=== PATIENT | female | born 1930 | race Caucasian/White ===

== ENCOUNTER 2018-07-07 20:18 | Observation (INO) | payer OTHER ==
[2018-07-07 22:20] LABS: Absolute Lymphocytes (CBC) 1.9 K/uL (0.7-4.9); Absolute Monocytes 0.6 K/uL (0.1-1.3); Absolute Neutrophil 5.4 K/uL (1.8-8.0); Basophils % 0.9 % (0-1.3); Eosinophils % 1.9 % (0-4.4); Hematocrit 31.8 % (36.0-45.0); Lymphocytes % 23.4 % (15.3-44.8); MPV 8.4 fL (7.6-11.3); Monocytes % 7.4 % (3.3-12.3)
[2018-07-07 22:30] LABS: Protime INR 1.22
[2018-07-07 22:33] LABS: ALT/SGPT 29 U/L (12-78); AST/SGOT 23 U/L (15-37); Albumin 2.8 g/dL (3.4-5.0); Alkaline Phosphatase 82 U/L (45-117); BUN Blood Urea Nitrogen 11 mg/dL (7-18); Bicarbonate 33 mmol/L (21-32); Bilirubin Direct 0.1 mg/dL (0-0.2); Bilirubin Total 0.3 mg/dL (0.2-1.0); Glucose Level 215 mg/dL (74-106); Magnesium 1.5 mg/dL (1.8-2.4); NT PRO-BNP 104 pg/mL (<450); Potassium 4.7 mmol/L (3.5-5.1); Protein, Total 6.4 g/dL (6.4-8.2); Sodium Level 143 mmol/L (136-145); Troponin (Emerg Dept Use Only) < 0.02 ng/mL (0.0-0.045)
[2018-07-08] MEDS ORDERED: NA CHLORIDE 0.9% 500 ML ONE (00:09)
[2018-07-08] MEDS ORDERED: Magnesium Sulfate 2gm IVPB 2 G/50 ML BAG IV ONE (00:09)
[2018-07-08 00:23] LABS: Urine Bacteria <20 /HPF (<20); Urine RBC <5 /HPF (NONE SEEN)
[2018-07-08 00:24] LABS: Urine Culture Reflex Order REFLEXED
[2018-07-08 00:26] LABS: Urine Blood TRACE (NEG); Urine Glucose NEGATIVE (NEG); Urine Protein NEGATIVE (NEG)
[2018-07-08] MEDS ORDERED: CEFTRIAXONE 1000 MG/VIAL ONE (01:15)
--- NOTE | 2018-07-08 01:29 | ER ---
Nurse's Notes [facility] Name: Kyung Quinones Age: 87 yrs Sex: Female : 1930 Arrival Date: 07/07/2018 Time: 20:22 Bed 18 Private MD: Diagnosis: Acute dyspnea;UTI Presentation: 07/07 20:30 Presenting complaint: Child states: "She lives at [facility] and the med aid told me lp1 that she became real short of breath walking back to room after dinner, stated she felt dizzy and if she stood back up she would pass out"; Denies any shortness of breath now, daughter states similar symptoms when diagnosed with pneumonia. Transition of care: patient was not received from another setting of care. Onset of symptoms was July 07, 2018 at 17:00. Risk Assessment: Do you want to hurt yourself or someone else? Patient reports no desire to harm self or others. Initial Sepsis Screen: Does the patient meet any 2 criteria? No. Patient's initial sepsis screen is negative. Does the patient have a suspected source of infection? No. Patient's initial sepsis screen is negative. Care prior to arrival: None. 20:30 Method Of Arrival: Wheelchair lp1 20:30 Acuity: YAS 3 lp1 Triage Assessment: 21:00 Respiratory: Reports shortness of breath Onset: The symptoms/episode began/occurred ea today, the patient has mild shortness of breath. 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 Thyroid 30 mg oral tab ea [Active]; promethazine 25 mg Oral tab 1 tab [Active]; glimepiride 4 mg Oral tab 1 tab once daily [Active]; metformin 500 mg Oral Tb24 1 tab 2 times per day [Active]; acyclovir 200 mg Oral cap [Active]; benzonatate 200 mg oral cap 1 cap [Active]; levalbuterol HCl 1.25 mg/3 mL inhalation nebu 3 mL 3 times per day [Active]; gabapentin 300 mg Oral cap 1 cap twice a day [Active]; Vitamin D3 5,000 unit oral tab [Active]; Eliquis 5 mg oral tab 1 tab [Active]; albuterol sulfate 2.5 mg/0.5 mL Inhl nebu 0.5 mL [Active]; cefdinir 300 mg oral cap 1 cap every 12 hours [Active]; Lipitor 40 mg Oral tab 1 tab once daily [Active]; fluconazole 200 mg Oral tab 1 tab once daily [Active]; Cipro 500 mg Oral tab 1 tab every 12 hours [Active]; - PMHx: 20:34 COLON CA; Diabetes - NIDDM; Hypertension; neuropathy; lp1 - PSHx: 21:27 Hysterectomy; Appendectomy; ea - Immunization history:: Pneumococcal vaccine is up to date, Flu vaccine is up to date. - Social history:: Smoking status: Patient/guardian denies using tobacco. - Ebola Screening: : No symptoms or risks identified at this time. - Family history:: not pertinent. - Hospitalizations: : No recent hospitalization is reported. Screenin:34 Abuse screen: Denies threats or abuse. Denies injuries from another. Nutritional lp1 screening: No deficits noted. Tuberculosis screening: No symptoms or risk factors identified. 21:00 Fall Risk Gait- Weak (10 pts.). ea Assessment: 20:50 General: Appears in no apparent distress. Behavior is calm, cooperative, appropriate ea for age. Pain: Denies pain. Neuro: Level of Consciousness is awake, alert, obeys commands, Oriented to person, place, time. Cardiovascular: Heart tones S1 S2 present. Respiratory: Airway is patent Respiratory effort is even, unlabored, Respiratory pattern is regular, symmetrical, Breath sounds are clear bilaterally. Breath sounds are diminished. GI: Abdomen is non-distended. Derm: Skin is pink, warm \\T\\ dry. 21:50 Reassessment: Patient and/or family updated on plan of care and expected duration. Pain ea level reassessed. Patient is alert, oriented x 3, equal unlabored respirations, skin warm/dry/pink. 22:28 Reassessment: Patient and/or family updated on plan of care and expected duration. Pain ea level reassessed. Patient is alert, oriented x 3, equal unlabored respirations, skin warm/dry/pink. 23:30 Reassessment: Patient and/or family updated on plan of care and expected duration. Pain ea level reassessed. Patient is alert, oriented x 3, equal unlabored respirations, skin warm/dry/pink. 07/08 00:18 Reassessment: Patient and/or family updated on plan of care and expected duration. Pain ea level reassessed. Patient is alert, oriented x 3, equal unlabored respirations, skin warm/dry/pink. Patient denies pain at this time. 01:00 Reassessment: Patient and/or family updated on plan of care and expected duration. Pain ea level reassessed. Patient is alert, oriented x 3, equal unlabored respirations, skin warm/dry/pink. Awaiting on results. Family at bedside. 02:33 Reassessment: Patient and/or family updated on plan of care and expected duration. Pain ea level reassessed. Patient is alert, oriented x 3, equal unlabored respirations, skin warm/dry/pink. Patient denies pain at this time. report called to receiving nurse on second floor. . 02:46 Reassessment: Patient and/or family updated on plan of care and expected duration. Pain ea level reassessed. Patient is alert, oriented x 3, equal unlabored respirations, skin warm/dry/pink. Pt taken to second floor via wheelchair per tech, pt tolerating well. Accompanied by son. Vital Signs: 07/07 20:32 BP 132 / 60; Pulse 77; Resp 20; Temp 98.9(O); Pulse Ox 94% on R/A; Weight 88 kg (R); lp1 Height 5 ft. 10 in. (177.80 cm); Pain 0/10; 22:27 BP 139 / 59; Pulse 76; Resp 18; Pulse Ox 96% on R/A; ea 23:30 BP 132 / 53; Pulse 70; Resp 18; Pulse Ox 95% on R/A; ea 07/08 00:00 BP 137 / 55; Pulse 67; Resp 18; Pulse Ox 96% ; ea 01:00 BP 146 / 65; Pulse 74; Resp 18; Pulse Ox 97% on R/A; ea 02:15 BP 142 / 65; Pulse 79; Resp 18; Pulse Ox 99% ; ea 07/07 20:32 Body Mass Index 27.84 (88.00 kg, 177.80 cm) lp1 ED Course: 07/07 20:22 Patient arrived in ED. es 20:32 Triage completed. lp1 20:32 Arm band placed on. lp1 20:50 Patient has correct armband on for positive identification. Bed in low position. Call ea light in reach. Side rails up X2. 20:53 Ethan Childs MD is Attending Physician. wa 21:12 Inés Mitchell RN is Primary Nurse. ea 21:58 XRAY Chest (1 view) In Process Unspecified. EDMS 22:05 Inserted saline lock: 22 gauge in left forearm, using aseptic technique. Blood ea collected. 07/08 01:28 Maranda Mcnamara MD is Hospitalizing Provider. wa 02:32 No provider procedures requiring assistance completed. Patient admitted, IV remains in ea place. Administered Medications: 00:17 Drug: Magnesium Sulfate 2 grams Route: IVPB; Infused Over: 2 hrs; Site: left forearm; ea 01:46 Follow up: Response: No adverse reaction; IV Status: Completed infusion; IV Intake: 50mlea 00:17 Drug: NS 0.9% 500 ml Route: IV; Rate: bolus; Site: left forearm; ea 01:42 Follow up: Response: No adverse reaction; IV Status: Completed infusion; IV Intake: ea 100ml 01:26 Drug: Rocephin - (cefTRIAXone) 1 grams Route: IVPB; Infused Over: 30 mins; Site: left ea forearm; 01:57 Not Given (Patient Refused): Aspirin Chewable Tablet 324 mg PO once; 81 mg tablets x 4 ea Intake: 01:42 IV: 100ml; Total: 100ml. ea 01:46 IV: 50ml; Total: 150ml. ea Outcome: 01:28 Decision to Hospitalize by Provider. wa 02:32 Admitted to Med/surg accompanied by nurse, via wheelchair, room 203, with chart, Report ea called to Receiving nurse on second floor. 02:32 Condition: stable 02:32 Instructed on the need for admit. 02:48 Patient left the ED. ea Signatures: Dispatcher [employer] EDYamileth Abdi Laura, RN RN [facility] Inés Mitchell RN RN ea Appiah, William, MD MD ia
--- NOTE | 2018-07-08 01:30 | EDPHYS ---
Physician Documentation [facility] Name: Kyung Quinones Age: 87 yrs Sex: Female : 1930 Arrival Date: 07/07/2018 Time: 20:22 Bed 18 Private MD: ED Physician Ethan Childs HPI: 07/07 22:53 This 87 yrs old Female presents to ER via Wheelchair with complaints of wa Dizziness, Breathing Difficulty, High Blood Sugar, Blood Pressure Problem. 22:53 This 87 yrs old Female presents to ER via Wheelchair with complaints of wa Dizziness, Breathing Difficulty, High Blood Sugar, Blood Pressure Problem. 22:53 The patient has shortness of breath with light activity, per family, pt became weak and wa SOB while [facility]. admits to generalized weakness for over 1 week. loss of appetite. states had "gas pain" in the chest for about 10 minutes yesterday. denies CP today. states feels better now. Onset: The symptoms/episode began/occurred just prior to arrival. Duration: The symptoms are continuous, but are steadily getting better. The patient's shortness of breath is aggravated by exertion, is alleviated by nothing. Associated signs and symptoms: Pertinent negatives: chest pain, non-productive cough, productive cough, diaphoresis, dizziness, fever, vomiting. Severity of symptoms: At their worst the symptoms were moderate in the emergency department the symptoms have improved markedly. The patient has experienced similar episodes in the past, several times. The patient has not recently seen a physician. 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 Thyroid 30 mg oral tab ea [Active]; promethazine 25 mg Oral tab 1 tab [Active]; glimepiride 4 mg Oral tab 1 tab once daily [Active]; metformin 500 mg Oral Tb24 1 tab 2 times per day [Active]; acyclovir 200 mg Oral cap [Active]; benzonatate 200 mg oral cap 1 cap [Active]; levalbuterol HCl 1.25 mg/3 mL inhalation nebu 3 mL 3 times per day [Active]; gabapentin 300 mg Oral cap 1 cap twice a day [Active]; Vitamin D3 5,000 unit oral tab [Active]; Eliquis 5 mg oral tab 1 tab [Active]; albuterol sulfate 2.5 mg/0.5 mL Inhl nebu 0.5 mL [Active]; cefdinir 300 mg oral cap 1 cap every 12 hours [Active]; Lipitor 40 mg Oral tab 1 tab once daily [Active]; fluconazole 200 mg Oral tab 1 tab once daily [Active]; Cipro 500 mg Oral tab 1 tab every 12 hours [Active]; - PMHx: 20:34 COLON CA; Diabetes - NIDDM; Hypertension; neuropathy; lp1 - PSHx: 21:27 Hysterectomy; Appendectomy; ea - Immunization history:: Pneumococcal vaccine is up to date, Flu vaccine is up to date. - Social history:: Smoking status: Patient/guardian denies using tobacco. - Ebola Screening: : No symptoms or risks identified at this time. - Family history:: not pertinent. - Hospitalizations: : No recent hospitalization is reported. ROS: 22:55 Constitutional: Negative for fever, chills, and weight loss, Eyes: Negative for injury, wa pain, redness, and discharge, ENT: Negative for injury, pain, and discharge, Neck: Negative for injury, pain, and swelling, Abdomen/GI: Negative for abdominal pain, nausea, vomiting, diarrhea, and constipation, Back: Negative for injury and pain, : Negative for injury, bleeding, discharge, and swelling, MS/Extremity: Negative for injury and deformity, Skin: Negative for injury, rash, and discoloration, Neuro: Negative for headache, weakness, numbness, tingling, and seizure, Psych: Negative for depression, anxiety, suicide ideation, homicidal ideation, and hallucinations. 22:55 Cardiovascular: Negative for chest pain, edema, orthopnea, palpitations, paroxysmal nocturnal dyspnea. 22:55 Respiratory: Positive for shortness of breath, on exertion. Negative for cough, orthopnea, pleurisy, wheezing. 22:55 All other systems are negative. Exam: 22:56 Constitutional: This is a well developed, well nourished patient who is awake, alert, wa and in no acute distress. Head/Face: Normocephalic, atraumatic. Eyes: Pupils equal round and reactive to light, extra-ocular motions intact. Lids and lashes normal. Conjunctiva and sclera are non-icteric and not injected. Cornea within normal limits. Periorbital areas with no swelling, redness, or edema. ENT: Nares patent. No nasal discharge, no septal abnormalities noted. Tympanic membranes are normal and external auditory canals are clear. Oropharynx with no redness, swelling, or masses, exudates, or evidence of obstruction, uvula midline. Mucous membranes moist. Neck: Trachea midline, no thyromegaly or masses palpated, and no cervical lymphadenopathy. Supple, full range of motion without nuchal rigidity, or vertebral point tenderness. No Meningismus. Chest/axilla: Normal chest wall appearance and motion. Nontender with no deformity. No lesions are appreciated. Cardiovascular: Regular rate and rhythm with a normal S1 and S2. No gallops, murmurs, or rubs. Normal PMI, no JVD. No pulse deficits. Respiratory: Lungs have equal breath sounds bilaterally, clear to auscultation and percussion. No rales, rhonchi or wheezes noted. No increased work of breathing, no retractions or nasal flaring. Abdomen/GI: Soft, non-tender, with normal bowel sounds. No distension or tympany. No guarding or rebound. No evidence of tenderness throughout. Back: No spinal tenderness. No costovertebral tenderness. Full range of motion. Skin: Warm, dry with normal turgor. Normal color with no rashes, no lesions, and no evidence of cellulitis. MS/ Extremity: Pulses equal, no cyanosis. Neurovascular intact. Full, normal range of motion. Neuro: Awake and alert, GCS 15, oriented to person, place, time, and situation. Cranial nerves II-XII grossly intact. Motor strength 5/5 in all extremities. Sensory grossly intact. Cerebellar exam normal. Normal gait. Psych: Awake, alert, with orientation to person, place and time. Behavior, mood, and affect are within normal limits. Vital Signs: 20:32 BP 132 / 60; Pulse 77; Resp 20; Temp 98.9(O); Pulse Ox 94% on R/A; Weight 88 kg (R); lp1 Height 5 ft. 10 in. (177.80 cm); Pain 0/10; 22:27 BP 139 / 59; Pulse 76; Resp 18; Pulse Ox 96% on R/A; ea 23:30 BP 132 / 53; Pulse 70; Resp 18; Pulse Ox 95% on R/A; ea 02 00:00 BP 137 / 55; Pulse 67; Resp 18; Pulse Ox 96% ; ea 01:00 BP 146 / 65; Pulse 74; Resp 18; Pulse Ox 97% on R/A; ea 02:15 BP 142 / 65; Pulse 79; Resp 18; Pulse Ox 99% ; ea 07/07 20:32 Body Mass Index 27.84 (88.00 kg, 177.80 cm) lp1 MDM: 07/07 20:53 Patient medically screened. mt 22:56 Differential diagnosis: CHF exacerbation, Chronic Obstructive Pulmonary Disease wa Myocardial Infarction pneumonia, Unstable Angina. 07/08 01:24 Data reviewed: vital signs, nurses notes, lab test result(s), EKG, radiologic studies. mt Test interpretation: by ED physician or midlevel provider: labs noted for hyperglycemia. anemia. low Mg. pyuria. CXR negative for acute process. 01:25 ED course: given rocephin IV for UTI. will admit for obs. r/o ACS. . mt 01:29 Test interpretation: by ED physician or midlevel provider: EKG: no acute STEMI. mt 07/07 21:25 Order name: Basic Metabolic Panel; Complete Time: 23:43 mt 07/07 21:25 Order name: CBC with Diff; Complete Time: 23:44 mt 07/07 21:25 Order name: LFT's; Complete Time: 23:44 mt 07/07 21:25 Order name: Magnesium; Complete Time: 23:44 mt 07/07 21:25 Order name: NT PRO-BNP; Complete Time: 23:44 mt 07/07 21:25 Order name: PT-INR; Complete Time: 23:44 mt 07/07 21:25 Order name: Troponin (emerg Dept Use Only); Complete Time: 23:44 mt 07/07 21:25 Order name: XRAY Chest (1 view) mt 07/07 21:25 Order name: Urine Microscopic Only mt 07/08 00:09 Order name: Urine Dipstick--Ancillary (enter results); Complete Time: 00:43 ar5 07/08 00:36 Order name: Urine Culture EDIA 07/07 21:25 Order name: EKG; Complete Time: 21:26 mt 07/07 21:25 Order name: Cardiac monitoring; Complete Time: 21:54 mt 07/07 21:25 Order name: EKG - Nurse/Tech; Complete Time: 21:54 mt 07/07 21:25 Order name: IV Saline Lock; Complete Time: 22:06 mt 07/07 21:25 Order name: Labs collected and sent; Complete Time: 22:06 mt 07/07 21:25 Order name: O2 Per Protocol; Complete Time: :54 mt 07/07 21:25 Order name: O2 Sat Monitoring; Complete Time: :54 mt 07/07 21:25 Order name: Urine Dipstick-Ancillary (obtain specimen); Complete Time: 00:17 mt Administered Medications: 00:17 Drug: Magnesium Sulfate 2 grams Route: IVPB; Infused Over: 2 hrs; Site: left forearm; ea 01:46 Follow up: Response: No adverse reaction; IV Status: Completed infusion; IV Intake: 50mlea 00:17 Drug: NS 0.9% 500 ml Route: IV; Rate: bolus; Site: left forearm; ea 01:42 Follow up: Response: No adverse reaction; IV Status: Completed infusion; IV Intake: ea 100ml 01:26 Drug: Rocephin - (cefTRIAXone) 1 grams Route: IVPB; Infused Over: 30 mins; Site: left ea forearm; 01:57 Not Given (Patient Refused): Aspirin Chewable Tablet 324 mg PO once; 81 mg tablets x 4 ea Disposition: 07/08/18 01:28 Hospitalization ordered by Maranda Mcnamara for Observation. Preliminary diagnosis are Acute dyspnea, UTI. - Bed requested for Telemetry/MedSurg (observation). - Status is Observation. ea - Condition is Stable. - Problem is new. - Symptoms have improved. UTI on Admission? Yes Signatures: Dispatcher [employer] EDPeam Milner RN RN kl Pena, Laura RN Inés Guadarrama RN RN ea Appiah, William, MD MD mt Corrections: (The following items were deleted from the chart) 02:23 01:28 Hospitalization Ordered by Maranda Mcnamara MD for Observation. Preliminary kl diagnosis is Acute dyspnea; UTI. Bed requested for Telemetry/MedSurg (observation). Status is Observation. Condition is Stable. Problem is new. Symptoms have improved. UTI on Admission? Yes. mt 02:48 02:23 07/08/2018 01:28 Hospitalization Ordered by Maranda Mcnamara MD for Observation. ea Preliminary diagnosis is Acute dyspnea; UTI. Bed requested for Telemetry/MedSurg (observation). Status is Observation. Condition is Stable. Problem is new. Symptoms have improved. UTI on Admission? Yes. kl
[2018-07-08] MEDS ORDERED: ASPIRIN 81 MG CHEWABLE TABLET ONE (02:07)
[2018-07-08] MEDS ORDERED: ONDANSETRON 4 MG/2 ML VIAL IV PRN (02:48)
[2018-07-08 02:59] VITALS: BMI 26.6
[2018-07-08] MEDS: NA CHLORIDE 0.9% 1,000 ML IV SCH ×3 (03:22→21:42)
[2018-07-08 04:27] VITALS: O2SAT 96
--- NOTE | 2018-07-08 05:00 | P.HP ---
Certification for Inpatient Patient admitted to: Observation With expected LOS: <2 Midnights Practitioner: I am a practitioner with admitting privileges, knowledge of patient current condition, hospital course, and medical plan of care. Services: Services provided to patient in accordance with Admission requirements found in Title 42 Section 412.3 of the Code of Federal Regulations Patient History Date of Service: 07/08/18 Reason for admission: UTI, dyspnea History of Present Illness: Ms Quinones is an 87 years old woman with history of DM II, HTN, DVT, resident [place] local [place], who become dizzy and complain of SOB while she as walking back to her room from having dinner. She was using a walker, and had to stood down because almost passed out. There are no history of fever or chills. No nausea or vomiting. At arrival to ED the patient was in non-distress, dizziness and already resolved. She denied chest pain. Lab work was remarkable for abnormal UA consistent with UTI, WBC within normal limits. CXR shows no acute infiltrate. Allergies iodine Allergy (Unknown, Verified 07/08/18 03:27) Hives/Rash Sulfa (Sulfonamide Antibiotics) Allergy (Unknown, Verified 07/08/18 03:27) Hives/Rash Home medications list reviewed: Yes Home Medications: Acetaminophen [Tylenol] 650 mg PO QIDP PRN 07/08/18 Acyclovir [Zovirax] 200 mg PO QIDP PRN 07/08/18 Albuterol Sulfate [Albuterol Sulfate 0.083% Neb Soln] 3 ml IH Q6HP PRN 07/08/18 Albuterol Sulfate [Proair Respiclick] 2 puff IH Q6HP PRN 07/08/18 Apixaban [Eliquis] 5 mg PO BID 07/08/18 Atenolol [Tenormin] 25 mg PO BID 07/08/18 Atorvastatin Calcium [Lipitor] 40 mg PO BEDTIME 07/08/18 Benzonatate 200 mg PO TIDP PRN 07/08/18 Cholecalciferol (Vitamin D3) [Vitamin D3] 5,000 unit PO DAILY 07/08/18 Cyanocobalamin (Vitamin B-12) [Cyanocobalamin Injection] 1,000 mcg IJ Q14D 07/08 Gabapentin 300 mg PO 0800,1400 07/08/18 Gabapentin 600 mg PO BEDTIME 07/08/18 Glimepiride 4 mg PO BID 07/08/18 Lisinopril [Prinivil] 20 mg PO BID 07/08/18 Metformin HCl [Glucophage] 500 mg PO BIDWM 07/08/18 Mupirocin Cream [Bactroban 2% Cream] 1 appl TOP BIDP PRN 07/08/18 Promethazine HCl 25 mg PO Q8HP PRN 07/08/18 Rizatriptan Benzoate [Rizatriptan] 5 mg PO Q2HP PRN MDD 30 mg 07/08/18 Silver Sulfadiazine [Silvadene 1% Cream] 1 appl TOP BID 07/08/18 Thyroid,Pork [Flagsetter Thyroid] 30 mg PO DAILY 07/08/18 Turmeric/Turmeric Root Extract [Turmeric 500 mg Capsule] 3 cap PO DAILY - Past Medical/Surgical History Has patient received pneumonia vaccine in the past: Yes Diabetic: Yes -: Diabetes mellitus type 2 -: Hypertension -: Neuropathy -: Venous insufficiency -: History of colon cancer, radiation/colectomy -: History of DVT Left -: History of distant tobacco abuse -: Appendectomy -: Hysterectomy -: Colectomy -: Hemorrhoid surgery -: Cholecystectomy -: Throat surgery -: hernia repair 12/06/16 -: vein surgeries both legs 2015 Psychosocial/ Personal History: She is a , has 4 children, she does not work. - Family History Mother -: Cancer Father -: Lung disease Notes: emphycema Sister -: Lung disease, Stroke Notes: both lungs - Social History Smoking Status: Former smoker Alcohol use: No CD- Drugs: No Caffeine use: Yes Place of Residence: [place] Review of Systems 10-point ROS is otherwise unremarkable Physical Examination - Vital Signs Temperature: 97.9 F Blood Pressure: 136/66 Pulse: 78 Respirations: 19 Pulse Ox (%): 92 - Physical Exam General: Alert, In no apparent distress HEENT: Atraumatic, PERRLA, Mucous membr. moist/pink, EOMI, Sclerae nonicteric Neck: Supple, 2+ carotid pulse no bruit, No LAD, Without JVD or thyroid abnormality Respiratory: Clear to auscultation bilaterally, Normal air movement Cardiovascular: Normal S1 S2, No gallops Gastrointestinal: Normal bowel sounds, No tenderness Musculoskeletal: No tenderness Integumentary: No rashes Neurological: Normal speech, Normal strength at 5/5 x4 extr, Normal tone, Normal affect Lymphatics: No axilla or inguinal lymphadenopathy - Studies Laboratory Data (last 24 hrs) 07/07/18 22:00: PT 14.3 H, INR 1.22 07/07/18 22:00: WBC 8.1, Hgb 10.4 L, Hct 31.8 L, Plt Count 287 07/07/18 22:00: Sodium 143, Potassium 4.7, BUN 11, Creatinine 0.78, Glucose 215 H, Magnesium 1.5 L, Total Bilirubin 0.3, AST 23, ALT 29, Alkaline Phosphatase 82 Assessment and Plan - Problems (Diagnosis) (1) Dizziness Current Visit: Yes Status: Acute (2) UTI (urinary tract infection) Current Visit: Yes Status: Acute Qualifiers: Urinary tract infection type: acute cystitis Hematuria presence: without hematuria Qualified Code(s): N30.00 - Acute cystitis without hematuria (3) Dyspnea Onset Date: 04/16/16 Current Visit: No Status: Acute Qualifiers: Dyspnea type: unspecified Qualified Code(s): R06.00 - Dyspnea, unspecified (4) Diabetes mellitus Onset Date: 04/16/16 Current Visit: No Status: Chronic Qualifiers: Diabetes mellitus type: type 2 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 Will start empiric treatment with Rocephin. Urine culture in process. Also will order D-dimer since PE is within the differential diagnosis since the patient has history of venous thrombotic episodes. - Advance Directives Does patient have a Living Will: No Does patient have a Durable POA for Healthcare: No - Code Status/Comfort Care Code Status Assessed: Yes Code Status: Full Code
[2018-07-08 06:25] LABS: Potassium 4.1 mmol/L (3.5-5.1)
--- NOTE | 2018-07-08 06:33 | EKG ---
Test Date: 2018-07-07 Test Time: 21:49:34 Wearing Apparel Folder: ANGELICA MEASUREMENT RESULTS: Intervals: Rate: 73 CA: 210 QRSD: 124 QT: 430 QTc: 473 Beason: P: 80 CA: 210 QRS: -65 T: 0 INTERPRETIVE STATEMENTS: Sinus rhythm with sinus arrhythmia with 1st degree AV block Right bundle branch block Left axis Abnormal ECG Compared to ECG 04/15/2016 12:57:01 First degree AV block now present Sinus tachycardia no longer present Myocardial infarct finding no longer present Electronically Signed On 07-08-18 06:25:56 [employer] by Taj Jang
[2018-07-08] MEDS: INSULIN -REGULAR HUMAN 50 UNIT/0.5 ML ML SQ SCH ×4 (07:30→21:00)
[2018-07-08] MEDS ORDERED: CEFTRIAXONE 1 GM/NS 50 ML 1 GM/50 ML BAG IV SCH (09:00)
[2018-07-08] MEDS ORDERED: ENOXAPARIN 80 MG/0.8 ML SQ SCH (09:00)
[2018-07-08] MEDS ORDERED: ENOXAPARIN 40 MG/0.4 ML SQ SCH ×2 (09:00)
--- NOTE | 2018-07-08 09:04 | RAD REPORT ---
EXAM DESCRIPTION: Ran Single View07/07/2018 9:57 pm CLINICAL HISTORY: Shortness of breath COMPARISON: January 2018 FINDINGS: The lungs appear clear of acute infiltrate. The heart is mildly enlarged IMPRESSION: No acute abnormalities displayed
[2018-07-08 09:25] LABS: Absolute Lymphocytes (CBC) 1.8 K/uL (0.7-4.9); Absolute Monocytes 0.5 K/uL (0.1-1.3); Absolute Neutrophil 5.2 K/uL (1.8-8.0); Eosinophils % 1.9 % (0-4.4); Hematocrit 32.1 % (36.0-45.0); Lymphocytes % 22.6 % (15.3-44.8); MPV 8.9 fL (7.6-11.3)
[2018-07-08] MEDS ORDERED: ALBUTEROL 2.5 MG/3 ML NEB SOL IH PRN (09:56)
[2018-07-08] MEDS: ACETAMINOPHEN 500 MG TAB PO PRN ×2 (10:49→21:51)
[2018-07-08] MEDS: APIXABAN 5 MG TABLET PO SCH ×2 (10:50→21:36)
[2018-07-08] MEDS: CEFTRIAXONE/SWI 1gm 1 GM/10 ML SYR IV SCH (10:50)
[2018-07-08] MEDS: GABAPENTIN 300 MG CAP PO SCH (14:00)
--- NOTE | 2018-07-08 17:20 | PN ---
Date of Progress Note: 07/08/2018 Subjective: The patient seen and examined. Chart reviewed, and case discussed with RN. The patient states that she still feels a little bit wobbly on her feet, however, was able to get up and go to t he bedside commode. No further dizziness. Medications: List reviewed. Physical Examination: Vital Signs: Temperature 98, heart rate 88, blood pressure 139/62, respirations 20, O2 95% on room a ir. General: Awake, alert, oriented x3. Elderly female, somewhat ill-appearing. CV: S1, S2. No murmurs. Peripheral pulses present. Respiratory: Moving air well bilaterally. No wheezing or stridor. Gastrointestinal: Abdomen is soft, nontender, nondistended. Positive bowel sounds. Extremities: No clubbing, cyanosis, or edema. Neuro: Cranial nerves 2 through 12 intact grossly. No focal neurological deficit. Speech is normal . Laboratory Data: Sodium 142, potassium 4.1, chloride 108, CO2 30, BUN 9, creatinine 0.64, glucose 13 8, calcium 9, magnesium 2. WBC 7, H and H 10.4 and 32.1, platelets 293. Urine culture pending. Assessment And Plan: An 87-year-old female with: 1.Dizziness, may be related to acute dehydration versus orthostatic hypotension. We will have Physi eran Therapy evaluate the patient and ambulate with assist. We will check orthostatic vital signs. C ontinue with IV fluids. May also be secondary to urinary tract infection. 2.Urinary tract infection, acute cystitis without hematuria. Urine culture is pending. Continue IV antibiotics. Follow up on culture results. 3.Dyspnea. 4.Diabetes mellitus type 2 without long-term use of insulin with hyperglycemia. 5.History of deep venous thrombosis. The patient is on Eliquis. D-dimer is negative. 6.Deep venous thrombosis prophylaxis. The patient is on chronic anticoagulation with Eliquis. Plan: Continue IV antibiotics. PT evaluation. Check orthostatic vital signs. Likely discharge in a.m. once improved. The patient is a resident of assisted living facility. /VIDYA Voice ID: [id number] Report ID: [id number]
[2018-07-08] MEDS ORDERED: SILVER SULFADIAZINE 1% 25 GM TOP SCH (21:00)
[2018-07-08] MEDS ORDERED: ATORVASTATIN 40 MG TAB PO SCH (21:00)
[2018-07-08] MEDS ORDERED: GABAPENTIN 300 MG CAP PO SCH (21:00)
[2018-07-08] MEDS: LISINOPRIL 20 MG TAB PO SCH (21:36)
[2018-07-08] MEDS: ATENOLOL 25 MG TAB PO SCH (21:37)
[2018-07-08] MEDS: GLIMEPIRIDE 2 MG TABLET PO SCH (21:37)
[2018-07-09] MEDS ORDERED: THYROID 30 MG TAB PO SCH (06:00)
[2018-07-09 06:19] LABS: Absolute Lymphocytes (CBC) 1.6 K/uL (0.7-4.9); Absolute Monocytes 0.5 K/uL (0.1-1.3); Absolute Neutrophil 3.5 K/uL (1.8-8.0); Eosinophils % 3.1 % (0-4.4); Hematocrit 29.9 % (36.0-45.0); Lymphocytes % 27.8 % (15.3-44.8); MPV 8.7 fL (7.6-11.3); Monocytes % 8.5 % (3.3-12.3); RBC Red Blood Cell Count 3.34 M/uL (3.86-4.86)
[2018-07-09 06:52] LABS: Potassium 4.3 mmol/L (3.5-5.1)
[2018-07-09] MEDS: INSULIN -REGULAR HUMAN 50 UNIT/0.5 ML ML SQ SCH (07:30)
[2018-07-09 08:16] VITALS: BP 145/63; TEMP 97.6
[2018-07-09] MEDS: ATENOLOL 25 MG TAB PO SCH (08:24)
[2018-07-09] MEDS: GABAPENTIN 300 MG CAP PO SCH (08:24)
[2018-07-09] MEDS: CEFTRIAXONE/SWI 1gm 1 GM/10 ML SYR IV SCH (08:24)
[2018-07-09] MEDS: APIXABAN 5 MG TABLET PO SCH (08:25)
[2018-07-09] MEDS: LISINOPRIL 20 MG TAB PO SCH (08:25)
[2018-07-09] MEDS: GLIMEPIRIDE 2 MG TABLET PO SCH (08:25)
[2018-07-09] MEDS: NA CHLORIDE 0.9% 1,000 ML IV SCH (08:26)
--- NOTE | 2018-07-10 06:32 | DS ---
Date of Discharge: 07/09/2018 Discharge Diagnoses: 1.Dizziness. 2.Acute cystitis without hematuria. 3.Dyspnea, resolved. 4.Diabetes mellitus type 2 with long-term use of insulin with hyperglycemia. 5.History of deep venous thrombosis. 6.History of colon cancer, status post partial colectomy. 7.Diabetic neuropathy. 8.History of deep venous thrombosis, left lower extremity. Hospital Course: The patient is an 87-year-old female from assisted living facility, who comes in [facility] dizziness and shortness of breath. The patient did feel dizzy as well. She was admitted to the [facility] for further evaluation. Upon arrival, her white blood cell count was normal. Workup includi ng D-dimer was negative. She was found to have a UTI and was started on IV antibiotics. Her urine c ultures showed mixed sebastian. The patient's blood pressure remained stable. She did have some orthost atic hypotension. She was counseled regarding fall due to orthostatic hypotension. She will need to remain seated for several minutes before standing up and to allow her body to adjust blood pressure. The patient worked well with physical therapy and was able to ambulate well with her walker. She w as recommended to be set up with home health and PT. Overall, did well, was able to ambulate 85 feet . The patient was then feeling significantly better. She was then cleared for discharge. She does not have any further dizziness or hypotension or shortness of breath. The patient was then discharge d back to [facility] with Home Health and PT to be set up. Medications: As per medication reconciliation list. She will finish up a course of antibiotics for UTI. Followup: Follow up with primary care physician in 2-3 days. Return to ER for worsening condition. Diet: Diabetic. Activity: Fall precautions. Physical Examination: General: Awake, alert, and oriented x3, elderly female, in no acute distress. CV: S1, S2. Respiratory: Moving air well bilaterally. Abdomen: Soft, nontender, and nondistended. Positive bowel sounds. Extremities: No clubbing or cyanosis. No edema. Neurologic: Nonfocal. The patient does have numbness and tingling of bilateral lower extremities. SA/MODL Voice ID: [id number] Report ID: [id number]
== END 2018-07-09 12:21 | disposition home health service (06) ==
LOC: ER 20:18 → ERHOLD 07-08 02:18 → 2ND 07-08 02:32
PROVIDERS: ADMIT Internal Medicine; ATTEND Internal Medicine
DX: N30.00 Acute cystitis without hematuria (principal); R42 Dizziness and giddiness; R06.00 Dyspnea, unspecified; I10 Essential (primary) hypertension; E11.65 Type 2 diabetes mellitus with hyperglycemia; E11.40 Type 2 diabetes mellitus with diabetic neuropathy, unspecified; Z86.718 Personal history of other venous thrombosis and embolism; Z88.2 Allergy status to sulfonamides; Z85.038 Personal history of other malignant neoplasm of large intestine; Z87.891 Personal history of nicotine dependence
CPT/HCPCS: 36415 ×2; 71045; 80048 ×3; 80076; 82962 ×3; 83735 ×2; 83880; 84443; 84484; 85025 ×3; 85379; 85610; 87086; 87088; 93005; 94760 ×3; 96365; 96375; 97163; 99285; G0378 ×2; J0696 ×2; J2405; J3475; J7030 ×4; 81003; 81015; J1650

== ENCOUNTER 2018-09-13 13:48 | Emergency (ER) | payer OTHER ==
--- NOTE | 2018-09-13 14:24 | EDPHYS ---
Physician Documentation [facility] Name: Kyung Quinones Age: 87 yrs Sex: Female : 1930 Arrival Date: 09/13/2018 Time: 13:51 Bed 18 Private MD: Brenden Limon ED Physician Calixto Mayes HPI: 09/13 14:18 This 87 yrs old Female presents to ER via Ambulatory with complaints of Wound snw Infection. 14:18 Onset: The symptoms/episode began/occurred gradually, 1 day(s) ago. Associated signs snw and symptoms: Pertinent positives: pustules forming in skin tear in past 1-2 days. It is unknown whether or not the patient has had similar symptoms in the past. It is unknown whether or not the patient has recently seen a physician. several days ago a box fan fell over onto left hand and pt sustained a skin tear. Area is a bit more erythematous today. Historical: - Allergies: 14:05 Iodine; sv 14:05 Sulfa (Sulfonamide Antibiotics); sv - PMHx: 14:05 COLON CA; Diabetes - NIDDM; Hypertension; neuropathy; sv - PSHx: 14:05 Hysterectomy; Appendectomy; sv - Immunization history:: Adult Immunizations unknown. - Social history:: Smoking status: Patient/guardian denies using tobacco. - Ebola Screening: : No symptoms or risks identified at this time. ROS: 14:18 Constitutional: Negative for fever, chills, and weight loss, Eyes: Negative for injury, snw pain, redness, and discharge, ENT: Negative for injury, pain, and discharge, Neck: Negative for injury, pain, and swelling, Cardiovascular: Negative for chest pain, palpitations, and edema, Respiratory: Negative for shortness of breath, cough, wheezing, and pleuritic chest pain, Abdomen/GI: Negative for abdominal pain, nausea, vomiting, diarrhea, and constipation, Back: Negative for injury and pain, : Negative for injury, bleeding, discharge, and swelling, MS/Extremity: Negative for injury and deformity, Neuro: Negative for headache, weakness, numbness, tingling, and seizure, Psych: Negative for depression, anxiety, suicide ideation, homicidal ideation, and hallucinations. 14:18 Skin: Positive for cellulitis, of the left hand. Exam: 14:17 Constitutional: This is a well developed, well nourished patient who is awake, alert, snw and in no acute distress. Head/Face: Normocephalic, atraumatic. Eyes: Pupils equal round and reactive to light, extra-ocular motions intact. Lids and lashes normal. Conjunctiva and sclera are non-icteric and not injected. Cornea within normal limits. Periorbital areas with no swelling, redness, or edema. ENT: Nares patent. No nasal discharge, no septal abnormalities noted. Tympanic membranes are normal and external auditory canals are clear. Oropharynx with no redness, swelling, or masses, exudates, or evidence of obstruction, uvula midline. Mucous membranes moist. Neck: Trachea midline, no thyromegaly or masses palpated, and no cervical lymphadenopathy. Supple, full range of motion without nuchal rigidity, or vertebral point tenderness. No Meningismus. Chest/axilla: Normal chest wall appearance and motion. Nontender with no deformity. No lesions are appreciated. Cardiovascular: Regular rate and rhythm with a normal S1 and S2. No gallops, murmurs, or rubs. Normal PMI, no JVD. No pulse deficits. Respiratory: Lungs have equal breath sounds bilaterally, clear to auscultation and percussion. No rales, rhonchi or wheezes noted. No increased work of breathing, no retractions or nasal flaring. Abdomen/GI: Soft, non-tender, with normal bowel sounds. No distension or tympany. No guarding or rebound. No evidence of tenderness throughout. Back: No spinal tenderness. No costovertebral tenderness. Full range of motion. MS/ Extremity: Pulses equal, no cyanosis. Neurovascular intact. Full, normal range of motion. Neuro: Awake and alert, GCS 15, oriented to person, place, time, and situation. Cranial nerves II-XII grossly intact. Motor strength 5/5 in all extremities. Sensory grossly intact. Cerebellar exam normal. Normal gait. Psych: Awake, alert, with orientation to person, place and time. Behavior, mood, and affect are within normal limits. 14:17 Skin: cellulitis, that is mild, well demarcated, on the left hand. Vital Signs: 14:05 BP 111 / 99; Pulse 115; Resp 16; Temp 98.8; Pulse Ox 100% ; Height 5 ft. 8 in. (172.72 sv cm); MDM: 14:10 Patient medically screened. snw 14:25 Data reviewed: vital signs, nurses notes. Data interpreted: Pulse oximetry: on room air snw is 100 %. Interpretation: normal. Counseling: I had a detailed discussion with the patient and/or guardian regarding: the historical points, exam findings, and any diagnostic results supporting the discharge/admit diagnosis, the presence of at least one elevated blood pressure reading (>120/80) during this emergency department visit, the need for outpatient follow up, to return to the emergency department if symptoms worsen or persist or if there are any questions or concerns that arise at home. Special discussion: I have referred the patient to see his PCP for further evaluation of high blood pressure. I discussed in detail with the patient the higher chance of wound infection based on his presenting history. Based on the history and exam findings, there is no indication for further emergent testing or inpatient evaluation. I discussed with the patient/guardian the need to see the primary care provider for further evaluation of the symptoms. Administered Medications: 15:09 Drug: Hibiclens 4 % 1 application Route: Topical; Site: affected area; ph 15:40 Follow up: Response: No adverse reaction ph 15:15 Drug: Clindamycin 300 mg Route: PO; ph 15:40 Follow up: Response: No adverse reaction ph 15:15 Drug: Tetanus-Diphtheria Toxoid Adult 0.5 ml {Care Program Resident: [email or web address]. Exp: ph 07/13/2020. Lot #: [id number]. } Route: IM; Site: right deltoid; 15:40 Follow up: Response: No adverse reaction ph Disposition: 16:20 Co-signature as Attending Physician, Calixto Mayes MD. rn Disposition: 09/13/18 14:23 Discharged to Home. Impression: Cellulitis of left upper limb - hand. - Condition is Stable. - Discharge Instructions: Cellulitis, Adult, VIS, Tetanus, Diphtheria (Td) - CDC, Heat Therapy. - Prescriptions for Clindamycin HCl 150 mg Oral Capsule - take 1 capsule by ORAL route every 6 hours for 10 days; 40 capsule. - Medication Reconciliation Form, Thank You Letter, Antibiotic Education, Prescription Opioid Use form. - Follow up: Brenden Limon; When: 2 - 3 days; Reason: Recheck today's complaints, Continuance of care, Re-evaluation by your physician. Follow up: Emergency Department; When: As needed; Reason: Worsening of condition. - Notes: Please wash dorsum of left handwith Hibiclens twice daily x 10 days Signatures: Vandana Mooney RN RN Jaylin Hilario, DRY CURE WORKER-C DRY CURE WORKER-Csnw Calixto Mayes MD MD rn Hall, Patricia, RN RN ph Corrections: (The following items were deleted from the chart) 15:43 14:23 09/13/2018 14:23 Discharged to Home. Impression: Cellulitis of left upper limb - ph hand. Condition is Stable. Forms are Medication Reconciliation Form, Thank You Letter, Antibiotic Education, Prescription Opioid Use. Follow up: Brenden Limon; When: 2 - 3 days; Reason: Recheck today's complaints, Continuance of care, Re-evaluation by your physician. Follow up: Emergency Department; When: As needed; Reason: Worsening of condition. snw
--- NOTE | 2018-09-13 14:24 | ER ---
Nurse's Notes [facility] Name: Kyung Quinones Age: 87 yrs Sex: Female : 1930 Arrival Date: 09/13/2018 Time: 13:51 Bed 18 Private MD: Brenden Limon Diagnosis: Cellulitis of left upper limb-hand Presentation: 09/13 13:59 Presenting complaint: Patient states: left hand skin tear happened about 2 weeks ago sv and the swelling and redness has increased. Pt has been cleaning it and covering it at home. Transition of care: patient was not received from another setting of care. Onset of symptoms is unknown. Care prior to arrival: None. 13:59 Method Of Arrival: Ambulatory sv 13:59 Acuity: YAS 3 sv 14:30 Risk Assessment: Do you want to hurt yourself or someone else? Patient reports no ph desire to harm self or others. Initial Sepsis Screen: Does the patient meet any 2 criteria? No. Patient's initial sepsis screen is negative. Does the patient have a suspected source of infection? Yes: Skin breakdown/wound. Triage Assessment: 14:00 General: Appears in no apparent distress. comfortable, Behavior is calm, cooperative, sv appropriate for age. Pain: Complains of pain in left hand. Neuro: Level of Consciousness is awake, alert, obeys commands, Oriented to person, place, time, situation, Gait is steady. Respiratory: Respiratory effort is even, unlabored, Respiratory pattern is regular, symmetrical. Derm: Wound noted dorsum of left hand Wound is swelling, redness noted, started off as a skin tear. Historical: - Allergies: 14:05 Iodine; sv 14:05 Sulfa (Sulfonamide Antibiotics); sv - PMHx: 14:05 COLON CA; Diabetes - NIDDM; Hypertension; neuropathy; sv - PSHx: 14:05 Hysterectomy; Appendectomy; sv - Immunization history:: Adult Immunizations unknown. - Social history:: Smoking status: Patient/guardian denies using tobacco. - Ebola Screening: : No symptoms or risks identified at this time. Screenin:30 Abuse screen: Denies threats or abuse. Denies injuries from another. Nutritional ph screening: No deficits noted. Tuberculosis screening: No symptoms or risk factors identified. Fall Risk None identified. Assessment: 14:30 General: Appears in no apparent distress. comfortable, well groomed, Behavior is calm, ph cooperative, appropriate for age, Denies fever. Pain: Complains of pain in left hand. Neuro: Level of Consciousness is awake, alert, obeys commands, Oriented to person, place, time, situation. Cardiovascular: Capillary refill < 3 seconds in bilateral fingers Patient's skin is warm and dry. Respiratory: Airway is patent Respiratory effort is even, unlabored. GI: No signs and/or symptoms were reported involving the gastrointestinal system. Patient currently denies nausea, vomiting. Derm: Skin is fragile, is thin, Skin is pink, warm \T\ dry. Musculoskeletal: Circulation, motion, and sensation intact. Range of motion: intact in all extremities, Swelling present in dorsum of left hand. 15:40 Reassessment: Patient appears in no apparent distress at this time. Patient and/or ph family updated on plan of care and expected duration. Pain level reassessed. Patient is alert, oriented x 3, equal unlabored respirations, skin warm/dry/pink. Pt d/c home w/ daughetr. Vital Signs: 14:05 BP 111 / 99; Pulse 115; Resp 16; Temp 98.8; Pulse Ox 100% ; Height 5 ft. 8 in. (172.72 sv cm); ED Course: 13:51 Patient arrived in ED. mr 13:52 Brenden Limon is Private Physician. mr 14:05 Triage completed. sv 14:06 Arm band placed on. sv 14:09 Jaylin Vale FNP-C [facility]. snw 14:09 Calixto Mayes MD is Attending Physician. snw 14:22 Brenden Limon is Referral Physician. snw 14:30 Patient has correct armband on for positive identification. Bed in low position. Call ph light in reach. Pulse ox on. NIBP on. Warm blanket given. 15:00 Wound care: to cellulitis located on left hand was cleaned with Hibiclens, soaked in jp3 Hibiclens solution, irrigated with normal saline, dressed with 4X4s, Patient tolerated well. 15:06 Daniella Senior, ELIAN is Primary Nurse. ph 15:40 No provider procedures requiring assistance completed. Patient did not have IV access ph during this emergency room visit. Administered Medications: 15:09 Drug: Hibiclens 4 % 1 application Route: Topical; Site: affected area; ph 15:40 Follow up: Response: No adverse reaction ph 15:15 Drug: Clindamycin 300 mg Route: PO; ph 15:40 Follow up: Response: No adverse reaction ph 15:15 Drug: Tetanus-Diphtheria Toxoid Adult 0.5 ml {Business Transformation Consultant: [employer]. Exp: ph 07/13/2020. Lot #: [id number]. } Route: IM; Site: right deltoid; 15:40 Follow up: Response: No adverse reaction ph Outcome: 14:23 Discharge ordered by . susanna 15:43 Patient left the ED. ph 15:43 Discharged to home ambulatory, with family. ph 15:43 Condition: good 15:43 Discharge instructions given to patient, family, Instructed on discharge instructions, follow up and referral plans. medication usage, wound care, Demonstrated understanding of instructions, follow-up care, medications, wound care, Prescriptions given X 1. Signatures: Vandana Mooney, ELIAN PLUMMER Jaylin Vale, RESEARCH SPEC-C RESEARCH SPEC-Rosibel Lin Patricia, RN RN Rogers Soni 3
[2018-09-13] MEDS ORDERED: CLINDAMYCIN HCL 150 MG CAP ONE (15:23)
[2018-09-13] MEDS ORDERED: TETANUS & DIPHTHERIA TOX,ADULT 0.5 ML VIAL ONE (15:23)
[2018-09-13 16:12] VITALS: BP 111/99; TEMP 98.8; O2SAT 100
== END 2018-09-13 15:43 | disposition home or self-care (01) ==
LOC: ER 13:48
DX: L03.114 Cellulitis of left upper limb (principal); Z23 Encounter for immunization
CPT/HCPCS: 90714; 99284

== ENCOUNTER 2018-11-08 19:54 | Emergency (ER) | payer OTHER ==
--- NOTE | 2018-11-08 20:39 | RAD REPORT ---
EXAM DESCRIPTION: RAD - Elbow Left 3 View - 11/08/2018 8:24 pm CLINICAL HISTORY: Left elbow pain following trauma COMPARISON: None. FINDINGS: No fracture is identified and no elevated posterior fat pad. There is no dislocation or pe riosteal reaction noted. No acute or destructive bony process seen. Marginal spurs are present at th e ulna humerus articulation medial margin. No soft tissue abnormality. 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 No acute bone, joint or soft ti ssue finding seen.
--- NOTE | 2018-11-08 20:40 | RAD REPORT ---
EXAM DESCRIPTION: RAD - Humerus Left - 11/08/2018 8:24 pm CLINICAL HISTORY: Left arm pain following trauma COMPARISON: None. FINDINGS: No fracture is identified. There is no dislocation or periosteal reaction noted. Minimal degenerative changes are present at the AC joint and along the undersurface of the acromion. There ar e degenerative changes at the ulna humerus articulation medial margin. Small marginal spurs are prese nt along the inferior articular margin of the humeral head. 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 No acute finding.
--- NOTE | 2018-11-08 20:44 | EDPHYS ---
Physician Documentation [facility] Name: Kyung Quinones Age: 88 yrs Sex: Female : 1930 Arrival Date: 11/08/2018 Time: 20:04 Bed 26 Private MD: Brenden Limon ED Physician Calixto Mayes HPI: 11/08 20:22 This 88 yrs old Female presents to ER via Wheelchair with complaints of Elbow kb Injury. 20:22 The patient or guardian complains of injury, pain, that is acute, tenderness. The kb complaints affect the left elbow. Context: The problem was sustained at home, resulted from a direct blow, by a solid object. Onset: The symptoms/episode began/occurred today. Treatment prior to arrival includes: no previous treatment. Modifying factors: The symptoms are alleviated by nothing. the symptoms are aggravated by nothing. Associated signs and symptoms: The patient has no apparent associated signs or symptoms. Severity of symptoms: At their worst the symptoms were mild, moderate, in the emergency department the symptoms are unchanged. The patient has not experienced similar symptoms in the past. The patient has not recently seen a physician. Pt states she kept hitting her elbow on the counter next to the toilet. c/o elbow pain that radiates down to forth and fifth digits. Full ROM noted. . Historical: - Allergies: 20:11 Iodine; lp1 20:11 IV contrast; lp1 20:11 Sulfa (Sulfonamide Antibiotics); lp1 - Home Meds: 20:11 acyclovir 200 mg Oral cap [Active]; albuterol sulfate 2.5 mg/0.5 mL Inhl nebu 0.5 mL lp1 [Active]; atenolol 25 mg Oral tab 1 tab 2 times per day [Active]; benzonatate 200 mg Oral cap 1 cap [Active]; cefdinir 300 mg Oral cap 1 cap every 12 hours [Active]; Cipro 500 mg Oral tab 1 tab every 12 hours [Active]; Eliquis 5 mg Oral tab 1 tab [Active]; fluconazole 200 mg Oral tab 1 tab once daily [Active]; gabapentin 300 mg Oral cap 1 cap twice a day [Active]; glimepiride 4 mg Oral tab 1 tab once daily [Active]; levalbuterol HCl 1.25 mg/3 mL inhalation nebu 3 mL 3 times per day [Active]; Lipitor 40 mg Oral tab 1 tab once daily [Active]; metformin 500 mg Oral Tb24 1 tab 2 times per day [Active]; 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 - Social history:: Smoking status: Patient/guardian denies using tobacco. - Ebola Screening: : No symptoms or risks identified at this time. ROS: 20:22 Constitutional: Negative for fever, chills, and weight loss, Cardiovascular: Negative kb for chest pain, palpitations, and edema, Respiratory: Negative for shortness of breath, cough, wheezing, and pleuritic chest pain, Abdomen/GI: Negative for abdominal pain, nausea, vomiting, diarrhea, and constipation, Neuro: Negative for headache, weakness, numbness, tingling, and seizure. 20:22 MS/extremity: Positive for injury or acute deformity, abrasion, ecchymosis, pain, tenderness, of the left elbow. Exam: 20:22 Constitutional: This is a well developed, well nourished patient who is awake, alert, kb and in no acute distress. Head/Face: Normocephalic, atraumatic. Chest/axilla: Normal chest wall appearance and motion. Nontender with no deformity. No lesions are appreciated. Cardiovascular: Regular rate and rhythm with a normal S1 and S2. No gallops, murmurs, or rubs. Normal PMI, no JVD. No pulse deficits. Respiratory: Lungs have equal breath sounds bilaterally, clear to auscultation and percussion. No rales, rhonchi or wheezes noted. No increased work of breathing, no retractions or nasal flaring. Abdomen/GI: Soft, non-tender, with normal bowel sounds. No distension or tympany. No guarding or rebound. No evidence of tenderness throughout. Neuro: Awake and alert, GCS 15, oriented to person, place, time, and situation. Cranial nerves II-XII grossly intact. Motor strength 5/5 in all extremities. Sensory grossly intact. Cerebellar exam normal. Normal gait. 20:22 Musculoskeletal/extremity: Extremities: grossly normal except: noted in the left elbow: ecchymosis, pain, tenderness, ROM: intact in all extremities, Circulation is intact in all extremities. Sensation intact. Vital Signs: 20:06 BP 192 / 89; Pulse 100; Resp 18; Temp 98.9(O); Pulse Ox 95% on R/A; Weight 86.18 kg; lp1 Height 5 ft. 11 in. (180.34 cm); Pain 10/10; 21:14 BP 176 / 77; Pulse 96; Resp 18; Temp 98.5; Pulse Ox 98% ; rv 20:06 Body Mass Index 26.50 (86.18 kg, 180.34 cm) lp1 MDM: 20:09 Patient medically screened. kb 20:29 Data reviewed: vital signs, nurses notes. Data interpreted: Pulse oximetry: on room air kb is 95 %. Interpretation: normal. Counseling: I had a detailed discussion with the patient and/or guardian regarding: the historical points, exam findings, and any diagnostic results supporting the discharge/admit diagnosis, radiology results, the need for outpatient follow up, a family practitioner, to return to the emergency department if symptoms worsen or persist or if there are any questions or concerns that arise at home. 11/08 20:11 Order name: Elbow Left 3 View XRAY; Complete Time: 20:43 kb 11/08 20:11 Order name: Humerus Left XRAY; Complete Time: 20:43 kb Administered Medications: 20:43 CANCELLED (Patient Refused): traMADol 25 mg PO once kb 21:00 Drug: Ibuprofen 800 mg Route: PO; rv 21:14 Follow up: Response: No adverse reaction rv Disposition: 22:48 Co-signature as Attending Physician, Calixto Mayes MD. rn Disposition: 11/08/18 20:43 Discharged to Home. Impression: Pain in left elbow. - Condition is Stable. - Discharge Instructions: Musculoskeletal Pain, Neuropathic Pain. - Prescriptions for Diclofenac Sodium 75 mg Oral Tablet, Delayed Release (E.C.) - take 1 tablet by ORAL route 2 times per day As needed; 30 tablet. - Medication Reconciliation Form, Thank You Letter, Antibiotic Education, Prescription Opioid Use form. - Follow up: Emergency Department; When: As needed; Reason: Worsening of condition. Follow up: Private Physician; When: 2 - 3 days; Reason: Recheck today's complaints, Continuance of care, Re-evaluation by your physician. Signatures: Dispatcher [employer] EDJina Mcwilliams, PADMINI GALVEZ-Calixto Escobedo MD MD rn Jessica Hwang RN RN lp1 Arnaud Olivia RN RN rv Corrections: (The following items were deleted from the chart) 20:43 20:40 traMADol 25 mg PO once ordered. kb kb 21:22 20:43 11/08/2018 20:43 Discharged to Home. Impression: Pain in left elbow. Condition is rv Stable. Forms are Medication Reconciliation Form, Thank You Letter, Antibiotic Education, Prescription Opioid Use. Follow up: Emergency Department; When: As needed; Reason: Worsening of condition. Follow up: Private Physician; When: 2 - 3 days; Reason: Recheck today's complaints, Continuance of care, Re-evaluation by your physician. kb
--- NOTE | 2018-11-08 20:44 | ER ---
Nurse's Notes [facility] Name: Kyung Quinones Age: 88 yrs Sex: Female : 1930 Arrival Date: 11/08/2018 Time: 20:04 Bed 26 Private MD: Brenden Limon Diagnosis: Pain in left elbow Presentation: 11/08 20:05 Presenting complaint: Patient states: There is sharp corner near her commode that she lp1 keeps hitting when she goes to the bathroom; States she has been dealing with pain to left elbow x 5 days. Transition of care: patient was not received from another setting of care. Onset of symptoms was November 08, 2018. Risk Assessment: Do you want to hurt yourself or someone else? Patient reports no desire to harm self or others. Initial Sepsis Screen: Does the patient meet any 2 criteria? No. Patient's initial sepsis screen is negative. Does the patient have a suspected source of infection? No. Patient's initial sepsis screen is negative. Care prior to arrival: None. 20:05 Method Of Arrival: Wheelchair lp1 20:05 Acuity: YAS 4 lp1 Triage Assessment: 21:22 Injury Description: fall. rv Historical: - Allergies: 20:11 Iodine; lp1 20:11 IV contrast; lp1 20:11 Sulfa (Sulfonamide Antibiotics); lp1 - Home Meds: 20:11 acyclovir 200 mg Oral cap [Active]; albuterol sulfate 2.5 mg/0.5 mL Inhl nebu 0.5 mL lp1 [Active]; atenolol 25 mg Oral tab 1 tab 2 times per day [Active]; benzonatate 200 mg Oral cap 1 cap [Active]; cefdinir 300 mg Oral cap 1 cap every 12 hours [Active]; Cipro 500 mg Oral tab 1 tab every 12 hours [Active]; Eliquis 5 mg Oral tab 1 tab [Active]; fluconazole 200 mg Oral tab 1 tab once daily [Active]; gabapentin 300 mg Oral cap 1 cap twice a day [Active]; glimepiride 4 mg Oral tab 1 tab once daily [Active]; levalbuterol HCl 1.25 mg/3 mL inhalation nebu 3 mL 3 times per day [Active]; Lipitor 40 mg Oral tab 1 tab once daily [Active]; metformin 500 mg Oral Tb24 1 tab 2 times per day [Active]; 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 - Social history:: Smoking status: Patient/guardian denies using tobacco. - Ebola Screening: : No symptoms or risks identified at this time. Screenin:11 Abuse screen: Denies threats or abuse. Denies injuries from another. Nutritional lp1 screening: No deficits noted. Tuberculosis screening: No symptoms or risk factors identified. 20:18 Fall Risk Fall in past 12 months (25 points). Secondary diagnosis (15 points) impaired rv mobility, No IV (0 pts). Ambulatory Aid- None/Bed Rest/Nurse Assist (0 pts). Gait- Normal/Bed Rest/Wheelchair (0 pts) Mental Status- Oriented to own ability (0 pts). Total Miranda Fall Scale indicates No Risk (0-24 pts). Assessment: 20:16 General: Appears in no apparent distress. uncomfortable, Behavior is calm, cooperative. rv Pain: Complains of pain in left elbow. Neuro: Level of Consciousness is awake, alert, obeys commands, Oriented to person, place, time, situation. Cardiovascular: Patient's skin is warm and dry. Respiratory: Airway is patent. GI: No signs and/or symptoms were reported involving the gastrointestinal system. : No signs and/or symptoms were reported regarding the genitourinary system. EENT: No signs and/or symptoms were reported regarding the EENT system. Derm: Skin is intact. Musculoskeletal: Swelling absent Reports pain in left elbow. Vital Signs: 20:06 BP 192 / 89; Pulse 100; Resp 18; Temp 98.9(O); Pulse Ox 95% on R/A; Weight 86.18 kg; lp1 Height 5 ft. 11 in. (180.34 cm); Pain 10/10; 21:14 BP 176 / 77; Pulse 96; Resp 18; Temp 98.5; Pulse Ox 98% ; rv 20:06 Body Mass Index 26.50 (86.18 kg, 180.34 cm) lp1 ED Course: 20:04 Patient arrived in ED. am2 20:04 Brenden Limon is Private Physician. am2 20:06 Arnaud Olivia, RN is Primary Nurse. rv 20:06 Triage completed. lp1 20:07 Arm band placed on left wrist. lp1 20:08 Jina La F[facility]-C [facility]. kb 20:08 Calixto Mayes MD is Attending Physician. kb 20:18 Patient has correct armband on for positive identification. Bed in low position. Call rv light in reach. Side rails up X 1. Adult w/ patient. Pulse ox on. NIBP on. 20:24 Elbow Left 3 View XRAY In Process Unspecified. EDMS 20:24 Humerus Left XRAY In Process Unspecified. EDMS 21:15 No provider procedures requiring assistance completed. Patient did not have IV access rv during this emergency room visit. Administered Medications: 20:43 CANCELLED (Patient Refused): traMADol 25 mg PO once kb 21:00 Drug: Ibuprofen 800 mg Route: PO; rv 21:14 Follow up: Response: No adverse reaction rv Outcome: 20:43 Discharge ordered by MD. kb 21:15 Condition: good rv 21:21 Discharge instructions given to patient, family, Instructed on discharge instructions, rv follow up and referral plans. medication usage, Demonstrated understanding of instructions, follow-up care, medications, Prescriptions given X 1. 21:21 Discharged to home via wheelchair, with family. rv 21:22 Patient left the ED. rv Signatures: Dispatcher [employer] EDNV Jina La FNP-C FNP-Ckb Pena, Laura, RN RN lp1 Adri Rice am2 Arnaud Olivia, RN RN rv
[2018-11-08] MEDS ORDERED: IBUPROFEN 400 MG TAB ONE (21:12)
[2018-11-08 22:32] VITALS: BP 176/77; TEMP 98.5; O2SAT 98
== END 2018-11-08 21:22 | disposition home or self-care (01) ==
LOC: ER 19:54
DX: M25.522 Pain in left elbow (principal); I10 Essential (primary) hypertension; E11.9 Type 2 diabetes mellitus without complications; Z88.2 Allergy status to sulfonamides; Z85.038 Personal history of other malignant neoplasm of large intestine; Z91.041 Radiographic dye allergy status; Z91.048 Other nonmedicinal substance allergy status
CPT/HCPCS: 99284

== ENCOUNTER 2018-11-16 14:35 | Emergency (ER) | payer OTHER ==
--- NOTE | 2018-11-16 17:58 | RAD REPORT ---
EXAM DESCRIPTION: RAD - Hand Left 3 View - 11/16/2018 5:42 pm CLINICAL HISTORY: arm pain Trauma, pain tail arm COMPARISON: <Comparisons> FINDINGS: Osteopenia is seen. An acute fracture or dislocation is not evident.
--- NOTE | 2018-11-16 18:01 | RAD REPORT ---
EXAM DESCRIPTION: RAD - Elbow Left 3 View - 11/16/2018 5:42 pm CLINICAL HISTORY: arm pain COMPARISON: Elbow Left 3 View dated 11/08/2018 FINDINGS: Soft tissue swelling is seen about the olecranon. No fracture appreciated. IMPRESSION: Mild olecranon bursitis is possible. If pain persists over time, MR imaging may be consi dered.
--- NOTE | 2018-11-16 19:29 | ER ---
Nurse's Notes [facility] Name: Kyung Quinones Age: 88 yrs Sex: Female : 1930 Arrival Date: 11/16/2018 Time: 14:36 Bed 12 Private MD: Diagnosis: Pain in left upper arm;Radiculopathy, cervical region Presentation: 11/16 14:51 Presenting complaint: Patient states: She was seen here last week after hitting her arm aj1 on a cabinet in her bathroom, but she is still having a lot of pain. She has been taking pain medication but it isn't helping. Patient had X-rays when the injury occurred. Transition of care: patient was not received from another setting of care. Onset of symptoms was October 2018. Risk Assessment: Do you want to hurt yourself or someone else? Patient reports no desire to harm self or others. Initial Sepsis Screen: Does the patient meet any 2 criteria? No. Patient's initial sepsis screen is negative. Does the patient have a suspected source of infection? No. Patient's initial sepsis screen is negative. Care prior to arrival: None. 14:51 Method Of Arrival: Wheelchair aj1 14:51 Acuity: YAS 4 aj1 Triage Assessment: 14:56 General: Appears in no apparent distress. uncomfortable, Behavior is calm, cooperative, aj1 appropriate for age. Pain: Complains of pain in left arm Pain currently is 9 out of 10 on a pain scale. Neuro: Level of Consciousness is awake, alert, obeys commands, Oriented to person, place, time, situation. Cardiovascular: Patient's skin is warm and dry. Respiratory: Airway is patent Respiratory effort is even, unlabored, Respiratory pattern is regular, symmetrical. Derm: Skin is pink, warm \T\ dry. normal. Musculoskeletal: Range of motion: limited in left elbow. Historical: - Allergies: 14:56 Iodine; aj1 14:56 Sulfa (Sulfonamide Antibiotics); aj1 - Home Meds: 14:56 acyclovir 200 mg Oral cap [Active]; albuterol sulfate 2.5 mg/0.5 mL Inhl nebu 0.5 mL aj1 [Active]; atenolol 25 mg Oral tab 1 tab 2 times per day [Active]; benzonatate 200 mg Oral cap 1 cap [Active]; cefdinir 300 mg Oral cap 1 cap every 12 hours [Active]; Cipro 500 mg Oral tab 1 tab every 12 hours [Active]; Clindamycin Oral [Active]; Eliquis 5 mg Oral tab 1 tab [Active]; fluconazole 200 mg Oral tab 1 tab once daily [Active]; gabapentin 900 mg Oral cap 1 cap twice a day [Active]; glimepiride 4 mg Oral tab 1 tab once daily [Active]; levalbuterol HCl 1.25 mg/3 mL inhalation nebu 3 mL 3 times per day [Active]; metformin 500 mg Oral Tb24 1 tab 2 times per day [Active]; 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 - Social history:: Smoking status: Patient/guardian denies using tobacco. - Ebola Screening: : Patient denies travel to an Ebola-affected area in the 21 days before illness onset. Screenin:06 Abuse screen: Denies threats or abuse. Denies injuries from another. Nutritional hb screening: No deficits noted. Tuberculosis screening: No symptoms or risk factors identified. Fall Risk None identified. Assessment: 16:06 General: Appears in no apparent distress. Behavior is calm, cooperative. Pain: Pain hb currently is 8 out of 10 on a pain scale. Neuro: Level of Consciousness is awake, alert, obeys commands, Oriented to person, place, time, situation. Cardiovascular: Capillary refill < 3 seconds Patient's skin is warm and dry. Respiratory: Airway is patent Respiratory effort is even, unlabored, Respiratory pattern is regular, symmetrical. GI: No signs and/or symptoms were reported involving the gastrointestinal system. : No signs and/or symptoms were reported regarding the genitourinary system. EENT: No signs and/or symptoms were reported regarding the EENT system. Derm: Skin is pink, warm \T\ dry. Musculoskeletal: Reports left arm and shoulder pain. 17:00 Reassessment: Patient appears in no apparent distress at this time. Patient and/or hb family updated on plan of care and expected duration. Pain level reassessed. Patient is alert, oriented x 3, equal unlabored respirations, skin warm/dry/pink. 18:00 Reassessment: Patient appears in no apparent distress at this time. Patient and/or hb family updated on plan of care and expected duration. Pain level reassessed. Patient is alert, oriented x 3, equal unlabored respirations, skin warm/dry/pink. Vital Signs: 14:56 BP 151 / 71; Pulse 94; Resp 18; Temp 97.8; Pulse Ox 100% on R/A; Weight 87.09 kg (R); aj1 Height 5 ft. 11 in. (180.34 cm) (R); Pain 9/10; 14:56 Body Mass Index 26.78 (87.09 kg, 180.34 cm) aj ED Course: 14:36 Patient arrived in ED. as 14:54 Triage completed. [facility] 14:56 Arm band placed on Patient placed in waiting room, Patient notified of wait time. [facility] 16:03 Jaylin Vale FNP-C [facility]. snw 16:03 Gagan Encarnacion MD is Attending Physician. snw 16:06 Call light in reach. hb 18:24 No provider procedures requiring assistance completed. Patient did not have IV access hb during this emergency room visit. 18:44 Elbow Left 3 View In Process Unspecified. EDMS 18:44 Hand Left 3 View In Process Unspecified. EDMS Administered Medications: No medications were administered Outcome: 17:57 Discharge ordered by . snw 18:24 Discharged to home ambulatory. hb 18:24 Condition: stable 18:24 Discharge instructions given to patient, family, Instructed on discharge instructions, follow up and referral plans. medication usage, Demonstrated understanding of instructions, follow-up care, medications, Prescriptions given X 1. 18:25 Patient left the ED. hb Signatures: Dispatcher [employer] EDJyothi Ramos RN RN aj1 Jaylin Vale FNP-C FNP-Csnw Martinez, Amelia as Baxter, Heather RN RN hb
--- NOTE | 2018-11-16 19:30 | EDPHYS ---
Physician Documentation [facility] Name: Kyung Quinones Age: 88 yrs Sex: Female : 1930 Arrival Date: 11/16/2018 Time: 14:36 Bed 12 Private MD: ED Physician Gagan Encarnacion HPI: 11/16 18:00 This 88 yrs old Female presents to ER via Wheelchair with complaints of Arm snw Pain. 18:00 The patient or guardian complains of decreased range of motion, pain, that is acute. snw The complaints affect the anterior aspect of left shoulder, left bicep, dorsal aspect of left forearm and left elbow. Context: The problem was sustained at home, resulted from a direct blow. Onset: The symptoms/episode began/occurred suddenly, and became persistent. Associated signs and symptoms: Pertinent positives: pain, of the left arm. Severity of symptoms: At their worst the symptoms were moderate. The patient has experienced a previous episode. last week, pt had negative x-rays but pain has continued. Historical: - Allergies: 14:56 Iodine; aj1 14:56 Sulfa (Sulfonamide Antibiotics); aj1 - Home Meds: 14:56 acyclovir 200 mg Oral cap [Active]; albuterol sulfate 2.5 mg/0.5 mL Inhl nebu 0.5 mL aj1 [Active]; atenolol 25 mg Oral tab 1 tab 2 times per day [Active]; benzonatate 200 mg Oral cap 1 cap [Active]; cefdinir 300 mg Oral cap 1 cap every 12 hours [Active]; Cipro 500 mg Oral tab 1 tab every 12 hours [Active]; Clindamycin Oral [Active]; Eliquis 5 mg Oral tab 1 tab [Active]; fluconazole 200 mg Oral tab 1 tab once daily [Active]; gabapentin 900 mg Oral cap 1 cap twice a day [Active]; glimepiride 4 mg Oral tab 1 tab once daily [Active]; levalbuterol HCl 1.25 mg/3 mL inhalation nebu 3 mL 3 times per day [Active]; metformin 500 mg Oral Tb24 1 tab 2 times per day [Active]; [employer] Thyroid 30 mg Oral tab [Active]; promethazine 25 mg Oral tab 1 tab [Active]; Vitamin D3 5,000 unit Oral tab [Active]; - PMHx: 14:56 COLON CA; Diabetes - NIDDM; Hypertension; neuropathy; aj1 - Immunization history:: Flu vaccine is up to date. - Social history:: Smoking status: Patient/guardian denies using tobacco. - Ebola Screening: : Patient denies travel to an Ebola-affected area in the 21 days before illness onset. ROS: 17:59 Constitutional: Negative for fever, chills, and weight loss, Eyes: Negative for injury, snw pain, redness, and discharge, ENT: Negative for injury, pain, and discharge, Neck: Negative for injury, pain, and swelling, Cardiovascular: Negative for chest pain, palpitations, and edema, Respiratory: Negative for shortness of breath, cough, wheezing, and pleuritic chest pain, Abdomen/GI: Negative for abdominal pain, nausea, vomiting, diarrhea, and constipation, Back: Negative for injury and pain, : Negative for injury, bleeding, discharge, and swelling, Skin: Negative for injury, rash, and discoloration. 17:59 Neuro: Negative for headache, weakness, numbness, tingling, and seizure. 17:59 MS/extremity: Positive for pain, paresthesias, of the left arm. Exam: 16:14 Constitutional: This is a well developed, well nourished patient who is awake, alert, snw and in no acute distress. Head/Face: Normocephalic, atraumatic. Eyes: Pupils equal round and reactive to light, extra-ocular motions intact. Lids and lashes normal. Conjunctiva and sclera are non-icteric and not injected. Cornea within normal limits. Periorbital areas with no swelling, redness, or edema. ENT: Nares patent. No nasal discharge, no septal abnormalities noted. Tympanic membranes are normal and external auditory canals are clear. Oropharynx with no redness, swelling, or masses, exudates, or evidence of obstruction, uvula midline. Mucous membranes moist. Neck: Trachea midline, no thyromegaly or masses palpated, and no cervical lymphadenopathy. Supple, full range of motion without nuchal rigidity, or vertebral point tenderness. No Meningismus. Chest/axilla: Normal chest wall appearance and motion. Nontender with no deformity. No lesions are appreciated. Cardiovascular: Regular rate and rhythm with a normal S1 and S2. No gallops, murmurs, or rubs. Normal PMI, no JVD. No pulse deficits. Respiratory: Lungs have equal breath sounds bilaterally, clear to auscultation and percussion. No rales, rhonchi or wheezes noted. No increased work of breathing, no retractions or nasal flaring. Abdomen/GI: Soft, non-tender, with normal bowel sounds. No distension or tympany. No guarding or rebound. No evidence of tenderness throughout. Back: No spinal tenderness. No costovertebral tenderness. Full range of motion. Skin: Warm, dry with normal turgor. Normal color with no rashes, no lesions, and no evidence of cellulitis. Neuro: Awake and alert, GCS 15, oriented to person, place, time, and situation. Cranial nerves II-XII grossly intact. Motor strength 5/5 in all extremities. Sensory grossly intact. Cerebellar exam normal. Normal gait. Psych: Awake, alert, with orientation to person, place and time. Behavior, mood, and affect are within normal limits. 16:14 Musculoskeletal/extremity: Extremities: grossly normal except: contusion, ecchymosis, tenderness, difficulty using left upper extremity post trauma last week, Circulation is intact in all extremities. Sensation intact. 16:14 Skin: scattered ecchymotic areas to all extremities. Vital Signs: 14:56 BP 151 / 71; Pulse 94; Resp 18; Temp 97.8; Pulse Ox 100% on R/A; Weight 87.09 kg (R); aj1 Height 5 ft. 11 in. (180.34 cm) (R); Pain 9/10; 14:56 Body Mass Index 26.78 (87.09 kg, 180.34 cm) aj1 MDM: 16:05 Patient medically screened. snw 17:58 Data reviewed: vital signs, nurses notes. Data interpreted: Pulse oximetry: on room air snw is 100 %. Interpretation: normal. Counseling: I had a detailed discussion with the patient and/or guardian regarding: the historical points, exam findings, and any diagnostic results supporting the discharge/admit diagnosis, radiology results, the need for outpatient follow up, to return to the emergency department if symptoms worsen or persist or if there are any questions or concerns that arise at home. Special discussion: I have referred the patient to see his PCP for further evaluation of high blood pressure. Based on the history and exam findings, there is no indication for further emergent testing or inpatient evaluation. I discussed with the patient/guardian the need to see the orthopedic surgeon for further evaluation of the symptoms. I discussed with the patient/guardian the need to see the primary care provider for further evaluation of the symptoms. 11/16 16:13 Order name: Hand Left 3 View XRAY snw 11/16 16:13 Order name: Elbow Left 3 View XRAY snw 11/16 16:13 Order name: Sling; Complete Time: 18:23 snw 11/16 17:53 Order name: Elbow Left 3 View EDMS 11/16 17:53 Order name: Hand Left 3 View EDMS Administered Medications: No medications were administered Disposition: 11/17 13:52 Co-signature as Attending Physician, Gagan Encarnacion MD I agree with the assessment and kdr plan of care. Disposition: 11/16/18 17:57 Discharged to Home. Impression: Pain in left upper arm, Radiculopathy, cervical region. - Condition is Stable. - Discharge Instructions: Cervical Radiculopathy, Musculoskeletal Pain, Paresthesia, Cryotherapy, Heat Therapy, How to Use a Sling. - Prescriptions for orphenadrine citrate 100 mg Oral Tablet Sustained Release - take 1 tablet by ORAL route 2 times per day As needed; 20 tablet. - Medication Reconciliation Form, Thank You Letter, Antibiotic Education, Prescription Opioid Use form. - Follow up: Private Physician; When: 2 - 3 days; Reason: Recheck today's complaints, Continuance of care, Re-evaluation by your physician. Follow up: Emergency Department; When: As needed; Reason: Worsening of condition. Signatures: Dispatcher [employer] [facility] Jyothi Palma RN RN aj1 Gagan Encarnacion MD MD kdr Therrien, Shelly, GERIATRICS PHYSICIAN-C GERIATRICS PHYSICIAN-Csnw Genevieve Johnson RN RN hb Corrections: (The following items were deleted from the chart) 11/16 18:25 17:57 11/16/2018 17:57 Discharged to Home. Impression: Pain in left upper arm; hb Radiculopathy, cervical region. Condition is Stable. Forms are Medication Reconciliation Form, Thank You Letter, Antibiotic Education, Prescription Opioid Use. Follow up: Private Physician; When: 2 - 3 days; Reason: Recheck today's complaints, Continuance of care, Re-evaluation by your physician. Follow up: Emergency Department; When: As needed; Reason: Worsening of condition. snw
[2018-11-16 21:37] VITALS: BP 151/71; TEMP 97.8; O2SAT 100
== END 2018-11-16 18:25 | disposition home or self-care (01) ==
LOC: ER 14:35
DX: M54.12 Radiculopathy, cervical region (principal); I10 Essential (primary) hypertension; E11.9 Type 2 diabetes mellitus without complications; Z88.2 Allergy status to sulfonamides; Z85.038 Personal history of other malignant neoplasm of large intestine; Z91.048 Other nonmedicinal substance allergy status
CPT/HCPCS: 99283

== ENCOUNTER 2018-12-02 17:28 | Emergency (ER) | payer OTHER ==
[2018-12-02] MEDS ORDERED: NA CHLORIDE 0.9% 1,000 ML ONE (18:10)
--- NOTE | 2018-12-02 18:28 | RAD REPORT ---
EXAM DESCRIPTION: CT - [id number] - 12/02/2018 6:13 pm CLINICAL HISTORY: Trauma, head and neck injury. TRAUMA COMPARISON: <Comparisons> TECHNIQUE: Axial 5 mm thick images of the head were obtained. Axial 2 mm thick images of the cervical spine were obtained with sagittal and coronal reconstruction images generated and reviewed. All CT scans are performed using dose optimization technique as appropriate and may include automated exposure control or mA/KV adjustment according to patient size. FINDINGS: CT HEAD WITHOUT CONTRAST: No acute hemorrhage, hydrocephalus or extra-axial collection is identified.Mild generalized brain atr ophy is present with mild periventricular and deep white matter chronic microvascular ischemic change s.No areas of brain edema or midline shift. The paranasal sinuses and mastoids are clear.The calvarium is intact. CT CERVICAL SPINE WITHOUT CONTRAST: No fracture or subluxation.Moderate lower cervical spondylosis is noted.No prevertebral soft tissues swelling is identified. IMPRESSION: No acute intracranial or cervical spine findings.
--- NOTE | 2018-12-02 18:29 | RAD REPORT ---
EXAM DESCRIPTION: RAD - Chest Single View - 12/02/2018 6:19 pm CLINICAL HISTORY: TRAUMA Chest pain. COMPARISON: Chest Single View dated 07/07/2018; Chest Pa And Lat (2 Views) dated 02/23/2018; Chest Pa A nd Lat (2 Views) dated 04/16/2016; Chest Single View dated 04/15/2016 FINDINGS: Portable technique limits examination quality. The lungs are grossly clear. Moderate cardiomegaly. No displaced fractures. IMPRESSION: Cardiomegaly.
[2018-12-02 18:58] LABS: Absolute Lymphocytes (CBC) 1.1 K/uL (0.7-4.9); Basophils % 0.9 % (0-1.3); Eosinophils % 1.4 % (0-4.4); Hematocrit 24.1 % (36.0-45.0); Lymphocytes % 10.8 % (15.3-44.8); MPV 7.3 fL (7.6-11.3); RBC Red Blood Cell Count 3.14 M/uL (3.86-4.86)
[2018-12-02 19:04] LABS: ALT/SGPT 17 U/L (12-78); AST/SGOT 13 U/L (15-37); Albumin 2.8 g/dL (3.4-5.0); Alkaline Phosphatase 73 U/L (45-117); BUN Blood Urea Nitrogen 12 mg/dL (7-18); Bicarbonate 30 mmol/L (21-32); Bilirubin Direct < 0.1 mg/dL (0-0.2); Bilirubin Total 0.2 mg/dL (0.2-1.0); Glucose Level 212 mg/dL (74-106); Potassium 4.6 mmol/L (3.5-5.1); Protein, Total 6.7 g/dL (6.4-8.2); Sodium Level 141 mmol/L (136-145); Troponin (Emerg Dept Use Only) < 0.02 ng/mL (0.0-0.045)
[2018-12-02 19:23] LABS: Urine Blood NEGATIVE (NEG); Urine Glucose NEGATIVE (NEG); Urine Protein NEGATIVE (NEG); Urine Specific Gravity 1.015 (1.005-1.030); Urine pH 5.5 (5.0-7.0)
--- NOTE | 2018-12-02 19:24 | EDPHYS ---
Physician Documentation [facility] Name: Kyung Quinones Age: 88 yrs Sex: Female : 1930 Arrival Date: 12/02/2018 Time: 17:[address] Private MD: ED Physician Vandana Jenkins HPI: 12/02 18:12 This 88 yrs old Female presents to ER via Ambulatory with complaints of Fall ma2 Injury. 18:12 Details of fall: The patient fell from a supine position. Onset: The symptoms/episode ma2 began/occurred suddenly, 1 hour(s) ago. Associated injuries: The patient sustained injury to the head. Severity of symptoms: At their worst the symptoms were mild, in the emergency department the symptoms are unchanged. The patient has not experienced similar symptoms in the past. mechanical fall, tripped, she states she gets LH when she walks sometimes and this is been the same for years, unchanged today . Historical: - Allergies: 17:40 Iodine; hj 17:40 Sulfa (Sulfonamide Antibiotics); hj - Home Meds: 17:40 acyclovir 200 mg Oral cap [Active]; albuterol sulfate 2.5 mg/0.5 mL Inhl nebu 0.5 mL hj [Active]; atenolol 25 mg Oral tab 1 tab 2 times per day [Active]; benzonatate 200 mg Oral cap 1 cap [Active]; cefdinir 300 mg Oral cap 1 cap every 12 hours [Active]; Cipro 500 mg Oral tab 1 tab every 12 hours [Active]; Clindamycin Oral [Active]; Eliquis 5 mg Oral tab 1 tab [Active]; fluconazole 200 mg Oral tab 1 tab once daily [Active]; gabapentin 900 mg Oral cap 1 cap twice a day [Active]; glimepiride 4 mg Oral tab 1 tab once daily [Active]; levalbuterol HCl 1.25 mg/3 mL inhalation nebu 3 mL 3 times per day [Active]; Lipitor 40 mg Oral tab 1 tab once daily [Active]; metformin 500 mg Oral Tb24 1 tab 2 times per day [Active]; [employer] Thyroid 30 mg Oral tab [Active]; promethazine 25 mg Oral tab 1 tab [Active]; Vitamin D3 5,000 unit Oral tab [Active]; - PMHx: 17:40 COLON CA; Diabetes - NIDDM; Hypertension; neuropathy; hj - PSHx: 17:40 Unable to obtain; hj - Immunization history:: Adult Immunizations up to date. - Social history:: Smoking status: Patient/guardian denies using tobacco, Patient/guardian denies using alcohol, Patient/guardian denies using street drugs, The patient lives with family. - Immunization history: Last tetanus immunization: - up to date. - Ebola Screening: : Patient negative for fever greater than or equal to 101.5 degrees Fahrenheit, and additional compatible Ebola Virus Disease symptoms Patient denies exposure to infectious person Patient denies travel to an Ebola-affected area in the 21 days before illness onset. - Family history:: not pertinent. ROS: 18:12 Constitutional: Negative for fever, chills, and weight loss. ma2 18:12 All other systems are negative. Exam: 18:12 Constitutional: This is a well developed, well nourished patient who is awake, alert, ma2 and in no acute distress. Chest/axilla: Normal chest wall appearance and motion. Nontender with no deformity. No lesions are appreciated. Cardiovascular: Regular rate and rhythm with a normal S1 and S2. No gallops, murmurs, or rubs. Normal PMI, no JVD. No pulse deficits. Respiratory: Lungs have equal breath sounds bilaterally, clear to auscultation and percussion. No rales, rhonchi or wheezes noted. No increased work of breathing, no retractions or nasal flaring. Abdomen/GI: Soft, non-tender, with normal bowel sounds. No distension or tympany. No guarding or rebound. No evidence of tenderness throughout. MS/ Extremity: Pulses equal, no cyanosis. Neurovascular intact. Full, normal range of motion. Neuro: Awake and alert, GCS 15, oriented to person, place, time, and situation. Cranial nerves II-XII grossly intact. Motor strength 5/5 in all extremities. Sensory grossly intact. Cerebellar exam normal. Normal gait. Vital Signs: 17:35 BP 137 / 70; Pulse 108; Resp 18; Temp 98.6(TE); Pulse Ox 92% on R/A; Weight 77.11 kg; hj Height 5 ft. 7 in. (170.18 cm); Pain 0/10; 17:45 Pulse Ox 99% on 2 lpm NC; em 18:42 BP 152 / 80; Pulse 106; Resp 16; Pulse Ox 100% on 2 lpm NC; Pain 0/10; em 19:00 BP 181 / 86; Pulse 100; Resp 16; Pulse Ox 100% on 2 lpm NC; jb4 17:35 Body Mass Index 26.63 (77.11 kg, 170.18 cm) hj Brandon Coma Score: 17:43 Eye Response: spontaneous(4). Verbal Response: oriented(5). Motor Response: obeys hj commands(6). Total: 15. 19:19 Eye Response: spontaneous(4). Verbal Response: oriented(5). Motor Response: obeys jb4 commands(6). Total: 15. Trauma Score (Adult): 17:43 Eye Response: spontaneous(1); Verbal Response: oriented(1); Motor Response: obeys hj commands(2); Systolic BP: > 89 mm Hg(4); Respiratory Rate: 10 to 29 per min(4); Brandon Score: 15; Trauma Score: 12 19:19 Eye Response: spontaneous(1); Verbal Response: oriented(1); Motor Response: obeys jb4 commands(2); Systolic BP: > 89 mm Hg(4); Respiratory Rate: 10 to 29 per min(4); Logan Score: 15; Trauma Score: 12 MDM: 17:32 Patient medically screened. [facility] 18:12 Differential diagnosis: closed head injury, fracture, sprain. Data reviewed: vital ma2 signs, nurses notes. Counseling: I had a detailed discussion with the patient and/or guardian regarding: the historical points, exam findings, and any diagnostic results supporting the discharge/admit diagnosis, the presence of at least one elevated blood pressure reading (>120/80) during this emergency department visit. 19:19 ED course: Informed by pc technician that urine sample with high likelihood of contamination pm1 due to feces present in her diaper. Discussed with patient and family and I recommended straight cath. Patient denies any urinary symptoms. Does not want to provide urine sample by cath. Family and patient prefer to follow up with PCP on Tuesday at her scheduled appointment to provide clean catch urine. 19:19 ED course: Family reports decreased appetite and consumption of meats for multiple pm1 months. Possible cause for anemia. Patient not symptomatic of anemia. 19:22 Counseling: I had a detailed discussion with the patient and/or guardian regarding: the pm1 historical points, exam findings, and any diagnostic results supporting the discharge/admit diagnosis, lab results, radiology results, the need for outpatient follow up, to return to the emergency department if symptoms worsen or persist or if there are any questions or concerns that arise at home. 12/02 17:50 Order name: Basic Metabolic Panel [facility] 12/02 17:50 Order name: CBC with Diff [facility] 12/02 17:50 Order name: Creatinine for Radiology; Complete Time: 19:01 [facility] 12/02 17:50 Order name: Hepatic Function; Complete Time: 19:06 [facility] 12/02 17:50 Order name: Troponin (emerg Dept Use Only); Complete Time: 19:06 [facility] 12/02 17:51 Order name: Basic Metabolic Panel; Complete Time: 19:06 [facility] 12/02 17:50 Order name: IV Saline Lock; Complete Time: 18:41 [facility] 12/02 17:51 Order name: Chest Single View XRAY; Complete Time: 18:40 [facility] 12/02 17:51 Order name: CBC with Automated Diff; Complete Time: 19:01 [facility] 12/02 17:55 Order name: Head C Spine Mpr Wo Con; Complete Time: 18:40 [facility] 12/02 19:11 Order name: Urine Dipstick--Ancillary (enter results); Complete Time: 19:28 12/02 17:50 Order name: Labs collected and sent; Complete Time: 18:41 [facility] 12/02 17:50 Order name: Urine Dipstick-Ancillary (obtain specimen); Complete Time: 19:12 [facility] 12/02 17:50 Order name: EKG - Nurse/Tech; Complete Time: 18:15 ma2 Administered Medications: 18:30 Drug: NS 0.9% 1000 ml Route: IV; Rate: 1 bolus; Site: right forearm; em 19:30 Follow up: Response: No adverse reaction; IV Status: Completed infusion; IV Intake: jb4 1000ml Disposition: 12/02/18 19:23 Discharged to Home. Impression: Fall on same level, unspecified, Superficial injury of head, Anemia, unspecified. - Condition is Stable. - Discharge Instructions: Anemia, Nonspecific, Head Injury, Adult, Fall Prevention in the Home. - Medication Reconciliation Form, Thank You Letter, Antibiotic Education, Prescription Opioid Use form. - Follow up: Emergency Department; When: As needed; Reason: Worsening of condition. - Problem is new. - Symptoms have improved. Addendum: 12/07/2018 02:10 Co-signature as Attending Physician, Vandana Jenkins MD. m a2 Signatures: Dispatcher [employer] EDMT Andres, Jayce, ASSISTANT SUPERINTENDENT ASSISTANT SUPERINTENDENT em Teresa Pelayo, RN RN Sanjay Sesay RN ELIAN Daryn Paez NP [employer] pm1 Jc Floyd, ELIAN RN jb4 Vandana Jenkins MD MD ma2 Corrections: (The following items were deleted from the chart) 12/02 17:55 17:51 C Spine Wo Con+CT.RAD.BRZ ordered. EDMT EDMS 17:56 17:51 Head Brain Wo Cont+CT.RAD.BRZ ordered. EDMT EDMT 19:04 18:54 Labs - recollect needed ordered. jb4 19:51 19:23 12/02/2018 19:23 Discharged to Home. Impression: Fall on same level, unspecified; jb4 Superficial injury of head; Anemia, unspecified. Condition is Stable. Forms are Medication Reconciliation Form, Thank You Letter, Antibiotic Education, Prescription Opioid Use. Follow up: Emergency Department; When: As needed; Reason: Worsening of condition. Problem is new. Symptoms have improved. pm1
--- NOTE | 2018-12-02 19:24 | ER ---
Nurse's Notes [facility] Name: Kyung Quinones Age: 88 yrs Sex: Female : 1930 Arrival Date: 12/02/2018 Time: 17:[address] Private MD: Diagnosis: Fall on same level, unspecified;Superficial injury of head;Anemia, unspecified Presentation: 12/02 17:32 Presenting complaint: EMS states: from [facility], staff called pt unwitnessed fall, hj was walking near the entrance door using a walker when she hit a bump and fell backwards, denies LOC; taking Eliquis, denies headache or any pain; been complaining of dizziness all day;. Transition of care: patient was not received from another setting of care. Onset of symptoms was December 02, 2018. Risk Assessment: Do you want to hurt yourself or someone else? Patient reports no desire to harm self or others. Initial Sepsis Screen: Does the patient meet any 2 criteria? No. Patient's initial sepsis screen is negative. Does the patient have a suspected source of infection? No. Patient's initial sepsis screen is negative. Care prior to arrival: None. 17:32 Method Of Arrival: Ambulatory 17:32 Acuity: YAS 3 17:32 Mechanism of Injury: Fall from standing position. Trauma event details: Injury occurred hj in the [facility], Injury occurred: in an institution. Injury occurred: December 02, 2018. Triage Assessment: 17:44 General: Appears in no apparent distress. uncomfortable, Behavior is calm, cooperative, hj appropriate for age. Pain: Denies pain. Historical: - Allergies: 17:40 Iodine; 17:40 Sulfa (Sulfonamide Antibiotics); - Home Meds: 17:40 acyclovir 200 mg Oral cap [Active]; albuterol sulfate 2.5 mg/0.5 mL Inhl nebu 0.5 mL [Active]; atenolol 25 mg Oral tab 1 tab 2 times per day [Active]; benzonatate 200 mg Oral cap 1 cap [Active]; cefdinir 300 mg Oral cap 1 cap every 12 hours [Active]; Cipro 500 mg Oral tab 1 tab every 12 hours [Active]; Clindamycin Oral [Active]; Eliquis 5 mg Oral tab 1 tab [Active]; fluconazole 200 mg Oral tab 1 tab once daily [Active]; gabapentin 900 mg Oral cap 1 cap twice a day [Active]; glimepiride 4 mg Oral tab 1 tab once daily [Active]; levalbuterol HCl 1.25 mg/3 mL inhalation nebu 3 mL 3 times per day [Active]; Lipitor 40 mg Oral tab 1 tab once daily [Active]; metformin 500 mg Oral Tb24 1 tab 2 times per day [Active]; TR[employer] RA[employer]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 - Social history:: Smoking status: Patient/guardian denies using tobacco, Patient/guardian denies using alcohol, Patient/guardian denies using street drugs, The patient lives with family. - Immunization history: Last tetanus immunization: - up to date. - Ebola Screening: : Patient negative for fever greater than or equal to 101.5 degrees Fahrenheit, and additional compatible Ebola Virus Disease symptoms Patient denies exposure to infectious person Patient denies travel to an Ebola-affected area in the 21 days before illness onset. - Family history:: not pertinent. Screenin:41 Abuse screen: Denies threats or abuse. Denies injuries from another. Nutritional hj screening: No deficits noted. Tuberculosis screening: No symptoms or risk factors identified. Fall Risk None identified. Primary Survey: 17:40 NO uncontrolled hemorrhage observed. A: The patient is alert. Airway: patent, No hj supplemental oxygen in use on arrival. Oral cavity: clear, gag reflex present, Trachea midline. Breathing/Chest: Respiratory pattern: regular, Respiratory effort: spontaneous, unlabored, Breath sounds: clear, Chest inspection: symmetrical rise and fall of the chest. Circulation: Cardiac rhythm: sinus rhythm Heart tones present. Pulses: palpable . Skin color: pink, Skin temperature: warm, dry. Disability Alert. Exposure/Environment: All clothing and personal items were removed. Forensic evidence collection is not deemed to be indicated at this time. Items placed in patient belonging bag. There is no evidence of uncontrolled external bleeding. No obvious injuries are noted at this time. A warming method has been applied: A warm blanket has been provided to the patient. 17:43 Reassessment Airway Airway Patent Oxygen No O2 Oral cavity Clear +Gag reflex Trachea hj Midline Breathing/Chest Respiratory pattern Regular Respiratory effort Spontaneous Unlabored Breath sounds Clear Chest inspection Symmetrical Circulation Heart rhythm Sinus rhythm Heart tones Present Pulses Palpable Color [place] Temperature Warm Dry Disability Alert. Secondary Survey: 17:49 HEENT: No deficits noted. Gastrointestinal: No deficits noted. : No signs and/or hj symptoms were reported regarding the genitourinary system. Musculoskeletal: No signs and/or symptoms reported regarding the musculoskeletal system. Injury Description: fall. Assessment: 17:46 General: Appears in no apparent distress. uncomfortable, Behavior is calm, cooperative, hj appropriate for age. Pain: Denies pain. Neuro: Level of Consciousness is awake, alert, obeys commands, Oriented to person, place, time, situation, Appropriate for age Reports dizziness. Cardiovascular: Denies chest pain. Respiratory: Airway is patent Respiratory effort is even, unlabored, Respiratory pattern is regular, symmetrical. GI: No signs and/or symptoms were reported involving the gastrointestinal system. : No signs and/or symptoms were reported regarding the genitourinary system. EENT: No signs and/or symptoms were reported regarding the EENT system. Derm: No signs and/or symptoms reported regarding the dermatologic system. Musculoskeletal: Denies. 18:41 Reassessment: Patient appears in no apparent distress at this time. Patient and/or em family updated on plan of care and expected duration. Pain level reassessed. Patient is alert, oriented x 3, equal unlabored respirations, skin warm/dry/pink. Patient denies pain at this time. 18:50 Reassessment: sent labs, very watery/thin blood, fresh IV site, provider notified. em 19:18 Reassessment: Patient appears in no apparent distress at this time. Patient and/or jb4 family updated on plan of care and expected duration. Pain level reassessed. Patient is alert, oriented x 3, equal unlabored respirations, skin warm/dry/pink. Provider at the bedside updating family on plan of care. 19:42 Reassessment: Patient appears in no apparent distress at this time. Patient is alert, jb4 oriented x 3, equal unlabored respirations, skin warm/dry/pink. Pt assisted to family members car via wheelchair, Family verbalized understanding of d/c and follow up instructions. Vital Signs: 17:35 BP 137 / 70; Pulse 108; Resp 18; Temp 98.6(TE); Pulse Ox 92% on R/A; Weight 77.11 kg; hj Height 5 ft. 7 in. (170.18 cm); Pain 0/10; 17:45 Pulse Ox 99% on 2 lpm NC; em 18:42 BP 152 / 80; Pulse 106; Resp 16; Pulse Ox 100% on 2 lpm NC; Pain 0/10; em 19:00 BP 181 / 86; Pulse 100; Resp 16; Pulse Ox 100% on 2 lpm NC; jb4 17:35 Body Mass Index 26.63 (77.11 kg, 170.18 cm) hj Shirley Coma Score: 17:43 Eye Response: spontaneous(4). Verbal Response: oriented(5). Motor Response: obeys hj commands(6). Total: 15. 19:19 Eye Response: spontaneous(4). Verbal Response: oriented(5). Motor Response: obeys jb4 commands(6). Total: 15. Trauma Score (Adult): 17:43 Eye Response: spontaneous(1); Verbal Response: oriented(1); Motor Response: obeys hj commands(2); Systolic BP: > 89 mm Hg(4); Respiratory Rate: 10 to 29 per min(4); Brandon Score: 15; Trauma Score: 12 19:19 Eye Response: spontaneous(1); Verbal Response: oriented(1); Motor Response: obeys jb4 commands(2); Systolic BP: > 89 mm Hg(4); Respiratory Rate: 10 to 29 per min(4); Brandon Score: 15; Trauma Score: 12 ED Course: 17:32 Patient arrived in ED. hj 17:32 Vandana Jenkins MD is Attending Physician. ma2 17:35 Triage completed. hj 17:44 Arm band placed on right wrist. hj 17:45 Patient has correct armband on for positive identification. Placed in gown. Bed in low hj position. Call light in reach. Side rails up X 1. Adult w/ patient. 17:45 Patient maintains SpO2 saturation greater than 95% on room air. hj 17:46 Thermoregulation: warm blanket given to patient. hj 17:47 Lázaro, Sanjay, RN is Primary Nurse. hj 18:05 EKG done, by ED staff, reviewed by Vandana Jenkins MD. 3 18:13 CT completed. Patient tolerated procedure well. Patient moved to radiology. mw3 18:14 Head C Spine Mpr Wo Con In Process Unspecified. EDMS 18:18 Chest Single View XRAY In Process Unspecified. EDMS 18:56 [facility] pm1 19:00 Notified ED physician of a critical lab result(s). 7.1 HGB. em 19:08 Urine collected: hat,clear. 3 19:17 Primary Nurse role handed off by Sanjay Sesay RN jb 19:17 Jc Floyd RN is Primary Nurse. jb4 19:42 No provider procedures requiring assistance completed. IV discontinued, intact, jb4 bleeding controlled, No redness/swelling at site. Pressure dressing applied. Administered Medications: 18:30 Drug: NS 0.9% 1000 ml Route: IV; Rate: 1 bolus; Site: right forearm; em 19:30 Follow up: Response: No adverse reaction; IV Status: Completed infusion; IV Intake: jb4 1000ml Intake: 19:30 IV: 1000ml; Total: 1000ml. jb4 Output: 19:44 Urine: 200ml (Voided); Total: 200ml. jb4 Outcome: 19:23 Discharge ordered by . pm1 19:42 Discharged to home with family. jb4 19:42 Condition: stable 19:42 Discharge instructions given to patient, family, Instructed on discharge instructions, follow up and referral plans. Demonstrated understanding of instructions, follow-up care. 19:44 Patient's length of stay was not longer than 2 hours. jb4 19:51 Patient left the ED. jb4 Signatures: Dispatcher [employer] EDAL Jayce Campos, RUBBER PROCESS HAND RUBBER PROCESS HAND Sanjay Sesay RN RN hj Marinas, Patrick, NP [employer]OR MECHANIC pm1 Jc Floyd RN RN jb4 [place] [employer] [facility] Vandana Jenkins MD MD ma2 Roxi Richardson 3 Corrections: (The following items were deleted from the chart) 17:41 17:35 BP 137 / 70; Pulse 108bpm; Resp 18bpm; Pulse Ox 95% RA; Temp 98.6F Temporal; hj 77.11 kg; Height 5 ft. 7 in.; BMI: 26.6; Pain 0/10; hj : 17:45 Pulse Ox 99% RA; hj em : 18:42 BP 152 / 80; Pulse 106bpm; Resp 16bpm; Pulse Ox 100% RA; Pain 0/10; em em 19:06 Reassessment: sent labs, very watery/thin blood, fresh IV site em em
[2018-12-02 19:56] VITALS: TEMP 98.6
[2018-12-02 19:59] VITALS: O2SAT 100
[2018-12-02 20:00] VITALS: BP 181/86
--- NOTE | 2018-12-03 08:44 | EKG ---
Test Date: 2018-12-02 Test Time: 18:00:05 Wood Repatcher: THOMAS MEASUREMENT RESULTS: Intervals: Rate: 105 NV: 188 QRSD: 126 QT: 374 QTc: 494 Mcintyre: P: 40 NV: 188 QRS: -69 T: 20 INTERPRETIVE STATEMENTS: Sinus tachycardia Right bundle branch block Left anterior fascicular block Bifascicular block Possible Lateral infarct, age undetermined Abnormal ECG Compared to ECG 07/07/2018 21:49:34 Left anterior fascicular block now present Bifascicular block now present Myocardial infarct finding now present Sinus rhythm no longer present Sinus arrhythmia no longer present First degree AV block no longer present Electronically Signed On 12-03-18 08:42:23 CDT by Nehemias Richard
== END 2018-12-02 19:51 | disposition home or self-care (01) ==
LOC: ER 17:28
DX: D64.9 Anemia, unspecified (principal); W01.0XXA Fall on same level from slipping, tripping and stumbling without subsequent striking against object, initial encounter; Y93.01 Activity, walking, marching and hiking; Y92.9 Unspecified place or not applicable; Z79.01 Long term (current) use of anticoagulants; Z88.2 Allergy status to sulfonamides; Z85.038 Personal history of other malignant neoplasm of large intestine; Z91.048 Other nonmedicinal substance allergy status; I10 Essential (primary) hypertension; E11.9 Type 2 diabetes mellitus without complications
CPT/HCPCS: 93005; 85025; 80048; 36415; 80076; 81003; 84484; 70450; 72125; 71045; 96360; 99284; J7030

== ENCOUNTER 2019-01-06 04:02 | Inpatient (IN) | payer OTHER ==
[2019-01-06] MEDS ORDERED: NA CHLORIDE 0.9% 1,000 ML ONE ×2 (04:38→06:46)
[2019-01-06 04:43] LABS: Absolute Lymphocytes (CBC) 1.8 K/uL (0.7-4.9); Basophils % 0.5 % (0-1.3); Hematocrit 31.8 % (36.0-45.0); Lymphocytes % 16.2 % (15.3-44.8); MPV 8.3 fL (7.6-11.3); RBC Red Blood Cell Count 3.93 M/uL (3.86-4.86)
[2019-01-06] MEDS ORDERED: DIPHENOX/ATROP SULF 1 TAB PO ONE (04:53)
[2019-01-06 04:58] LABS: Albumin 2.8 g/dL (3.4-5.0); Bilirubin Direct 0.1 mg/dL (0-0.2); Bilirubin Total 0.2 mg/dL (0.2-1.0); Potassium 5.4 mmol/L (3.5-5.1); Protein, Total 6.7 g/dL (6.4-8.2)
[2019-01-06 05:03] LABS: Anisocytosis 1+; Blood Morphology Comment NOTED (NOT SEEN); Platelet Estimate ADEQ; Urine White Blood Cell Casts OK
--- NOTE | 2019-01-06 07:34 | ER ---
Nurse's Notes [facility] Name: Kyung Quinones Age: 88 yrs Sex: Female : 1930 Arrival Date: 01/06/2019 Time: 04:06 Bed 20 Private MD: Diagnosis: Weakness;Hypotension;Unspecified kidney failure;Hyperkalemia;Diarrhea, unspecified Presentation: 01/06 04:08 Presenting complaint: EMS states: [facility] staff has noticed that pt has been tr5 experiencing a lot of diarrhea yesterday and today so they wanted her to come in and get checked out. Transition of care: patient was received from another setting of care (long-term care facility), [facility]. Onset of symptoms was January 06, 2019. Risk Assessment: Do you want to hurt yourself or someone else? Patient reports no desire to harm self or others. Initial Sepsis Screen: Does the patient meet any 2 criteria? No. Patient's initial sepsis screen is negative. Does the patient have a suspected source of infection? No. Patient's initial sepsis screen is negative. Care prior to arrival: Glucose check: 215. 04:08 Method Of Arrival: EMS: [facility] tr5 04:08 Acuity: YAS 3 tr5 Triage Assessment: 04:25 General: Appears in no apparent distress. comfortable, Behavior is calm, cooperative. tr5 Pain: Denies pain. EENT: No deficits noted. Neuro: Level of Consciousness is awake, alert, obeys commands, Oriented to person, place, time, Cigarette Making Machine Hopper Feeder are equal bilaterally Moves all extremities. Cardiovascular: Heart tones present Bruits absent Capillary refill < 3 seconds Pulses are all present. Edema is absent. Respiratory: Airway is patent Trachea midline Respiratory effort is even, unlabored, Respiratory pattern is regular, symmetrical, Breath sounds are clear bilaterally. GI: Abdomen is round Bowel sounds present X 4 quads. Abd is soft X 4 quads Reports cramping, diarrhea. : No signs and/or symptoms were reported regarding the genitourinary system. Derm: Skin is fragile, Skin is dry, Skin is pink, warm \T\ dry. Skin temperature is warm. Musculoskeletal: Capillary refill < 3 seconds, Range of motion: intact in all extremities. 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 - Social history:: Smoking status: Patient/guardian denies using tobacco, never smoked, Patient/guardian denies using alcohol, street drugs, IV drugs. - Ebola Screening: : No symptoms or risks identified at this time. Screenin:29 Abuse screen: Denies threats or abuse. Nutritional screening: No deficits noted. tr5 Tuberculosis screening: No symptoms or risk factors identified. Fall Risk None identified. Assessment: 04:29 Pain: Denies pain. GI: Abdomen is round Bowel sounds present X 4 quads. tr5 04:29 Reassessment: See triage note. tr5 05:46 Reassessment: Patient and/or family updated on plan of care and expected duration. Pain tr5 level reassessed. Patient is alert, oriented x 3, equal unlabored respirations, skin warm/dry/pink. 06:51 Reassessment: Patient and/or family updated on plan of care and expected duration. Pain tr5 level reassessed. Patient is alert, oriented x 3, equal unlabored respirations, skin warm/dry/pink. Patient states feeling better. 07:26 Reassessment: family member at bedside, reports finished drinking PO contrast about 1 em hour ago. 08:10 Reassessment: assisted to bedside commode, attempted to give UA, had episode of em diarrhea in UA, provider notified. 09:11 Reassessment: Patient appears in no apparent distress at this time. Patient and/or em family updated on plan of care and expected duration. Pain level reassessed. Patient is alert, oriented x 3, equal unlabored respirations, skin warm/dry/pink. pending CT results Patient denies pain at this time. 09:42 Reassessment: Patient appears in no apparent distress at this time. Patient and/or em family updated on plan of care and expected duration. Pain level reassessed. Patient is alert, oriented x 3, equal unlabored respirations, skin warm/dry/pink. request breakfast tray, provider notified. 11:31 Reassessment: Dr. Ibarra at bedside, daughter at bedside. em Vital Signs: 04:25 BP 101 / 55; Pulse 80; Resp 17; Temp 98.1(O); Pulse Ox 96% on R/A; tr5 05:46 BP 94 / 58; Pulse 78; Resp 16; Pulse Ox 100% on R/A; tr5 06:50 BP 114 / 53; Pulse 83; Resp 16; Pulse Ox 98% on R/A; tr5 07:56 BP 99 / 56; Pulse 84; Resp 18; Pulse Ox 97% on 2 lpm NC; Pain 0/10; em 09:10 BP 109 / 48; Pulse 89; Resp 16; Pulse Ox 98% on 2 lpm NC; em 10:30 BP 112 / 67; Pulse 93; Resp 16; Pulse Ox 98% on 2 lpm NC; Pain 0/10; em 11:28 BP 106 / 46 LA Supine (/reg); Pulse 95; Resp 20; Temp 98.3(T); Pain 0/10; tt1 12:08 BP 114 / 57; Pulse 97; Resp 18; Pulse Ox 97% on 2 lpm NC; em ED Course: 04:06 Patient arrived in ED. rr5 04:06 Brad Huynh, ELIAN is Primary Nurse. tr5 04:09 Mino Alcala MD is Attending Physician. pkl 04:12 Triage completed. tr5 04:25 Arm band placed on. tr5 04:29 Placed in gown. Bed in low position. Call light in reach. Door closed. Noise minimized. tr5 Warm blanket given. 04:30 Initial lab(s) drawn, by me, sent to lab. Inserted saline lock: 22 gauge in right aa1 forearm, using aseptic technique. Blood collected. 06:45 Abdomen 1 View (KUB) In Process Unspecified. EDMS 06:45 Chest Single View In Process Unspecified. EDMS 07:28 Attending Physician role handed off by Mino Alcala MD des 07:28 Kiet Alvarado MD is Attending Physician. des 07:35 Lesly Ibarra MD is Hospitalizing Provider. des 08:14 CT completed. Patient tolerated procedure well. Patient moved back from CT. mw3 08:15 Abdomen In Process Unspecified. EDMS 09:05 Yusuf cath inserted, using sterile technique, 16 Fr., by me, balloon inflated, returned iw clear yellow urine. 12:07 No provider procedures requiring assistance completed. Patient admitted, IV remains in em place. Administered Medications: 04:41 Drug: NS 0.9% 1000 ml Route: IV; Rate: 1000 ml; Site: right forearm; tr5 07:27 Follow up: IV Status: Completed infusion; IV Intake: 1000ml em 05:20 Drug: LoMOTIL 2 tabs Route: PO; tr5 06:52 Follow up: Response: Marked relief of symptoms tr5 06:47 Drug: NS 0.9% 1000 ml Route: IV; Rate: 125 ml/hr; Site: right forearm; tr5 12:10 Follow up: IV Status: Infusion continued upon admission; IV Intake: 600ml em Intake: 07:27 IV: 1000ml; Total: 1000ml. em 12:10 IV: 600ml; Total: 1600ml. em Output: 12:05 Urine: 150ml (Yusuf); Total: 150ml. em Outcome: 07:36 Decision to Hospitalize by Provider. des 12:07 Admitted to Tele accompanied by tech, via stretcher, room 208, with oxygen, with chart, em Report called to ELIAN Feldman 12:07 Condition: good 12:07 Instructed on the need for admit, Demonstrated understanding of instructions. 12:15 Patient left the ED. em Signatures: Dispatcher [employer] Evelin Kohler RN RN aa1 Kiet Alvarado MD MD cha Lam, Pin, MD MD pkl Munoz, Edgar, VICE PRESIDENT OF HUMAN RESOURCES VICE PRESIDENT OF HUMAN RESOURCES em Teresa Pelayo RN RN iw Carrie Nolasco tt1 Roxi Richardson mw3 Gilbert Arguello RN RN rr5 Brad Huynh RN RN tr5 Corrections: (The following items were deleted from the chart) 11:32 09:42 Reassessment: Patient appears in no apparent distress at this time. Patient em and/or family updated on plan of care and expected duration. Pain level reassessed. Patient is alert, oriented x 3, equal unlabored respirations, skin warm/dry/pink. request breakfast tray, provider notified iw : 09:10 BP 109 / 48; Pulse 89bpm; Resp 16bpm; Pulse Ox 98% RA; em em 12: 10:30 BP 112 / 67; Pulse 93bpm; Resp 16bpm; Pulse Ox 98% RA; Pain 0/10; iw em
--- NOTE | 2019-01-06 07:35 | EDPHYS ---
Physician Documentation [facility] Name: Kyung Quinones Age: 88 yrs Sex: Female : 1930 Arrival Date: 01/06/2019 Time: 04:06 Bed 20 Private MD: ED Physician Kiet Alvarado HPI: 01/06 04:32 This 88 yrs old Female presents to ER via EMS with complaints of Diarrhea. pkl 04:32 The patient presents to the emergency department with diarrhea. Onset: The pkl symptoms/episode began/occurred yesterday. Associated signs and symptoms: The patient has no apparent associated signs or symptoms. 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 - Social history:: Smoking status: Patient/guardian denies using tobacco, never smoked, Patient/guardian denies using alcohol, street drugs, IV drugs. - Ebola Screening: : No symptoms or risks identified at this time. ROS: 04:32 Eyes: Negative for injury, pain, redness, and discharge, ENT: Negative for injury, pkl pain, and discharge, Neck: Negative for injury, pain, and swelling, Cardiovascular: Negative for chest pain, palpitations, and edema, Respiratory: Negative for shortness of breath, cough, wheezing, and pleuritic chest pain. 04:32 Abdomen/GI: Positive for diarrhea, abdominal cramps. 04:32 Back: Negative for acute changes. 04:32 : Negative for urinary symptoms. 04:32 MS/extremity: Negative for acute changes. 04:32 Skin: Negative for rash. 04:32 Neuro: Negative for altered mental status, loss of consciousness. Exam: 04:32 Head/Face: Normocephalic, atraumatic. Eyes: Pupils equal round and reactive to light, pkl extra-ocular motions intact. Lids and lashes normal. Conjunctiva and sclera are non-icteric and not injected. Cornea within normal limits. Periorbital areas with no swelling, redness, or edema. ENT: Nares patent. No nasal discharge, no septal abnormalities noted. Tympanic membranes are normal and external auditory canals are clear. Oropharynx with no redness, swelling, or masses, exudates, or evidence of obstruction, uvula midline. Mucous membranes moist. Neck: Trachea midline, no thyromegaly or masses palpated, and no cervical lymphadenopathy. Supple, full range of motion without nuchal rigidity, or vertebral point tenderness. No Meningismus. Chest/axilla: Normal chest wall appearance and motion. Nontender with no deformity. No lesions are appreciated. Cardiovascular: Regular rate and rhythm with a normal S1 and S2. No gallops, murmurs, or rubs. Normal PMI, no JVD. No pulse deficits. Respiratory: Lungs have equal breath sounds bilaterally, clear to auscultation and percussion. No rales, rhonchi or wheezes noted. No increased work of breathing, no retractions or nasal flaring. 04:32 Abdomen/GI: Bowel sounds: active, Palpation: abdomen is soft and non-tender, in all quadrants, Rectal exam: Stool: guaiac negative, the exam is chaperoned by a family member. 04:32 Back: Exam negative for acute changes. 04:32 : Exam negative for acute changes. 04:32 Musculoskeletal/extremity: Exam is negative for acute changes. 04:32 Skin: Exam negative for rash. 04:32 Neuro: Orientation: appropriate for stated age, Mentation: is normal, Cranial nerves: grossly normal, Motor: is normal. Vital Signs: 04:25 BP 101 / 55; Pulse 80; Resp 17; Temp 98.1(O); Pulse Ox 96% on R/A; tr5 05:46 BP 94 / 58; Pulse 78; Resp 16; Pulse Ox 100% on R/A; tr5 06:50 BP 114 / 53; Pulse 83; Resp 16; Pulse Ox 98% on R/A; tr5 07:56 BP 99 / 56; Pulse 84; Resp 18; Pulse Ox 97% on 2 lpm NC; Pain 0/10; em 09:10 BP 109 / 48; Pulse 89; Resp 16; Pulse Ox 98% on 2 lpm NC; em 10:30 BP 112 / 67; Pulse 93; Resp 16; Pulse Ox 98% on 2 lpm NC; Pain 0/10; em 11:28 BP 106 / 46 LA Supine (/reg); Pulse 95; Resp 20; Temp 98.3(T); Pain 0/10; tt1 12:08 BP 114 / 57; Pulse 97; Resp 18; Pulse Ox 97% on 2 lpm NC; em MDM: 04:09 Patient medically screened. pkl 05:57 Data reviewed: vital signs, nurses notes, lab test result(s), radiologic studies, plain pkl films. ED course: Talked to Dr. Harper regarding for rehydration and observation. Cr 2.9 GFR 15. 01/06 04:28 Order name: Basic Metabolic Panel pkl 01/06 04:28 Order name: CBC with Diff; Complete Time: 05:09 pkl 01/06 04:28 Order name: Creatinine for Radiology; Complete Time: 05:09 pkl 01/06 04:28 Order name: Hepatic Function; Complete Time: 05:09 pkl 01/06 04:28 Order name: Lipase; Complete Time: 05:09 pkl 01/06 04:28 Order name: Stool Culture pkl 01/06 04:29 Order name: Lactate; Complete Time: 05:36 pkl 01/06 04:32 Order name: Basic Metabolic Panel; Complete Time: 05:09 EDMS 01/06 04:33 Order name: UA pkl 01/06 05:05 Order name: CBC Smear Scan; Complete Time: 05:09 EDMS 01/06 05:15 Order name: Abdomen 1 View (KUB) EDMS 01/06 06:01 Order name: CDIFF bb 01/06 09:09 Order name: Urine Dipstick--Ancillary (enter results) em1 01/06 04:28 Order name: IV Saline Lock; Complete Time: 04:32 pkl 01/06 04:28 Order name: Labs collected and sent; Complete Time: 04:32 pkl 01/06 05:17 Order name: Chest Single View EDKS 01/06 06:14 Order name: Abdomen ; Complete Time: 09:01 EDKS 01/06 07:30 Order name: Yusuf; Complete Time: 09:05 [facility] 01/06 09:41 Order name: Diet Renal; Complete Time: 09:42 em Administered Medications: 04:41 Drug: NS 0.9% 1000 ml Route: IV; Rate: 1000 ml; Site: right forearm; tr5 07:27 Follow up: IV Status: Completed infusion; IV Intake: 1000ml em 05:20 Drug: LoMOTIL 2 tabs Route: PO; tr5 06:52 Follow up: Response: Marked relief of symptoms tr5 06:47 Drug: NS 0.9% 1000 ml Route: IV; Rate: 125 ml/hr; Site: right forearm; tr5 12:10 Follow up: IV Status: Infusion continued upon admission; IV Intake: 600ml em Disposition: 01/06/19 07:36 Hospitalization ordered by Lesly Ibarra for Inpatient Admission. Preliminary diagnosis are Weakness, Hypotension, Unspecified kidney failure, Hyperkalemia, Diarrhea, unspecified. - Bed requested for Telemetry/MedSurg (Inpatient). - Status is Inpatient Admission. em - Condition is Fair. - Problem is new. - Symptoms have improved. UTI on Admission? No Signatures: Dispatcher [employer] EDKS Kiet Alvarado MD MD cha Lam, Pin, MD MD pkl Munoz, Edgar, EVENT PLANNING INTERN EVENT PLANNING INTERN em Meek Cohen em1 Brad Huynh, RN RN tr5 Corrections: (The following items were deleted from the chart) 05:15 04:33 Abdomen Acute Series+RAD.RAD.BRZ ordered. EDKS EDKS 06:15 05:52 Abdomen Pelvis W Con+CT.RAD.BRZ ordered. [facility] 11:08 07:36 Hospitalization Ordered by Lesly Ibarra MD for Inpatient Admission. Preliminary em1 diagnosis is Weakness; Hypotension; Unspecified kidney failure; Hyperkalemia; Diarrhea, unspecified. Bed requested for Telemetry/MedSurg (Inpatient). Status is Inpatient Admission. Condition is Fair. Problem is new. Symptoms have improved. UTI on Admission? No. des 12:15 11:08 01/06/2019 07:36 Hospitalization Ordered by Lesly Ibarra MD for Inpatient em Admission. Preliminary diagnosis is Weakness; Hypotension; Unspecified kidney failure; Hyperkalemia; Diarrhea, unspecified. Bed requested for Telemetry/MedSurg (Inpatient). Status is Inpatient Admission. Condition is Fair. Problem is new. Symptoms have improved. UTI on Admission? No. em1
--- NOTE | 2019-01-06 08:34 | RAD REPORT ---
EXAM DESCRIPTION: CT - Abdomen Pelvis Wo Contrast - 01/06/2019 8:15 am CLINICAL HISTORY: Abdominal pain. diarrhea, dehydration COMPARISON: Abdomen Pelvis Wo Contrast dated 04/15/2016 TECHNIQUE: CT imaging of the abdomen and pelvis was performed without contrast. Solid organ, bowel a nd vascular assessment is limited due to lack of IV and oral contrast. All CT scans are performed using dose optimization technique as appropriate and may include automated exposure control or mA/KV adjustment according to patient size. FINDINGS: Mild linear atelectasis is present both lung bases.Cholecystectomy clips. The liver, spleen, pancreas, adrenal glands are within normal limits for a limited non-contrast exami nation.Punctate bilateral nephrolithiasis without obstructive uropathy. No bowel obstruction, free air, free fluid or abscess. Postsurgical changes are present involving the rectum, unchanged. The appendix appears surgically absent. Mild degenerate changes in the lumbar spine. No fracture seen. IMPRESSION: No acute process is identified. A limited non-contrast examination was performed as detailed.
[2019-01-06 09:11] LABS: Urine Appearance CLOUDY; Urine Blood NEGATIVE (NEG); Urine Color DK YELLOW; Urine Glucose NEGATIVE (NEG); Urine Protein NEGATIVE (NEG); Urine Specific Gravity 1.025 (1.005-1.030); Urine Urobilinogen 0.2 mg/dL (0.2-1.0)
[2019-01-06 09:18] LABS: Urine Bilirubin NEGATIVE (NEG); Urine Microscopic Reflex NO UMIC
--- NOTE | 2019-01-06 12:19 | RAD REPORT ---
EXAM DESCRIPTION: RAD - Chest Single View - 01/06/2019 6:42 am CLINICAL HISTORY: DIARRHEA Chest pain. COMPARISON: Abdomen 1 View (KUB) dated 01/06/2019; Chest Single View dated 12/02/2018; Chest Single Vie w dated 07/07/2018; Chest Pa And Lat (2 Views) dated 02/23/2018 FINDINGS: Portable technique limits examination quality. The lungs are grossly clear. The heart is moderately enlarged in size. No displaced fractures.Aortic atherosclerosis. IMPRESSION: Moderate cardiomegaly.
--- NOTE | 2019-01-06 12:21 | RAD REPORT ---
EXAM DESCRIPTION: RAD - Abdomen 1 View (KUB) - 01/06/2019 6:42 am CLINICAL HISTORY: diarrhea Pain COMPARISON: Abdomen Pelvis Wo Contrast dated 01/06/2019 FINDINGS: The bowel gas pattern is non-obstructive. No evidence of free air or pneumatosis. No suspi cious calcifications. Degenerative changes are present in the lower lumbar spine and both hips. The lungs are clear. The heart is mildly enlarged. No subdiaphragmatic free air seen. IMPRESSION: No bowel obstruction or other acute process identified.
[2019-01-06 12:49] VITALS: BMI 26.8
[2019-01-06] MEDS ORDERED: ONDANSETRON 4 MG/2 ML VIAL IV PRN (12:52)
[2019-01-06] MEDS ORDERED: ACETAMINOPHEN 500 MG TAB PO PRN (12:52)
[2019-01-06] MEDS: NA CHLORIDE 0.9% 1,000 ML IV SCH ×2 (14:33→22:28)
[2019-01-06] MEDS ORDERED: GLUCAGON 1 MG/VIAL IM PRN (16:51)
[2019-01-06] MEDS ORDERED: D50W 25 GM/50 ML SYRINGE IV PRN (16:51)
[2019-01-06] MEDS: INSULIN -REGULAR HUMAN 50 UNIT/0.5 ML ML SQ SCH (22:21)
[2019-01-06 22:42] LABS: Urine Appearance CLEAR; Urine Bilirubin NEGATIVE (NEG); Urine Blood NEGATIVE (NEG); Urine Color YELLOW; Urine Glucose NEGATIVE (NEG); Urine Protein NEGATIVE (NEG); Urine Specific Gravity <=1.005 (1.005-1.030)
[2019-01-06 22:43] LABS: Urine Microscopic Reflex ORDER UMIC
[2019-01-06] MEDS ORDERED: ACETAMINOPHEN 325 MG TABLET PO PRN (23:10)
[2019-01-06] MEDS ORDERED: [UNRECOGNIZED DRUG - OTHER] TP PRN (23:10)
[2019-01-06] MEDS ORDERED: ORPHENADRINE CITRATE 100 MG PO PRN (23:10)
[2019-01-06] MEDS ORDERED: ALBUTEROL 2.5 MG/3 ML NEB SOL IH PRN (23:10)
[2019-01-06 23:11] LABS: Urine Bacteria <20 /HPF (<20); Urine Culture Reflex Order REFLEXED; Urine RBC NONE SEEN /HPF (NONE SEEN)
--- NOTE | 2019-01-07 01:02 | HP ---
Date of Admission: 01/06/2019 Primary Care Physician: Dr. Flores. Chief Complaint: Diarrhea. Code Status: Full Code. History Of Present Illness: The patient is an 88-year-old female with past medical historyof diabete s mellitus type 2, hypertension, neuropathy, history of colon cancer status post colectomy, history o f DVT, who is a resident of assisted living facility, who was found to have a recent fall. Also, com es in with diarrhea and generalized weakness. The patient's blood pressure was on the low side. Upo n arrival, her vital signs showed 101/55. The patient was afebrile. Her workup revealed a potassium of 5.4. Kidney function was 2.93. At baseline, it is usually normal. WBC count was mildly elevate d at 11.2. The patient's symptoms were constant, moderate, progressively worsening. She denied any nausea, vomiting, fever, chills, or any blood in her stool. Daughter was at the bedside. The patien t was given normal saline bolus x2 and then referred for admission. When seen in the ER, she was betsey ke, alert, oriented x3, in some mild distress. Past Medical History: Diabetes mellitus type 2, non-insulin requiring; hypertension; diabetic neurop athy; venous insufficiency; history of colon cancer and radiation therapy; history of DVT on the left side; history of stroke, on anticoagulation; remote history of tobacco use. Surgical History: Appendectomy, hysterectomy, partial colectomy, hemorrhoid surgery, cholecystectomy , throat surgery, hernia repair, vein surgery on both legs. Allergies: TO IODINE AND SULFA. Medications: List reviewed. Social History: The patient lives in an assisted living facility, is a , has 4 children. The p atient is a former smoker. No alcohol use. The patient does need some assistance with her activitie s of daily living. Family History: Mother had cancer. Father had lung disease and emphysema. Sister had lung disease, stroke. Review of Systems: Ten-point system reviewed, negative except as per HPI. Physical Examination: Vital Signs: Blood pressure 101/55, pulse 80, respirations 17, temperature 98.1, O2 96% on room air. General: Awake, alert, oriented x3. Elderly female, in some mild distress. HEENT: Normocephalic, atraumatic. PERRLA. EOMI. Dry mucous membranes. Oropharynx is clear. Conj unctivae are anicteric. Neck: Supple. No JVD. Trachea midline. CV: S1, S2. Regular rate and rhythm. Peripheral pulses present. Respiratory: Moving air well bilaterally. No wheezing or stridor. No use of accessory muscles. Gastrointestinal: Abdomen is soft. Mild tenderness to palpation. No rebound or guarding. Positive bowel sounds. Extremities: No clubbing, cyanosis, or edema. No calf tenderness. Skin: The patient has multiple abrasions on her lower extremities with 1 abrasion on the left lower extremity with active skin tear, no signs of infection, was wrapped. Psych: Mood is okay. Affect is full. Insight and judgment are good. Laboratory Data: WBC 11.2, H and H 10 and 31.8, platelets 266, neutrophils 76%. Sodium 137, potassi um 5.4, chloride 103, CO2 of 29, BUN 25, creatinine 2.93, glucose 206, lactate 1.3, calcium 9.5, albu min 2.8, lipase 141. UA is negative. CT scan of the abdomen and pelvis shows no acute process ident ified, postsurgical changes present around the rectum. Appendix appears surgically absent. KUB pers onally reviewed, shows no bowel obstruction or other acute process identified. Chest x-ray shows mod erate cardiomegaly. Assessment And Plan: An 88-year-old female with: 1.Diarrhea, unclear etiology. The patient was recently on antibiotics for urinary tract infection, with Bactrim. We will rule out Clostridium difficile. 2.Acute hypotension, likely related to dehydration and diarrhea, volume depletion. We will continue with IV fluid resuscitation and monitor closely. 3.Acute kidney injury, likely due to prerenal azotemia secondary to dehydration and volume loss. We will continue with IV fluid hydration and monitor creatinine. Avoid NSAIDs. We will consult Nephro logy. 4.Hyperkalemia. We will monitor, repeat potassium level this afternoon. Due to diarrhea, the patie nt will likely lose potassium. Therefore, we will avoid Kayexalate as patient already has diarrhea. 5.Diabetes mellitus type 2 with neuropathy. We will continue sliding scale insulin and monitor Accu -Cheks. 6.History of colon cancer, status post colectomy. 7.History of cerebrovascular accident, on Xarelto. 8.History of left deep venous thrombosis. 9.Deep venous thrombosis prophylaxis. We will continue anticoagulation. Plan: Admit the patient to Med-Surg, place as inpatient. Length of stay greater than 2 midnights. MARCELL Voice ID: [id number]
[2019-01-07] MEDS: GABAPENTIN 300 MG CAP PO SCH ×5 (01:09→21:11)
[2019-01-07] MEDS: PANTOPRAZOLE 40MG TABLET PO SCH (05:43)
[2019-01-07 06:36] LABS: Absolute Lymphocytes (CBC) 1.7 K/uL (0.7-4.9); Basophils % 0.2 % (0-1.3); Hematocrit 27.6 % (36.0-45.0); Lymphocytes % 25.5 % (15.3-44.8); MPV 8.4 fL (7.6-11.3); RBC Red Blood Cell Count 3.37 M/uL (3.86-4.86)
[2019-01-07 06:53] LABS: Albumin 2.2 g/dL (3.4-5.0); Bilirubin Total 0.3 mg/dL (0.2-1.0); Magnesium 1.8 mg/dL (1.8-2.4); Phosphorus 2.5 mg/dL (2.5-4.9); Protein, Total 5.5 g/dL (6.4-8.2)
[2019-01-07 06:56] LABS: Potassium 5.7 mmol/L (3.5-5.1)
[2019-01-07] MEDS: INSULIN -REGULAR HUMAN 50 UNIT/0.5 ML ML SQ SCH ×4 (07:30→21:12)
[2019-01-07] MEDS ORDERED: METFORMIN HCL 500 MG TAB PO SCH (08:00)
[2019-01-07] MEDS: FERROUS SULFATE 325 MG TAB PO SCH ×2 (08:34→21:10)
[2019-01-07] MEDS: VITAMIN D 5,000 UNIT CAP PO SCH (08:35)
[2019-01-07] MEDS: HOME MED 1 EA UNK (Cyanocobalamin (Vitamin B-12) [Vitamin B12] 2,500 MCG) PO SCH (08:38)
[2019-01-07] MEDS: RIVAROXABAN 2.5 MG PO SCH (08:38)
[2019-01-07] MEDS: TURMERIC PO SCH ×2 (08:39→21:00)
[2019-01-07] MEDS: TURMERIC ROOT EXTRACT PO SCH ×2 (08:39→21:00)
[2019-01-07] MEDS ORDERED: SMZ./TMP. 800/160 MG TABLET PO SCH (09:00)
[2019-01-07] MEDS ORDERED: SOD POLYSTYREN SUL 15 GM/60 ML UCUP PO ONE (09:00)
[2019-01-07] MEDS ORDERED: LISINOPRIL 20 MG TAB PO SCH (09:00)
[2019-01-07] MEDS ORDERED: THYROID PORK 30 MG PO SCH (09:00)
[2019-01-07] MEDS: NA CHLORIDE 0.9% 1,000 ML IV SCH ×2 (10:50→18:35)
--- NOTE | 2019-01-07 14:01 | PN ---
Date of Progress Note: 01/07/2019 Subjective: Patient was seen and examined. Chart reviewed and case discussed with RN. The patient still appears in mild distress. No reported diarrhea. Medications: List reviewed. Physical Examination: Vital Signs: Temperature 98, heart rate 79, blood pressure 119/63, respirations 16, O2 96% on 2 L vi a nasal cannula. General: Awake, alert, and oriented, in some mild distress. Elderly female, ill appearing. CV: S1, S2. Regular rate and rhythm. Peripheral pulses present. Respiratory: Moving air well bilaterally. No wheezing. Gastrointestinal: Abdomen is soft, nontender, nondistended. Positive bowel sounds. Extremities: No clubbing, cyanosis, or edema. Neurologic: Nonfocal. Skin: The patient has multiple abrasions on the lower extremities. Laboratory Data: Sodium 142, potassium 5.7, chloride 111, CO2 27, BUN 16, creatinine 1.25, glucose 1 24, calcium 8.6, phosphorus 2.5, magnesium 1.8, albumin 2.2. WBC 6.5, H and H 8.7 and 27.6, platelet s 214. C diff assay is pending. Assessment And Plan: An 88-year-old female with: 1.Diarrhea, unclear etiology. We will await C diff results. The patient's diarrhea is improving si gnificantly. The patient does have risk for C diff. She was recently on antibiotics. 2.Acute hypotension, improving. We will continue with IV fluid resuscitation secondary to dehydrati on and diarrhea. 3.Acute kidney injury secondary to prerenal azotemia. Kidney function has normalized. We will cont inue to monitor and avoid NSAIDs. 4.Hyperkalemia. We will give Kayexalate and recheck potassium level likely secondary to acute kidne y injury. 5.Diabetes mellitus type 2 with neuropathy and hyperglycemia [id number]. We will continu e to monitor blood glucose levels and continue Accu-Cheks. 6.Recent urinary tract infection, acute cystitis, treated with Bactrim. Repeat UA is negative. We will discontinue Bactrim for now. We will follow up on cultures. 7.History of colon cancer status post colectomy. 8.History of cerebrovascular accident, on Xarelto. 9.History of left deep venous thrombosis, currently on Xarelto. 10.Deep venous thrombosis prophylaxis, on oral anticoagulation. Plan: Follow up with repeat potassium level and C diff culture results, likely discharge in a.m. /VIDYA Voice ID: [id number] Report ID: [id number]
--- NOTE | 2019-01-08 01:45 | CON ---
Date of Consultation: 01/07/2019 Chief Complaint: Acute kidney injury. History Of Present Illness: Acute kidney injury, moderately severe, nonoliguric associated with hypo tension, prerenal azotemia and nonoliguric ATN. The patient has history of chronic kidney disease st age 5. Review of previous medical records available showed creatinine level of 0.6 to 0.98. On arri moe to the hospital, creatinine level was up to 2.93. The patient was found to have hyperkalemia and received Kayexalate. Potassium level was ranging from 5.2 to 5.4, although today was up to 5.7. Th e patient received Kayexalate. The patient does not have metabolic alkalosis. The patient was treat ed with Bactrim for urinary tract infection, which was the culprit for hyperkalemia and acute kidney injury. The patient received IV fluids for hydration and renal function is stabilizing. The patient is an 88-year-old woman with history of diabetes mellitus type 2, hypertension, periphera l neuropathy, history of colon cancer status post colectomy, history of DVT. She is an assisted [facility] resident. She was found to have recent fall. She came to the hospital because of diarrh ea, generalized weakness. Upon arrival to the hospital, blood pressure was 101/55. Workup revealed potassium of 5.4 and creatinine up to 2.93, baseline creatinine level is 0.9 to 1.1. The patient was found to have leukocytosis. The patient was complaining of generalized weakness, fever, chills, vom iting. She denied blood in the stool. The patient received IV normal saline to control hypotension and to provide fluid resuscitation. She was awake, oriented x3 and was in some mild distress due to generalized weakness. Review of Systems: Constitutional: Today, the patient denies fever, chills. Eyes: Denies vision changes. Ears, Nose, Mouth, and Throat: Denies sore throat, earache. Respiratory: Denies PND, orthopnea. Cardiovascular: Denies chest pain, palpitation. GI: Denies nausea, vomiting. Denies dysuria, hematuria. All other systems reviewed and all are negative. Past Medical History: Diabetes mellitus; hypertension; diabetic neuropathy; venous insufficiency; hi story of colon cancer, status post radiation; DVT; history of stroke, on anticoagulation; remote hist ory of tobacco use. Past Surgical History: Appendectomy, hysterectomy, partial colectomy, hemorrhoid surgery, cholecyste ctomy, throat surgery, hernia repair, vein surgery on both legs. Medications: As listed. Social History: Lives in assisted living facility. She is a , has 4 children. The patient is a former smoker. Denies alcohol. Family History: Mother had cancer. Father had lung disease. Sister had lung disease and stroke. Physical Examination: Vital Signs: Blood pressure 101/55, heart rate 80, respiratory rate 17, temperature 98.1. Eyes: Anicteric sclerae. EOMI. Ears, Nose, Mouth, and Throat: Oral mucosa moist. No pallor. Neck: Supple. No JVD. No bruits. Lungs: Few rhonchi. Few wheezes. Heart: S1, S2. No pericardial friction rub. Abdomen: Soft, benign, nontender. No rebound, no guarding. Extremities: No clubbing, no cyanosis, no edema. Skin: Warm and dry. No skin rashes. Neurological: Moving extremities. Cranial nerves intact. Psychiatric: Alert, oriented x3. Normal affect. Laboratory Data: Sodium 137, potassium 5.4, chloride 103, CO2 29, BUN 25, creatinine 2.93, glucose 2 06, lactate 1.3, calcium 9.5, albumin 2.8. CT scan of the abdomen and pelvis showed no acute process , postsurgical changes present around the rectum. Appendix appears surgically absent. Chest x-ray s howed moderate cardiomegaly. Impression And Plan: 1.Diarrhea of unclear etiology. The patient was recently on antibiotics. The patient is to have a workup for Clostridium difficile colitis. 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 The patient has underlying chronic kidney disease stage 3. The patient has risk factors for progressive renal insufficiency due to the fact that she is diabetic and has history of r ecent episodes of hypotension. Avoid nonsteroidal anti-inflammatory medication. The patient will co ntinue IV hydration. 3.Hyperkalemia. The patient is tolerating Kayexalate. Continue treatment. Monitor potassium level . 4.History of colon cancer, per primary team. EB/MODL Voice ID: [id number] Report ID: [id number]
[2019-01-08] MEDS: NA CHLORIDE 0.9% 1,000 ML IV SCH (06:00)
[2019-01-08] MEDS: PANTOPRAZOLE 40MG TABLET PO SCH (06:00)
[2019-01-08] MEDS: GABAPENTIN 300 MG CAP PO SCH ×2 (06:00→11:43)
[2019-01-08] MEDS ORDERED: THYROID 30 MG TAB PO SCH (06:00)
[2019-01-08 06:34] LABS: Albumin 2.1 g/dL (3.4-5.0); Bilirubin Total 0.3 mg/dL (0.2-1.0); Potassium 4.7 mmol/L (3.5-5.1); Protein, Total 5.3 g/dL (6.4-8.2)
[2019-01-08 06:44] LABS: Absolute Lymphocytes (CBC) 1.9 K/uL (0.7-4.9); Basophils % 0.8 % (0-1.3); Hematocrit 28.2 % (36.0-45.0); Lymphocytes % 31.9 % (15.3-44.8); MPV 8.7 fL (7.6-11.3); RBC Red Blood Cell Count 3.42 M/uL (3.86-4.86)
[2019-01-08] MEDS: INSULIN -REGULAR HUMAN 50 UNIT/0.5 ML ML SQ SCH ×2 (07:30→11:43)
[2019-01-08] MEDS: TURMERIC ROOT EXTRACT PO SCH (08:17)
[2019-01-08] MEDS: RIVAROXABAN 2.5 MG PO SCH (08:17)
[2019-01-08] MEDS: HOME MED 1 EA UNK (Cyanocobalamin (Vitamin B-12) [Vitamin B12] 2,500 MCG) PO SCH (08:17)
[2019-01-08] MEDS: TURMERIC PO SCH (08:17)
[2019-01-08] MEDS: VITAMIN D 5,000 UNIT CAP PO SCH (08:41)
[2019-01-08] MEDS: FERROUS SULFATE 325 MG TAB PO SCH (08:41)
[2019-01-08 12:46] VITALS: TEMP 97.8
[2019-01-08 16:10] VITALS: O2SAT 98
[2019-01-08 16:12] VITALS: BP 142/82
--- NOTE | 2019-01-09 03:21 | PN ---
Date of Progress Note: 01/08/2019 Chief Complaint: Acute on chronic kidney injury. History Of Present Illness: Patient was found to have acute kidney injury moderately severe, nonolig uric, associated with hypotension, prerenal azotemia and nonoliguric ATN complicated by hyperkalemia. Patient received Kayexalate and potassium level improved from 5.7 to 5.2. Patient previously was f ound to have urinary tract infection and was treated with Bactrim. Bactrim, likely was a culprit for hyperkalemia and acute kidney injury. Patient responded to IV fluids. Patient has history of diabe lata mellitus. I discussed with the family members and with the patient that for the future patient c annot take metformin because of risk of lactic acidosis. During this admission, patient did not have lactic acidosis. Review of Systems: Denies fever, chills. Physical Examination: Lungs: Clear to auscultation bilaterally. Heart: S1, S2. Abdomen: Soft, benign, nontender. Extremities: No edema. Physical Examination: Vital Signs: Blood pressure 130/82, heart rate 88, temperature 97.8, hemoglobin 8.7. WBC 5.8, plate let count is 220. Sodium 145, potassium 4.7, chloride 112, CO2 of 27, BUN 9, creatinine 0.88. Impression And Plan: 1.Acute kidney injury secondary to prerenal azotemia. Patient responded to IV fluids. 2.Hyperkalemia, resolved. Continue to monitor renal panel. Avoid nonsteroidal anti-inflammatory me dication. 3.Urinary tract infection. Continue antibiotics according to urine culture. 4.Reevaluate urine culture. 5.History of colon cancer per primary team. 6.Acute hypotension episode, likely secondary to volume depletion. Patient received IV fluids. 7.Adjust blood pressure medication accordingly to prevent hypotensive episode. EB/MODL Voice ID: [id number] Report ID: [id number]
--- NOTE | 2019-01-09 06:36 | DS ---
Date of Discharge: 01/08/2019 Consultants: Dr. Pradhan with Nephrology. Admitting Diagnoses: 1.Acute hypotension. 2.Diarrhea. 3.Acute kidney injury. 4.Hyperkalemia. 5.Diabetes mellitus type 2 with neuropathy. 6.History of colon cancer, status post colectomy. 7.History of cerebrovascular accident, on Xarelto. 8.History of left deep venous thrombosis. Discharge Diagnoses: 1.Acute hypotension, resolved. 2.Diarrhea, resolved. 3.Acute kidney injury secondary to hypotension, prerenal azotemia, corrected. 4.Hyperkalemia, corrected. 5.Diabetes mellitus type 2 with neuropathy, stable. 6.History of colon cancer, status post colectomy. 7.History of cerebrovascular accident, on Xarelto, stable. 8.History of left deep venous thrombosis. Hospital Course: The patient is an 88-year-old female with past medical history of diabetes, hyperte nsion, comes in from assisted-living facility with diarrhea, hypotension. The patient had acute kidn ey injury and hyperkalemia. The patient was admitted to the hospital for further evaluation. She wa s started on IV fluids. She was given Kayexalate for her potassium. Nephrology was consulted. Her kidney function was elevated, likely due to hypotension and prerenal azotemia. She responded well to IV fluids. Her diarrhea resolved as well. She was recently on Bactrim for her UTI. Repeat urine w as clear. Therefore, Bactrim was discontinued. The patient was then cleared from Nephrology standpo int. She was able to ambulate without any difficulty. She was able to tolerate her diet. She has h ad some falls, therefore, the patient may need home health with PT. Medications List: Reviewed. Activity: Fall precautions. Diet: Diabetic. Followup: Follow up with PCP in 2-3 days. Follow up with social media marketing analyst, Dr. Pradhan in 2 weeks. Return to ER for worsening condition. Physical Examination: General: Awake, alert, oriented x3, elderly female. CV: S1, S2. Respiratory: Moving air well bilaterally. Abdomen: Soft, nontender, nondistended. Positive bowel sounds. Extremities: No clubbing, cyanosis, or edema. Neurologic: Nonfocal. Total time spent discharging the patient was 38 minutes. /VIDYA Voice ID: [id number] Report ID: [id number]
== END 2019-01-08 17:11 | disposition home health service (06) | DRG 314 ==
LOC: ER 04:02 → ERHOLD 08:26 → 2ND 11:53
PROVIDERS: ADMIT Family Medicine; ATTEND Family Medicine
DX: I95.9 Hypotension, unspecified (principal); N17.0 Acute kidney failure with tubular necrosis; N39.0 Urinary tract infection, site not specified; R19.7 Diarrhea, unspecified; E86.0 Dehydration; R79.89 Other specified abnormal findings of blood chemistry; E87.5 Hyperkalemia; I12.9 Hypertensive chronic kidney disease with stage 1 through stage 4 chronic kidney disease, or unspecified chronic kidney disease; E11.22 Type 2 diabetes mellitus with diabetic chronic kidney disease; E11.65 Type 2 diabetes mellitus with hyperglycemia; N18.3 Chronic kidney disease, stage 3 (moderate); E11.40 Type 2 diabetes mellitus with diabetic neuropathy, unspecified; Z85.038 Personal history of other malignant neoplasm of large intestine; Z86.73 Personal history of transient ischemic attack (TIA), and cerebral infarction without residual deficits; Z86.718 Personal history of other venous thrombosis and embolism; Z87.891 Personal history of nicotine dependence; Z88.2 Allergy status to sulfonamides
CPT/HCPCS: 36415; 51702; 71045; 74018; 74176; 80048; 80053; 80076; 81003; 81015; 82962; 83605; 83690; 83735; 84100; 84132; 85025; 87086; 87088; 94760; 96360; 96361; 97112; 97116; 97161; 97530; 99285; J7030

== ENCOUNTER 2019-02-14 14:48 | Inpatient (IN) | payer OTHER ==
[2019-02-14 16:22] LABS: Absolute Lymphocytes (CBC) 1.9 K/uL (0.7-4.9); Basophils % 0.7 % (0-1.3); Hematocrit 39.8 % (36.0-45.0); Lymphocytes % 17.8 % (15.3-44.8); MPV 9.1 fL (7.6-11.3); RBC Red Blood Cell Count 4.64 M/uL (3.86-4.86)
[2019-02-14] MEDS ORDERED: NA CHLORIDE 0.9% 1,000 ML ONE ×2 (16:35→19:17)
--- NOTE | 2019-02-14 16:45 | RAD REPORT ---
EXAM DESCRIPTION: CT - Abdomen Pelvis Wo Contrast - 02/14/2019 4:10 pm CLINICAL HISTORY: bloody diarrhea COMPARISON: Abdomen Pelvis Wo Contrast dated 01/06/2019; Abdomen Pelvis Wo Contrast dated 016 TECHNIQUE: Axial [address] imaging of the abdomen and pelvis was performed without IV contrast. No IV contrast was given because of allergy, abnormal renal function, patient refusal or physician re quest. No oral contrast All CT scans are performed using dose optimization technique as appropriate and may include automated exposure control or mA/KV adjustment according to patient size. FINDINGS: Vague nodular focus in the lateral posterior left lung base is similar or fractionally sma ller than January 06. Pericardial thickening and pericardial effusion pattern has not significantly ch anged. The liver, spleen and pancreas show no suspicious findings on non-contrast imaging. Cholecystectomy c lips are present. No biliary tree dilatation. No hydronephrosis or suspicious renal mass. Capsular nodularity and small round mass lower pole left kidney unchanged. Nonobstructing calculi are seen. No significant adrenal finding. Isodense renal mas ses and pyelonephritis cannot be excluded in the absence of IV contrast. Urinary bladder is fully con tracted. Uterus is absent. No gastric dilatation or gastric wall thickening. No dilated large or small bowel loops identified. R ectal anastomotic site noted. The rectum distal to the anastomotic site shows evidence for wall thick ening and suspected edema. There is stranding in the presacral soft tissues in this region. No free air, free fluid or inflammatory stranding. No hernia, mass or bulky lymphadenopathy. No suspicious bony findings. Degenerative bony changes are present. Vascular calcifications are pres ent. Vascular assessment is limited in the absence of contrast. IMPRESSION: No bowel obstruction, free air or surgically emergent finding. Rectal maya distal to the anastomotic site are prominent and there is presacral soft tissue thickeni ng and stranding. This is a pattern that is stable from January 06 and is probably related to prior th erapy. Distal proctitis would be possible. Full assessment is limited is the absence of IV contrast.
[2019-02-14 16:48] LABS: ALT/SGPT 15 U/L (12-78); AST/SGOT 13 U/L (15-37); Albumin 2.8 g/dL (3.4-5.0); Alkaline Phosphatase 62 U/L (45-117); BUN Blood Urea Nitrogen 29 mg/dL (7-18); Bicarbonate 26 mmol/L (21-32); Bilirubin Direct 0.1 mg/dL (0-0.2); Bilirubin Total 0.3 mg/dL (0.2-1.0); CKMB Creatine Kinase MB 1.4 ng/mL (0.3-3.6); Creatine Phosphokinase 44 U/L (26-192); Glucose Level 356 mg/dL (74-106); Lipase 172 U/L (73-393); Potassium 3.6 mmol/L (3.5-5.1); Protein, Total 6.8 g/dL (6.4-8.2); Protime INR 1.2; Sodium Level 143 mmol/L (136-145); Troponin (Emerg Dept Use Only) < 0.02 ng/mL (0.0-0.045)
--- NOTE | 2019-02-14 17:04 | RAD REPORT ---
EXAM DESCRIPTION: RAD - Chest Single View - 02/14/2019 4:17 pm CLINICAL HISTORY: Weakness, shortness of breath COMPARISON: January 06 TECHNIQUE: AP portable chest image was obtained 1614 hours . FINDINGS: Lung volumes are low. Lung base atelectasis present. No failure, infiltrate or other acute finding. Baseline interstitial pattern accentuated by shallow inspiration. Heart and vasculature are normal. No measurable pleural effusion and no pneumothorax. No acute bony abnormality seen. No acute aortic findings suspected. IMPRESSION: No acute cardiopulmonary process. No significant interval change.
--- NOTE | 2019-02-14 17:33 | EDPHYS ---
Physician Documentation [facility] Name: Kyung Quinones Age: 88 yrs Sex: Female : 1930 Arrival Date: 02/14/2019 Time: 14:52 Bed 3 Private MD: Brenden Limon ED Physician Gagan Encarnacion HPI: 02/14 16:00 This 88 yrs old Female presents to ER via Wheelchair with complaints of pm1 Confusion, Bloody Stools, Weakness. 16:00 The patient presents with confusion. Onset: The symptoms/episode began/occurred 1 pm1 week(s) ago. Possible causes: diarrhea and possible urinary tract infection according to granddaughter. Associated signs and symptoms: Pertinent positives: diarrhea, Pertinent negatives: abdominal pain, nausea, vomiting, fever. Current symptoms: In the emergency department the patient's symptoms have worsened. Patient's baseline: Neuro: alert and fully oriented, Motor: no deficits, but has baseline dementia. The patient has experienced similar episodes in the past, a few times. The patient has not recently seen a physician, the patient's primary care provider is Dr. Brenden Limon. Patient with diarrhea and altered mental status for the past week. Has not been eating or drinking well since illness according to granddaughter. Today the patient and granddaughter reports bloody mucoid stool this AM and decided to come to the ER for evaluation instead of waiting for PCP visit. Historical: - Allergies: 15:16 Iodine; hb 15:16 Sulfa (Sulfonamide Antibiotics); hb - Immunization history:: Flu vaccine status is unknown. - Ebola Screening: : Patient denies travel to an Ebola-affected area in the 21 days before illness onset. - Social history:: Smoking status: Patient/guardian denies using tobacco. ROS: 16:00 Eyes: Negative for injury, pain, redness, and discharge, ENT: Negative for injury, pm1 pain, and discharge, Neck: Negative for injury, pain, and swelling, Cardiovascular: Negative for chest pain, palpitations, and edema, Respiratory: Negative for shortness of breath, cough, wheezing, and pleuritic chest pain. 16:00 Back: Negative for injury and pain, : Negative for injury, bleeding, discharge, and swelling, MS/Extremity: Negative for injury and deformity, Skin: Negative for injury, rash, and discoloration. 16:00 Constitutional: Positive for poor PO intake, Negative for body aches, chills, fever. 16:00 Abdomen/GI: Positive for diarrhea, rectal pain, rectal bleeding, Negative for abdominal pain, nausea and vomiting, constipation. 16:00 Neuro: Positive for altered mental status, generalized weakness, Negative for headache, numbness. Exam: 16:00 Constitutional: This is a well developed, well nourished patient who is awake, alert, pm1 and in no acute distress. Head/Face: Normocephalic, atraumatic. Eyes: Pupils equal round and reactive to light, extra-ocular motions intact. Lids and lashes normal. Conjunctiva and sclera are non-icteric and not injected. Cornea within normal limits. Periorbital areas with no swelling, redness, or edema. ENT: Nares patent. No nasal discharge, no septal abnormalities noted. Tympanic membranes are normal and external auditory canals are clear. Oropharynx with no redness, swelling, or masses, exudates, or evidence of obstruction, uvula midline. Mucous membranes moist. Neck: Trachea midline, no thyromegaly or masses palpated, and no cervical lymphadenopathy. Supple, full range of motion without nuchal rigidity, or vertebral point tenderness. No Meningismus. Chest/axilla: Normal chest wall appearance and motion. Nontender with no deformity. No lesions are appreciated. Respiratory: Lungs have equal breath sounds bilaterally, clear to auscultation and percussion. No rales, rhonchi or wheezes noted. No increased work of breathing, no retractions or nasal flaring. Abdomen/GI: Soft, non-tender, with normal bowel sounds. No distension or tympany. No guarding or rebound. No evidence of tenderness throughout. 16:00 Back: No spinal tenderness. No costovertebral tenderness. Full range of motion. Skin: Warm, dry with normal turgor. Normal color with no rashes, no lesions, and no evidence of cellulitis. MS/ Extremity: Pulses equal, no cyanosis. Neurovascular intact. Full, normal range of motion. 16:00 Cardiovascular: Rate: tachycardic, actual rate is 102 bpm, Rhythm: regular, Pulses: no pulse deficits are appreciated, Heart sounds: normal, Edema: is not appreciated. 16:00 Neuro: Orientation: to person, place, situation, Motor: is normal, moves all fours. 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 Vital Signs: 15:15 BP 88 / 72; Pulse 104; Resp 16; Temp 98.3; Pulse Ox 100% on R/A; Weight 79.38 kg; hb Height 5 ft. 11 in. (180.34 cm); Pain 10/10; 15:30 BP 90 / 58; Pulse 92; Resp 18; Pulse Ox 95% on R/A; jl7 16:00 BP 98 / 86; Pulse 85; Resp 18; Pulse Ox 98% on R/A; jl7 16:30 BP 112 / 53; Pulse 89; Resp 18; Pulse Ox 97% on R/A; jl7 17:00 BP 104 / 52; Pulse 91; Resp 18; Pulse Ox 95% on R/A; jl7 17:29 BP 102 / 68; Pulse 88; Resp 21; Pulse Ox 97% ; jl7 18:00 BP 102 / 91; Pulse 87; Resp 18; Pulse Ox 96% on R/A; aj1 18:30 BP 101 / 42; Pulse 88; Resp 12; Pulse Ox 97% on R/A; aj1 19:30 BP 105 / 52; Pulse 92; Resp 18; Temp 98.2; Pulse Ox 99% ; rr5 20:30 BP 110 / 60; Pulse 85; Resp 19; Temp 98.2; Pulse Ox 99% ; rr5 15:15 Body Mass Index 24.41 (79.38 kg, 180.34 cm) hb MDM: 15:32 Patient medically screened. pm1 17:25 Data reviewed: vital signs. Data interpreted: Pulse oximetry: on room air is 100 %. pm1 Interpretation: normal. Counseling: I had a detailed discussion with the patient and/or guardian regarding: the historical points, exam findings, and any diagnostic results supporting the discharge/admit diagnosis, lab results, radiology results, the need for further work-up and treatment in the hospital. 17:45 ED course: Patient with dehydration. Pending urine sample from abdi catheter because pm1 there is no urine. Likely due to prerenal dehydration. 17:45 Physician consultation: Lesly Ibarra MD was called at 17:40, was contacted at 17:40, pm1 regarding admission, patient's condition, and will see patient in ED, shortly. 02/14 15:39 Order name: Urine Culture pm1 02/14 15:39 Order name: Basic Metabolic Panel; Complete Time: 17:10 pm02/14 15:39 Order name: Blood Culture Adult (2) pm02/14 15:39 Order name: CBC with Diff; Complete Time: 16:39 pm1 02/14 15:39 Order name: Ckmb; Complete Time: 17:10 pm02/14 15:39 Order name: CPK; Complete Time: 17:10 pm02/14 15:39 Order name: Lactate; Complete Time: 17:54 pm02/14 15:39 Order name: LFT's; Complete Time: 17:10 pm02/14 15:39 Order name: Lipase; Complete Time: 17:10 pm02/14 15:39 Order name: Procalcitonin; Complete Time: 17:10 pm02/14 15:39 Order name: Protime (+inr); Complete Time: 17:10 pm02/14 15:39 Order name: Ptt, Activated; Complete Time: 17:10 pm02/14 15:39 Order name: Troponin (emerg Dept Use Only); Complete Time: 17:10 pm02/14 15:39 Order name: Urine Microscopic Only; Complete Time: 18:21 pm02/14 15:39 Order name: Chest Single View XRAY; Complete Time: 17:23 pm02/14 15:39 Order name: Accucheck; Complete Time: 16:32 pm02/14 15:39 Order name: Cardiac monitoring; Complete Time: 16:32 pm02/14 15:39 Order name: EKG - Nurse/Tech; Complete Time: 16:32 pm02/14 15:39 Order name: IV Saline Lock - Large Bore; Complete Time: 16:12 pm02/14 15:39 Order name: Labs collected and sent; Complete Time: 16:12 pm02/14 15:39 Order name: O2 Per Protocol; Complete Time: 16:12 pm1 02/14 15:39 Order name: O2 Sat Monitoring; Complete Time: 16:12 pm1 02/14 15:39 Order name: CT Abd/Pelvis - Without Contrast; Complete Time: 17:10 pm1 02/14 16:57 Order name: Occult Blood--Ancillary 02/14 17:42 Order name: Urine Dipstick--Ancillary (enter results); Complete Time: 18:21 bd 02/14 18:06 Order name: EKG Electrocardiogram [facility] 02/14 20:48 Order name: Lactate Sepsis 2 HR Follow-up [facility] 02/14 15:39 Order name: Urine Dipstick-Ancillary (obtain specimen); Complete Time: 17:32 pm1 02/14 16:48 Order name: Straight Cath - Urine; Complete Time: 17:32 pm1 Administered Medications: 16:37 Drug: NS 0.9% (30 ml/kg) 30 ml/kg Route: IV; Rate: bolus; Site: left antecubital; aj1 20:09 Follow up: Response: No adverse reaction; IV Status: Infusion continued upon admission; rr5 IV Intake: 1250ml 17:53 Drug: Flagyl 500 mg Volume: 100 ml; Route: IVPB; Rate: 200 ml/hr; Infused Over: 30 aj1 mins; Site: left antecubital; 20:08 Follow up: Response: No adverse reaction; IV Status: Completed infusion; IV Intake: rr5 100ml 17:54 Drug: Cipro 400 mg Volume: 200 ml; Route: IVPB; Infused Over: 60 mins; Site: left aj1 antecubital; 19:30 Follow up: Response: No adverse reaction; IV Status: Completed infusion; IV Intake: rr5 200ml Disposition: 02/15 08:56 Co-signature as Attending Physician, Gagan Encarnacion MD I agree with the assessment and kdr plan of care. Disposition: 02/14/19 17:32 Hospitalization ordered by Lesly Ibarra for Inpatient Admission. Preliminary diagnosis are Acute kidney injury, Dehydration, Proctitis, Diarrhea, unspecified. - Bed requested for Telemetry/MedSurg (Inpatient). - Status is Inpatient Admission. rr5 - Condition is Stable. - Problem is new. - Symptoms have improved. UTI on Admission? No Signatures: Dispatcher [employer] EDJyothi Ramos RN RN aj1 Gagan Encarnacion MD MD [facility] Juliane Galeana RN RN cg Daryn Paez, LAN ADMINISTRATOR LAN ADMINISTRATOR pm1 Genevieve Johnson, ELIAN RN Gilbert Arguello RN RN rr5 Corrections: (The following items were deleted from the chart) 02/14 19:49 17:32 Hospitalization Ordered by Lesly Ibarra MD for Inpatient Admission. Preliminary cg diagnosis is Acute kidney injuryDehydration; Proctitis; Diarrhea, unspecified. Bed requested for Telemetry/MedSurg (Inpatient). Status is Inpatient Admission. Condition is Stable. Problem is new. Symptoms have improved. UTI on Admission? No. pm1 20:49 19:49 02/14/2019 17:32 Hospitalization Ordered by Lesly Ibarra MD for Inpatient rr5 Admission. Preliminary diagnosis is Acute kidney injuryDehydration; Proctitis; Diarrhea, unspecified. Bed requested for Telemetry/MedSurg (Inpatient). Status is Inpatient Admission. Condition is Stable. Problem is new. Symptoms have improved. UTI on Admission? No. cg
--- NOTE | 2019-02-14 17:33 | ER ---
Nurse's Notes [facility] Name: Kyung Quinones Age: 88 yrs Sex: Female : 1930 Arrival Date: 02/14/2019 Time: 14:52 Bed 3 Private MD: Brenden Limon Diagnosis: Dehydration;Acute kidney injury;Proctitis;Diarrhea, unspecified Presentation: 02/14 15:12 Presenting complaint: Generalized weakness and confusion x 6 days, rectal pain and hb blood in stool x 2 days. Transition of care: patient was not received from another setting of care. Onset of symptoms was February 09, 2019. Risk Assessment: Do you want to hurt yourself or someone else? Patient reports no desire to harm self or others. Care prior to arrival: None. 15:12 Method Of Arrival: Wheelchair hb 15:12 Acuity: YAS 2 hb 15:30 Initial Sepsis Screen: Does the patient meet any 2 criteria? RR > 20 per min. Systolic aj1 BP < 90 mmHg. Does the patient have a suspected source of infection? Yes: Other: diarrhea If YES to both, name of provider notified: Daryn Paez RIGGING LOFT REPAIRER. Historical: - Allergies: 15:16 Iodine; hb 15:16 Sulfa (Sulfonamide Antibiotics); hb - Immunization history:: Flu vaccine status is unknown. - Ebola Screening: : Patient denies travel to an Ebola-affected area in the 21 days before illness onset. - Social history:: Smoking status: Patient/guardian denies using tobacco. Screenin:30 Abuse screen: Denies threats or abuse. Denies injuries from another. Nutritional aj1 screening: No deficits noted. Tuberculosis screening: No symptoms or risk factors identified. 20:07 Fall Risk Secondary diagnosis (15 points) dementia, IV access (20 points). Gait- Weak rr5 (10 pts.). Total Miranda Fall Scale indicates High Risk Score (45 or more points). Fall prevention measures have been instituted. Side Rails Up X 2 Placed Close to Nursing Station Frequent Obs/Assessments Occuring Family Present and informed to notify staff if the need to leave the bedside As available patient and family educated on Fall Prevention Program and Strategies. Assessment: 15:30 General: Appears in no apparent distress. uncomfortable, Behavior is calm, cooperative, aj1 appropriate for age. Pain: Complains of pain in buttocks Pain does not radiate. Pain currently is 8 out of 10 on a pain scale. Neuro: Level of Consciousness is awake, alert, obeys commands, Oriented to person, place, situation, Moves all extremities. generalized weakness. Neuro: Cardiovascular: Heart tones S1 S2 present Patient's skin is warm and dry. Rhythm is sinus rhythm. Respiratory: Airway is patent Respiratory effort is even, unlabored, Respiratory pattern is regular, symmetrical, Breath sounds are clear bilaterally. GI: Abdomen is non-distended, Bowel sounds present X 4 quads. Abd is soft and non tender X 4 quads. Reports diarrhea, bloody stool, Patient currently denies nausea, vomiting. : Labia are red and swollen. EENT:. Derm: No signs and/or symptoms reported regarding the dermatologic system. Skin is pink, warm \T\ dry. normal. Musculoskeletal: No signs and/or symptoms reported regarding the musculoskeletal system. Circulation, motion, and sensation intact. 16:30 Reassessment: Patient appears in no apparent distress at this time. No changes from aj1 previously documented assessment. Patient and/or family updated on plan of care and expected duration. Pain level reassessed. 17:30 Reassessment: Patient and/or family updated on plan of care and expected duration. Pain aj1 level reassessed. General: Appears in no apparent distress. comfortable, Behavior is calm, cooperative, appropriate for age. Neuro: Level of Consciousness is awake, alert, obeys commands, Oriented to person, place, situation, Moves all extremities. reports generalized weakness. Reports dizziness. Cardiovascular: Patient's skin is warm and dry. Rhythm is sinus rhythm. Respiratory: Airway is patent Respiratory effort is even, unlabored, Respiratory pattern is regular, symmetrical. Derm: No signs and/or symptoms reported regarding the dermatologic system. Skin is pink, warm \T\ dry. normal. Musculoskeletal: No signs and/or symptoms reported regarding the musculoskeletal system. Circulation, motion, and sensation intact. 18:32 Reassessment: Patient appears in no apparent distress at this time. No changes from aj1 previously documented assessment. Patient and/or family updated on plan of care and expected duration. Pain level reassessed. 19:20 General: Appears in no apparent distress. comfortable, Behavior is calm, cooperative, rr5 appropriate for age. Pain: Denies pain. Neuro: Level of Consciousness is awake, alert, obeys commands, Oriented to person, place, situation, Reports weakness. Cardiovascular: Capillary refill < 3 seconds Patient's skin is warm and dry. Respiratory: Airway is patent Respiratory effort is even, unlabored, Respiratory pattern is regular, symmetrical. GI: No signs and/or symptoms were reported involving the gastrointestinal system. Reports diarrhea, bloody stool. : No signs and/or symptoms were reported regarding the genitourinary system. EENT: No signs and/or symptoms were reported regarding the EENT system. Musculoskeletal: Circulation, motion, and sensation intact. Capillary refill < 3 seconds. 20:09 Reassessment: Patient appears in no apparent distress at this time. Patient and/or rr5 family updated on plan of care and expected duration. Pain level reassessed. no complaints made. for transfer to 2 nd floor. vitally stable, breathing spontaneously at room air. Vital Signs: 15:15 BP 88 / 72; Pulse 104; Resp 16; Temp 98.3; Pulse Ox 100% on R/A; Weight 79.38 kg; hb Height 5 ft. 11 in. (180.34 cm); Pain 10/10; 15:30 BP 90 / 58; Pulse 92; Resp 18; Pulse Ox 95% on R/A; jl7 16:00 BP 98 / 86; Pulse 85; Resp 18; Pulse Ox 98% on R/A; jl7 16:30 BP 112 / 53; Pulse 89; Resp 18; Pulse Ox 97% on R/A; jl7 17:00 BP 104 / 52; Pulse 91; Resp 18; Pulse Ox 95% on R/A; jl7 17:29 BP 102 / 68; Pulse 88; Resp 21; Pulse Ox 97% ; jl7 18:00 BP 102 / 91; Pulse 87; Resp 18; Pulse Ox 96% on R/A; aj1 18:30 BP 101 / 42; Pulse 88; Resp 12; Pulse Ox 97% on R/A; aj1 19:30 BP 105 / 52; Pulse 92; Resp 18; Temp 98.2; Pulse Ox 99% ; rr5 20:30 BP 110 / 60; Pulse 85; Resp 19; Temp 98.2; Pulse Ox 99% ; rr5 15:15 Body Mass Index 24.41 (79.38 kg, 180.34 cm) ED Course: 14:52 Patient arrived in ED. mr 14:52 Brenden Limon is Private Physician. mr 15:08 Patient's name was called from ER lobby. Unable to locate patient. Will disposition as hb left without being seen by a provider. 15:15 Triage completed. hb 15:16 Arm band placed on. hb 15:30 Patient has correct armband on for positive identification. Bed in low position. Call aj1 light in reach. Side rails up X 1. progress worker on. Pulse ox on. NIBP on. 15:31 Daryn Paez NP is PHCP. pm1 15:31 Gagan Encarnacion MD is Attending Physician. pm1 16:01 Initial lab(s) drawn, by me, sent to lab. First set of blood cultures drawn by me. 3 Inserted saline lock: 22 gauge in left antecubital area, using aseptic technique. Blood collected. 16:17 Second set of blood cultures drawn by me. dh3 16:18 CT Abd/Pelvis - Without Contrast In Process Unspecified. EDMS 16:20 Chest Single View XRAY In Process Unspecified. EDMS 16:22 Jyothi Palma, ELIAN is Primary Nurse. aj1 16:44 EKG done, by photovoltaic installation technician. reviewed by Daryn Paez NP. sm3 17:15 Straight cath inserted, using sterile technique, 15Fr Returned cloudy urine. Patient dh3 tolerated pt vaginal area is red and inflamed and was painful to the touch. 17:25 Lesly Ibarra MD is Hospitalizing Provider. pm1 17:37 No provider procedures requiring assistance completed. aj1 20:07 Patient admitted, IV remains in place. No redness/swelling at site. rr5 20:10 Lab(s) recollected, by senior label specialist, sent to lab. rr5 Administered Medications: 16:37 Drug: NS 0.9% (30 ml/kg) 30 ml/kg Route: IV; Rate: bolus; Site: left antecubital; aj1 20:09 Follow up: Response: No adverse reaction; IV Status: Infusion continued upon admission; rr5 IV Intake: 1250ml 17:53 Drug: Flagyl 500 mg Volume: 100 ml; Route: IVPB; Rate: 200 ml/hr; Infused Over: 30 aj1 mins; Site: left antecubital; 20:08 Follow up: Response: No adverse reaction; IV Status: Completed infusion; IV Intake: rr5 100ml 17:54 Drug: Cipro 400 mg Volume: 200 ml; Route: IVPB; Infused Over: 60 mins; Site: left aj1 antecubital; 19:30 Follow up: Response: No adverse reaction; IV Status: Completed infusion; IV Intake: rr5 200ml Intake: 19:30 IV: 200ml; Total: 200ml. rr5 20:08 IV: 100ml; Total: 300ml. rr5 20:09 IV: 1250ml; Total: 1550ml. rr5 Outcome: 17:32 Decision to Hospitalize by Provider. pm1 20:06 Admitted to Med/surg accompanied by tech, via stretcher, room 232, with chart, Report rr5 called to joleen 20:06 Condition: stable 20:06 Instructed on the need for admit. 20:49 Patient left the ED. rr5 Signatures: Dispatcher [employer] EDMS Jyothi Palma RN RN aj1 Sorin, Rosibel mr Paez Daryn, RIGGING LOFT REPAIRER RIGGING LOFT REPAIRER pm1 Genevieve Johnson RN RN hb Clara Houser RN RN 7 Haylee Thacker 3 Michelle Parra 3 Gilbert Arguello RN RN rr5 Corrections: (The following items were deleted from the chart) 15:15 15:12 Acuity: YAS 3 hb hb
[2019-02-14] MEDS ORDERED: CIPROFLOXACIN 400mg IV 400 MG/200 ML BAG IV ONE (17:45)
[2019-02-14] MEDS ORDERED: METRONIDAZOLE 500mg IVPB 500 MG/100 ML BAG IV ONE (17:46)
[2019-02-14 18:04] LABS: Urine Bacteria 20-50 /HPF (<20); Urine Culture Reflex Order NOT NEEDED; Urine Mucus 2+ /HPF (NONE SEEN)
[2019-02-14 18:04] LABS: Urine Blood 2+ (NEG); Urine Glucose NEGATIVE (NEG); Urine Protein 2+ (NEG); Urine Specific Gravity >1.030 (1.005-1.030)
--- NOTE | 2019-02-14 19:06 | P.INFCA ---
Sepsis Focused Assessment - Focused Assessment Complete? Sepsis Focused Assessment Completed?: Yes - Sepsis Screen Result Severe Sepsis: Positive Septic Shock: Negative - Evaluation Current stage of sepsis: Severe sepsis - Vital Signs Reviewed: Yes - Examination Date exam was performed: 02/14/19 Time exam was performed: 19:04 Heart: Regular rate/rhythm Lungs: Clear bilaterally Peripheral pulses: 3+ Normal Peripheral pulse location: Pedal Capillary refill: >2 Seconds Skin examination: Normal turgor Comments: Patient presented with altered mental status. Grand daughter at bedside.
--- NOTE | 2019-02-14 19:09 | P.PN ---
Date of Service: 02/14/19 Patient with altered mental status. Granddaughter at bedside. Sepsis assessment done. Vital signs reviewed. Patient to get 30 milligram/ kilogram IV fluid bolus then maintenance. Patient care continue with IV Cipro and Flagyl. Impression: Altered mental status-toxic encephalopathy secondary to sepsis with UTI and proctitis Acute renal failure likely from dehydration Diabetes mellitus type 2, non insulin dependent Vascular dementia Plan: Altered mental status-toxic encephalopathy secondary to sepsis with UTI and proctitis: Patient admitted earlier by Dr. Ibarra for sepsis. Sepsis protocol in place. Patient to receive 30 milligrams/kilogram of IV fluids then maintenance IV. Continue with IV Cipro and Flagyl. Continue monitor the patient closely. Patient may require extra IV fluid boluses to maintain blood pressure above 100 systolic. Case discussed with granddaughter who was present at bedside. Advanced directives readdressed. Patient is full code. Blood, urine culture obtained. May need to get stool culture is well. Continue with Dr. Ibarra's plan of care. Acute renal failure likely from dehydration: Continue sepsis protocol. Diabetes mellitus type 2, non insulin dependent: Monitor Accu-Cheks. Obtain A1c. Insulin protocol in place. Vascular dementia: Patient stable this time.
[2019-02-14] MEDS ORDERED: NA CHLORIDE 0.9% 250 ML ONE (19:17)
[2019-02-14] MEDS: NA CHLORIDE 0.9% 1,000 ML IV SCH ×2 (20:14→22:36)
[2019-02-14] MEDS ORDERED: GLUCAGON 1 MG/VIAL IM PRN (20:14)
[2019-02-14] MEDS ORDERED: D50W 25 GM/50 ML SYRINGE IV PRN (20:14)
[2019-02-14] MEDS: FAMOTIDINE 20 MG TAB PO SCH (21:31)
[2019-02-14] MEDS: INSULIN -REGULAR HUMAN 50 UNIT/0.5 ML ML SQ SCH (21:33)
[2019-02-14 23:15] VITALS: BMI 24.1
[2019-02-15] MEDS: METRONIDAZOLE 500mg IVPB 500 MG/100 ML BAG IV SCH ×3 (00:53→17:17)
--- NOTE | 2019-02-15 04:22 | HP ---
Date of Admission: 02/14/2019 Code Status: Full. Granddaughter is the medical power of trade mark attorney. Chief Complaint: Dehydration, confusion, and diarrhea. History Of Present Illness: Patient is an 88-year-old female, recently discharged from the hospital on 01/08/2019, who had come in with similar symptoms of dehydration and diarrhea. Patient has a past medical history of diabetes mellitus type 2; hypertension; neuropathy; history of colon cancer, stat us post partial colectomy; history of DVT, on Xarelto, recently switched from Eliquis; resident of an assisted living facility, who comes in with generalized weakness, fatigue, and some confusion. Shruti ent also had decreased appetite and p.o. intake. Patient was also reporting some diarrhea which was nonbloody. Patient's symptoms were constant, moderate, progressively worsening. She was scheduled t o see her PCP on Tuesday, however, was brought in by the family due to worsening symptoms. In the ER, she was found to have a blood pressure of 88/72, heart rate was 104. Her workup revealed white coun t of 10. Her creatinine however was elevated to 3.18. Her lactate was elevated at 3. CT scan showe d distal proctitis and UA was positive. Patient was given IV fluid per sepsis bundle, and referred f or admission. When seen in the ER, she was awake, alert, oriented x2, mildly confused, in some distr ess, accompanied by her family. Past Medical History: Diabetes mellitus type 2, non-insulin requiring; hypertension; diabetic neurop athy; venous insufficiency; history of colon cancer, status post partial colectomy and radiation ther apy; history of DVT on the left side, on Xarelto, history of stroke, on anticoagulation; remote histo ry of tobacco use. Surgical History: Appendectomy, hysterectomy, partial colectomy, hemorrhoid surgery, cholecystectomy , throat surgery, hernia repair, vein surgery on both legs. Allergies: TO IODINE AND SULFA. Medications: List reviewed. Social History: Patient is a resident of assisted living facility. . Has 4 children. Former smoker. No alcohol use. Does require assistance with her activities of daily living. Family History: Mother had cancer. Father had lung disease and emphysema. Sister had lung disease and stroke. Review of Systems: Limited due to patient's medical condition; however, 10-point system is negative except as per HPI. Physical Examination: Vital Signs: Blood pressure 88/72, pulse 104, respirations 16, temperature 98.3, O2 100% on room air . General: Awake, alert, oriented x2, elderly female, in some mild distress. HEENT: Normocephalic, atraumatic. PERRLA. EOMI. Dry mucous membranes. Oropharynx is clear. Conj unctivae anicteric. Neck: Supple. No JVD. Trachea midline. CV: S1, S2. Regular rate and rhythm. Peripheral pulses present. Respiratory: Clear to auscultation bilaterally. No wheezing or stridor. No use of accessory muscle s. Gastrointestinal: Abdomen is soft. Tenderness to palpation in the lower quadrant. No rebound or gu arding. Positive bowel sounds. No rigidity. Extremities: No clubbing, cyanosis, or edema. No calf tenderness. Neuro: Cranial nerves 2-12 intact grossly. No focal neurological deficit. Speech is normal. Skin: No rashes. Normal skin turgor. Cap refill is less than 2 seconds. Psych: Mood is okay. Affect is full. Insight and judgment are good. Laboratory Data: WBC 10.4, H and H 12.8 and 39.8, platelets 291, neutrophils 73%. INR 1.2. Sodium 143, potassium 3.6, chloride 105, CO2 26, BUN 29, creatinine 3.18, glucose 356, lactate 3, calcium 9. 4. Troponin less than 0.02. Lipase 172. Procalcitonin 0.07. UA; nitrite negative, leukocyte liban ase 3+, rbc's 10-20, wbc's too numerous to count, bacteria 20-50, 2+ protein. Imaging Studies: CT scan of the abdomen shows no bowel obstruction, free air, or surgically emergent finding. Rectal maya distal to the anastomotic site are prominent and there is some presacral soft tissue thickening and stranding pattern that is stable from January 06 and probably related to prio r therapy, distal proctitis would be possible. Chest x-ray personally reviewed, shows no acute cardi opulmonary process, no interval change. Assessment And Plan: An 88-year-old female with: 1.Sepsis. Patient is hypotensive, tachycardic with end-organ damage. Patient's creatinine of 3.18, likely secondary to proctitis and urinary tract infection. We will continue with sepsis bundle, 2.3 L of IV fluid bolus. We will start on IV antibiotics and obtain pancultures. 2.Septic shock. Blood pressure 88/72, is responding to IV fluids. Blood pressure is somewhat joanna r after 1 L, 102/68. We will continue to monitor. May need to be started on pressors if not respond ing. Continue with maintenance fluids after sepsis bolus. 3.Urinary tract infection, acute cystitis with hematuria. We will start on IV antibiotics and follo w up on urine cultures. 4.Acute kidney injury, likely secondary to prerenal azotemia secondary to dehydration and volume los s. We will continue with IV fluid hydration. Monitor creatinine. Avoid nephrotoxins and NSAIDs. C onsult Nephrology. 5.Acute diarrhea, likely viral versus bacterial gastroenteritis. Check stool studies. 6.Acute dehydration secondary to above. 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 We will start on sliding scale insuli n and monitor Accu-Cheks. 8.History of colon cancer, status post partial colectomy. CT scan reviewed. 9.History of cerebrovascular accident, on Xarelto. 10.History of left deep venous thrombosis, on Xarelto. 11.Deep venous thrombosis prophylaxis. Patient is already on anticoagulation. Plan: Admit the patient to Med-Surg, place as inpatient. Length of stay greater than 2 midnights. MARCELL Voice ID: [id number]
[2019-02-15 06:01] LABS: Absolute Lymphocytes (CBC) 1.6 K/uL (0.7-4.9); Basophils % 1.3 % (0-1.3); Hematocrit 38.2 % (36.0-45.0); Lymphocytes % 17.4 % (15.3-44.8); MPV 8.6 fL (7.6-11.3); RBC Red Blood Cell Count 4.43 M/uL (3.86-4.86)
[2019-02-15 06:33] LABS: Phosphorus 2.9 mg/dL (2.5-4.9); Potassium 3.6 mmol/L (3.5-5.1)
[2019-02-15 06:36] LABS: Magnesium 1.3 mg/dL (1.8-2.4)
[2019-02-15] MEDS: NA CHLORIDE 0.9% 1,000 ML IV SCH ×2 (07:23→11:25)
[2019-02-15] MEDS: INSULIN -REGULAR HUMAN 50 UNIT/0.5 ML ML SQ SCH ×4 (07:30→22:15)
[2019-02-15] MEDS ORDERED: Magnesium Sulfate 2gm IVPB 2 G/50 ML BAG IV ONE (08:00)
[2019-02-15] MEDS ORDERED: CEFTRIAXONE 1 GM/NS 50 ML 1 GM/50 ML BAG IV SCH (09:00)
[2019-02-15] MEDS: FAMOTIDINE 20 MG TAB PO SCH ×2 (09:06→20:53)
[2019-02-15] MEDS: CEFTRIAXONE/SWI 1gm 1 GM/10 ML SYR IV SCH (09:06)
[2019-02-15] MEDS ORDERED: ALBUTEROL 2.5 MG/3 ML NEB SOL IH PRN (09:48)
[2019-02-15] MEDS: RIVAROXABAN 20 MG TABLET PO SCH (11:20)
[2019-02-15] MEDS: PIOGLITAZONE 15 MG TAB PO SCH (11:21)
--- NOTE | 2019-02-15 11:42 | ECHO ---
HEIGHT: 5 ft 10 in WEIGHT: 168 lb 6.4 oz DATE OF STUDY: 02/15/[address]: Anirudh Harper DO 2-DIMENSIONAL: YES M.MODE: YES DOPPLER: YES COLOR FLOW: YES TDS: YES PORTABLE: NO DEFINITY: NO BUBBLE STUDY: NO DIAGNOSIS: SEPSIS CARDIAC HISTORY: CATHERIZATION: NO SURGERY: NO PROSTHETIC VALVE: NO PACEMAKER: NO MEASUREMENTS (cm) DIASTOLIC (NORMALS) SYSTOLIC (NORMALS) IVSd 1.4 (0.6-1.2) LA Diam 3.6 (1.9-4.0) LVEF 61% LVIDd 4.9 (3.5-5.7) LVIDs 3.3 (2.0-3.5) %FS 33% LVPWd 1.4 (0.6-1.2) Ao Diam 2.5 (2.0-3.7) 2 DIMENSIONAL ASSESSMENT: RIGHT ATRIUM: NORMAL LEFT ATRIUM: NORMAL RIGHT VENTRICLE: NORMAL LEFT VENTRICLE: LEFT VENTRICULAR HYPERTROPHY TRICUSPID VALVE: NORMAL MITRAL VALVE: NORMAL PULMONIC VALVE: NORMAL AORTIC VALVE: SCLEROSIS PERICARDIAL EFFUSION: NONE AORTIC ROOT: NORMAL LEFT VENTRICULAR WALL MOTION: NORMAL. DOPPLER/COLOR FLOW: NORMAL. COMMENTS: AORTIC SCLEROSIS NO STENOSIS. LEFT VENTRICULAR HYPERTROPHY. NORMAL EJECTION FRACTION. NORMAL WALL MOTION. NO EFFUSION. TECHNOLOGIST: MARLA SCOTT
[2019-02-15] MEDS ORDERED: MAGNESIUM SULFATE 1 gm IVPB 1 GM/100 ML BAG IV ONE (17:02)
--- NOTE | 2019-02-15 18:04 | PN ---
Date of Progress Note: 02/15/2019 Subjective: Patient is seen and examined. Chart reviewed and case discussed with RN and Dr. Ramon. The patient is feeling significantly better. Her mental status is back to normal. Medications: List reviewed. Physical Examination: Vital Signs: Temperature 98.1, heart rate 97, blood pressure 137/63, respirations 18, O2 97% on room air. General: Awake, alert, oriented x3. Elderly female, not in any acute distress , slightly ill appearing. CV: S1, S2. Regular rate and rhythm. Peripheral pulses present. Respiratory: Moving air well bilaterally. No wheezing or stridor. No use of accessory muscles. Gastrointestinal: Abdomen is soft, nontender, nondistended. Positive bowel sounds. No guarding or rigidity. Extremities: No clubbing, cyanosis, or edema. Neuro: Cranial nerves 2 through 12 intact grossly. No focal neurological deficits. Speech is normal. Laboratory Data: Sodium 145, potassium 3.6, chloride 111, CO2 26, BUN 24, creatinine 1.49, glucose 93. Hemoglobin A1c is 7.9%. Calcium 8.9, phosphorus 2.9, magnesium 1.3. WBC 9.1, H and H 12.4 and 38.2, platelets 222. Blood cultures pending. Stool occult pending. Urine cultures growing out 100,000 colony-forming units of 4+ gram-negative rods. Echocardiogram shows EF of 61%, left ventricular hypertrophy. Aortic sclerosis, no effusion. Assessment And Plan: An 88-year-old female with. 1. Sepsis. The patient was hypotensive, tachycardic with end-organ damage, had lactate of over 3, significantly improved. Blood pressure now back in the 130s secondary to urinary tract infection and proctitis. Continue with IV fluids. Cultures are pending at this time. Urine cultures, however, are growing gram-negative rods. 2. Septic shock. Blood pressure was in the 80s over 70s. Initially responded to IV fluids, now in the 130s. Did not require any pressors. 3. Acute cystitis with hematuria secondary to gram-negative rods. We will continue on IV antibiotics and follow up on final sensitivity and cultures. 4. Acute kidney injury secondary to prerenal azotemia, dehydration, volume loss, improving. Creatinine is down to 1.49. We will continue with IV fluid hydration. Nephrology consulted. Avoid NSAIDs. 5. Acute diarrhea, likely viral versus bacterial gastroenteritis. We will obtain stool studies. 6. Acute dehydration secondary to above. Continue IV fluids. 7. Hypomagnesemia. We will replace and monitor. 8. History of colon cancer, status post partial colectomy. 9. Proctitis. 10. History of cerebrovascular accident, on Xarelto. 11. Left deep venous thrombosis, on Xarelto. 12. 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 We will continue sliding scale insulin. Monitor Accu-Cheks. Hemoglobin A1c is 7.9%. Disposition: 1. Likely discontinue in the next 24 hours depending on clinical response. /VIDYA Voice ID: [id number] Report ID: [id number]
[2019-02-15] MEDS: FERROUS SULFATE 325 MG TAB PO SCH (20:53)
[2019-02-15] MEDS: GABAPENTIN 300 MG CAP PO SCH (20:54)
[2019-02-16] MEDS: METRONIDAZOLE 500mg IVPB 500 MG/100 ML BAG IV SCH ×3 (00:13→17:24)
[2019-02-16] MEDS: NA CHLORIDE 0.9% 1,000 ML IV SCH ×2 (02:06→17:25)
--- NOTE | 2019-02-16 02:28 | CON ---
Date of Consultation: 02/15/2019 Reason For Consultation: Elevated BUN and creatinine. History Of Present Illness: This is a pleasant 88-year-old female with significant past medical hist ory of diabetes since 1999, complicated with neuropathy and retinopathy, hypertension, hyperlipidemia , venous stasis, colon cancer status post partial colectomy with radiation, DVT on anticoagulation, C VA. Patient recently admitted to the hospital with gastroenteritis, treated and recovered. Patient [facility] feeling fatigue, weakness, poor intake, found to have acute kidney i njury with low blood pressure, tachycardic. Patient's creatinine upon presentation was 3 with elevat ion in the lactic acid. Patient was started on aggressive hydration. Creatinine started trending do wn. We have been consulted to maintain her IV fluid. Patient has started eating better, still tachy cardic. Past Medical History: Includes. 1.Diabetes complicated with neuropathy. 2.Hyperlipidemia. 3.Venous stasis. 4.Coronary artery disease. 5.Colon cancer, status post colectomy. 6.DVT. 7.CVA. Past Surgical History: Includes appendectomy, hysterectomy, partial colectomy, hemorrhoid surgery, c holecystectomy, hernia repair, venous surgery. Allergies: TO IODINE AND SULFA. Social History: Ex-smoker. Denied alcohol. Denied drug abuse. Family History: Positive for cancer and hypertension. Review of Systems: Head and Neck: No red eye. No ear pain. GI: Has nausea, no vomiting. : No polyuria, no dysuria, no hematuria. RESULTS TECHNICIAN: No vaginal discharge. Respiratory: Has cough. Cardiovascular: Has occasional leg swelling. Endocrine: No polydipsia. Skin: No rash. Neuro: Has confusion, altered mental status. Musculoskeletal: No joint pain. Home Medications: Include Actos, glimepiride, cholecalciferol, lisinopril, gabapentin, ferrous sulfa te, mupirocin, omeprazole. Current Medications In The Hospital: Includes Tylenol, Pepcid, gabapentin, metronidazole, pantoprazo le, pioglitazone, tramadol. Physical Examination: General: When I saw the patient, patient is lying in bed. Vital Signs: Blood pressure 139/65, pulse of 83. Upon admission, her blood pressure was down to the 90. Chest: Faint crackles on the right base. Heart: S1, S2. Systolic murmur. Abdomen: Soft, nontender. Extremities: No edema. Neuro: Has headache. No focal. Laboratory Data: WBC 9.1, H and H of 12.4/38.2, platelet of 222. Sodium 135, potassium of 3.6, bica rb is 26, BUN is 24, creatinine 1.4, calcium 8.9, phos 2.9, magnesium 1.3. Urinalysis; wbc's too num erous to count. Urine cultures are still pending. CT abdomen and pelvis, no contrast, was done. No hydronephrosis. Assessment And Plan: 1.Acute kidney injury secondary to prerenal, secondary to gastrointestinal loss, poor intake under r ecovery superimposed with JUAN inhibitor use. I cannot continue on current hydration and we will alexx tor the patient closely. We will decrease IV fluid to 75. 2.Hypertension, currently hypotension with the presence of acute kidney injury. Hold JUAN inhibitor. 3.Colitis. Continue current antibiotics. We will follow up with the primary. 4.Hypomagnesemia. We will supplement. 5.Diabetes as by primary. Thank you Dr. Ibarra for allowing us to participate in the care of your patient. BEAN/VIDYA Voice ID: [id number] Report ID: [id number]
[2019-02-16] MEDS: THYROID 30 MG TAB PO SCH (05:11)
[2019-02-16] MEDS: PANTOPRAZOLE 40MG TABLET PO SCH (05:11)
[2019-02-16 06:15] LABS: Absolute Lymphocytes (CBC) 1.4 K/uL (0.7-4.9); Basophils % 0.9 % (0-1.3); Hematocrit 37.1 % (36.0-45.0); Lymphocytes % 18.5 % (15.3-44.8); MPV 8.7 fL (7.6-11.3); RBC Red Blood Cell Count 4.34 M/uL (3.86-4.86)
[2019-02-16 06:25] LABS: Albumin 2.8 g/dL (3.4-5.0); Magnesium 1.7 mg/dL (1.8-2.4); Phosphorus 1.7 mg/dL (2.5-4.9); Potassium 3.7 mmol/L (3.5-5.1)
[2019-02-16] MEDS: INSULIN -REGULAR HUMAN 50 UNIT/0.5 ML ML SQ SCH ×4 (07:30→21:00)
[2019-02-16] MEDS ORDERED: DIPHENHYDRAMINE 50 MG/ML VIAL IV ONE (08:32)
[2019-02-16] MEDS ORDERED: HALOPERIDOL LACT 5 MG/ML INJ IM PRN ×2 (08:32→14:00)
[2019-02-16] MEDS ORDERED: MAGNESIUM SULFATE 1 gm IVPB 1 GM/100 ML BAG IV ONE (09:00)
[2019-02-16] MEDS: CEFTRIAXONE/SWI 1gm 1 GM/10 ML SYR IV SCH (09:04)
[2019-02-16] MEDS: RIVAROXABAN 20 MG TABLET PO SCH (09:04)
[2019-02-16] MEDS: PIOGLITAZONE 15 MG TAB PO SCH (09:05)
[2019-02-16] MEDS: FAMOTIDINE 20 MG TAB PO SCH ×2 (09:05→21:23)
[2019-02-16] MEDS: GABAPENTIN 300 MG CAP PO SCH ×2 (09:05→21:23)
[2019-02-16] MEDS: FERROUS SULFATE 325 MG TAB PO SCH ×2 (09:05→21:23)
[2019-02-16] MEDS: GLIMEPIRIDE 2 MG TABLET PO SCH (09:09)
--- NOTE | 2019-02-16 10:38 | EKG ---
Test Date: 2019-02-14 Test Time: 16:25:18 Cyber Incident Analyst: CORBIN MEASUREMENT RESULTS: Intervals: Rate: 86 WY: 194 QRSD: 134 QT: 420 QTc: 502 [place]: P: 25 WY: 194 QRS: -84 T: 10 INTERPRETIVE STATEMENTS: Normal sinus rhythm with sinus arrhythmia Left axis deviation Right bundle branch block Inferior infarct, age undetermined Anterolateral infarct, age undetermined Abnormal ECG Compared to ECG 12/02/2018 18:00:05 Left-axis deviation now present Sinus tachycardia no longer present Left anterior fascicular block no longer present Bifascicular block no longer present Myocardial infarct finding still present Electronically Signed On 02-16-19 10:32:17 CDT by Nehemias Richard
[2019-02-16] MEDS ORDERED: HALOPERIDOL LACT 5 MG/ML INJ IV PRN (14:02)
--- NOTE | 2019-02-16 14:16 | PN ---
Date of Progress Note: 02/16/2019 Subjective: Patient seen and examined. Chart reviewed and case discussed with RN and Dr. Catherine. Patient became very agitated early this morning, combative, threatening to leave, and pulled on IV l jillian. Yesterday, patient was cooperating very well and was oriented. Family at the bedside, treatme nt plan explained and all questions answered. Medications: List reviewed. Physical Examination: Vital Signs: Temperature 97.3, heart rate 105, blood pressure 198/88, respirations 20, O2 95% on elizabeth m air. General: Awake, alert, oriented to self only, elderly female in moderate distress, agitated, ill racheal earing. CV: S1, S2. Sinus tachycardia. Peripheral pulses present. Respiratory: Moving air well bilaterally. No wheezing or stridor. Gastrointestinal: Abdomen is soft, nontender, nondistended. Positive bowel sounds. Extremities: No clubbing, cyanosis, or edema. Neurologic: Nonfocal. Moves all 4 extremities. Speech is normal. No facial asymmetry. Skin: Patient has multiple skin tears on the upper and lower extremities. Laboratory Data: Sodium 143, potassium 3.7, chloride 110, CO2 27, BUN 15, creatinine 0.86, glucose 1 38, calcium 9.5, phosphorus 1.7, magnesium 1.7, albumin is 2.8. WBC 7.3, H and H 12.2 and 37.1, plat elets 216. Urine culture growing out E coli, which is pansensitive. Blood cultures, no growth to da te. Assessment: 88-year-old female with: 1.Sepsis, resolved. Patient's blood pressure is improved, still somewhat tachycardic. Urine cultur e growing out Escherichia coli. Blood cultures are pending. Patient also has proctitis. 2.Septic shock. Blood pressure now improved, resolved. 3.Acute cystitis with hematuria secondary to Escherichia coli, pansensitive. We will continue with Rocephin. 4.Acute kidney injury secondary to prerenal azotemia, sepsis, and dehydration. Creatinine now amador lized. We will continue to monitor. Appreciate Nephrology input. 5.Acute diarrhea, viral versus bacterial. Stool cultures pending. No further episodes. 6.Acute dehydration, improved with IV fluids. 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 We will continue sliding scale insuli n and monitor Accu-Cheks. 8.Acute agitation and delirium. The patient required Haldol with Benadryl. We will consult Neurolo gy. The patient does have vascular dementia. Looking back at MRI from 2018, this had some lesions. We will repeat MRI of the brain to ensure no changes. Dr. Catherine has been consulted. 9.History of colon cancer, status post partial colectomy. 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 We will continue sliding scale insul in. Monitor Accu-Cheks. Not well controlled. A1c is 7.9%. 11.Acute proctitis. Continue with IV antibiotics. 12.History of cerebrovascular accident, on Xarelto. 13.History of deep venous thrombosis on the left, on Xarelto. 14.Hypertensive heart disease. Echocardiogram shows EF of 61% along with aortic sclerosis. Plan: Patient is likely not a good candidate to return to assisted living. We will consult social w ork. Patient's family agreeable to assisted placement. /VIDYA Voice ID: [id number] Report ID: [id number]
--- NOTE | 2019-02-16 15:27 | RAD REPORT ---
EXAM DESCRIPTION: MRI - Brain Wo Cont - 02/16/2019 2:52 pm CLINICAL HISTORY: Dementia/brain lesion COMPARISON: November 2017 TECHNIQUE: Axial, sagittal, and coronal magnetic images of the brain were obtained. Contrast was not requested FINDINGS: Evaluation for the previously described 10 millimeter enhancing lesion within the right po sterior frontal lobe is limited as this examination was performed without contrast. The lesion is not well seen on the unenhanced sequences. Diffusion-weighted/ADC mapping does not reveal evidence of acute infarction. Mild to moderate signal within the brainstem, periventricular, deep and subcortical white matter like ly ischemic changes secondary to small vessel disease The ventricles are normal caliber. Cerebral atrophy An extra-axial fluid collection is not present The sinuses and mastoids are clear. IMPRESSION: Evaluation for the previous described 10 millimeter enhancing lesion within the right fr ontal lobe is limited as enhanced images were not obtained. If clinically indicated limited T1 weigh lisandro sequences after administration of contrast should be helpful for better evaluation
--- NOTE | 2019-02-16 16:44 | RAD REPORT ---
EXAM DESCRIPTION: US - Renal Ultrasound-Complete - 02/16/2019 4:19 pm CLINICAL HISTORY: Acute renal insufficiency COMPARISON: None. FINDINGS: The right kidney measures 10 cm with a normal echotexture. The left kidney measures 11 cm with a normal echotexture. Hydronephrosis is not seen. No gross abnormality of bladder is seen Tiny bilateral nonobstructing renal calculi IMPRESSION: Tiny bilateral nonobstructing renal calculi
[2019-02-16] MEDS: POTASS/SODIUM PHOSPHATE 1 PKT POWD.PACK PO SCH ×4 (17:24→20:00)
--- NOTE | 2019-02-16 20:23 | CON ---
Reason For Consultation: Consultation called because of altered mental status. History Of Present Illness: Ms. Quinones is an 88-year-old patient who was seen in clinic for vascul ar dementia, comes in with acute on chronic confusion. The patient's daughter, who is the medical po wer of personal injury attorney, reports that she had diarrhea and difficulty maintaining food intake and was becomin g more confused with defecate in her underclothes and would not be cleaned and she is actually residi ng at the local half-way, but without a memory care attention or direct nursing attention. In an y event, she was brought to the [facility] and was found to have a urinary tract infection a nd dehydration. She was given sepsis protocol treatment, IV fluids, and IV antibiotics. Since her a dmission, she was having a slight fluctuating course in terms of behavioral and cognitive functioning . At one point, she appeared to be more interactive with the family, but yesterday evening became mo re combative, aggressive, and attempted to punch at the staff and family when they tried to obtain vi enrrique signs or address the IV. This morning, she did more combative behavior and did receive some Hald ol and Benadryl and she has been more sedated and less combative at this point. She did have a sepsi s workup, which was not positive. White blood cell count was normal. Differential was normal. Hemo globin and hematocrit are unremarkable. Coagulation panel was unremarkable. Her electrolyte panel e ssentially unremarkable. Glucose ranged from 138 to 261. Slightly low phosphorus, and noted procalc itonin was 0.07 and lactic acid although initially was 3.0. Once she received IV hydration, it was 2 .0. Magnesium was critically low at 1.3. Her urinalysis did show 20 to 50 bacteria, too numerous to count white blood cells, 3+ esterase, 2+ blood, negative nitrites. Her chest x-ray identified no ac [place] cardiopulmonary processes and her abdomen and pelvis CT scan showed no bowel obstruction. No jonah rgent findings and stable changes from the prior December done CT scan. Her echocardiogram showed ejec tion fraction of 61% with aortic sclerosis, but no stenosis. Past Medical History: Yem-[id number] diabetes mellitus, hypertension, diabetic neuropathy, ve nous insufficiency, colon cancer. Partial colectomy and radiation and left lower extremity DVT on Xa relto, also stroke. Surgical History: Appendectomy, cholecystectomy, colectomy, hemorrhoidectomy, hernia repair, and paula ous surgery in the lower extremities and throat surgery. Allergies: IODINE AND SULFA. Social History: She resides at a local half-way. No recent alcohol, tobacco, or IV drug use. Family History: Cancer in mother and lung disease I have seen in her father, and lung disease and st roke in sister. Review of Systems: At this point, she has decreased the Haldol and Benadryl and is sleeping with family at the bedside. The family did indicate she has had some bizarre behavior as documented and has not been cognitively intact and would soil herself and not clean, possible source for urinary tract infection. Otherwise , unable to complete a full 10-point review of systems. Physical Examination: Vital Signs: Blood pressure from 130 to 198 over 70 to 88, pulse 92 to 105, respiratory rate 16 to 2 0, temperature 97.7, oxygen saturation 95% on room air. Weight 168 pounds, height 5 feet 10 inches. General: Ms. Quinones is resting in bed. She appears to be in no acute distress. She is asleep. S he did receive again Haldol and Benadryl. Neurologic: She has no focal findings in terms of her face without any asymmetry. Tone appears to b e normal on both sides. Her strength, sensation, coordination will be assessed at this point. Laboratory Studies: As indicated, essentially unremarkable with low magnesium and normal procalciton in. Sugars were elevated at 356 and urinalysis was positive. Assessment: Ms. Quinones is an 88-year-old patient with acute on chronic encephalopathy. She has a chronic vascular dementia with superimposed urine related toxic encephalopathy. She had very low lev el of magnesium and likely contributed to her metabolic encephalopathy. At this point, she does not appear to have a focal deficit. However, review of her chart from a year ago showed her brain MRI id entified a small nonenhancing 5 x 10 mm lesion in the right posterior frontal lobe, white matter medi al to the postcentral gyrus. There is no edema or the mass. A small venous anomaly was a possible d ifferentials. She has not had repeat imaging study done at this visit and repeat MRI would be helpfu l for comparison. Plan: 1.Continue with antibiotics and IV fluid hydration. 2.Brain MRI without and with contrast. 3.She is unlikely to benefit from a facility where she has no supervision and it is highly recommend ed that she be placed either in short-term half-way or inpatient rehab if she qualifies and th en long-term facility with the memory care unit to address safety awareness and manage bodily functio ns and for medical management. She will be followed once imaging is complete. EDWINA Voice ID: [id number] Report ID: [id number]
--- NOTE | 2019-02-17 00:27 | P.PN ---
Subjective Date of Service: 02/16/19 Subjective: No new changes Pt with Hx of DM, Hx of colon ca sent from [place] for weakness and poor PO intake Today pt was agitated Cr wnl scheduled for MRI BP fluctuating , cont current meds Poor po intake , will reduce IVF rate Physical Examination - Vital Signs Temperature: 97.1 F Blood Pressure: 131/63 Pulse: 85 Respirations: 17 Pulse Ox (%): 97 - Physical Exam General: Delirious, Other (sleeping ) HEENT: Atraumatic Neck: JVD not distended, Without JVD or thyroid abnormality Respiratory: Clear to auscultation bilaterally, Normal air movement Cardiovascular: Regular rate/rhythm, Normal S1 S2, No gallops, No rubs, No murmurs, Edema Gastrointestinal: Normal bowel sounds - Studies Microbiology Data (last 24 hrs): 02/14/19 17:20 Catheterized Urine [place] Count - Final >100,000 CFU/ML. 02/14/19 17:20 Catheterized Urine - Final Escherichia Coli Assessment And Plan - Current Problems (Diagnosis) (1) RAVINDER (acute kidney injury) Current Visit: Yes Status: Acute (2) UTI (urinary tract infection) Onset Date: 07/10/18 Current Visit: No Status: Acute Qualifiers: (3) History of colon cancer Current Visit: No Status: Chronic (4) Hypertension Onset Date: 04/16/16 Current Visit: No Status: Chronic Qualifiers: - Plan Acute kidney injury Due to prerenal azotemia and JUAN will reduce IVF to 50ml/hr as pt developed edema US: non obstructing B/l calculi HTN fluctuating COnt current meds DM as per ferdinand UTI On Rocephin Advanced dementia with poor PO intake Cont supportive care
[2019-02-17] MEDS: METRONIDAZOLE 500mg IVPB 500 MG/100 ML BAG IV SCH ×3 (01:19→17:33)
[2019-02-17] MEDS: NA CHLORIDE 0.9% 1,000 ML IV SCH (02:06)
[2019-02-17 06:16] LABS: Absolute Lymphocytes (CBC) 1.9 K/uL (0.7-4.9); Basophils % 1.2 % (0-1.3); Hematocrit 36.2 % (36.0-45.0); Lymphocytes % 29.5 % (15.3-44.8); MPV 8.3 fL (7.6-11.3); RBC Red Blood Cell Count 4.23 M/uL (3.86-4.86)
[2019-02-17 06:28] LABS: Albumin 2.5 g/dL (3.4-5.0); Magnesium 1.5 mg/dL (1.8-2.4); Phosphorus 2.1 mg/dL (2.5-4.9); Potassium 3.9 mmol/L (3.5-5.1)
[2019-02-17] MEDS: THYROID 30 MG TAB PO SCH (07:23)
[2019-02-17] MEDS: PANTOPRAZOLE 40MG TABLET PO SCH (07:24)
[2019-02-17] MEDS: INSULIN -REGULAR HUMAN 50 UNIT/0.5 ML ML SQ SCH ×5 (07:30→21:00)
[2019-02-17] MEDS ORDERED: Magnesium Sulfate 2gm IVPB 2 G/50 ML BAG IV ONE (09:00)
[2019-02-17] MEDS: PIOGLITAZONE 15 MG TAB PO SCH (09:27)
[2019-02-17] MEDS: RIVAROXABAN 20 MG TABLET PO SCH (09:28)
[2019-02-17] MEDS: GABAPENTIN 300 MG CAP PO SCH ×2 (09:28→21:09)
[2019-02-17] MEDS: CEFTRIAXONE/SWI 1gm 1 GM/10 ML SYR IV SCH (09:28)
[2019-02-17] MEDS: FERROUS SULFATE 325 MG TAB PO SCH ×2 (09:28→21:09)
[2019-02-17] MEDS: FAMOTIDINE 20 MG TAB PO SCH ×2 (09:28→21:09)
[2019-02-17] MEDS: GLIMEPIRIDE 2 MG TABLET PO SCH (09:29)
[2019-02-17] MEDS: POTASS/SODIUM PHOSPHATE 1 PKT POWD.PACK PO SCH ×3 (09:30→11:59)
[2019-02-17] MEDS: HYDRALAZINE HCL 20 MG/ML VIAL IV PRN (15:16)
--- NOTE | 2019-02-17 16:39 | PN ---
Date of Progress Note: 02/17/2019 Patient seen and examined. Chart reviewed and case discussed with RN and Dr. Summers. Patient has somewhat improved in her mental status; however, still not eating well. Medications: List reviewed. Physical Examination: Vital Signs: Temperature 97.6, heart rate 108, respirations 18, blood pressure 184/84, O2 of 96% on room air. General: Awake, alert, oriented x2. Elderly female, does not appear to be in any acute distress. A ppears lethargic, ill-appearing female. CV: S1, S2 and regular rate and rhythm. Respiratory: Moving air well bilaterally. No wheezing or stridor. Gastrointestinal: Abdomen is soft, nontender, nondistended. Positive bowel sounds. Extremities: No clubbing, cyanosis, or edema. Neurologic: Nonfocal. Laboratory Data: Sodium 147, potassium 3.9, chloride 115, CO2 26, BUN 10, creatinine 0.69, glucose 1 55, calcium 9.4, phosphorus 2.1, magnesium 1.5, albumin 2.5. WBC 6.4, H and H 11.8 and 36.2, platele ts 239. Blood cultures, no growth to date. Occult blood testing pending. Stool cultures pending. Urine culture growing out Escherichia coli, pansensitive. Assessment And Plan: An 88-year-old female with: 1.Sepsis with septic shock, resolved. Blood pressure is significantly better. Secondary to urinary tract infection with Escherichia coli and proctitis. 2.Acute cystitis with hematuria secondary to Escherichia coli. We will continue Rocephin. 3.Acute kidney injury secondary to prerenal azotemia, sepsis, dehydration, improved. We will contin ue to monitor. 4.Hypomagnesemia. We will replace and monitor. 5.Hypophosphatemia. We will replace and monitor. 6.Moderate protein-calorie malnutrition. Albumin is 2.5. We will continue with supplementation. P atient has very poor oral intake. Consider NG tube feeds versus other. We will discuss with family. 7.Hypernatremia. We will adjust IV fluids. We will continue to monitor. 8.Acute diarrhea, likely viral versus bacterial gastroenteritis. No further episodes. 9.Acute dehydration, improved with IV fluids. Rate decreased to avoid volume overload. 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 We will continue sliding scale insul in and monitor Accu-Cheks. 11.Acute delirium with significant agitation, improved with Haldol and Benadryl, likely due to waxin g and waning dementia and due to toxic encephalopathy from urinary tract infection, improved. MRI wa s repeated without contrast. We will need to repeat the study with contrast to compare lesion from [address] Catherine's input. 12.Acute toxic encephalopathy, improving secondary to urinary tract infection and vascular dementia. 13.History of colon cancer, status post partial colectomy. 14.Acute proctitis. We will continue with IV antibiotics. 15.History of cerebrovascular accident, on Xarelto. 16.History of deep venous thrombosis. Continue Xarelto. 17.Hypertensive heart disease. Plan: Encourage p.o. intake. PT/OT eval. Patient will benefit from placement at Memory Unit or [facility]. Not appropriate to discharge to assisted living. /VIDYA Voice ID: [id number] Report ID: [id number]
[2019-02-17] MEDS: NACHLORIDE 0.45% 1,000 ML IV SCH (17:35)
[2019-02-17 22:26] LABS: Urine Protein/Creatinine Ratio 0.32 ratio (<0.15)
[2019-02-18] MEDS: METRONIDAZOLE 500mg IVPB 500 MG/100 ML BAG IV SCH ×3 (01:00→17:12)
--- NOTE | 2019-02-18 01:19 | PN ---
Date of Progress Note: 02/17/2019 Chief Complaint: 1. Abnormal renal function test, acute kidney injury due to prerenal azotemia , nonoliguric. The patient was started on IV fluids and developed leg edema. Ultrasound showed nonobstructing bilateral calculi. There was no hydronephrosis. The patient was started on diuretics for volume control. She developed leg edema. IV fluids were reduced. 2. Urinary tract infection. The patient has treatment with antibiotics. Review of Systems: Denies fever, chills. Physical Examination: Lungs: Clear to auscultation bilaterally. Heart: S1, S2. Abdomen: Soft, benign. Extremities: Slight edema in both ankles. Laboratory Data: Hemoglobin 11.8, WBC 6.4, platelet count is 239,000. Chemistry showed sodium 147, potassium 3.9, chloride 115, CO2 of 26, BUN 10, creatinine 0.69, glucose 155, magnesium 1.5, phosphorus 2.1, calcium 9.4. Impression And Plan: 1. Hypernatremia. The patient is started on half normal saline to improve electrolyte abnormalities and treat hypernatremia. Patient does not have metabolic acidosis. 2. The patient has history of diabetes mellitus and hypertension. 3. Acute kidney injury has been improving. Patient responded to IV fluids. Creatinine level was 3.18, gradually improved to 0.69. Plan is to monitor electrolytes, adjust the replacement. 4. Hypomagnesemia. The patient received treatment for hypomagnesemia. Magnesium level today was 1.5. 5. Acute kidney injury, in recovery phase. Continue to adjust IV fluids. For volume overload, the patient may require diuretic. I spent total 36 min including 26 min to coordinate care plan. JASSI/VIDYA Voice ID: [id number] Report ID: [id number] FELICIA
[2019-02-18] MEDS: HYDRALAZINE HCL 20 MG/ML VIAL IV PRN (04:09)
[2019-02-18] MEDS: ACETAMINOPHEN 325 MG TABLET PO PRN ×2 (04:11→17:12)
[2019-02-18] MEDS: THYROID 30 MG TAB PO SCH (05:30)
[2019-02-18] MEDS: PANTOPRAZOLE 40MG TABLET PO SCH (05:31)
[2019-02-18 06:48] LABS: ALT/SGPT 13 U/L (12-78); AST/SGOT 21 U/L (15-37); Albumin 2.4 g/dL (3.4-5.0); Alkaline Phosphatase 52 U/L (45-117); BUN Blood Urea Nitrogen 7 mg/dL (7-18); Bicarbonate 26 mmol/L (21-32); Bilirubin Total 0.3 mg/dL (0.2-1.0); Glucose Level 103 mg/dL (74-106); Phosphorus 2.4 mg/dL (2.5-4.9); Potassium 3.5 mmol/L (3.5-5.1); Protein, Total 5.6 g/dL (6.4-8.2); Sodium Level 145 mmol/L (136-145)
[2019-02-18 07:01] LABS: Magnesium 1.3 mg/dL (1.8-2.4)
[2019-02-18] MEDS: INSULIN -REGULAR HUMAN 50 UNIT/0.5 ML ML SQ SCH ×4 (07:30→21:00)
[2019-02-18] MEDS ORDERED: Magnesium Sulfate 2gm IVPB 2 G/50 ML BAG IV ONE (09:00)
[2019-02-18] MEDS ORDERED: POTASSIUM PHOS IN 0.9 % NACL 15 MMOL/250 ML BAG IV ONE (09:00)
[2019-02-18] MEDS: NACHLORIDE 0.45% 1,000 ML IV SCH ×2 (09:03→11:40)
[2019-02-18] MEDS: CEFTRIAXONE/SWI 1gm 1 GM/10 ML SYR IV SCH (09:05)
[2019-02-18] MEDS: FAMOTIDINE 20 MG TAB PO SCH ×2 (09:06→21:18)
[2019-02-18] MEDS: PIOGLITAZONE 15 MG TAB PO SCH (09:06)
[2019-02-18] MEDS: GLIMEPIRIDE 2 MG TABLET PO SCH (09:06)
[2019-02-18] MEDS: FERROUS SULFATE 325 MG TAB PO SCH ×2 (09:06→21:18)
[2019-02-18] MEDS: GABAPENTIN 300 MG CAP PO SCH ×2 (09:06→21:18)
[2019-02-18] MEDS: RIVAROXABAN 20 MG TABLET PO SCH (09:07)
--- NOTE | 2019-02-18 15:46 | PN ---
Date of Progress Note: 02/18/2019 Subjective: Patient seen and examined. Chart reviewed and case discussed with RN. No family at the bedside. The patient seems to be doing well. No acute agitation overnight. Medications: List reviewed. Physical Examination: Vital Signs: Temperature 98, heart rate 109, blood pressure 133/71, respirations 18, O2 95% on room air. General: Awake, alert, oriented x3, elderly female. CV: S1, S2. No murmurs. Respiratory: Moving air well bilaterally. Abdomen: Abdomen is soft, nontender, nondistended. Positive bowel sounds. Extremities: No clubbing, cyanosis, or edema. Neurologic: Nonfocal. Laboratory Data: Sodium 145, potassium 3.5, chloride 112, CO2 26, BUN 7, creatinine 0.62, glucose 10 3, calcium 9, phosphorus 2.4, magnesium 1.3. Albumin 2.4. Urine culture growing out E coli. Blood cultures are negative. Assessment: An 88-year-old female with. 1.Sepsis with shock, resolved secondary to Escherichia coli in urine and proctitis. 2.Acute cystitis with hematuria secondary to Escherichia coli. Continue Rocephin. 3.Acute kidney injury secondary to prerenal azotemia and sepsis, improved. We will continue to alexx tor. 4.Hypomagnesemia. Replace and monitor. 5.Hypophosphatemia. We will replace and monitor. 6.Acute proctitis. Continue with IV antibiotics. 7.Moderate protein-calorie malnutrition. Albumin is 2.4. 8.Hypernatremia, corrected. 9.Acute diarrhea, resolved. No further episodes, likely viral gastroenteritis. 10.Acute dehydration, improved with IV fluids. 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 Continue sliding scale insulin and m onitor blood glucose levels. 12.Acute delirium, resolved, likely due to urinary tract infection and worsening dementia. 13.Acute toxic encephalopathy secondary to urinary tract infection and vascular dementia, resolved. 14.History of colon cancer, status post partial colectomy. 15.History of cerebrovascular accident, on Xarelto. 16.History of deep venous thrombosis. Continue Xarelto. 17.Hypertensive heart disease. Plan: The patient does not wish to go to penitentiary facility or memory unit. We will discuss f nalinither with family. At this point, patient is alert and oriented x3, making her own decisions. She wishes to return to [facility] with physical therapy. However, in the past, the patient has had a decline twice with dehydration, not having good p.o. intake and requiring hospitalizations. We will discuss further with family. MARCELL Voice ID: [id number] Report ID: [id number]
[2019-02-18] MEDS: TRAMADOL HCL 50 MG TAB PO PRN (17:11)
[2019-02-18] MEDS ORDERED: MAGNESIUM SULFATE 1 gm IVPB 1 GM/100 ML BAG IV ONE (20:00)
[2019-02-19] MEDS: NACHLORIDE 0.45% 1,000 ML IV SCH ×4 (01:00→20:59)
[2019-02-19] MEDS: METRONIDAZOLE 500mg IVPB 500 MG/100 ML BAG IV SCH ×3 (01:24→16:59)
--- NOTE | 2019-02-19 03:35 | PN ---
Date of Progress Note: 02/18/2019 Chief Complaint: 1.Abnormal renal function test, acute kidney injury due to prerenal azotemia, nonoliguric. Patient was started on IV fluids and developed leg edema. Ultrasound showed nonobstructing bilateral calculi . There is no hydronephrosis. Patient was started on diuretic for volume control, and because she d eveloped leg edema, IV fluids were reduced. 2.Urinary tract infection. Patient is on antibiotics. Review of Systems: Denies fever or chills. Physical Examination: Lungs: Diminished breath sounds at bases. Heart: S1 and S2. Abdomen: Soft, benign. Extremities: Slight edema. Laboratory Data: Hemoglobin 11.8. Chemistry shows sodium 147, potassium 3.9, BUN 10, creatinine 0.6 9, glucose 155, magnesium 1.5, phosphorus 2.1, calcium 9.4. Assessment/plan: 1.Hypernatremia. Sodium level was 147. Patient was started on half-normal saline. Monitor electro lytes. Adjust fluid rate accordingly. 2.Patient has acute kidney injury and responded to IV fluids and renal function has improved to base line. Monitor electrolytes. Patient has hypomagnesemia. Magnesium replacement was ordered. Avoid nonsteroidal anti-inflammatory medication due history of acute kidney injury. EB/MODL Voice ID: [id number] Report ID: [id number]
[2019-02-19] MEDS: HYDRALAZINE HCL 20 MG/ML VIAL IV PRN (04:24)
[2019-02-19] MEDS: THYROID 30 MG TAB PO SCH (05:21)
[2019-02-19] MEDS: PANTOPRAZOLE 40MG TABLET PO SCH (05:21)
[2019-02-19 06:34] LABS: Albumin 2.6 g/dL (3.4-5.0); Bilirubin Total 0.2 mg/dL (0.2-1.0); Magnesium 1.8 mg/dL (1.8-2.4); Phosphorus 2.5 mg/dL (2.5-4.9)
[2019-02-19] MEDS: INSULIN -REGULAR HUMAN 50 UNIT/0.5 ML ML SQ SCH ×4 (07:30→20:53)
[2019-02-19] MEDS: GLIMEPIRIDE 2 MG TABLET PO SCH (08:24)
[2019-02-19] MEDS: FERROUS SULFATE 325 MG TAB PO SCH ×2 (08:24→20:57)
[2019-02-19] MEDS: RIVAROXABAN 20 MG TABLET PO SCH (08:24)
[2019-02-19] MEDS: GABAPENTIN 300 MG CAP PO SCH ×2 (08:24→20:57)
[2019-02-19] MEDS: CEFTRIAXONE/SWI 1gm 1 GM/10 ML SYR IV SCH (08:25)
[2019-02-19] MEDS: FAMOTIDINE 20 MG TAB PO SCH ×2 (08:25→20:57)
[2019-02-19] MEDS ORDERED: MAGNESIUM SULFATE 1 gm IVPB 1 GM/100 ML BAG IV ONE (09:00)
[2019-02-19] MEDS: PIOGLITAZONE 15 MG TAB PO SCH (10:37)
--- NOTE | 2019-02-19 14:11 | PN ---
Date of Progress Note: 02/19/2019 Subjective: Patient seen and examined. Chart reviewed and case discussed with RN. Granddaughter at the bedside who is the medical power of video production specialist. Patient continues to wax and wane in her mental status. Patient not wanting to go to rehab; however, family wishing for her to go transition to Memory Unit. Medications: List reviewed. Physical Examination: Vital Signs: Temperature 97.3, heart rate 101, blood pressure 179/77, respirations 17, O2 95% on room air. General: Awake, alert, oriented x3 at this time. Elderly female. Does not appear to be any acute distress. CV: S1 and S2. Peripheral pulses present. Respiratory: Moving air well bilaterally. No wheezing. Gastrointestinal: Abdomen is soft, nontender, nondistended. Positive bowel sounds. No guarding or rigidity. Extremities: No clubbing, cyanosis, or edema. Neurologic: Nonfocal. Laboratory Data: Sodium 143, potassium 4, chloride 110, CO2 27, BUN 7, creatinine 0.78, glucose 172, calcium 9.2, phosphorus 2.5, magnesium 1.8, albumin 2.6. WBC pending. Urine culture growing out E coli. Blood cultures negative. Assessment: An 88-year-old female with: 1. Sepsis with shock secondary to urinary tract infection with Escherichia coli and proctitis. 2. Acute cystitis with hematuria secondary to Escherichia coli. We will continue Rocephin. 3. Acute kidney injury secondary to sepsis, prerenal azotemia, corrected. We will continue to monitor. Appreciate Nephrology input. 4. Hypomagnesemia. We will replace and monitor. 5. Hypophosphatemia. Corrected. 6. Acute proctitis. Continue with IV antibiotics. 7. Acute toxic encephalopathy, likely related to worsening dementia and acute infection, improved. Patient's mental status waxes and wanes. 8. Acute delirium, requiring Haldol, improved. 9. Moderate protein-calorie malnutrition. Albumin is 2.6. 10. Acute diarrhea, resolved, likely secondary to proctitis and viral gastroenteritis. 11. Acute dehydration, improved with IV fluids. 12. 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 We will continue sliding scale insulin and monitor blood glucose levels. 13. History of colon cancer, status post partial colectomy. 14. History of cerebrovascular accident, on Xarelto. 15. History of deep venous thrombosis, on Xarelto. 16. Hypertensive heart disease. Plan: Unfortunately, due to patient's waxing and waning mental status and delirium as well as worsening dementia, patient not able to understand the consequences of her decisions. Family wishes to transition her to Memory Unit or permanent nursing facility. At this time, patient is agreeable to inpatient rehab prior to transitioning to permanent facility. Patient is not safe to go back to [facility] as she does not have any [id number] monitoring. Patient is at risk for falls. Patient has had 4 admissions in the past 6 months twice to [place] and twice to our facility for decompensation after decreased p.o. intake, not accessing free water and declining very rapidly. Patient has had dementia for 7 years, seems to be progressing rapidly. Patient does follow up with Neurology. MARCELL Voice ID: [id number] Report ID: [id number] FELICIA
[2019-02-19 21:43] VITALS: O2SAT 96
[2019-02-20] MEDS: METRONIDAZOLE 500mg IVPB 500 MG/100 ML BAG IV SCH ×2 (00:05→08:33)
--- NOTE | 2019-02-20 01:36 | PN ---
Date of Progress Note: 02/19/2019 Chief Complaint: Abnormal renal function test due to acute kidney injury with prerenal azotemia. Adrian quiles developed nonoliguric acute kidney injury. Renal function has improved and the patient was sta rted on IV fluids. Subsequently, she developed edema and IV fluids were weaned off. Ultrasound show ed nonobstructing bilateral calculi. There is no hydronephrosis. Patient has been treated with anti biotics for urinary tract infection. Review of Systems: Patient is more alert today. Denies fever, chills. Physical Examination: Lungs: Clear to auscultation bilaterally. Heart: S1, S2. Abdomen: Soft, benign. Extremities: Slight edema. Laboratory Data: Blood work: Hemoglobin 11.8, WBC 6.4, platelet count is 239,000. Sodium 143, pota ssium 4.0, chloride 110, CO2 of 27, BUN 7, creatinine 0.78, glucose 172, total protein 6.0. Impression And Plan: 1.Acute kidney injury. Renal function improved to baseline. Patient will continue IV fluids as nee ded to control hypernatremia. The patient is encouraged to increase p.o. fluid intake. Acute kidney injury responded to IV fluids and renal function improved. Continue to monitor electrolytes. Avoid nephrotoxic medication. 2.Hypertension. Blood pressure controlled. Continue current treatment. JASSI/VIDYA Voice ID: [id number] Report ID: [id number]
[2019-02-20 06:04] LABS: Absolute Lymphocytes (CBC) 1.5 K/uL (0.7-4.9); Hematocrit 34.5 % (36.0-45.0); Lymphocytes % 25.5 % (15.3-44.8); MPV 8.7 fL (7.6-11.3); RBC Red Blood Cell Count 4.05 M/uL (3.86-4.86)
[2019-02-20] MEDS: THYROID 30 MG TAB PO SCH (06:13)
[2019-02-20] MEDS: PANTOPRAZOLE 40MG TABLET PO SCH (06:13)
[2019-02-20 06:18] LABS: Albumin 2.4 g/dL (3.4-5.0); Magnesium 1.6 mg/dL (1.8-2.4); Phosphorus 2.4 mg/dL (2.5-4.9); Potassium 3.8 mmol/L (3.5-5.1)
[2019-02-20] MEDS: HYDRALAZINE HCL 20 MG/ML VIAL IV PRN (06:47)
[2019-02-20] MEDS: INSULIN -REGULAR HUMAN 50 UNIT/0.5 ML ML SQ SCH ×2 (07:30→11:30)
[2019-02-20] MEDS: FERROUS SULFATE 325 MG TAB PO SCH (08:35)
[2019-02-20] MEDS: FAMOTIDINE 20 MG TAB PO SCH (08:36)
[2019-02-20] MEDS: RIVAROXABAN 20 MG TABLET PO SCH (08:36)
[2019-02-20] MEDS: GLIMEPIRIDE 2 MG TABLET PO SCH (08:36)
[2019-02-20] MEDS: GABAPENTIN 300 MG CAP PO SCH (08:36)
[2019-02-20] MEDS: POTASS/SODIUM PHOSPHATE 1 PKT POWD.PACK PO SCH ×3 (08:37→11:14)
[2019-02-20] MEDS: CEFTRIAXONE/SWI 1gm 1 GM/10 ML SYR IV SCH (08:39)
[2019-02-20 08:47] LABS: Blood Morphology Comment NOT SEEN (NOT SEEN); Platelet Estimate ADEQ
[2019-02-20] MEDS ORDERED: MAGNESIUM SULFATE 1 gm IVPB 1 GM/100 ML BAG IV ONE (09:00)
[2019-02-20] MEDS: TRAMADOL HCL 50 MG TAB PO PRN (09:31)
[2019-02-20] MEDS: PIOGLITAZONE 15 MG TAB PO SCH (11:00)
--- NOTE | 2019-02-20 12:26 | P.PN ---
Subjective Date of Service: 02/20/19 Physical Examination - Vital Signs Temperature: 97.6 F Blood Pressure: 133/63 Pulse: 118 Respirations: 18 Pulse Ox (%): 96 - Studies Microbiology Data (last 24 hrs): 02/14/19 16:17 Blood - Blood Aerobic Blood Culture - Final No growth in 5 days. 02/14/19 16:17 Blood - Blood Anaerobic Blood Culture - Final No growth in 5 days. 02/14/19 16:05 Blood - Blood Aerobic Blood Culture - Final No growth in 5 days. 02/14/19 16:05 Blood - Blood Anaerobic Blood Culture - Final No growth in 5 days. Assessment And Plan - Plan An 88-year-old female with: 1. Sepsis with shock secondary to urinary tract infection with Escherichia coli and proctitis. 2. Acute cystitis with hematuria secondary to Escherichia coli. We will continue Rocephin. 3. Acute kidney injury secondary to sepsis, prerenal azotemia, corrected. We will continue to monitor. Appreciate Nephrology input. 4. Hypomagnesemia. We will replace and monitor. 5. Hypophosphatemia. Corrected. 6. Acute proctitis. Continue with IV antibiotics. 7. Acute toxic encephalopathy, likely related to worsening dementia and acute infection, improved. Patient's mental status waxes and wanes. 8. Acute delirium, requiring Haldol, improved. 9. Moderate protein-calorie malnutrition. Albumin is 2.6. 10. Acute diarrhea, resolved, likely secondary to proctitis and viral gastroenteritis. 11. Acute dehydration, improved with IV fluids. 12. 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 We will continue sliding scale insulin and monitor blood glucose levels. 13. History of colon cancer, status post partial colectomy. 14. History of cerebrovascular accident, on Xarelto. 15. History of deep venous thrombosis, on Xarelto. 16. Hypertensive heart disease. Plan: Unfortunately, due to patient's waxing and waning mental status and delirium as well as worsening dementia, patient not able to understand the consequences of her decisions. Family wishes to transition her to Memory Unit or permanent nursing facility. At this time, patient is agreeable to inpatient rehab prior to transitioning to permanent facility. Patient is not safe to go back to [facility] as she does not have any [id number] monitoring. Patient is at risk for falls. Patient has had 4 admissions in the past 6 months twice to [place] and twice to our facility for decompensation after decreased p.o. intake, not accessing free water and declining very rapidly. Patient has had dementia for 7 years, seems to be progressing rapidly. Patient does follow up with Neurology.
[2019-02-20 16:42] VITALS: BP 115/60; TEMP 97.3
--- NOTE | 2019-02-20 16:48 | P.DS ---
Admission Date: 02/14/19 Discharge Date: 02/20/19 Disposition: TRANSFER TO INPATIENT REHAB Discharge Condition: GOOD Reason for Admission: Altered mental status Consultations: Nephrology Neurology Brief History of Present Illness: Patient is an 88-year-old female, recently discharged from the hospital on 01/08, who had come in with similar symptoms of dehydration and diarrhea. Patient has a past medical history of diabetes mellitus type 2; hypertension; neuropathy; history of colon cancer, status post partial colectomy; history of DVT, on Xarelto, recently switched from Eliquis; resident of an assisted living facility, who comes in with generalized weakness, fatigue, and some confusion. Patient also had decreased appetite and p.o. intake. Patient was also reporting some diarrhea which was nonbloody. Patient's symptoms were constant, moderate, progressively worsening. She was scheduled to see her PCP on Tuesday, however, was brought in by the family due to worsening symptoms. In the ER, she was found to have a blood pressure of 88/72, heart rate was 104. Her workup revealed white count of 10. Her creatinine however was elevated to 3.18. Her lactate was elevated at 3. CT scan showed distal proctitis and UA was positive. Patient was given IV fluid per sepsis bundle, and referred for admission. When seen in the ER, she was awake, alert, oriented x2, mildly confused, in some distress, accompanied by her family. Hospital Course: Patient was admitted found to have sepsis with shock secondary to UTI with E. coli. She is on IV antibiotics. Nephrology was consulted for her acute kidney injury, which resolved and corrected with IV fluids. Her electrolytes were monitored and replaced as needed. She did have some acute toxic encephalopathy , likely related to worsening dementia and acute infection. This did improve. Prior to discharge, patient's mental status was back to baseline with waxing and waning of her mental status and delirium. her worsening of the dementia may also contribute to this. Family did wish for her to transition her to the Memory unit of permanent nursing facility but patient refuses. Patient was not safe to go back to [facility] and and she is at high risk for falls. Patient has had for directions past 6 months due to decompensation after decreased p.o. intake. Her dementia has also seems to have been progressing Rapidly. She did work with physical therapy here, she was referred to inpatient rehab. Her insurance did improve and she was then transferred rehab in a safe and stable manner. She otherwise remained hemodynamically stable throughout the stay. Vital Signs/Physical Exam: Temp Pulse Resp BP Pulse Ox 97.3 F 112 H 18 115/60 95 02/20/19 12:00 02/20/19 12:00 02/20/19 12:00 02/20/19 12:00 02/20/19 12:00 General: Alert, In no apparent distress, Oriented x3 HEENT: Atraumatic, PERRLA, EOMI Neck: Supple, JVD not distended Respiratory: Clear to auscultation bilaterally, Normal air movement Cardiovascular: Regular rate/rhythm, Normal S1 S2 Gastrointestinal: Normal bowel sounds, No tenderness Musculoskeletal: No tenderness Integumentary: No rashes Neurological: Normal speech, Normal tone, Normal affect Lymphatics: No axilla or inguinal lymphadenopathy Laboratory Data at Discharge: WBC 5.8 K/uL (4.3-10.9) 02/20/19 05:14 Hgb 11.8 g/dL (12.0-15.0) L 02/20/19 05:14 Hct 34.5 % (36.0-45.0) L 02/20/19 05:14 Plt Count 245 K/uL (152-406) 02/20/19 05:14 PT 14.1 SECONDS (9.5-12.5) H 02/14/19 16:05 INR 1.20 02/14/19 16:05 APTT 28.4 SECONDS (24.3-36.9) 02/14/19 16:05 Sodium 145 mmol/L (136-145) 02/20/19 05:14 Potassium 3.8 mmol/L (3.5-5.1) 02/20/19 05:14 BUN 5 mg/dL (7-18) L 02/20/19 05:14 Creatinine 0.65 mg/dL (0.55-1.3) 02/20/19 05:14 Glucose 105 mg/dL (74-106) 02/20/19 05:14 Phosphorus 2.4 mg/dL (2.5-4.9) L 02/20/19 05:14 Magnesium 1.6 mg/dL (1.8-2.4) L 02/20/19 05:14 Total Bilirubin 0.2 mg/dL (0.2-1.0) 02/19/19 05:38 AST 21 U/L (15-37) 02/19/19 05:38 ALT 16 U/L (12-78) 02/19/19 05:38 Alkaline Phosphatase 57 U/L (45-117) 02/19/19 05:38 Lipase 172 U/L (73-393) 02/14/19 16:05 Home Medications: Acetaminophen [Tylenol] 650 mg PO QIDP PRN 07/08/18 Albuterol Sulfate [Albuterol Sulfate 0.083% Neb Soln] 3 ml IH Q6HP PRN 07/08/18 Cholecalciferol (Vitamin D3) [Vitamin D3] 5,000 unit PO DAILY 07/08/18 Gabapentin 300 mg PO 1200,1800 07/08/18 Gabapentin 900 mg PO BEDTIME 07/08/18 Lisinopril [Prinivil*] 20 mg PO BID 07/08/18 Thyroid,Pork [Seismology Teacher Thyroid] 30 mg PO 0600 07/08/18 Cyanocobalamin (Vitamin B-12) [Vitamin B12] 2,500 mcg PO DAILY 01/06/19 Ferrous Sulfate 325 mg PO BID 01/06/19 Gabapentin 600 mg PO 0600 01/06/19 Mupirocin Calcium [Mupirocin] 1 appl TP BIDP PRN 01/06/19 Omeprazole [Prilosec] 40 mg PO 0600 01/06/19 Orphenadrine Citrate [Orphenadrine Citrate ER] 100 mg PO Q12HP PRN 01/06/19 Rivaroxaban [Xarelto] 2.5 mg PO DAILY 01/06/19 Glimepiride [Amaryl] 1 mg PO 0800 02/14/19 Pioglitazone HCl 15 mg PO 1000 02/14/19 Turmeric Root Extract [Turmeric Curcumin] 1,500 mg PO BID 02/14/19 levoFLOXacin [Levaquin] 500 mg PO DAILY #5 tab 02/20/19 New Medications: levoFLOXacin [Levaquin] 500 mg PO DAILY #5 tab Patient Discharge Instructions: please follow up with your primary care physician in 2-3 days. Return to the Emergency room for woserning symptoms. Diet: AHA Activity: Ad grace Time spent managing pt's care (in minutes): 55
--- NOTE | 2019-02-21 01:03 | PN ---
Date of Progress Note: 02/20/2019 Subjective: Patient was admitted with deconditioning, acute kidney injury secondary to prerenal daniel john. Physical Examination: Vital Signs: Blood pressure 115/60, pulse of 110, afebrile. Chest: Decreased entry bilateral base. Heart: S1, S2. Regular. Abdomen: Soft, nontender. Extremities: Trace edema. Laboratory Data: WBC 5.8, H and H 11.8/34.5, platelets 245. Sodium 145, potassium 3.8, bicarb 26, B UN 5, creatinine 0.6, calcium 9.1, phosphorus 2.4, magnesium 1.6. Current Medications: The patient on, include: 1.Ceftriaxone. 2.Gabapentin. 3.Glimepiride. 4.Metronidazole. 5.Actos. 6.Xarelto. 7.[place] thyroid. Assessment And Plan: 1.Acute kidney injury secondary to prerenal, recovered, resolved, off IV fluid. We will continue to monitor. 2.Hypertension, controlled optimal. Continue current medication. 3.Diabetes as by primary. 4.Urinary tract infection secondary to Escherichia coli. Continue antibiotic. 5.Deconditioning. Continue PT/OT. 6.The patient cleared from the renal standpoint for discharge planning. BEAN/VIDYA Voice ID: [id number] Report ID: [id number]
== END 2019-02-20 16:15 | DRG 871 ==
LOC: ER 14:48 → ERHOLD 19:14 → 2ND 20:07
PROVIDERS: ADMIT Family Medicine; ATTEND Family Medicine
DX: A41.9 Sepsis, unspecified organism (principal); R65.21 Severe sepsis with septic shock; G93.41 Metabolic encephalopathy; N17.9 Acute kidney failure, unspecified; N30.01 Acute cystitis with hematuria; E44.0 Moderate protein-calorie malnutrition; E87.0 Hyperosmolality and hypernatremia; B96.20 Unspecified Escherichia coli [E. coli] as the cause of diseases classified elsewhere; I10 Essential (primary) hypertension; K62.89 Other specified diseases of anus and rectum; R79.89 Other specified abnormal findings of blood chemistry; E83.42 Hypomagnesemia; E83.39 Other disorders of phosphorus metabolism; E11.40 Type 2 diabetes mellitus with diabetic neuropathy, unspecified; E11.65 Type 2 diabetes mellitus with hyperglycemia; F01.50 Vascular dementia, unspecified severity, without behavioral disturbance, psychotic disturbance, mood disturbance, and anxiety; Z68.24 Body mass index [BMI] 24.0-24.9, adult; A08.4 Viral intestinal infection, unspecified; E86.0 Dehydration; Z86.73 Personal history of transient ischemic attack (TIA), and cerebral infarction without residual deficits; Z90.49 Acquired absence of other specified parts of digestive tract; Z79.01 Long term (current) use of anticoagulants; Z86.718 Personal history of other venous thrombosis and embolism; Z85.038 Personal history of other malignant neoplasm of large intestine; I25.10 Atherosclerotic heart disease of native coronary artery without angina pectoris
CPT/HCPCS: 36415; 51702; 70551; 71045; 74176; 76770; 80048; 80053; 80069; 80076; 81003; 81015; 82272; 82550; 82553; 82570; 82962; 83036; 83605; 83690; 83735; 83970; 84100; 84145; 84156; 84484; 85025; 85610; 85730; 87040; 87045; 87046; 87077; 87086; 87088; 87186; 93005; 93306; 96365; 96366; 96367; 97116; 97161; 99285; J0360; J0696; J0744; J1630; J3475; J7030

== ENCOUNTER 2019-02-20 13:03 | Inpatient (IN) | payer OTHER ==
--- NOTE | 2019-02-20 15:12 | R.PREADM ---
SCREENING DATE AND TIME 02/20/2019 13:57 (CDT) ANTICIPATED REHAB ADMISSION DATE 02/22/2019 REFERRING FACILITY [facility] REFERRAL DATE AND TIME 02/20/2019 13:58 (CDT) ACUTE ADMIT DATE 02/14/2019 Previous Rehabilitation(s): No. REFERRING PHYSICIAN Lesly Ibarra REHAB FACILITY [facility] CLINICAL LIAISON Aurelio Woodward PHYSICIAN REVIEWER Dr. Sarthak Catherine M.D. MR# [id number] NAME MCKENZIE QUINONES ADDRESS [address] [place] [address] PHONE [facility] [id number] DATE OF 1930 AGE 88 SSN# [id number] MARITAL STATUS RACE white ADMIT FROM 02 - [facility] PRE-HOSPITAL LIVING SETTING 01 - Home (private home/apt. board/care, assisted living, skilled nursing, transitional living) HOME TYPE AND DETAILS Type of home: single family house # of steps to enter the residence: 0 # of steps within the residence: 0 # of levels in the residence: 1 PRE-HOSPITAL LIVING WITH Attendant FAMILY SUPPORT Yes PHONE PRIMARY FAMILY CONTACT ON ADM.? no IS PRIMARY FAMILY CONTACT AUTH. REP.? no PHONE 1ST CONTACT ON ADM. no IS 1ST CONTACT AUTH. REP.? no PHONE 2ND CONTACT ON ADM.? no PATIENT EMPLOYMENT STATUS Retired (for age) PATIENT EMPLOYER No Employer PAYOR INFORMATION: 1ST PAYOR NAME Medicare 1ST PAYOR PHONE 1ST PAYOR INJURY/ILLNESS DUE TO ACCIDENT? No ANOTHER [employer] RESPONSIBLE? No PRIMARY REHAB/ACUTE DIAGNOSIS: Sepsis ONSET DATE 02/14/2019 REHAB IMPAIRMENT CATEGORY (BAILEY): 20 Miscellaneous (Misc) does NOT meet 60% rule PRIMARY DIAGNOSIS-RELATED SURGERIES: No surgeries related to the primary diagnosis were performed. COMORBID REHAB/ACUTE DIAGNOSES: - N/A acute kidney injury diabetes II proctitis hypertension INTERVENTIONS: - Hypertension Fluid management Medications VS RISK FOR COMPLICATIONS: - Hypertension CVA Hypotension AZ TIA SUMMARY OF ACUTE HOSPITALIZATION: Pt. is a 88 yo Right-handed white female. On 02/14/2019 she was admitted to [facility] with diagnosis Sepsis. her impairment category is Medically Complex Conditions 17 - Infections (17.1). Pre-morbidly, Pt. was independent/mod-I in Self-Care, Sphincter Control, Transfers Control, Locomotio n, Communication, and Social Cognition; and she had good Sphincter Control. Currently, she has deficits of Transfers Control, Locomotion, Communication, Social Cognition, Endura nce, Balance, Safety Awareness, and Self-Care. Pt. is now referred to [facility] for acute in-patient rehabilitation in order to maximize patient's functional independence in activities of daily living, strength, ROM, and mobi lity. Patient has realistic goal of being discharged at assistance level 6-Latonya to reside at Home with Att endant. Mckenzie Quinones is an 88 year old female that lives in an Assisted Living Facility. Patient was independent with ADLs and self care. On 02/14/2019, patient was brought to emergency room due to generalized weakness, fatigue and some confusion and was admitted to [facility] and treated. She is now medically stable but in need of 24-hour nursing, doctor supervision and oversite participate in 3hours of therapy a day/15 hours per week and receive care with an intensive interdisciplinary approach. PAST MEDICAL HISTORY acute kidney injury diabetes II hypertension proctitis MEDICATION ALLERGIES: Iodine SULFA metformin ENVIRONMENTAL ALLERGIES: - Substance Allergies None Known - Other Allergies None Known CODE STATUS: Full code WEIGHT/HEIGHT/BMI: WEIGHT 168 lbs HEIGHT 5' 10" BMI 24.1 DIET: - Diet Type Regular - Diet - Solid Texture Regular - Diet - Liquid Texture Regular - Tube Feed N/A REVIEW OF SYSTEMS: - Gen Alert and awake Lying in bed No apparent distress Oriented to: person, time, and place - Vital Signs Vital signs stable, afebrile - CVS RRR VITAL SIGNS Temperature: 97.6 F SBP/DBP: 133/63 Pulse: 118 Resp: 18 Vital signs stable, afebrile MEDICATIONS/TREATMENT: Other- See attached MAR (Medication Administration Record). CURRENT SPHINCTER CONTROL: Pre-hospital bladder status: unspecified # of bladder accidents in the last 7 days prior to screenin Pre-hospital bowel status: unspecified # of bowel accidents in the last 7 days prior to screenin Last Bowel Movement Date: 02/20/2019 DETAILED CURRENT FUNCTIONAL STATUS: - Bladder accident frequency: Ind - No accidents in the past 7 days - Bowel accident frequency: Ind - No accidents in the past 7 days - Walking score based on distance walked: 1(<=50ft) - Wheelchair score based on distance traveled: 1(<=50ft) FUNCTIONAL STATUS: - Self-Care A. Eating Ind Ind B. Grooming Ind Anjelica C. Bathing Ind Dep D. Dressing - Upper Ind modA E. Dressing - Lower Ind Dep F. Toileting Ind Dep - Sphincter Control G: Bladder control Ind Ind H: Bowel control Ind Ind - Transfers Control I. Bed/Chair/Wheelchair Ind Anjelica J. Toilet Ind Anjelica K. Tub/Shower Ind modA - Locomotion L. Walk/Wheelchair (C) Ind Dep L. Walk/Wheelchair (W) Ind Dep M. Stairs Ind ADNO - Communication N. Comprehension (B) Ind sup O. Expression (B) Ind Anjelica - Social Cognition P. Social Interaction Ind sup Q. Problem Solving Ind sup R. Memory Ind Ind - Endurance Poor - Balance Poor - Safety Awareness Poor CURRENT FUNC. DEFICITS: Transfers Control, Locomotion, Communication, Social Cognition, Endurance, Balance, Safety Awareness, and Self-Care THERAPY NOTES FROM ACUTE CARE: Attached. SPECIAL NEEDS: - Safety Concerns Skin breakdown precautions needed due to skin breakdown risk PATIENT NEEDS ACTIVE AND ONGOING THERAPEUTIC INTERVENTION OF MULTIPLE THERAPY DISCIPLINES, INCLUDING: - Dietary and Nutrition Adequate Nutrition. Nutritional Education. Nutritional Supplements. PATIENT NEEDS CLOSE MEDICAL SUPERVISION BY A REHABILITATION PHYSICIAN FOR: Coordination of Treatment Team Diabetes Management Medical and Co-Morbidity Management PATIENT REQUIRES 24X7 REHAB NURSING FOR MEDICAL AND FUNCTIONAL MGT. OF THE FOLLOWING DEFICITS: ADL's Ambulation Cognition Communication Disease Management Medication Management Patient/Family Education Providing Safe Environment Transfers PATIENT REQUIRES INTENSIVE, COORDINATED INTERDISCIPLINARY APPROACH TO REHAB: Arranging Home Equipment/Services Discharge Planning Family Intervention/Training Operations Specialists/Case Management PATIENT REHAB POTENTIAL: Hilda QUINONES is able and expected to receive 3 hours of individualized therapy daily on at least 5 of every 7 days Hilda QUINONES's prognosis for significant practical improvement within a reasonable period of time appe ars Good Expected level of measurable improvement will be of a practical value to Hilda QUINONES's functional cap acity or adaptations to impairments Has a viable Discharge Plan Medically appropriate; condition is sufficiently stable to participate in intensive rehab program DISCHARGE PLAN: - Estimated Length of Stay (days) 13. - Consensus on plan Discharge plan has been discussed with primary caregiver. Patient/Family is in agreement with the omayra n. Primary caregiver is in agreement with the plan. - Patient/Family Goals Return home with assistance. - Planned Living Setting Upon Discharge Home, to live with Attendant. RECOMMENDED CARE LEVEL: IRF RECOMMENDATION DETAILS: Recommended Admission to Comprehensive Rehabilitation Program to Increase Functional [place] SCREENER'S COMPLETENESS CONFIRMATION: - Screening Confirmation The patient data collection on this preadmission screening form is finished PHYSICIANS REVIEW AND ADMISSION DETERMINATION Admit - Based on my review of the Pre-Admission Screening results, in my medical judgment and experie nce, I concur with the findings and recommend admission to [facility], as this patient requires an IRF level of care. SIGNATURE PANEL: Clinical Liaison - [electronically] signed by Jannie Ross on 02/20/2019 at 14:25 (CDT) Clinical Liaison - [electronically] signed by Aurelio Woodward on 02/20/2019 at 14:26 (CDT) Physician Reviewer - [electronically] signed by Dr. Sarthak Catherine M.D. on 02/20/2019 at 15:11 (CDT )
[2019-02-20] MEDS ORDERED: ALBUTEROL 2.5 MG/3 ML NEB SOL NEB PRN (16:36)
[2019-02-20] MEDS ORDERED: MUPIROCIN 2% OINT 22GM TUBE TOP PRN (16:36)
[2019-02-20] MEDS: GABAPENTIN 300 MG CAP PO SCH ×2 (17:42→20:25)
[2019-02-20] MEDS ORDERED: D50W 25 GM/50 ML SYRINGE IV PRN (17:50)
[2019-02-20] MEDS ORDERED: GLUCAGON 1 MG/VIAL IM PRN (17:50)
[2019-02-20] MEDS ORDERED: DOCUSATE NA/SENNA CONC 1 TAB PO PRN (18:20)
[2019-02-20] MEDS: AMOX/K CLAV 875 MG TAB PO SCH (20:24)
[2019-02-20] MEDS: FERROUS SULFATE 325 MG TAB PO SCH (20:24)
[2019-02-20] MEDS: LISINOPRIL 20 MG TAB PO SCH (20:25)
[2019-02-20] MEDS: INSULIN -REGULAR HUMAN 50 UNIT/0.5 ML ML SQ SCH (20:26)
[2019-02-20] MEDS: ACETAMINOPHEN 325 MG TABLET PO PRN (20:31)
[2019-02-20] MEDS: MELATONIN 3 MG TABLET PO PRN (22:20)
[2019-02-21] MEDS: THYROID 30 MG TAB PO SCH (05:24)
[2019-02-21] MEDS: GABAPENTIN 300 MG CAP PO SCH ×4 (05:24→19:27)
[2019-02-21 06:36] LABS: Absolute Lymphocytes (CBC) 1.5 K/uL (0.7-4.9); Basophils % 1.3 % (0-1.3); Hematocrit 35.3 % (36.0-45.0); Lymphocytes % 28.9 % (15.3-44.8); MPV 8.3 fL (7.6-11.3); RBC Red Blood Cell Count 4.11 M/uL (3.86-4.86)
[2019-02-21 06:54] LABS: Albumin 2.3 g/dL (3.4-5.0); Magnesium 1.5 mg/dL (1.8-2.4); Potassium 3.7 mmol/L (3.5-5.1); Prealbumin 11.3 mg/dL (20-40)
[2019-02-21] MEDS: PANTOPRAZOLE 40MG TABLET PO SCH (06:54)
[2019-02-21] MEDS: INSULIN -REGULAR HUMAN 50 UNIT/0.5 ML ML SQ SCH ×4 (07:30→20:10)
[2019-02-21] MEDS ORDERED: levoFLOXacin 500 MG TAB PO SCH (08:00)
[2019-02-21] MEDS ORDERED: RIVAROXABAN 10 MG TABLET PO SCH (08:00)
[2019-02-21] MEDS: ACETAMINOPHEN 325 MG TABLET PO PRN ×2 (08:28→16:28)
[2019-02-21] MEDS: LISINOPRIL 20 MG TAB PO SCH ×2 (08:28→19:26)
[2019-02-21] MEDS: CYANOCOBALAMIN 1,000 MCG TAB PO SCH (08:29)
[2019-02-21] MEDS: FERROUS SULFATE 325 MG TAB PO SCH ×2 (08:29→19:27)
[2019-02-21] MEDS: GLIMEPIRIDE 2 MG TABLET PO SCH (08:29)
[2019-02-21] MEDS: VITAMIN D 5,000 UNIT CAP PO SCH (08:29)
[2019-02-21] MEDS: AMOX/K CLAV 875 MG TAB PO SCH ×2 (08:29→19:27)
[2019-02-21] MEDS: PIOGLITAZONE 15 MG TAB PO SCH (11:37)
--- NOTE | 2019-02-21 14:34 | FAST ---
SHIFT START DATE/TIME: 02/21/2019 07:00 (CDT) SHIFT END DATE/TIME: 02/21/2019 19:00 (CDT) NAME MCKENZIE TELLO DATE OF : 1930 DATE OF ADMISSION: 02/20/2019 16:22 (CDT) PHONE: AGE: 88 SSN# [id number] ENCOUNTER PHYSICIAN: Dr. Sarthak Catherine M.D. ADMISSION DIAGNOSIS: - Medically Complex Conditions 17 - Infections (17.1) Sepsis. EATING: EATING - STEP 1: Does the patient require the assistance of a person or device, or need extra time when eating? Yes. EATING - STEP 2: Does the patient require the assistance of a helper? Yes. EATING - STEP 3: Does the patient perform half or more of the eating tasks? Yes. EATING - STEP 4: Does the patient need only supervision, cuing, coaxing OR help to apply an orthosis OR help to cut fo od, open containers, pour liquids, or butter bread? Yes. EATING - SCORE: 5-SUP GROOMING: Comb/brush hair Oral care Wash, rinse, and dry face Wash, rinse, and dry hands GROOMING - STEP 1: Does the patient require the assistance of a person or device, or need extra time when grooming? Yes. GROOMING - STEP 2: Does the patient require the assistance of a helper? No. The patient only requires an assistive devic e, OR takes more than reasonable time to groom, OR there is a concern for safety as the patient groom s GROOMING - SCORE: 6-MICHAEL BATHING: Activity did not occur on this shift BATHING - SCORE: 0-UNK DRESSING - UPPER BODY: Activity did not occur on this shift ARTICLES SCORE Total number of steps: 0 DRESSING - UPPER BODY - SCORE: 0-UNK DRESSING - LOWER BODY: Activity did not occur on this shift ARTICLES SCORE Total number of steps: 0 DRESSING - LOWER BODY - SCORE: 0-UNK TOILETING: TOILETING - STEP 1: Does the patient require the assistance of a person or device, or need extra time with toileting? Yes . TOILETING - STEP 2: Does the patient require the assistance of a helper? Yes. TOILETING - STEP 3: How much assistance does the patient require from the helper? Hands-on assistance from the helper TOILETING - STEP 4: Of the 3 tasks: 1) Adjusting clothing prior to use, 2) Cleansing of perineal area, 3) Adjusting clot fanny after use; How many tasks does the patient perform WITHOUT assistance of the helper? Three tasks with steadying assistance from the helper TOILETING - SCORE: 4-MIN BLADDER MANAGEMENT: BLADDER MANAGEMENT - STEP 1: Does the patient control the bladder completely and intentionally without equipment or devices or med ications, and is always continent? No. BLADDER MANAGEMENT - STEP 2: Does the patient require the assistance of a helper? No, patient requires and independently uses an a ssistive device, such as a urinal, bedpan, bedside commode, catheter, absorbent pad, or collecting de vice BLADDER MANAGEMENT - SCORE: 6-MICHAEL BOWEL MANAGEMENT: Activity did not occur on this shift BOWEL MANAGEMENT - SCORE: 7-IND TRANSFERS: BED, CHAIR, WHEELCHAIR: TRANSFERS: BED, CHAIR, WHEELCHAIR - STEP 1: Does the patient require assistance of a person or device, or need extra time with bed, chair, or whe elchair transfers? Yes. TRANSFERS: BED, CHAIR, WHEELCHAIR - STEP 2: Does the patient require the assistance of a helper? Yes. TRANSFERS: BED, CHAIR, WHEELCHAIR - STEP 3: How much assistance does the patient require from the helper? Steadying/guiding assistance TRANSFERS: BED, CHAIR, WHEELCHAIR - SCORE: 4-MIN TRANSFERS: TOILET: TRANSFERS: TOILET - STEP 1: Does the patient require the assistance of a person or device, or need extra time with toilet transfe rs? Yes. TRANSFERS: TOILET - STEP 2: Does the patient require the assistance of a helper? Yes. TRANSFERS: TOILET - STEP 3: How much assistance does the patient require from the helper? Patient performs half or more of the tr ansferring tasks TRANSFERS: TOILET - STEP 4: Does the patient need only incidental help such as contact guard or steadying during toilet transfer? Yes. TRANSFERS: TOILET - SCORE: 4-MIN TRANSFERS: SHOWER: Activity did not occur on this shift TRANSFERS: SHOWER - SCORE: 0-UNK TRANSFERS: TUB: Activity did not occur on this shift TRANSFERS: TUB - SCORE: 0-UNK LOCOMOTION: WALK: Activity did not occur on this shift LOCOMOTION: WALK - SCORE: 0-UNK LOCOMOTION: WHEELCHAIR: Activity did not occur on this shift LOCOMOTION: WHEELCHAIR - SCORE: 0-UNK COMPREHENSION: COMPREHENSION - SCORE: 0-UNK EXPRESSION EXPRESSION - SCORE: 0-UNK SOCIAL INTERACTION: SOCIAL INTERACTION - SCORE: 0-UNK PROBLEM SOLVING: PROBLEM SOLVING - SCORE: 0-UNK MEMORY: MEMORY - SCORE: 0-UNK SIGNATURE PANEL: The following modified sections: Eating - Score, Grooming - Score, Bathing - Score, Dressing - Upper Body - Score, Dressing - Lower Body - Score, Toileting - Score, Bladder Management - Score, Bowel Man agement - Score, Transfers: Bed, Chair, Wheelchair - Score, Transfers: Toilet - Score, Transfers: Chey wer - Score, Transfers: Tub - Score, Locomotion: Walk - Score, Locomotion: Wheelchair - Score, Compre hension - Score, Expression - Score, Social Interaction - Score, Problem Solving - Score, Memory - Sc ore were [electronically] signed by Low Garvey on TueFeb 21 2019 14:33:57 GMT-0500 (Central Daylight Time)
--- NOTE | 2019-02-21 15:52 | FAST ---
ENCOUNTER DATE AND TIME: 02/21/2019 08:00 (CDT) NAME MCKENZIE TELLO DATE OF : 1930 DATE OF ADMISSION: 02/20/2019 16:22 (CDT) PHONE: AGE: 88 SSN# [id number] ENCOUNTER PHYSICIAN: Dr. Sarthak Catherine M.D. ADMISSION DIAGNOSIS: - Medically Complex Conditions 17 - Infections (17.1) Sepsis. EATING: Activity did not occur on this shift EATING - SCORE: 0-UNK GROOMING: Activity did not occur on this shift GROOMING - SCORE: 0-UNK BATHING: Activity did not occur on this shift BATHING - SCORE: 0-UNK DRESSING - UPPER BODY: Activity did not occur on this shift Patient is not dressing in public clothing ARTICLES SCORE Total number of steps: 0 DRESSING - UPPER BODY - SCORE: 0-UNK DRESSING - LOWER BODY: Activity did not occur on this shift Patient is not dressing in public clothing ARTICLES SCORE Total number of steps: 0 DRESSING - LOWER BODY - SCORE: 0-UNK TOILETING: Activity did not occur on this shift TOILETING - SCORE: 0-UNK BLADDER MANAGEMENT: Activity did not occur on this shift BLADDER MANAGEMENT - SCORE: 7-IND BOWEL MANAGEMENT: Activity did not occur on this shift BOWEL MANAGEMENT - SCORE: 7-IND TRANSFERS: BED, CHAIR, WHEELCHAIR: TRANSFERS: BED, CHAIR, WHEELCHAIR - STEP 1: Does the patient require assistance of a person or device, or need extra time with bed, chair, or whe elchair transfers? Yes. TRANSFERS: BED, CHAIR, WHEELCHAIR - STEP 2: Does the patient require the assistance of a helper? Yes. TRANSFERS: BED, CHAIR, WHEELCHAIR - STEP 3: How much assistance does the patient require from the helper? Lifting of the patient TRANSFERS: BED, CHAIR, WHEELCHAIR - STEP 4: Does the helper lift the patient ONLY up? ONLY down? Up AND Down? ONLY up. TRANSFERS: BED, CHAIR, WHEELCHAIR - SCORE: 3-MOD TRANSFERS: TOILET: Activity did not occur on this shift TRANSFERS: TOILET - SCORE: 0-UNK TRANSFERS: SHOWER: Activity did not occur on this shift TRANSFERS: SHOWER - SCORE: 0-UNK TRANSFERS: TUB: Activity did not occur on this shift TRANSFERS: TUB - SCORE: 0-UNK LOCOMOTION: WALK: LOCOMOTION: WALK - STEP 1: Does the patient need help from a person or device, or need extra time to walk 150 feet? Yes. LOCOMOTION: WALK - STEP 2: How much assistance does the patient require to walk a minimum of 150 feet? Patient walks less than 1 50 feet - but more than 50 feet - with the assistance of only one helper LOCOMOTION: WALK - SCORE: 2-MAX LOCOMOTION: WHEELCHAIR: LOCOMOTION: WHEELCHAIR - STEP 1: Does the patient need help to go 150 feet in a wheelchair? Yes. LOCOMOTION: WHEELCHAIR - STEP 2: How much assistance does the patient need from the helper? Only supervision, cuing, or coaxing LOCOMOTION: WHEELCHAIR - SCORE: 5-SUP LOCOMOTION: STAIRS: Activity did not occur on this shift LOCOMOTION: STAIRS - SCORE: 0-UNK COMPREHENSION: COMPREHENSION - SCORE: 0-UNK EXPRESSION EXPRESSION - SCORE: 0-UNK SOCIAL INTERACTION: SOCIAL INTERACTION - SCORE: 0-UNK PROBLEM SOLVING: PROBLEM SOLVING - SCORE: 0-UNK MEMORY: MEMORY - SCORE: 0-UNK SIGNATURE PANEL: The following modified sections: Transfers: Bed, Chair, Wheelchair - Score, Transfers: Toilet - Score , Locomotion: Walk - Score, Locomotion: Wheelchair - Score, Locomotion: Stairs - Score were [electron ically] signed by Elie Fregoso PT on TueFeb 21 2019 15:51:34 T-0500 (Central Daylight Time)
[2019-02-21] MEDS: RIVAROXABAN 20 MG TABLET PO SCH (16:28)
--- NOTE | 2019-02-21 18:27 | R.HP ---
FACILITY: [facility] ENCOUNTER DATE AND TIME: 02/21/2019 18:21 (CDT) MR#: [id number] NAME MCKENZIE QUINONES ADDRESS: [address] [facility] CITY: [place] [address] [address] PHONE: DATE OF : 1930 AGE: 88 SSN# [id number] DEXTERITY Right-handed MARITAL [employer] White PRE-HOSPITAL LIVING SETTING 01 - Home (private home/apt. board/care, assisted living, skilled nursing, transitional living) PRE-HOSPITAL LIVING WITH Attendant ENCOUNTER PHYSICIAN: Dr. Sarthak Catherine M.D. REFERRING DOCTOR: Lesly Ibarra DATE OF ADMISSION: 02/20/2019 16:22 (CDT) REFERRING FACILITY [facility] HOME TYPE AND DETAILS: Type of home: single family house # of steps to enter the residence: 0 # of steps within the residence: 0 # of levels in the residence: 1 ADMISSION DIAGNOSIS: Sepsis ONSET DATE: 02/14/2019 PRIMARY DIAGNOSIS-RELATED SURGERIES: No surgeries related to the primary diagnosis were performed. SECONDARY/COMORBID DIAGNOSES (TIERED): - N/A acute kidney injury diabetes II proctitis hypertension HISTORY OF PRESENT ILLNESS (HPI): Pt. is a 88 yo Right-handed white female. On 02/14/2019 she was admitted to [facility] with diagnosis Sepsis. her impairment category is Medically Complex Conditions 17 - Infections (17.1). Pre-morbidly, Pt. was independent/mod-I in Self-Care, Sphincter Control, Transfers Control, Locomotio n, Communication, and Social Cognition; and she had good Sphincter Control. Currently, she has deficits of Transfers Control, Locomotion, Communication, Social Cognition, Endura nce, Balance, Safety Awareness, and Self-Care. Pt. is now referred to [facility] for acute in-patient rehabilitation in order to maximize patient's functional independence in activities of daily living, strength, ROM, and mobi lity. Patient has realistic goal of being discharged at assistance level 6-Latonya to reside at Home with Att endant. Mckenzie Quinones is an 88 year old female that lives in an Assisted Living Facility. Patient was independent with ADLs and self care. On 02/14/2019, patient was brought to emergency room due to generalized weakness, fatigue and some confusion and was admitted to [facility] and treated. She is now medically stable but in need of 24-hour nursing, doctor supervision and oversite participate in 3hours of therapy a day/15 hours per week and receive care with an intensive interdisciplinary approach. MEDICATION ALLERGIES: Iodine SULFA metformin ENVIRONMENTAL ALLERGIES: - Substance Allergies None Known - Other Allergies None Known PAST MEDICAL HISTORY: acute kidney injury diabetes II hypertension proctitis FAMILY HISTORY: Family history is not contributory. REVIEW OF SYSTEMS: - Gen No Chills Fatigue No Fever - Eyes No Double Vision No itchiness - ENMT No Difficulty Swallowing - CVS No Chest Discomfort No Chest Pain Fatigue No Weight Gain - Resp No Cough No Shortness of Breath - GI Continent No Abdominal Pain No Constipation No Diarrhea - Continent No Kidney Pain No Painful Urination No Urinary Urgency - MSK No Joint Pain Muscle Cramps Stiffness - Skin No Itching No Rash No Suspicious Lesions - Neuro Coordination Difficulty No Difficulty with Concentration No Memory Loss No Seizures Weakness - Psych No Anxiety No Depression No HIV Exposure No Persistent Infections No Seasonal Allergies - Endo No Cold/Heat Intolerance No Excessive Hunger No Excessive Thirst No Excessive Urination PHYSICAL EXAM - Gen Alert and awake Lying in bed No apparent distress Oriented to: person, time, and place - Skin No breakdown No abnormalities - Eyes No abnormalities - ENMT No abnormalities - Neck No abnormalities - CVS RRR - Chest No abnormalities - Abd Soft - GI + bowel sounds Deferred - No abnormalities - Ext Mild bilateral lower extremity edema. Several areas of localized hyperemia noted on both legs. - MSK 4+/5 weakness in both lower extremities. - Neuro No focal deficits - Psych No abnormalities VITAL SIGNS Temperature: 97.6 F SBP/DBP: 133/63 Pulse: 118 Resp: 18 NURSING: - Shower allowing shower - Lab Results blood Sugar Check ACHS ACTIVITIES OOB only with supervision FUNCTIONAL STATUS: - Self-Care A. Eating Ind Ind B. Grooming Ind Anjelica C. Bathing Ind Dep D. Dressing - Upper Ind modA E. Dressing - Lower Ind Dep F. Toileting Ind Dep - Sphincter Control G: Bladder control Ind Ind H: Bowel control Ind Ind - Transfers Control I. Bed/Chair/Wheelchair Ind Anjelica J. Toilet Ind Anjelica K. Tub/Shower Ind modA - Locomotion L. Walk/Wheelchair (C) Ind Dep L. Walk/Wheelchair (W) Ind Dep M. Stairs Ind ADNO - Communication N. Comprehension (B) Ind sup O. Expression (B) Ind Anjelica - Social Cognition P. Social Interaction Ind sup Q. Problem Solving Ind sup R. Memory Ind Ind - Endurance Poor - Balance Poor - Safety Awareness Poor CURRENT FUNC. DEFICITS: Transfers Control, Locomotion, Communication, Social Cognition, Endurance, Balance, Safety Awareness, and Self-Care MEDICATIONS: - Other See attached MAR (Medication Administration Record) ASSESSMENT: Pt. is a 88 yo Right-handed white female.On 02/14/2019 she was admitted to [facility] with diagnosis Sepsis.her impairment category is Medically Complex Conditions 17 - Infections (17.1).Pre-morbidly, Pt. was independent/mod-I in Self-Care, Sphincter Control, Transfers Control, L ocomotion, Communication, and Social Cognition; and she had good Sphincter Control.Currently, she has deficits of Transfers Control, Locomotion, Communication, Social Cognition, Endurance, Balance, Safe ty Awareness, and Self-Care.Pt. is now referred to [facility] for acute in-pat ient rehabilitation in order to maximize patient's functional independence in activities of daily lan ing, strength, ROM, and mobility.- Rehab Goal Patient has realistic goal of being discharged at assistance level 6-Latonya to reside at Home with Att endant. Mckenzie Quinones is an 88 year old female that lives in an Assisted Living Facility. Patient was independent with ADLs and self care. On 02/14/2019, patient was brought to emergency room due to generalized weakness, fatigue and some confusion and was admitted to [facility] and treated. She is now medically stable but in need of 24-hour nursing, doctor supervision and oversite participate in 3hours of therapy a day/15 hours per week and receive care with an intensive interdisciplinary approach.REHAB PLAN: - Physical Therapy Gait dysfunction - to improve, our physical therapists will perform initial evaluation of pt's status upon admission and devise an individualized program for Gait Training, and Wheel Chair mobility Inability to transfer - to improve, our physical therapists will perform initial evaluation of pt's s tatus upon admission and devise an individualized program for Bed mobility Need for home safety evaluation - to improve, our physical therapists will perform initial evaluation of pt's status upon admission and devise an individualized program for Home Evaluation Need in caregiver upon discharge - to improve, our physical therapists will perform initial evaluatio n of pt's status upon admission and devise an individualized program for Caregiver Training New precaution - to improve, our physical therapists will perform initial evaluation of pt's status u david admission and devise an individualized program for Patient precaution education Edema - to improve, our physical therapists will perform initial evaluation of pt's status upon admi ssion and devise an individualized program for Elevation Training, and Lymphedema Therapy Poor balance - to improve, our physical therapists will perform initial evaluation of pt's status upo n admission and devise an individualized program for Balance Training Poor endurance - to improve, our physical therapists will perform initial evaluation of pt's status u david admission and devise an individualized program for Endurance Training Weakness - to improve, our physical therapists will perform initial evaluation of pt's status upon ad mission and devise an individualized program for Aquatic Therapy, Neuromuscular Reeducation, and Stre ngthening Achieving independence - to improve, our physical therapists will perform initial evaluation of pt's status upon admission and devise an individualized program for Community Reintegration Activities - Occupational Therapy ADL deficits - to improve, our occupation therapists will perform initial evaluation of pt's status u david admission and devise an individualized program for Bathing, Bed mobility, Community Reintegration , Cooking, Dressing, Eating, Fine Motor Skills, Grooming, Homemaking, Kitchen Mobility, Laundry, Shruti ent Education, Safety Awareness, Splinting - Positioning, Transfers(Toilet, Tub, Shower), and Wheel C hair Management Cognitive deficits - to improve, our occupation therapists will perform initial evaluation of pt's st atus upon admission and devise an individualized program for Cognition - orientation Need for urgent care physician - to improve, our occupation therapists will perform initial evaluation of pt's s tatus upon admission and devise an individualized program for Caregiver Training Weakness - to improve, our occupation therapists will perform initial evaluation of pt's status upon admission and devise an individualized program for Aquatic Therapy, Balance, Endurance, UE ROM, and U E strengthening MEDICAL PLAN: - Diet Type Start Regular - Diet - Liquid Texture Start Regular - Tube Feed Start N/A - Lab Results blood Sugar Check ACHS - Other See attached MAR (Medication Administration Record) - Diet - Solid Texture Regular - Shower shower DISCHARGE PLAN: - Estimated Length of Stay (days) 13. - Consensus on plan Discharge plan has been discussed with primary caregiver. Patient/Family is in agreement with the omayra n. Primary caregiver is in agreement with the plan. - Patient/Family Goals Return home with assistance. - Planned Living Setting Upon Discharge Home, to live with Attendant. SIGNATURE PANEL: (CDT)
--- NOTE | 2019-02-21 18:29 | PAPE ---
PATIENT: [facility] MR# [id number] REFERRING DOCTOR Lesly Ibarra EVALUATION DATE AND TIME 02/21/2019 18:28 (CDT) NAME MCKENZIE TELLO DATE OF 1930 AGE 88 PHONE SSN# [id number] Sarthak Catherine M.D. ADMISSION DIAGNOSIS: Sepsis ONSET DATE 02/14/2019 SECONDARY/COMORBID DIAGNOSES TIERED: - N/A acute kidney injury diabetes II proctitis hypertension POST-ADMISSION FUNCTIONAL/MEDICAL STATUS: - Bladder Same accident frequency: Ind - No accidents in the past 7 days - Bowel Same accident frequency: Ind - No accidents in the past 7 days - Walking Same score based on distance walked: 1(<=50ft) - Wheelchair Same score based on distance traveled: 1(<=50ft) STATUS CHANGE EVALUATION: No change in Functional or Medical Status is identified compared with Pre-Admission screening. PATIENT NEEDS CLOSE MEDICAL SUPERVISION BY A REHABILITATION PHYSICIAN FOR: Coordination of Treatment Team Diabetes Management Medical and Co-Morbidity Management PATIENT REQUIRES 24X7 REHAB NURSING FOR MEDICAL AND FUNCTIONAL MGT. OF THE FOLLOWING DEFICITS: ADL's Ambulation Cognition Communication Disease Management Medication Management Patient/Family Education Providing Safe Environment Transfers PATIENT REQUIRES INTENSIVE, COORDINATED INTERDISCIPLINARY APPROACH TO REHAB: Arranging Home Equipment/Services Discharge Planning Family Intervention/Training Heel Blacker/Case Management LIST OF IDENTIFIED AND POTENTIAL PROBLEMS: Alteration in leisure activities Bladder, Incontinence Blood Pressure, Hypertension/hypotension Issues Bowel, Incontinence Diabetes, Hyperglycemia/hypoglycemia Issues Infection, Actual or Potential Mobility Impaired Pain, Alteration in Comfort Self Care Deficit Skin Integrity, Actual or Potential Urinary Tract Infection (UTI), Actual or Potential RISK FOR COMPLICATIONS - Hypertension CVA. Hypotension. HI. TIA. INTERVENTIONS - Hypertension PATIENT COULD BE AT RISK FOR COMPLICATIONS FROM ADVERSE MEDICAL CONDITIONS DUE TO HIS/HER COMORBIDITI ES AND THE RIGORS OF THE INTENSIVE REHABILLITATION PROGRAM. METHODS OR INTERVENTIONS TO AVOID COMPLIC ATIONS INCLUDE: - Infection Clinical staff to assess and manage the signs and symptoms of infection including fever, redness, war mth, etc. - Urinary Tract Infection - Falls Patient will be evaluated for Fall Precautions and will be placed on Fall Precautions as indicated pe r protocol. - Skin Breakdown Nursing will assess skin daily using assessment tool and will place on Skin Breakdown Precautions as indicated per protocol. - Pain Clinical staff may employ non-medication methods such as massage, distraction, decrease stimulus, etc . as needed. Clinical staff will assess patient's pain level every shift per protocol to assess and e nsure pain management effectiveness. Medications will be given and the pain level re-assessed. PRELIMINARY PLAN OF CARE: - Physical Therapy Patient needs Physical Therapy for a daily minimum of 1.5 hours at least 5 out of 7 days, to improve: Mobility, Strengthening, Transfers, Stretching, ROM, Endurance, Ability to manage stairs, Gait, and Balance. - Speech Therapy Patient needs Speech Therapy for a daily minimum of 0.5 hours at least 5 out of 7 days, to improve: S wallowing, Cognition, Language Skills, and Compensatory Strategies. - Rehabilitation Nursing Patient requires 24x7 Rehabilitation Nursing for: Pain Issues, Identifying and preventing risk factor s, Monitoring and reporting current medical conditions, Assisting with ambulation and transfer, Colin ting with all ADL-s, Teaching patients about disease process and medications, Family teaching, Provid ing safe environment, Bowel and Bladder Issues, Skin Integrity, and Medication Management. Patient needs Heel Blacker and/or Case Management for: Discharge Planning, Arranging Home Equipmen t or Services, and Family Interventions. - Dietary and Nutrition Services Patient needs Dietary and Nutrition Services for: Adequate Nutrition, Nutritional Supplements, and Nu tritional Education. - Occupational Therapy Patient needs Occupational Therapy for a daily minimum of 1.5 hours at least 5 out of 7 days, to impr ove Activities of Daily Living, including: Eating, Grooming, Bathing, Dressing, Toileting, Toilet Tra nsfers, Community Reintegration, Higher functional activities, Adaptive Equipment, Splinting, Househo ld Tasks, and Other activities as determined. POTENTIAL FUNCTIONAL GOALS FOR PATIENT TO ACHIEVE BY DISCHARGE: - Safety Precaution Patient will remain free from falls or injury at time of discharge. - Bed Mobility Patient will perform bed mobility at 4-Anjelica level of assistance. - Transfers Patient will complete transfers from bed to chair at 4-Anjelica level of assistance. - Mobility Patient will ambulate 150 ft with 4-Anjelica level of assistance with RW. PATIENT REHAB POTENTIAL Hilda TELLO is able and expected to receive 3 hours of individualized therapy daily on at least 5 of every 7 days Hilda TELLO's prognosis for significant practical improvement within a reasonable period of time appe ars Good Expected level of measurable improvement will be of a practical value to Hilda TELLO's functional cap acity or adaptations to impairments Has a viable Discharge Plan Medically appropriate; condition is sufficiently stable to participate in intensive rehab program DISCHARGE PLAN: - Estimated Length of Stay (days) 13. - Consensus on plan Discharge plan has been discussed with primary caregiver. Patient/Family is in agreement with the omayra n. Primary caregiver is in agreement with the plan. - Patient/Family Goals Return home with assistance. - Planned Living Setting Upon Discharge Home, to live with Attendant. CONCLUSION ON REHABILITATION NECESSITY: I have evaluated patient's pre-admission functional status and, comparing it to the patient's post-ad mission functional status now, I conclude that the pre-admission assessment was accurate. Patient's c ondition on admission supports the medical necessity of admission to IR[facility]. It is safe to proceed with patient's therapy program. SIGNATURE PANEL: (CDT)
[2019-02-21] MEDS: MELATONIN 3 MG TABLET PO PRN (19:27)
[2019-02-22] MEDS: THYROID 30 MG TAB PO SCH (05:28)
[2019-02-22] MEDS: GABAPENTIN 300 MG CAP PO SCH ×4 (06:17→20:31)
[2019-02-22] MEDS: PANTOPRAZOLE 40MG TABLET PO SCH (06:17)
[2019-02-22 06:32] LABS: Absolute Lymphocytes (CBC) 1.5 K/uL (0.7-4.9); Basophils % 1.2 % (0-1.3); Hematocrit 34.1 % (36.0-45.0); Lymphocytes % 26.4 % (15.3-44.8); MPV 8.6 fL (7.6-11.3); RBC Red Blood Cell Count 4.02 M/uL (3.86-4.86)
[2019-02-22 06:59] LABS: Albumin 2.2 g/dL (3.4-5.0); Potassium 3.9 mmol/L (3.5-5.1)
[2019-02-22 07:02] LABS: Magnesium 1.3 mg/dL (1.8-2.4)
[2019-02-22] MEDS: INSULIN -REGULAR HUMAN 50 UNIT/0.5 ML ML SQ SCH ×4 (07:30→20:33)
[2019-02-22] MEDS: LISINOPRIL 20 MG TAB PO SCH ×2 (07:32→20:00)
[2019-02-22] MEDS: MAGNESIUM OXIDE 400 MG TAB PO SCH ×2 (07:33→20:11)
[2019-02-22] MEDS: NYSTATIN PWDR 100000 UNIT/GM TOP SCH (08:00)
[2019-02-22] MEDS: CYANOCOBALAMIN 1,000 MCG TAB PO SCH (08:24)
[2019-02-22] MEDS: VITAMIN D 5,000 UNIT CAP PO SCH (08:24)
[2019-02-22] MEDS: FERROUS SULFATE 325 MG TAB PO SCH ×2 (08:25→20:31)
[2019-02-22] MEDS: ACETAMINOPHEN 325 MG TABLET PO PRN ×2 (08:25→20:34)
[2019-02-22] MEDS: AMOX/K CLAV 875 MG TAB PO SCH (08:25)
[2019-02-22] MEDS: GLIMEPIRIDE 2 MG TABLET PO SCH (08:25)
[2019-02-22] MEDS: PIOGLITAZONE 15 MG TAB PO SCH (09:41)
--- NOTE | 2019-02-22 11:51 | FAST ---
SHIFT START DATE/TIME: 02/22/2019 07:00 (CDT) SHIFT END DATE/TIME: 02/22/2019 19:00 (CDT) NAME MCKENZIE TELLO DATE OF : 1930 DATE OF ADMISSION: 02/20/2019 16:22 (CDT) PHONE: AGE: 88 SSN# [id number] ENCOUNTER PHYSICIAN: Dr. Sarthak Catherine M.D. ADMISSION DIAGNOSIS: - Medically Complex Conditions 17 - Infections (17.1) Sepsis. EATING: EATING - STEP 1: Does the patient require the assistance of a person or device, or need extra time when eating? Yes. EATING - STEP 2: Does the patient require the assistance of a helper? Yes. EATING - STEP 3: Does the patient perform half or more of the eating tasks? Yes. EATING - STEP 4: Does the patient need only supervision, cuing, coaxing OR help to apply an orthosis OR help to cut fo od, open containers, pour liquids, or butter bread? Yes. EATING - SCORE: 5-SUP GROOMING: Comb/brush hair Oral care GROOMING - STEP 1: Does the patient require the assistance of a person or device, or need extra time when grooming? Yes. GROOMING - STEP 2: Does the patient require the assistance of a helper? No. The patient only requires an assistive devic e, OR takes more than reasonable time to groom, OR there is a concern for safety as the patient groom s GROOMING - SCORE: 6-MICHAEL BATHING: Activity did not occur on this shift BATHING - SCORE: 0-UNK DRESSING - UPPER BODY: T-shirt/pullover shirt (four steps) ARTICLES SCORE Total number of steps: 4 DRESSING - UPPER BODY - STEP 1: Does the patient require help from a person or device, or need extra time when dressing above the choco st? Yes. DRESSING - UPPER BODY - STEP 2: Does the patient require the assistance of a helper? Yes. DRESSING - UPPER BODY - STEP 3: Does the helper touch the patient while dressing? Yes. DRESSING - UPPER BODY - STEP 4: How many of the total steps does the patient complete on his/her own? 3 DRESSING - UPPER BODY - SCORE: 4-MIN DRESSING - LOWER BODY: Activity did not occur on this shift ARTICLES SCORE Total number of steps: 0 DRESSING - LOWER BODY - SCORE: 0-UNK TOILETING: TOILETING - STEP 1: Does the patient require the assistance of a person or device, or need extra time with toileting? Yes . TOILETING - STEP 2: Does the patient require the assistance of a helper? Yes. TOILETING - STEP 3: How much assistance does the patient require from the helper? Hands-on assistance from the helper TOILETING - STEP 4: Of the 3 tasks: 1) Adjusting clothing prior to use, 2) Cleansing of perineal area, 3) Adjusting clot fanny after use; How many tasks does the patient perform WITHOUT assistance of the helper? Two tasks TOILETING - SCORE: 3-MOD BLADDER MANAGEMENT: BLADDER MANAGEMENT - STEP 1: Does the patient control the bladder completely and intentionally without equipment or devices or med ications, and is always continent? No. BLADDER MANAGEMENT - STEP 2: Does the patient require the assistance of a helper? No, patient requires and independently uses an a ssistive device, such as a urinal, bedpan, bedside commode, catheter, absorbent pad, or collecting de vice BLADDER MANAGEMENT - SCORE: 6-MICHAEL BOWEL MANAGEMENT: Activity did not occur on this shift BOWEL MANAGEMENT - SCORE: 7-IND TRANSFERS: BED, CHAIR, WHEELCHAIR: TRANSFERS: BED, CHAIR, WHEELCHAIR - STEP 1: Does the patient require assistance of a person or device, or need extra time with bed, chair, or whe elchair transfers? Yes. TRANSFERS: BED, CHAIR, WHEELCHAIR - STEP 2: Does the patient require the assistance of a helper? Yes. TRANSFERS: BED, CHAIR, WHEELCHAIR - STEP 3: How much assistance does the patient require from the helper? Steadying/guiding assistance TRANSFERS: BED, CHAIR, WHEELCHAIR - SCORE: 4-MIN TRANSFERS: TOILET: TRANSFERS: TOILET - STEP 1: Does the patient require the assistance of a person or device, or need extra time with toilet transfe rs? Yes. TRANSFERS: TOILET - STEP 2: Does the patient require the assistance of a helper? Yes. TRANSFERS: TOILET - STEP 3: How much assistance does the patient require from the helper? Patient performs half or more of the tr ansferring tasks TRANSFERS: TOILET - STEP 4: Does the patient need only incidental help such as contact guard or steadying during toilet transfer? No. Patient needs more than incidental help TRANSFERS: TOILET - SCORE: 3-MOD TRANSFERS: SHOWER: Activity did not occur on this shift TRANSFERS: SHOWER - SCORE: 0-UNK TRANSFERS: TUB: Activity did not occur on this shift TRANSFERS: TUB - SCORE: 0-UNK LOCOMOTION: WALK: Activity did not occur on this shift LOCOMOTION: WALK - SCORE: 0-UNK LOCOMOTION: WHEELCHAIR: Activity did not occur on this shift LOCOMOTION: WHEELCHAIR - SCORE: 0-UNK COMPREHENSION: COMPREHENSION - SCORE: 0-UNK EXPRESSION EXPRESSION - SCORE: 0-UNK SOCIAL INTERACTION: SOCIAL INTERACTION - SCORE: 0-UNK PROBLEM SOLVING: PROBLEM SOLVING - SCORE: 0-UNK MEMORY: MEMORY - SCORE: 0-UNK SIGNATURE PANEL: The following modified sections: Eating - Score, Grooming - Score, Grooming - Score, Bathing - Score, Dressing - Upper Body - Score, Dressing - Lower Body - Score, Toileting - Score, Bladder Management - Score, Bladder Management - Score, Bowel Management - Score, Transfers: Bed, Chair, Wheelchair - Sc ore, Transfers: Toilet - Score, Transfers: Shower - Score, Transfers: Tub - Score, Locomotion: Walk - Score, Locomotion: Wheelchair - Score, Comprehension - Score, Expression - Score, Social Interaction - Score, Problem Solving - Score, Memory - Score were [electronically] signed by Low bill Laura S ep 2018 11:50:32 GMT-0500 (Central Daylight Time)
--- NOTE | 2019-02-22 16:20 | FAST ---
ENCOUNTER DATE AND TIME: 02/22/2019 08:00 (CDT) NAME MCKENZIE TELLO DATE OF : 1930 DATE OF ADMISSION: 02/20/2019 16:22 (CDT) PHONE: AGE: 88 SSN# [id number] ENCOUNTER PHYSICIAN: Dr. Sarthak Catherine M.D. ADMISSION DIAGNOSIS: - Medically Complex Conditions 17 - Infections (17.1) Sepsis. EATING: Activity did not occur on this shift EATING - SCORE: 0-UNK GROOMING: Activity did not occur on this shift GROOMING - SCORE: 0-UNK BATHING: Activity did not occur on this shift BATHING - SCORE: 0-UNK DRESSING - UPPER BODY: Activity did not occur on this shift Patient is not dressing in public clothing ARTICLES SCORE Total number of steps: 0 DRESSING - UPPER BODY - SCORE: 0-UNK DRESSING - LOWER BODY: Activity did not occur on this shift Patient is not dressing in public clothing ARTICLES SCORE Total number of steps: 0 DRESSING - LOWER BODY - SCORE: 0-UNK TOILETING: Activity did not occur on this shift TOILETING - SCORE: 0-UNK BLADDER MANAGEMENT: Activity did not occur on this shift BLADDER MANAGEMENT - SCORE: 7-IND BOWEL MANAGEMENT: Activity did not occur on this shift BOWEL MANAGEMENT - SCORE: 7-IND TRANSFERS: BED, CHAIR, WHEELCHAIR: TRANSFERS: BED, CHAIR, WHEELCHAIR - STEP 1: Does the patient require assistance of a person or device, or need extra time with bed, chair, or whe elchair transfers? Yes. TRANSFERS: BED, CHAIR, WHEELCHAIR - STEP 2: Does the patient require the assistance of a helper? Yes. TRANSFERS: BED, CHAIR, WHEELCHAIR - STEP 3: How much assistance does the patient require from the helper? Lifting of the patient TRANSFERS: BED, CHAIR, WHEELCHAIR - STEP 4: Does the helper lift the patient ONLY up? ONLY down? Up AND Down? ONLY up. TRANSFERS: BED, CHAIR, WHEELCHAIR - SCORE: 3-MOD TRANSFERS: TOILET: TRANSFERS: TOILET - STEP 1: Does the patient require the assistance of a person or device, or need extra time with toilet transfe rs? Yes. TRANSFERS: TOILET - STEP 2: Does the patient require the assistance of a helper? Yes. TRANSFERS: TOILET - STEP 3: How much assistance does the patient require from the helper? Patient performs half or more of the tr ansferring tasks TRANSFERS: TOILET - STEP 4: Does the patient need only incidental help such as contact guard or steadying during toilet transfer? No. Patient needs more than incidental help TRANSFERS: TOILET - SCORE: 3-MOD TRANSFERS: SHOWER: Activity did not occur on this shift TRANSFERS: SHOWER - SCORE: 0-UNK TRANSFERS: TUB: Activity did not occur on this shift TRANSFERS: TUB - SCORE: 0-UNK LOCOMOTION: WALK: LOCOMOTION: WALK - STEP 1: Does the patient need help from a person or device, or need extra time to walk 150 feet? Yes. LOCOMOTION: WALK - STEP 2: How much assistance does the patient require to walk a minimum of 150 feet? Patient walks less than 1 50 feet - but more than 50 feet - with the assistance of only one helper LOCOMOTION: WALK - SCORE: 2-MAX LOCOMOTION: WHEELCHAIR: LOCOMOTION: WHEELCHAIR - STEP 1: Does the patient need help to go 150 feet in a wheelchair? Yes. LOCOMOTION: WHEELCHAIR - STEP 2: How much assistance does the patient need from the helper? Only supervision, cuing, or coaxing LOCOMOTION: WHEELCHAIR - SCORE: 5-SUP LOCOMOTION: STAIRS: Activity did not occur on this shift LOCOMOTION: STAIRS - SCORE: 0-UNK COMPREHENSION: COMPREHENSION - SCORE: 0-UNK EXPRESSION EXPRESSION - SCORE: 0-UNK SOCIAL INTERACTION: SOCIAL INTERACTION - SCORE: 0-UNK PROBLEM SOLVING: PROBLEM SOLVING - SCORE: 0-UNK MEMORY: MEMORY - SCORE: 0-UNK SIGNATURE PANEL: The following modified sections: Transfers: Bed, Chair, Wheelchair - Score, Transfers: Toilet - Score , Transfers: Toilet - Score, Transfers: Toilet - Score, Locomotion: Walk - Score, Locomotion: Wheelch air - Score, Locomotion: Stairs - Score were [electronically] signed by Elie Fregoso PT on Laura S ep 2018 16:06:51 GMT-0500 (Central Daylight Time)
[2019-02-22] MEDS: RIVAROXABAN 20 MG TABLET PO SCH (16:47)
--- NOTE | 2019-02-22 18:26 | R.PN ---
ENCOUNTER DATE AND TIME: 02/22/2019 18:21 (CDT) NAME MCKENZIE TELLO DATE OF : 1930 DATE OF ADMISSION: 02/20/2019 16:22 (CDT) SepsisCHIEF COMPLAINT: Debility SUBJECTIVE: Pt denied any depression. Pt denied any Shortness of Breath. She is making fair overall progress with physical and occupational therapy. VITAL SIGNS Temperature: 97.6 F SBP/DBP: 133/63 Pulse: 118 Resp: 18 MEDICATION ALLERGIES: Iodine SULFA metformin ENVIRONMENTAL ALLERGIES: - Substance Allergies None Known - Other Allergies None Known NURSING: - Shower allowing shower - Lab Results blood Sugar Check ACHS ACTIVITIES OOB only with supervision THERAPIES: - Dietary and Nutrition Adequate Nutrition. Nutritional Education. Nutritional Supplements. PHYSICAL EXAM - Gen Alert and awake Lying in bed No apparent distress Oriented to: person, time, and place - Skin No breakdown No abnormalities - Eyes No abnormalities - ENMT No abnormalities - Neck No abnormalities - CVS RRR - Chest No abnormalities - Abd Soft - GI + bowel sounds Deferred - No abnormalities - Ext Mild bilateral lower extremity edema. Several areas of localized hyperemia noted on both legs. - MSK 4+/5 weakness in both lower extremities. - Neuro No focal deficits - Psych No abnormalities ASSESSMENT: Pt. is a 88 yo Right-handed white female.On 02/14/2019 she was admitted to [facility] with diagnosis Sepsis.her impairment category is Medically Complex Conditions 17 - Infections (17.1).Pre-morbidly, Pt. was independent/mod-I in Self-Care, Sphincter Control, Transfers Control, L ocomotion, Communication, and Social Cognition; and she had good Sphincter Control.Currently, she has deficits of Transfers Control, Locomotion, Communication, Social Cognition, Endurance, Balance, Safe ty Awareness, and Self-Care.Pt. is now referred to [facility] for acute in-pat ient rehabilitation in order to maximize patient's functional independence in activities of daily lan ing, strength, ROM, and mobility.- Rehab Goal Patient has realistic goal of being discharged at assistance level 6-Latonya to reside at Home with Att endant. MDM/PLAN: - Physical Therapy Gait dysfunction - to improve, our physical therapists will perform initial evaluation of pt's statu s upon admission and devise an individualized program for Gait Training, and Wheel Chair mobility Inability to transfer - to improve, our physical therapists will perform initial evaluation of pt's status upon admission and devise an individualized program for Bed mobility Need for home safety evaluation - to improve, our physical therapists will perform initial evaluatio n of pt's status upon admission and devise an individualized program for Home Evaluation Need in caregiver upon discharge - to improve, our physical therapists will perform initial evaluati on of pt's status upon admission and devise an individualized program for Caregiver Training New precaution - to improve, our physical therapists will perform initial evaluation of pt's status upon admission and devise an individualized program for Patient precaution education Edema - to improve, our physical therapists will perform initial evaluation of pt's status upon admis ruel and devise an individualized program for Elevation Training, and Lymphedema Therapy Poor balance - to improve, our physical therapists will perform initial evaluation of pt's status up on admission and devise an individualized program for Balance Training Poor endurance - to improve, our physical therapists will perform initial evaluation of pt's status upon admission and devise an individualized program for Endurance Training Weakness - to improve, our physical therapists will perform initial evaluation of pt's status upon a dmission and devise an individualized program for Aquatic Therapy, Neuromuscular Reeducation, and Str engthening Achieving independence - to improve, our physical therapists will perform initial evaluation of pt's status upon admission and devise an individualized program for Community Reintegration Activities - Occupational Therapy ADL deficits - to improve, our occupation therapists will perform initial evaluation of pt's status upon admission and devise an individualized program for Bathing, Bed mobility, Community Reintegratio n, Cooking, Dressing, Eating, Fine Motor Skills, Grooming, Homemaking, Kitchen Mobility, Laundry, Pat ient Education, Safety Awareness, Splinting - Positioning, Transfers(Toilet, Tub, Shower), and Wheel Chair Management Cognitive deficits - to improve, our occupation therapists will perform initial evaluation of pt's s tatus upon admission and devise an individualized program for Cognition - orientation Need for home health aide caregiver - to improve, our occupation therapists will perform initial evaluation of pt's status upon admission and devise an individualized program for Caregiver Training Weakness - to improve, our occupation therapists will perform initial evaluation of pt's status upon admission and devise an individualized program for Aquatic Therapy, Balance, Endurance, UE ROM, and UE strengthening - Other See attached MAR (Medication Administration Record) - Diet Type Continue Regular - Diet - Liquid Texture Continue Regular - Tube Feed Continue N/A - Lab Results blood Sugar Check ACHS - Diet - Solid Texture Continue Regular - Shower allowing shower FUNCTIONAL STATUS: UPDATED AT WEEKLY TEAM CONFERENCE - Bladder Same accident frequency: 7-Ind - No accidents in the past 7 days - Bowel Same accident frequency: 7-Ind - No accidents in the past 7 days - Walking Same score based on distance walked: 1(<=50ft) - Wheelchair Same score based on distance traveled: 1(<=50ft) FUNCTIONAL STATUS: - Self-Care A. Eating Ind B. Grooming Anjelica C. Bathing Dep D. Dressing - Upper modA E. Dressing - Lower Dep F. Toileting Dep - Sphincter Control G: Bladder control Ind H: Bowel control Ind - Transfers Control I. Bed/Chair/Wheelchair Anjelica J. Toilet Anjelica K. Tub/Shower modA - Locomotion L. Walk/Wheelchair (C) Dep L. Walk/Wheelchair (W) Dep M. Stairs ADNO - Communication N. Comprehension (B) sup O. Expression (B) Anjelica - Social Cognition P. Social Interaction sup Q. Problem Solving sup R. Memory Ind - Endurance Poor - Balance Poor - Safety Awareness Poor CURRENT FUNC. DEFICITS: Transfers Control, Locomotion, Communication, Social Cognition, Endurance, Balance, Safety Awareness, and Self-Care SIGNATURE PANEL: (CDT)
[2019-02-22] MEDS: MELATONIN 3 MG TABLET PO PRN (20:31)
[2019-02-22] MEDS: AMOX TR/K CLAV 400MG CHEW TAB PO SCH (20:32)
[2019-02-22] MEDS: PROMOD 30 ML DOSE PO SCH (20:33)
[2019-02-23] MEDS: THYROID 30 MG TAB PO SCH (05:23)
[2019-02-23] MEDS: GABAPENTIN 300 MG CAP PO SCH ×4 (05:24→20:39)
[2019-02-23] MEDS: PANTOPRAZOLE 40MG TABLET PO SCH (06:50)
[2019-02-23] MEDS: INSULIN -REGULAR HUMAN 50 UNIT/0.5 ML ML SQ SCH ×4 (07:14→20:40)
[2019-02-23] MEDS: TRAMADOL HCL 50 MG TAB PO PRN ×2 (07:56→21:40)
[2019-02-23] MEDS: AMOX TR/K CLAV 400MG CHEW TAB PO SCH ×2 (07:59→20:38)
[2019-02-23] MEDS: NYSTATIN PWDR 100000 UNIT/GM TOP SCH ×2 (08:00→11:24)
[2019-02-23] MEDS: LISINOPRIL 20 MG TAB PO SCH ×2 (08:00→20:39)
[2019-02-23] MEDS: VITAMIN D 5,000 UNIT CAP PO SCH (08:01)
[2019-02-23] MEDS: MAGNESIUM OXIDE 400 MG TAB PO SCH ×2 (08:01→20:00)
[2019-02-23] MEDS: FERROUS SULFATE 325 MG TAB PO SCH ×2 (08:01→20:38)
[2019-02-23] MEDS: GLIMEPIRIDE 2 MG TABLET PO SCH (08:01)
[2019-02-23] MEDS: CYANOCOBALAMIN 1,000 MCG TAB PO SCH (08:02)
[2019-02-23] MEDS: PROMOD 30 ML DOSE PO SCH ×2 (08:04→20:40)
--- NOTE | 2019-02-23 09:51 | P.RH.PN ---
Estimated Length of Stay: 12 Expected Discharge Date: 03/03/19 Discharge Disposition Plan: Home Family Support: Yes [facility] Goal: Mobility, Transfers, Self Care Vital Signs: Last Vital Signs Temp 97.6 F 02/23/19 06:45 Pulse 104 H 02/23/19 08:00 Resp 14 02/23/19 08:56 BP 104/62 02/23/19 08:00 Pulse Ox 97 02/23/19 08:56 Laboratory: Laboratory Last Values WBC 5.7 K/uL (4.3-10.9) 02/22/19 05:58 RBC 4.02 M/uL (3.86-4.86) 02/22/19 05:58 Hgb 11.4 g/dL (12.0-15.0) L 02/22/19 05:58 Hct 34.1 % (36.0-45.0) L 02/22/19 05:58 MCV 84.8 fL (80-100) 02/22/19 05:58 MCH 28.3 pg (27.0-35.0) 02/22/19 05:58 MCHC 33.4 g/dL (32.0-36.0) 02/22/19 05:58 RDW 18.9 % (12.1-15.2) H 02/22/19 05:58 Plt Count 262 K/uL (152-406) 02/22/19 05:58 MPV 8.6 fL (7.6-11.3) 02/22/19 05:58 Neutrophils % 60.8 % (41.7-73.7) 02/22/19 05:58 Lymphocytes % 26.4 % (15.3-44.8) 02/22/19 05:58 Monocytes % 9.2 % (3.3-12.3) 02/22/19 05:58 Eosinophils % 2.4 % (0-4.4) 02/22/19 05:58 Basophils % 1.2 % (0-1.3) 02/22/19 05:58 Absolute Neutrophils 3.5 K/uL (1.8-8.0) 02/22/19 05:58 Absolute Lymphocytes 1.5 K/uL (0.7-4.9) 02/22/19 05:58 Absolute Monocytes 0.5 K/uL (0.1-1.3) 02/22/19 05:58 Absolute Eosinophils 0.1 K/uL (0-0.5) 02/22/19 05:58 Absolute Basophils 0.1 K/uL (0-0.5) 02/22/19 05:58 Sodium 146 mmol/L (136-145) H 02/22/19 05:58 Potassium 3.9 mmol/L (3.5-5.1) 02/22/19 05:58 Chloride 112 mmol/L (98-107) H 02/22/19 05:58 Carbon Dioxide 29 mmol/L (21-32) 02/22/19 05:58 BUN 8 mg/dL (7-18) 02/22/19 05:58 Creatinine 0.69 mg/dL (0.55-1.3) 02/22/19 05:58 Estimated GFR 81 mL/min (=/>90) L 02/22/19 05:58 Glucose 118 mg/dL (74-106) H 02/22/19 05:58 POC Glucose 183 mg/dl (65-120) H 02/23/19 07:12 Calcium 9.3 mg/dL (8.5-10.1) 02/22/19 05:58 Magnesium 1.3 mg/dL (1.8-2.4) L* 02/23/19 05:29 Albumin 2.2 g/dL (3.4-5.0) L 02/22/19 05:58 Prealbumin 11.0 mg/dL (20-40) L 02/22/19 05:58 Weight: 168 lb Wound Present: Yes Closed Surgical Incision Present: No Negative Pressure Wound Therapy Present: No Physician Update: Labs reviewed magnesium is still very low at 1.3 event after oral magnesium 400 mg twice daily for 2 days. Will give 1 gram of magnesium. She is making fair progress with occupational therapy. 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 Walks 200' contact guard, transfers are minimum assitance. She has poor memory limiting her improvement. Medical Issues: UTI - Augmentin 875mg-125mg BID PO. DVT Prophylaxis - Xarelto 20mg Daily PO. Pain Issues: Tramadol 50mg Q6H PO PRN Functional Improvement: pt is demonstrating progress with tolerance to ambulation and is able to travel further distances without resting. pt does continue to exhibit poor posturing during ambulation and standing activity. This will be continually addressed throughout remainder of stay. Functional Improvement Occupational Therapy: Patient continues to benefit from further OT at [facility] in order to address and improve current functional activity performance and elvel of function safely. Patient is very participatory, but does fatigue quickly due to significant overall weakness. Speech Therapy Update: Patient requires MIN A with Auditory Comprehension due to inattention and hearing impairments. Patient is at MOD I for Verbal Expression and SUPV to MOD I for Social Interaction. Patient is at MOD A for Problem Solving and MAX A for Memory. Patient is forgetful and loses track easily, she responds well to verbal redirection and demonstration of strategies. Patient was able to recall up to 2/3 items today following a brief delay with mod A for use of compensatory memory strategies. Summary: Patient's care plan and [facility] goals have been reviewed and revised as necessary. Please see the Rehabilitation Signature page for all necessary signatures.
[2019-02-23] MEDS: PIOGLITAZONE 15 MG TAB PO SCH (09:55)
[2019-02-23] MEDS ORDERED: MAGNESIUM SULFATE 1 gm IVPB 1 GM/100 ML BAG IV ONE (09:56)
[2019-02-23] MEDS: ACETAMINOPHEN 325 MG TABLET PO PRN (12:06)
--- NOTE | 2019-02-23 14:59 | FAST ---
ENCOUNTER DATE AND TIME: 02/23/2019 08:00 (CDT) NAME MCKENZIE TELLO DATE OF : 1930 DATE OF ADMISSION: 02/20/2019 16:22 (CDT) PHONE: AGE: 88 SSN# [id number] ENCOUNTER PHYSICIAN: Dr. Sarthak Catherine M.D. ADMISSION DIAGNOSIS: - Medically Complex Conditions 17 - Infections (17.1) Sepsis. EATING: Activity did not occur on this shift EATING - SCORE: 0-UNK GROOMING: Activity did not occur on this shift GROOMING - SCORE: 0-UNK BATHING: Activity did not occur on this shift BATHING - SCORE: 0-UNK DRESSING - UPPER BODY: Activity did not occur on this shift Patient is not dressing in public clothing ARTICLES SCORE Total number of steps: 0 DRESSING - UPPER BODY - SCORE: 0-UNK DRESSING - LOWER BODY: Activity did not occur on this shift Patient is not dressing in public clothing ARTICLES SCORE Total number of steps: 0 DRESSING - LOWER BODY - SCORE: 0-UNK TOILETING: Activity did not occur on this shift TOILETING - SCORE: 0-UNK BLADDER MANAGEMENT: Activity did not occur on this shift BLADDER MANAGEMENT - SCORE: 7-IND BOWEL MANAGEMENT: Activity did not occur on this shift BOWEL MANAGEMENT - SCORE: 7-IND TRANSFERS: BED, CHAIR, WHEELCHAIR: TRANSFERS: BED, CHAIR, WHEELCHAIR - STEP 1: Does the patient require assistance of a person or device, or need extra time with bed, chair, or whe elchair transfers? Yes. TRANSFERS: BED, CHAIR, WHEELCHAIR - STEP 2: Does the patient require the assistance of a helper? Yes. TRANSFERS: BED, CHAIR, WHEELCHAIR - STEP 3: How much assistance does the patient require from the helper? Only supervision TRANSFERS: BED, CHAIR, WHEELCHAIR - SCORE: 5-SUP TRANSFERS: TOILET: Activity did not occur on this shift TRANSFERS: TOILET - SCORE: 0-UNK TRANSFERS: SHOWER: Activity did not occur on this shift TRANSFERS: SHOWER - SCORE: 0-UNK TRANSFERS: TUB: Activity did not occur on this shift TRANSFERS: TUB - SCORE: 0-UNK LOCOMOTION: WALK: LOCOMOTION: WALK - STEP 1: Does the patient need help from a person or device, or need extra time to walk 150 feet? Yes. LOCOMOTION: WALK - STEP 2: How much assistance does the patient require to walk a minimum of 150 feet? Only supervision, cuing, or coaxing LOCOMOTION: WALK - SCORE: 5-SUP LOCOMOTION: WHEELCHAIR: LOCOMOTION: WHEELCHAIR - STEP 1: Does the patient need help to go 150 feet in a wheelchair? Yes. LOCOMOTION: WHEELCHAIR - STEP 2: How much assistance does the patient need from the helper? Only supervision, cuing, or coaxing LOCOMOTION: WHEELCHAIR - SCORE: 5-SUP LOCOMOTION: STAIRS: Activity did not occur on this shift LOCOMOTION: STAIRS - SCORE: 0-UNK COMPREHENSION: COMPREHENSION - SCORE: 0-UNK EXPRESSION EXPRESSION - SCORE: 0-UNK SOCIAL INTERACTION: SOCIAL INTERACTION - SCORE: 0-UNK PROBLEM SOLVING: PROBLEM SOLVING - SCORE: 0-UNK MEMORY: MEMORY - SCORE: 0-UNK SIGNATURE PANEL: The following modified sections: Transfers: Bed, Chair, Wheelchair - Score, Transfers: Toilet - Score , Locomotion: Walk - Score, Locomotion: Wheelchair - Score, Locomotion: Stairs - Score were [electron ically] signed by Rajendra Christianson PTA on TueFeb 23 2019 14:57:39 GMT-0500 (Central Daylight Time)
[2019-02-23] MEDS: RIVAROXABAN 20 MG TABLET PO SCH (17:17)
[2019-02-23] MEDS: MELATONIN 3 MG TABLET PO PRN (21:40)
--- NOTE | 2019-02-24 02:13 | FAST ---
SHIFT START DATE/TIME: 02/23/2019 19:00 (CDT) SHIFT END DATE/TIME: 02/24/2019 07:00 (CDT) NAME MCKENZIE TELLO DATE OF : 1930 DATE OF ADMISSION: 02/20/2019 16:22 (CDT) PHONE: AGE: 88 SSN# [id number] ENCOUNTER PHYSICIAN: Dr. Sarthak Catherine M.D. ADMISSION DIAGNOSIS: - Medically Complex Conditions 17 - Infections (17.1) Sepsis. EATING: Activity did not occur on this shift EATING - SCORE: 0-UNK GROOMING: Activity did not occur on this shift GROOMING - SCORE: 0-UNK BATHING: Activity did not occur on this shift BATHING - SCORE: 0-UNK DRESSING - UPPER BODY: Patient is not dressing in public clothing ARTICLES SCORE Total number of steps: 0 DRESSING - UPPER BODY - SCORE: 0-UNK DRESSING - LOWER BODY: Patient is not dressing in public clothing ARTICLES SCORE Total number of steps: 0 DRESSING - LOWER BODY - SCORE: 0-UNK TOILETING: TOILETING - STEP 1: Does the patient require the assistance of a person or device, or need extra time with toileting? Yes . TOILETING - STEP 2: Does the patient require the assistance of a helper? Yes. TOILETING - STEP 3: How much assistance does the patient require from the helper? Hands-on assistance from the helper TOILETING - STEP 4: Of the 3 tasks: 1) Adjusting clothing prior to use, 2) Cleansing of perineal area, 3) Adjusting clot fanny after use; How many tasks does the patient perform WITHOUT assistance of the helper? Three tasks with steadying assistance from the helper TOILETING - SCORE: 4-MIN BLADDER MANAGEMENT: BLADDER MANAGEMENT - STEP 1: Does the patient control the bladder completely and intentionally without equipment or devices or med ications, and is always continent? No. BLADDER MANAGEMENT - STEP 2: Does the patient require the assistance of a helper? Yes. BLADDER MANAGEMENT - STEP 3: How much assistance does the patient require from the helper? Only set-up of equipment - such as plac ing it within reach of the patient or emptying a device - to maintain either satisfactory voiding pat tern or managing an external device, such as an absorbent pad, ileal device, or catheter BLADDER MANAGEMENT - SCORE: 5-SUP BOWEL MANAGEMENT: Activity did not occur on this shift BOWEL MANAGEMENT - SCORE: 7-IND TRANSFERS: BED, CHAIR, WHEELCHAIR: TRANSFERS: BED, CHAIR, WHEELCHAIR - STEP 1: Does the patient require assistance of a person or device, or need extra time with bed, chair, or whe elchair transfers? Yes. TRANSFERS: BED, CHAIR, WHEELCHAIR - STEP 2: Does the patient require the assistance of a helper? Yes. TRANSFERS: BED, CHAIR, WHEELCHAIR - STEP 3: How much assistance does the patient require from the helper? Steadying/guiding assistance TRANSFERS: BED, CHAIR, WHEELCHAIR - SCORE: 4-MIN TRANSFERS: TOILET: TRANSFERS: TOILET - STEP 1: Does the patient require the assistance of a person or device, or need extra time with toilet transfe rs? Yes. TRANSFERS: TOILET - STEP 2: Does the patient require the assistance of a helper? Yes. TRANSFERS: TOILET - STEP 3: How much assistance does the patient require from the helper? Patient performs half or more of the tr ansferring tasks TRANSFERS: TOILET - STEP 4: Does the patient need only incidental help such as contact guard or steadying during toilet transfer? Yes. TRANSFERS: TOILET - SCORE: 4-MIN TRANSFERS: SHOWER: Activity did not occur on this shift TRANSFERS: SHOWER - SCORE: 0-UNK TRANSFERS: TUB: Activity did not occur on this shift TRANSFERS: TUB - SCORE: 0-UNK LOCOMOTION: WALK: Activity did not occur on this shift LOCOMOTION: WALK - SCORE: 0-UNK LOCOMOTION: WHEELCHAIR: Activity did not occur on this shift LOCOMOTION: WHEELCHAIR - SCORE: 0-UNK COMPREHENSION: COMPREHENSION: TYPE: Both COMPREHENSION - STEP 1: Does the patient require help from a person or device, or need extra time to understand complex and a bstract ideas (such as current events, finances, discharge planning, medical issues, relationships, e tc)? Yes. COMPREHENSION - STEP 2: Does the patient require help to understand questions or statements about basic needs or ideas (such as hunger, thirst, sleep, safety, daily schedule, room location, or discomfort) half or more of the t katt? No. COMPREHENSION - STEP 3: How often does the patient need help to understand directions and conversation about basic needs? Les s than 10% of the time COMPREHENSION - SCORE: 5-SUP EXPRESSION EXPRESSION: TYPE: Both EXPRESSION - STEP 1: Does the patient require help from a person or device, or need extra time expressing complex and abst ract ideas (such as current events, finances, discharge planning, medical issues, relationships, etc) ? No. EXPRESSION - STEP 2: Does the patient need extra time, require an assistive device (such as augmentive communication syste m or a communication board), OR does s/he have mild difficulty expressing complex and abstract ideas (including mild dysarthria or mild word-find problems)? Yes. EXPRESSION - SCORE: 6-MICHAEL SOCIAL INTERACTION: SOCIAL INTERACTION - STEP 1: Does the patient require a helper to interact with others in social and therapeutic situations? No. SOCIAL INTERACTION - STEP 2: Does the patient need extra time in social situations, OR does s/he interact with staff, other patien ts, and family members ONLY in structured environments, OR does s/he require medication for social in teraction? Yes, patient needs extra time SOCIAL INTERACTION - SCORE: 6-MICHAEL PROBLEM SOLVING: PROBLEM SOLVING - STEP 1: Does the patient need help from a person or device, or need extra time to solve complex problems such as managing a checking account or confronting interpersonal problems? Yes. PROBLEM SOLVING - STEP 2: Does the patient solve basic routine problems half or more of the time? Yes. PROBLEM SOLVING - STEP 3: How often does the patient need help to solve basic routine problems? 10%-24% of the time PROBLEM SOLVING - SCORE: 4-MIN MEMORY: MEMORY - STEP 1: Does the patient need help from a person or device, or need extra time to remember frequently encount ered people, daily routines, and executing requests? Yes. MEMORY - STEP 2: How often does the patient need help to remember frequently encountered people, daily routines, and e xecuting requests? Less than 10% of the time MEMORY - SCORE: 5-SUP
[2019-02-24] MEDS: GABAPENTIN 300 MG CAP PO SCH ×4 (05:30→20:31)
[2019-02-24] MEDS: THYROID 30 MG TAB PO SCH (05:30)
--- NOTE | 2019-02-24 05:45 | FAST ---
ENCOUNTER DATE AND TIME: 02/23/2019 08:00 (CDT) NAME MCKENZIE TELLO DATE OF : 1930 DATE OF ADMISSION: 02/20/2019 16:22 (CDT) PHONE: AGE: 88 SSN# [id number] ENCOUNTER PHYSICIAN: Dr. Sarthak Catherine M.D. ADMISSION DIAGNOSIS: - Medically Complex Conditions 17 - Infections (17.1) Sepsis. EATING: Activity did not occur on this shift EATING - SCORE: 0-UNK GROOMING: Comb/brush hair Wash, rinse, and dry face Wash, rinse, and dry hands GROOMING - STEP 1: Does the patient require the assistance of a person or device, or need extra time when grooming? No. GROOMING - SCORE: 7-IND BATHING: Abdomen Buttocks Chest Left arm Left lower leg and foot Left upper leg Perineal area Right arm Right lower leg and foot Right upper leg BATHING - STEP 1: Does the patient require the assistance of a person or device, or need extra time when bathing? Yes. BATHING - STEP 2: Does the patient require the assistance of a helper? Yes. BATHING - STEP 3: How much assistance does the patient require from the helper? Only incidental help such as placement of a wash cloth in his/her hand a few times as s/he bathes OR help to bathe just one or two areas of the body BATHING - SCORE: 4-MIN DRESSING - UPPER BODY: T-shirt/pullover shirt (four steps) ARTICLES SCORE Total number of steps: 4 DRESSING - UPPER BODY - STEP 1: Does the patient require help from a person or device, or need extra time when dressing above the [address]? No. DRESSING - UPPER BODY - SCORE: 7-IND DRESSING - LOWER BODY: Elastic waist pants (three steps) Sock - Left foot (one step) Sock - Right foot (one step) Underwear (three steps) ARTICLES SCORE Total number of steps: 8 DRESSING - LOWER BODY - STEP 1: Does the patient require help from a person or device, or need extra time when dressing below the choco st? Yes. DRESSING - LOWER BODY - STEP 2: Does the patient require the assistance of a helper? Yes. DRESSING - LOWER BODY - STEP 3: Does the helper touch the patient while dressing? Yes. DRESSING - LOWER BODY - STEP 4: How many of the total steps does the patient complete on his/her own? 6 DRESSING - LOWER BODY - SCORE: 4-MIN TOILETING: TOILETING - STEP 1: Does the patient require the assistance of a person or device, or need extra time with toileting? Yes . TOILETING - STEP 2: Does the patient require the assistance of a helper? Yes. TOILETING - STEP 3: How much assistance does the patient require from the helper? Hands-on assistance from the helper TOILETING - STEP 4: Of the 3 tasks: 1) Adjusting clothing prior to use, 2) Cleansing of perineal area, 3) Adjusting clot fanny after use; How many tasks does the patient perform WITHOUT assistance of the helper? Three tasks with steadying assistance from the helper TOILETING - SCORE: 4-MIN BLADDER MANAGEMENT: Activity did not occur on this shift BLADDER MANAGEMENT - SCORE: 7-IND BOWEL MANAGEMENT: Activity did not occur on this shift BOWEL MANAGEMENT - SCORE: 7-IND TRANSFERS: BED, CHAIR, WHEELCHAIR: Activity did not occur on this shift TRANSFERS: BED, CHAIR, WHEELCHAIR - SCORE: 0-UNK TRANSFERS: TOILET: TRANSFERS: TOILET - STEP 1: Does the patient require the assistance of a person or device, or need extra time with toilet transfe rs? Yes. TRANSFERS: TOILET - STEP 2: Does the patient require the assistance of a helper? Yes. TRANSFERS: TOILET - STEP 3: How much assistance does the patient require from the helper? Patient performs half or more of the tr ansferring tasks TRANSFERS: TOILET - STEP 4: Does the patient need only incidental help such as contact guard or steadying during toilet transfer? Yes. TRANSFERS: TOILET - SCORE: 4-MIN TRANSFERS: SHOWER: TRANSFERS: SHOWER - STEP 1: Does the patient require the assistance of a person or device, or need extra time with shower transfe rs? Yes. TRANSFERS: SHOWER - STEP 2: Does the patient require the assistance of a helper? Yes. TRANSFERS: SHOWER - STEP 3: How much assistance does the patient require from the helper? Only incidental help such as contact gu arding or steadying during shower transfers, or help to lift one leg into the shower TRANSFERS: SHOWER - SCORE: 4-MIN TRANSFERS: TUB: Activity did not occur on this shift TRANSFERS: TUB - SCORE: 0-UNK LOCOMOTION: WALK: Activity did not occur on this shift LOCOMOTION: WALK - SCORE: 0-UNK LOCOMOTION: WHEELCHAIR: Activity did not occur on this shift LOCOMOTION: WHEELCHAIR - SCORE: 0-UNK LOCOMOTION: STAIRS: Activity did not occur on this shift LOCOMOTION: STAIRS - SCORE: 0-UNK COMPREHENSION: COMPREHENSION - SCORE: 0-UNK EXPRESSION EXPRESSION - SCORE: 0-UNK SOCIAL INTERACTION: SOCIAL INTERACTION - SCORE: 0-UNK PROBLEM SOLVING: PROBLEM SOLVING - SCORE: 0-UNK MEMORY: MEMORY - SCORE: 0-UNK SIGNATURE PANEL: The following modified sections: Eating - Score, Grooming - Score, Bathing - Score, Dressing - Upper Body - Score, Dressing - Lower Body - Score, Toileting - Score, Transfers: Bed, Chair, Wheelchair - S core, Transfers: Toilet - Score, Transfers: Shower - Score, Transfers: Tub - Score, Comprehension - S core, Expression - Score, Social Interaction - Score, Problem Solving - Score, Memory - Score were [e lectronically] signed by ROBERT Tucker on Sat Feb 24 2019 05:44:46 T-0500 ([facility] Time)
[2019-02-24] MEDS: PANTOPRAZOLE 40MG TABLET PO SCH (06:22)
[2019-02-24] MEDS: INSULIN -REGULAR HUMAN 50 UNIT/0.5 ML ML SQ SCH ×4 (07:14→20:32)
[2019-02-24] MEDS: TRAMADOL HCL 50 MG TAB PO PRN ×2 (07:47→17:05)
[2019-02-24] MEDS: AMOX TR/K CLAV 400MG CHEW TAB PO SCH ×2 (07:48→20:30)
[2019-02-24] MEDS: FERROUS SULFATE 325 MG TAB PO SCH ×2 (07:48→20:31)
[2019-02-24] MEDS: NYSTATIN PWDR 100000 UNIT/GM TOP SCH (07:49)
[2019-02-24] MEDS: CYANOCOBALAMIN 1,000 MCG TAB PO SCH (07:50)
[2019-02-24] MEDS: GLIMEPIRIDE 2 MG TABLET PO SCH (07:50)
[2019-02-24] MEDS: LISINOPRIL 20 MG TAB PO SCH ×2 (07:50→20:30)
[2019-02-24] MEDS: PROMOD 30 ML DOSE PO SCH ×4 (07:51→20:31)
[2019-02-24] MEDS: VITAMIN D 5,000 UNIT CAP PO SCH (07:51)
[2019-02-24] MEDS: MAGNESIUM OXIDE 400 MG TAB PO SCH ×2 (07:51→20:31)
[2019-02-24] MEDS: PIOGLITAZONE 15 MG TAB PO SCH (09:05)
[2019-02-24] MEDS ORDERED: Magnesium Sulfate 2gm IVPB 2 G/50 ML BAG IV ONE (10:00)
[2019-02-24] MEDS: RIVAROXABAN 20 MG TABLET PO SCH (17:07)
[2019-02-24] MEDS: ACETAMINOPHEN 325 MG TABLET PO PRN (20:43)
--- NOTE | 2019-02-25 00:38 | FAST ---
SHIFT START DATE/TIME: 02/24/2019 19:00 (CDT) SHIFT END DATE/TIME: 02/25/2019 07:00 (CDT) NAME MCKENZIE TELLO DATE OF : 1930 DATE OF ADMISSION: 02/20/2019 16:22 (CDT) PHONE: AGE: 88 SSN# [id number] ENCOUNTER PHYSICIAN: Dr. Sarthak Catherine M.D. ADMISSION DIAGNOSIS: - Medically Complex Conditions 17 - Infections (17.1) Sepsis. EATING: Activity did not occur on this shift EATING - SCORE: 0-UNK GROOMING: Activity did not occur on this shift GROOMING - SCORE: 0-UNK BATHING: Activity did not occur on this shift BATHING - SCORE: 0-UNK DRESSING - UPPER BODY: Patient is not dressing in public clothing ARTICLES SCORE Total number of steps: 0 DRESSING - UPPER BODY - SCORE: 0-UNK DRESSING - LOWER BODY: Patient is not dressing in public clothing ARTICLES SCORE Total number of steps: 0 DRESSING - LOWER BODY - SCORE: 0-UNK TOILETING: TOILETING - STEP 1: Does the patient require the assistance of a person or device, or need extra time with toileting? Yes . TOILETING - STEP 2: Does the patient require the assistance of a helper? Yes. TOILETING - STEP 3: How much assistance does the patient require from the helper? Hands-on assistance from the helper TOILETING - STEP 4: Of the 3 tasks: 1) Adjusting clothing prior to use, 2) Cleansing of perineal area, 3) Adjusting clot fanny after use; How many tasks does the patient perform WITHOUT assistance of the helper? Two tasks TOILETING - SCORE: 3-MOD BLADDER MANAGEMENT: BLADDER MANAGEMENT - STEP 1: Does the patient control the bladder completely and intentionally without equipment or devices or med ications, and is always continent? No. BLADDER MANAGEMENT - STEP 2: Does the patient require the assistance of a helper? Yes. BLADDER MANAGEMENT - STEP 3: How much assistance does the patient require from the helper? Only supervision, stand-by, cuing, or c oaxing BLADDER MANAGEMENT - SCORE: 5-SUP BOWEL MANAGEMENT: BOWEL MANAGEMENT - STEP 1: Does the patient control bowels completely and intentionally without equipment devices or medications AND is always continent? No. BOWEL MANAGEMENT - STEP 2: Does the patient require the assistance of a helper? No, patient requires medication for control such as stool softeners, suppositories, laxatives, enemas, or OTC medications BOWEL MANAGEMENT - SCORE: 6-MICHAEL TRANSFERS: BED, CHAIR, WHEELCHAIR: TRANSFERS: BED, CHAIR, WHEELCHAIR - STEP 1: Does the patient require assistance of a person or device, or need extra time with bed, chair, or whe elchair transfers? Yes. TRANSFERS: BED, CHAIR, WHEELCHAIR - STEP 2: Does the patient require the assistance of a helper? Yes. TRANSFERS: BED, CHAIR, WHEELCHAIR - STEP 3: How much assistance does the patient require from the helper? Lifting of the legs TRANSFERS: BED, CHAIR, WHEELCHAIR - STEP 4: How many legs does the patient require the helper to lift? both legs TRANSFERS: BED, CHAIR, WHEELCHAIR - SCORE: 3-MOD TRANSFERS: TOILET: TRANSFERS: TOILET - STEP 1: Does the patient require the assistance of a person or device, or need extra time with toilet transfe rs? Yes. TRANSFERS: TOILET - STEP 2: Does the patient require the assistance of a helper? Yes. TRANSFERS: TOILET - STEP 3: How much assistance does the patient require from the helper? Patient performs half or more of the tr ansferring tasks TRANSFERS: TOILET - STEP 4: Does the patient need only incidental help such as contact guard or steadying during toilet transfer? Yes. TRANSFERS: TOILET - SCORE: 4-MIN TRANSFERS: SHOWER: Activity did not occur on this shift TRANSFERS: SHOWER - SCORE: 0-UNK TRANSFERS: TUB: Activity did not occur on this shift TRANSFERS: TUB - SCORE: 0-UNK LOCOMOTION: WALK: Activity did not occur on this shift LOCOMOTION: WALK - SCORE: 0-UNK LOCOMOTION: WHEELCHAIR: Activity did not occur on this shift LOCOMOTION: WHEELCHAIR - SCORE: 0-UNK COMPREHENSION: COMPREHENSION: TYPE: Both COMPREHENSION - STEP 1: Does the patient require help from a person or device, or need extra time to understand complex and a bstract ideas (such as current events, finances, discharge planning, medical issues, relationships, e tc)? Yes. COMPREHENSION - STEP 2: Does the patient require help to understand questions or statements about basic needs or ideas (such as hunger, thirst, sleep, safety, daily schedule, room location, or discomfort) half or more of the t katt? No. COMPREHENSION - STEP 3: How often does the patient need help to understand directions and conversation about basic needs? 25% - 49% of the time COMPREHENSION - SCORE: 3-MOD EXPRESSION EXPRESSION: TYPE: Both EXPRESSION - STEP 1: Does the patient require help from a person or device, or need extra time expressing complex and abst ract ideas (such as current events, finances, discharge planning, medical issues, relationships, etc) ? No. EXPRESSION - STEP 2: Does the patient need extra time, require an assistive device (such as augmentive communication syste m or a communication board), OR does s/he have mild difficulty expressing complex and abstract ideas (including mild dysarthria or mild word-find problems)? Yes. EXPRESSION - SCORE: 6-MICHAEL SOCIAL INTERACTION: SOCIAL INTERACTION - STEP 1: Does the patient require a helper to interact with others in social and therapeutic situations? No. SOCIAL INTERACTION - STEP 2: Does the patient need extra time in social situations, OR does s/he interact with staff, other patien ts, and family members ONLY in structured environments, OR does s/he require medication for social in teraction? Yes, patient needs extra time SOCIAL INTERACTION - SCORE: 6-MICHAEL PROBLEM SOLVING: PROBLEM SOLVING - STEP 1: Does the patient need help from a person or device, or need extra time to solve complex problems such as managing a checking account or confronting interpersonal problems? Yes. PROBLEM SOLVING - STEP 2: Does the patient solve basic routine problems half or more of the time? Yes. PROBLEM SOLVING - STEP 3: How often does the patient need help to solve basic routine problems? 25%-49% of the time PROBLEM SOLVING - SCORE: 3-MOD MEMORY: MEMORY - STEP 1: Does the patient need help from a person or device, or need extra time to remember frequently encount ered people, daily routines, and executing requests? Yes. MEMORY - STEP 2: How often does the patient need help to remember frequently encountered people, daily routines, and e xecuting requests? 25% - 49% of the time MEMORY - SCORE: 3-MOD SIGNATURE PANEL: The following modified sections: Eating - Score, Grooming - Score, Dressing - Upper Body - Score, Joseph ssing - Lower Body - Score, Toileting - Score, Bladder Management - Score, Bowel Management - Score, Transfers: Bed, Chair, Wheelchair - Score, Transfers: Toilet - Score, Transfers: Shower - Score, Arreola sfers: Tub - Score, Locomotion: Walk - Score, Locomotion: Wheelchair - Score, Comprehension - Score, Expression - Score, Social Interaction - Score, Problem Solving - Score, Memory - Score were [electro nically] signed by Brandie Godfrey CNA on TueFeb 25 2019 00:36:38 T-0500 (Central Daylight Time)
[2019-02-25] MEDS: THYROID 30 MG TAB PO SCH (05:14)
[2019-02-25] MEDS: GABAPENTIN 300 MG CAP PO SCH ×4 (05:14→20:30)
[2019-02-25] MEDS: PANTOPRAZOLE 40MG TABLET PO SCH (06:55)
[2019-02-25] MEDS: INSULIN -REGULAR HUMAN 50 UNIT/0.5 ML ML SQ SCH ×4 (07:30→21:18)
[2019-02-25] MEDS: PROMOD 30 ML DOSE PO SCH ×2 (08:00→20:00)
[2019-02-25] MEDS: NYSTATIN PWDR 100000 UNIT/GM TOP SCH (08:00)
[2019-02-25] MEDS: CYANOCOBALAMIN 1,000 MCG TAB PO SCH (08:11)
[2019-02-25] MEDS: VITAMIN D 5,000 UNIT CAP PO SCH (08:11)
[2019-02-25] MEDS: FERROUS SULFATE 325 MG TAB PO SCH ×2 (08:12→20:28)
[2019-02-25] MEDS: MAGNESIUM OXIDE 400 MG TAB PO SCH ×2 (08:13→20:30)
[2019-02-25] MEDS: GLIMEPIRIDE 2 MG TABLET PO SCH (08:13)
[2019-02-25] MEDS: AMOX TR/K CLAV 400MG CHEW TAB PO SCH (08:14)
[2019-02-25] MEDS: LISINOPRIL 20 MG TAB PO SCH ×2 (08:49→20:28)
[2019-02-25] MEDS: PIOGLITAZONE 15 MG TAB PO SCH (10:54)
[2019-02-25] MEDS: TRAMADOL HCL 50 MG TAB PO PRN ×2 (10:54→20:29)
[2019-02-25] MEDS: ACETAMINOPHEN 325 MG TABLET PO PRN (14:43)
[2019-02-25] MEDS ORDERED: LIDOCAINE VISCOUS 2% SOLN 15 ML UDC MM PRN (15:22)
[2019-02-25] MEDS ORDERED: Magnesium Sulfate 2gm IVPB 2 G/50 ML BAG IV ONE (16:00)
[2019-02-25] MEDS: RIVAROXABAN 20 MG TABLET PO SCH (17:42)
[2019-02-25] MEDS ORDERED: INSULIN -REGULAR HUMAN 50 UNIT/0.5 ML ML ONE (21:16)
--- NOTE | 2019-02-26 01:17 | FAST ---
SHIFT START DATE/TIME: 02/25/2019 19:00 (CDT) SHIFT END DATE/TIME: 02/26/2019 07:00 (CDT) NAME MCKENZIE TELLO DATE OF : 1930 DATE OF ADMISSION: 02/20/2019 16:22 (CDT) PHONE: AGE: 88 SSN# [id number] ENCOUNTER PHYSICIAN: Dr. Sarthak Catherine M.D. ADMISSION DIAGNOSIS: - Medically Complex Conditions 17 - Infections (17.1) Sepsis. EATING: Activity did not occur on this shift EATING - SCORE: 0-UNK GROOMING: Wash, rinse, and dry hands GROOMING - STEP 1: Does the patient require the assistance of a person or device, or need extra time when grooming? Yes. GROOMING - STEP 2: Does the patient require the assistance of a helper? Yes. GROOMING - STEP 3: How much assistance does the patient require from the helper? Only prior equipment preparation/set up from the helper GROOMING - SCORE: 5-SUP BATHING: Activity did not occur on this shift BATHING - SCORE: 0-UNK DRESSING - UPPER BODY: Patient is not dressing in public clothing ARTICLES SCORE Total number of steps: 0 DRESSING - UPPER BODY - SCORE: 0-UNK DRESSING - LOWER BODY: Patient is not dressing in public clothing ARTICLES SCORE Total number of steps: 0 DRESSING - LOWER BODY - SCORE: 0-UNK TOILETING: TOILETING - STEP 1: Does the patient require the assistance of a person or device, or need extra time with toileting? Yes . TOILETING - STEP 2: Does the patient require the assistance of a helper? Yes. TOILETING - STEP 3: How much assistance does the patient require from the helper? Hands-on assistance from the helper TOILETING - STEP 4: Of the 3 tasks: 1) Adjusting clothing prior to use, 2) Cleansing of perineal area, 3) Adjusting clot fanny after use; How many tasks does the patient perform WITHOUT assistance of the helper? One task TOILETING - SCORE: 2-MAX BLADDER MANAGEMENT: Calvin removes incontinent device (Depends, pull ups, etc.); cleans the patient after accident / inco ntinent episode; and, applies new incontinent device. BLADDER MANAGEMENT - SCORE: 1-DEP BOWEL MANAGEMENT: Calvin removes incontinent device (depends, pull ups, etc.); cleans the patient after accident / inco ntinent episode; and, applies new device (depends, pull-ups, padding, etc.). BOWEL MANAGEMENT - SCORE: 1-DEP TRANSFERS: BED, CHAIR, WHEELCHAIR: TRANSFERS: BED, CHAIR, WHEELCHAIR - STEP 1: Does the patient require assistance of a person or device, or need extra time with bed, chair, or whe elchair transfers? Yes. TRANSFERS: BED, CHAIR, WHEELCHAIR - STEP 2: Does the patient require the assistance of a helper? Yes. TRANSFERS: BED, CHAIR, WHEELCHAIR - STEP 3: How much assistance does the patient require from the helper? Lifting of the legs TRANSFERS: BED, CHAIR, WHEELCHAIR - STEP 4: How many legs does the patient require the helper to lift? both legs TRANSFERS: BED, CHAIR, WHEELCHAIR - SCORE: 3-MOD TRANSFERS: TOILET: TRANSFERS: TOILET - STEP 1: Does the patient require the assistance of a person or device, or need extra time with toilet transfe rs? Yes. TRANSFERS: TOILET - STEP 2: Does the patient require the assistance of a helper? Yes. TRANSFERS: TOILET - STEP 3: How much assistance does the patient require from the helper? Only supervision, cuing, coaxing, OR he lp to set out transfer equipment or to lock brakes and/or lift foot rests TRANSFERS: TOILET - SCORE: 5-SUP TRANSFERS: SHOWER: Activity did not occur on this shift TRANSFERS: SHOWER - SCORE: 0-UNK TRANSFERS: TUB: Activity did not occur on this shift TRANSFERS: TUB - SCORE: 0-UNK LOCOMOTION: WALK: Activity did not occur on this shift LOCOMOTION: WALK - SCORE: 0-UNK LOCOMOTION: WHEELCHAIR: Activity did not occur on this shift LOCOMOTION: WHEELCHAIR - SCORE: 0-UNK COMPREHENSION: COMPREHENSION: TYPE: Both COMPREHENSION - STEP 1: Does the patient require help from a person or device, or need extra time to understand complex and a bstract ideas (such as current events, finances, discharge planning, medical issues, relationships, e tc)? Yes. COMPREHENSION - STEP 2: Does the patient require help to understand questions or statements about basic needs or ideas (such as hunger, thirst, sleep, safety, daily schedule, room location, or discomfort) half or more of the t katt? No. COMPREHENSION - STEP 3: How often does the patient need help to understand directions and conversation about basic needs? 25% - 49% of the time COMPREHENSION - SCORE: 3-MOD EXPRESSION EXPRESSION: TYPE: Both EXPRESSION - STEP 1: Does the patient require help from a person or device, or need extra time expressing complex and abst ract ideas (such as current events, finances, discharge planning, medical issues, relationships, etc) ? No. EXPRESSION - STEP 2: Does the patient need extra time, require an assistive device (such as augmentive communication syste m or a communication board), OR does s/he have mild difficulty expressing complex and abstract ideas (including mild dysarthria or mild word-find problems)? No. EXPRESSION - SCORE: 7-IND SOCIAL INTERACTION: SOCIAL INTERACTION - STEP 1: Does the patient require a helper to interact with others in social and therapeutic situations? No. SOCIAL INTERACTION - STEP 2: Does the patient need extra time in social situations, OR does s/he interact with staff, other patien ts, and family members ONLY in structured environments, OR does s/he require medication for social in teraction? Yes, patient needs extra time SOCIAL INTERACTION - SCORE: 6-MICHAEL PROBLEM SOLVING: PROBLEM SOLVING - STEP 1: Does the patient need help from a person or device, or need extra time to solve complex problems such as managing a checking account or confronting interpersonal problems? Yes. PROBLEM SOLVING - STEP 2: Does the patient solve basic routine problems half or more of the time? Yes. PROBLEM SOLVING - STEP 3: How often does the patient need help to solve basic routine problems? 25%-49% of the time PROBLEM SOLVING - SCORE: 3-MOD MEMORY: MEMORY - STEP 1: Does the patient need help from a person or device, or need extra time to remember frequently encount ered people, daily routines, and executing requests? Yes. MEMORY - STEP 2: How often does the patient need help to remember frequently encountered people, daily routines, and e xecuting requests? 10% - 24% of the time MEMORY - SCORE: 4-MIN SIGNATURE PANEL: The following modified sections: Eating - Score, Grooming - Score, Dressing - Upper Body - Score, Joseph ssing - Lower Body - Score, Toileting - Score, Bladder Management - Score, Bowel Management - Score, Transfers: Bed, Chair, Wheelchair - Score, Transfers: Toilet - Score, Transfers: Shower - Score, Arreola sfers: Tub - Score, Locomotion: Walk - Score, Locomotion: Wheelchair - Score, Comprehension - Score, Expression - Score, Social Interaction - Score, Problem Solving - Score, Memory - Score were [electro nically] signed by Brandie Godfrey CNA on TueFeb 26 2019 01:16:37 GMT-0500 (Central Daylight Time)
[2019-02-26] MEDS: THYROID 30 MG TAB PO SCH (05:20)
[2019-02-26] MEDS: GABAPENTIN 300 MG CAP PO SCH ×4 (05:20→20:09)
[2019-02-26] MEDS: PANTOPRAZOLE 40MG TABLET PO SCH (06:45)
[2019-02-26] MEDS: INSULIN -REGULAR HUMAN 50 UNIT/0.5 ML ML SQ SCH ×4 (07:27→20:11)
[2019-02-26] MEDS: MAGNESIUM OXIDE 400 MG TAB PO SCH ×2 (07:48→20:09)
[2019-02-26] MEDS: LISINOPRIL 20 MG TAB PO SCH ×2 (07:48→20:10)
[2019-02-26] MEDS: CYANOCOBALAMIN 1,000 MCG TAB PO SCH (07:48)
[2019-02-26] MEDS: GLIMEPIRIDE 2 MG TABLET PO SCH (07:48)
[2019-02-26] MEDS: VITAMIN D 5,000 UNIT CAP PO SCH (07:49)
[2019-02-26] MEDS: FERROUS SULFATE 325 MG TAB PO SCH ×2 (07:49→20:11)
[2019-02-26] MEDS: NYSTATIN PWDR 100000 UNIT/GM TOP SCH (07:49)
[2019-02-26] MEDS: PROMOD 30 ML DOSE PO SCH ×2 (07:49→20:00)
[2019-02-26] MEDS: PIOGLITAZONE 15 MG TAB PO SCH (10:38)
[2019-02-26] MEDS: RIVAROXABAN 20 MG TABLET PO SCH (16:29)
--- NOTE | 2019-02-26 17:12 | R.PN ---
ENCOUNTER DATE AND TIME: 02/26/2019 17:10 (CDT) NAME MCKENZIE TELLO DATE OF : 1930 DATE OF ADMISSION: 02/20/2019 16:22 (CDT) SepsisCHIEF COMPLAINT: Debility SUBJECTIVE: Pt denied any depression. Pt denied any Shortness of Breath. She is making fair overall progress with physical and occupational therapy. VITAL SIGNS Temperature: 98.2F SBP/DBP: 140/65 Pulse: 95 Resp: 15 MEDICATION ALLERGIES: Iodine SULFA metformin ENVIRONMENTAL ALLERGIES: - Substance Allergies None Known - Other Allergies None Known NURSING: - Shower allowing shower - Lab Results blood Sugar Check ACHS ACTIVITIES OOB only with supervision THERAPIES: - Dietary and Nutrition Adequate Nutrition. Nutritional Education. Nutritional Supplements. PHYSICAL EXAM - Gen Alert and awake Lying in bed No apparent distress Oriented to: person, time, and place - Skin No breakdown No abnormalities - Eyes No abnormalities - ENMT No abnormalities - Neck No abnormalities - CVS RRR - Chest No abnormalities - Abd Soft - GI + bowel sounds Deferred - No abnormalities - Ext Mild bilateral lower extremity edema. Several areas of localized hyperemia noted on both legs. - MSK 4+/5 weakness in both lower extremities. - Neuro No focal deficits - Psych No abnormalities ASSESSMENT: Pt. is a 88 yo Right-handed white female.On 02/14/2019 she was admitted to [facility] with diagnosis Sepsis.her impairment category is Medically Complex Conditions 17 - Infections (17.1).Pre-morbidly, Pt. was independent/mod-I in Self-Care, Sphincter Control, Transfers Control, L ocomotion, Communication, and Social Cognition; and she had good Sphincter Control.Currently, she has deficits of Transfers Control, Locomotion, Communication, Social Cognition, Endurance, Balance, Safe ty Awareness, and Self-Care.Pt. is now referred to [facility] for acute in-pat ient rehabilitation in order to maximize patient's functional independence in activities of daily lan ing, strength, ROM, and mobility.- Rehab Goal Patient has realistic goal of being discharged at assistance level 6-Latonya to reside at Home with Att endant. MDM/PLAN: - Physical Therapy Gait dysfunction - to improve, our physical therapists will perform initial evaluation of pt's statu s upon admission and devise an individualized program for Gait Training, and Wheel Chair mobility Inability to transfer - to improve, our physical therapists will perform initial evaluation of pt's status upon admission and devise an individualized program for Bed mobility Need for home safety evaluation - to improve, our physical therapists will perform initial evaluatio n of pt's status upon admission and devise an individualized program for Home Evaluation Need in caregiver upon discharge - to improve, our physical therapists will perform initial evaluati on of pt's status upon admission and devise an individualized program for Caregiver Training New precaution - to improve, our physical therapists will perform initial evaluation of pt's status upon admission and devise an individualized program for Patient precaution education Edema - to improve, our physical therapists will perform initial evaluation of pt's status upon admi ssion and devise an individualized program for Elevation Training, and Lymphedema Therapy Poor balance - to improve, our physical therapists will perform initial evaluation of pt's status up on admission and devise an individualized program for Balance Training Poor endurance - to improve, our physical therapists will perform initial evaluation of pt's status upon admission and devise an individualized program for Endurance Training Weakness - to improve, our physical therapists will perform initial evaluation of pt's status upon a dmission and devise an individualized program for Aquatic Therapy, Neuromuscular Reeducation, and Str engthening Achieving independence - to improve, our physical therapists will perform initial evaluation of pt's status upon admission and devise an individualized program for Community Reintegration Activities - Occupational Therapy ADL deficits - to improve, our occupation therapists will perform initial evaluation of pt's status upon admission and devise an individualized program for Bathing, Bed mobility, Community Reintegratio n, Cooking, Dressing, Eating, Fine Motor Skills, Grooming, Homemaking, Kitchen Mobility, Laundry, Pat ient Education, Safety Awareness, Splinting - Positioning, Transfers(Toilet, Tub, Shower), and Wheel Chair Management Cognitive deficits - to improve, our occupation therapists will perform initial evaluation of pt's s tatus upon admission and devise an individualized program for Cognition - orientation Need for care management associate - to improve, our occupation therapists will perform initial evaluation of pt's status upon admission and devise an individualized program for Caregiver Training Weakness - to improve, our occupation therapists will perform initial evaluation of pt's status upon admission and devise an individualized program for Aquatic Therapy, Balance, Endurance, UE ROM, and UE strengthening - Other See attached MAR (Medication Administration Record) - Diet Type Continue Regular - Diet - Liquid Texture Continue Regular - Tube Feed Continue N/A - Lab Results blood Sugar Check ACHS - Diet - Solid Texture Continue Regular - Shower allowing shower FUNCTIONAL STATUS: UPDATED AT WEEKLY TEAM CONFERENCE - Bladder Same accident frequency: 7-Ind - No accidents in the past 7 days - Bowel Same accident frequency: 7-Ind - No accidents in the past 7 days - Walking Same score based on distance walked: 1(<=50ft) - Wheelchair Same score based on distance traveled: 1(<=50ft) FUNCTIONAL STATUS: - Self-Care A. Eating Ind B. Grooming Anjelica C. Bathing Dep D. Dressing - Upper modA E. Dressing - Lower Dep F. Toileting Dep - Sphincter Control G: Bladder control Ind H: Bowel control Ind - Transfers Control I. Bed/Chair/Wheelchair Anjelica J. Toilet Anjelica K. Tub/Shower modA - Locomotion L. Walk/Wheelchair (C) Dep L. Walk/Wheelchair (W) Dep M. Stairs ADNO - Communication N. Comprehension (B) sup O. Expression (B) Anjelica - Social Cognition P. Social Interaction sup Q. Problem Solving sup R. Memory Ind - Endurance Poor - Balance Poor - Safety Awareness Poor CURRENT FUNC. DEFICITS: Transfers Control, Locomotion, Communication, Social Cognition, Endurance, Balance, Safety Awareness, and Self-Care SIGNATURE PANEL: (CDT)
[2019-02-26] MEDS: MELATONIN 3 MG TABLET PO PRN (20:09)
[2019-02-26] MEDS: ACETAMINOPHEN 325 MG TABLET PO PRN (20:09)
[2019-02-26] MEDS: ZINC OXIDE 20% OINTMENT 60gm TOP SCH (20:10)
[2019-02-27] MEDS: THYROID 30 MG TAB PO SCH (05:00)
[2019-02-27] MEDS: GABAPENTIN 300 MG CAP PO SCH ×4 (05:01→20:05)
[2019-02-27] MEDS: PANTOPRAZOLE 40MG TABLET PO SCH (06:48)
[2019-02-27] MEDS: INSULIN -REGULAR HUMAN 50 UNIT/0.5 ML ML SQ SCH ×4 (07:30→20:06)
[2019-02-27] MEDS: NYSTATIN PWDR 100000 UNIT/GM TOP SCH (08:00)
[2019-02-27] MEDS: PROMOD 30 ML DOSE PO SCH ×2 (08:00→20:00)
[2019-02-27] MEDS: TRAMADOL HCL 50 MG TAB PO PRN (08:03)
[2019-02-27] MEDS: GLIMEPIRIDE 2 MG TABLET PO SCH (08:05)
[2019-02-27] MEDS: FERROUS SULFATE 325 MG TAB PO SCH ×2 (08:05→20:04)
[2019-02-27] MEDS: VITAMIN D 5,000 UNIT CAP PO SCH (08:05)
[2019-02-27] MEDS: MAGNESIUM OXIDE 400 MG TAB PO SCH ×2 (08:05→20:04)
[2019-02-27] MEDS: CYANOCOBALAMIN 1,000 MCG TAB PO SCH (08:05)
[2019-02-27] MEDS: LISINOPRIL 20 MG TAB PO SCH ×2 (08:06→20:05)
[2019-02-27] MEDS: PIOGLITAZONE 15 MG TAB PO SCH (10:09)
[2019-02-27] MEDS: ZINC OXIDE 20% OINTMENT 60gm TOP SCH ×2 (10:11→20:00)
[2019-02-27] MEDS: RIVAROXABAN 20 MG TABLET PO SCH (17:09)
[2019-02-27] MEDS: ACETAMINOPHEN 325 MG TABLET PO PRN (20:04)
[2019-02-27] MEDS: MELATONIN 3 MG TABLET PO PRN (20:05)
--- NOTE | 2019-02-27 22:15 | R.PN ---
ENCOUNTER DATE AND TIME: 02/27/2019 22:12 (CDT) NAME MCKENZIE TELLO DATE OF : 1930 DATE OF ADMISSION: 02/20/2019 16:22 (CDT) SepsisCHIEF COMPLAINT: Debility SUBJECTIVE: Pt denied any depression. Pt denied any Shortness of Breath. She is making fair overall progress with physical and occupational therapy. VITAL SIGNS Temperature 97.4 SBP/DBP: 154/77 Pulse: 85 Resp: 15 MEDICATION ALLERGIES: Iodine SULFA metformin ENVIRONMENTAL ALLERGIES: - Substance Allergies None Known - Other Allergies None Known NURSING: - Shower allowing shower - Lab Results blood Sugar Check ACHS ACTIVITIES OOB only with supervision THERAPIES: - Dietary and Nutrition Adequate Nutrition. Nutritional Education. Nutritional Supplements. PHYSICAL EXAM - Gen Alert and awake Lying in bed No apparent distress Oriented to: person, time, and place - Skin No breakdown No abnormalities - Eyes No abnormalities - ENMT No abnormalities - Neck No abnormalities - CVS RRR - Chest No abnormalities - Abd Soft - GI + bowel sounds Deferred - No abnormalities - Ext Mild bilateral lower extremity edema. Several areas of localized hyperemia noted on both legs. - MSK 4+/5 weakness in both lower extremities. - Neuro No focal deficits - Psych No abnormalities ASSESSMENT: Pt. is a 88 yo Right-handed white female.On 02/14/2019 she was admitted to [facility] with diagnosis Sepsis.her impairment category is Medically Complex Conditions 17 - Infections (17.1).Pre-morbidly, Pt. was independent/mod-I in Self-Care, Sphincter Control, Transfers Control, L ocomotion, Communication, and Social Cognition; and she had good Sphincter Control.Currently, she has deficits of Transfers Control, Locomotion, Communication, Social Cognition, Endurance, Balance, Safe ty Awareness, and Self-Care.Pt. is now referred to [facility] for acute in-pat ient rehabilitation in order to maximize patient's functional independence in activities of daily lan ing, strength, ROM, and mobility.- Rehab Goal Patient has realistic goal of being discharged at assistance level 6-Latonya to reside at Home with Att endant. MDM/PLAN: - Physical Therapy Gait dysfunction - to improve, our physical therapists will perform initial evaluation of pt's statu s upon admission and devise an individualized program for Gait Training, and Wheel Chair mobility Inability to transfer - to improve, our physical therapists will perform initial evaluation of pt's status upon admission and devise an individualized program for Bed mobility Need for home safety evaluation - to improve, our physical therapists will perform initial evaluatio n of pt's status upon admission and devise an individualized program for Home Evaluation Need in caregiver upon discharge - to improve, our physical therapists will perform initial evaluati on of pt's status upon admission and devise an individualized program for Caregiver Training New precaution - to improve, our physical therapists will perform initial evaluation of pt's status upon admission and devise an individualized program for Patient precaution education Edema - to improve, our physical therapists will perform initial evaluation of pt's status upon admi ssion and devise an individualized program for Elevation Training, and Lymphedema Therapy Poor balance - to improve, our physical therapists will perform initial evaluation of pt's status up on admission and devise an individualized program for Balance Training Poor endurance - to improve, our physical therapists will perform initial evaluation of pt's status upon admission and devise an individualized program for Endurance Training Weakness - to improve, our physical therapists will perform initial evaluation of pt's status upon a dmission and devise an individualized program for Aquatic Therapy, Neuromuscular Reeducation, and Str engthening Achieving independence - to improve, our physical therapists will perform initial evaluation of pt's status upon admission and devise an individualized program for Community Reintegration Activities - Occupational Therapy ADL deficits - to improve, our occupation therapists will perform initial evaluation of pt's status upon admission and devise an individualized program for Bathing, Bed mobility, Community Reintegratio n, Cooking, Dressing, Eating, Fine Motor Skills, Grooming, Homemaking, Kitchen Mobility, Laundry, Pat ient Education, Safety Awareness, Splinting - Positioning, Transfers(Toilet, Tub, Shower), and Wheel Chair Management Cognitive deficits - to improve, our occupation therapists will perform initial evaluation of pt's s tatus upon admission and devise an individualized program for Cognition - orientation Need for occasional caregiver - to improve, our occupation therapists will perform initial evaluation of pt's status upon admission and devise an individualized program for Caregiver Training Weakness - to improve, our occupation therapists will perform initial evaluation of pt's status upon admission and devise an individualized program for Aquatic Therapy, Balance, Endurance, UE ROM, and UE strengthening - Other See attached MAR (Medication Administration Record) - Diet Type Continue Regular - Diet - Liquid Texture Continue Regular - Tube Feed Continue N/A - Lab Results blood Sugar Check ACHS - Diet - Solid Texture Continue Regular - Shower allowing shower FUNCTIONAL STATUS: UPDATED AT WEEKLY TEAM CONFERENCE - Bladder Same accident frequency: 7-Ind - No accidents in the past 7 days - Bowel Same accident frequency: 7-Ind - No accidents in the past 7 days - Walking Same score based on distance walked: 1(<=50ft) - Wheelchair Same score based on distance traveled: 1(<=50ft) FUNCTIONAL STATUS: - Self-Care A. Eating Ind B. Grooming Anjelica C. Bathing Dep D. Dressing - Upper modA E. Dressing - Lower Dep F. Toileting Dep - Sphincter Control G: Bladder control Ind H: Bowel control Ind - Transfers Control I. Bed/Chair/Wheelchair Anjelica J. Toilet Anjelica K. Tub/Shower modA - Locomotion L. Walk/Wheelchair (C) Dep L. Walk/Wheelchair (W) Dep M. Stairs ADNO - Communication N. Comprehension (B) sup O. Expression (B) Anjelica - Social Cognition P. Social Interaction sup Q. Problem Solving sup R. Memory Ind - Endurance Poor - Balance Poor - Safety Awareness Poor CURRENT FUNC. DEFICITS: Transfers Control, Locomotion, Communication, Social Cognition, Endurance, Balance, Safety Awareness, and Self-Care SIGNATURE PANEL: (CDT)
[2019-02-28] MEDS: THYROID 30 MG TAB PO SCH (05:17)
[2019-02-28] MEDS: GABAPENTIN 300 MG CAP PO SCH ×4 (05:17→20:51)
[2019-02-28] MEDS: PANTOPRAZOLE 40MG TABLET PO SCH (06:42)
[2019-02-28] MEDS: INSULIN -REGULAR HUMAN 50 UNIT/0.5 ML ML SQ SCH ×4 (07:30→20:53)
[2019-02-28] MEDS: PROMOD 30 ML DOSE PO SCH ×2 (08:00→20:00)
[2019-02-28] MEDS: NYSTATIN PWDR 100000 UNIT/GM TOP SCH ×3 (08:00→20:50)
[2019-02-28] MEDS: TRAMADOL HCL 50 MG TAB PO PRN ×2 (08:01→20:51)
[2019-02-28] MEDS: VITAMIN D 5,000 UNIT CAP PO SCH (08:03)
[2019-02-28] MEDS: FERROUS SULFATE 325 MG TAB PO SCH ×2 (08:03→20:49)
[2019-02-28] MEDS: GLIMEPIRIDE 2 MG TABLET PO SCH (08:03)
[2019-02-28] MEDS: MAGNESIUM OXIDE 400 MG TAB PO SCH ×2 (08:03→20:50)
[2019-02-28] MEDS: LISINOPRIL 20 MG TAB PO SCH ×2 (08:04→20:49)
[2019-02-28] MEDS: CYANOCOBALAMIN 1,000 MCG TAB PO SCH (08:05)
[2019-02-28] MEDS: PIOGLITAZONE 15 MG TAB PO SCH (09:48)
[2019-02-28] MEDS: ZINC OXIDE 20% OINTMENT 60gm TOP SCH ×2 (09:48→20:00)
[2019-02-28] MEDS: RIVAROXABAN 20 MG TABLET PO SCH (17:09)
[2019-02-28] MEDS: ENSURE PUDDING 4 OZ CUP PO SCH (20:53)
[2019-02-28] MEDS: MELATONIN 3 MG TABLET PO PRN (21:27)
[2019-03-01] MEDS: GABAPENTIN 300 MG CAP PO SCH ×4 (05:32→20:33)
[2019-03-01] MEDS: THYROID 30 MG TAB PO SCH (05:32)
[2019-03-01 06:53] LABS: Absolute Lymphocytes (CBC) 1.7 K/uL (0.7-4.9); Basophils % 1.4 % (0-1.3); MPV 8.3 fL (7.6-11.3); RBC Red Blood Cell Count 3.79 M/uL (3.86-4.86)
[2019-03-01 07:09] LABS: Albumin 2.1 g/dL (3.4-5.0); Magnesium 1.7 mg/dL (1.8-2.4); Potassium 4.5 mmol/L (3.5-5.1); Prealbumin 13.3 mg/dL (20-40)
[2019-03-01] MEDS: PANTOPRAZOLE 40MG TABLET PO SCH (07:14)
[2019-03-01] MEDS: PIOGLITAZONE 15 MG TAB PO SCH (07:15)
[2019-03-01] MEDS: CYANOCOBALAMIN 1,000 MCG TAB PO SCH (07:15)
[2019-03-01] MEDS: VITAMIN D 5,000 UNIT CAP PO SCH (07:15)
[2019-03-01] MEDS: FERROUS SULFATE 325 MG TAB PO SCH ×2 (07:15→20:33)
[2019-03-01] MEDS: ENSURE PUDDING 4 OZ CUP PO SCH ×2 (07:16→20:33)
[2019-03-01] MEDS: MAGNESIUM OXIDE 400 MG TAB PO SCH ×2 (07:16→20:33)
[2019-03-01] MEDS: GLIMEPIRIDE 2 MG TABLET PO SCH (07:16)
[2019-03-01] MEDS: PROMOD 30 ML DOSE PO SCH ×3 (07:17→20:00)
[2019-03-01] MEDS: NYSTATIN PWDR 100000 UNIT/GM TOP SCH ×2 (07:17→20:34)
[2019-03-01] MEDS: ZINC OXIDE 20% OINTMENT 60gm TOP SCH ×2 (07:18→20:34)
[2019-03-01] MEDS: INSULIN -REGULAR HUMAN 50 UNIT/0.5 ML ML SQ SCH ×4 (07:18→21:24)
[2019-03-01] MEDS: LISINOPRIL 20 MG TAB PO SCH ×2 (08:00→20:38)
[2019-03-01] MEDS: TRAMADOL HCL 50 MG TAB PO PRN (11:11)
[2019-03-01] MEDS: RIVAROXABAN 20 MG TABLET PO SCH (16:56)
[2019-03-01] MEDS: MELATONIN 3 MG TABLET PO PRN (20:34)
[2019-03-01] MEDS: ACETAMINOPHEN 325 MG TABLET PO PRN (21:24)
[2019-03-02] MEDS: THYROID 30 MG TAB PO SCH (05:16)
[2019-03-02] MEDS: GABAPENTIN 300 MG CAP PO SCH ×4 (05:17→21:07)
[2019-03-02] MEDS: PANTOPRAZOLE 40MG TABLET PO SCH (07:13)
[2019-03-02] MEDS: CYANOCOBALAMIN 1,000 MCG TAB PO SCH (07:13)
[2019-03-02] MEDS: PIOGLITAZONE 15 MG TAB PO SCH (07:14)
[2019-03-02] MEDS: MAGNESIUM OXIDE 400 MG TAB PO SCH ×2 (07:14→20:00)
[2019-03-02] MEDS: LISINOPRIL 20 MG TAB PO SCH ×2 (07:14→21:06)
[2019-03-02] MEDS: FERROUS SULFATE 325 MG TAB PO SCH ×2 (07:15→21:06)
[2019-03-02] MEDS: TRAMADOL HCL 50 MG TAB PO PRN ×2 (07:15→18:57)
[2019-03-02] MEDS: INSULIN -REGULAR HUMAN 50 UNIT/0.5 ML ML SQ SCH ×4 (07:17→21:00)
[2019-03-02] MEDS: VITAMIN D 5,000 UNIT CAP PO SCH (07:17)
[2019-03-02] MEDS: ENSURE PUDDING 4 OZ CUP PO SCH ×2 (07:17→20:00)
[2019-03-02] MEDS: GLIMEPIRIDE 2 MG TABLET PO SCH (07:17)
[2019-03-02] MEDS: NYSTATIN PWDR 100000 UNIT/GM TOP SCH ×2 (07:18→20:00)
[2019-03-02] MEDS: ZINC OXIDE 20% OINTMENT 60gm TOP SCH ×2 (07:18→20:00)
[2019-03-02] MEDS: PROMOD 30 ML DOSE PO SCH ×2 (07:18→20:00)
--- NOTE | 2019-03-02 09:39 | P.RH.PN ---
Estimated Length of Stay: 12 Expected Discharge Date: 03/03/19 Discharge Disposition Plan: [facility] Facility Family Support: Yes Usp Goal: Mobility, Transfers, Self Care Vital Signs: Last Vital Signs Temp 97.0 F 03/02/19 07:20 Pulse 81 03/02/19 07:20 Resp 81 H 03/02/19 07:20 BP 112/59 L 03/02/19 07:20 Pulse Ox 95 03/02/19 07:20 Laboratory: Laboratory Last Values WBC 6.0 K/uL (4.3-10.9) 03/01/19 06:28 RBC 3.79 M/uL (3.86-4.86) L 03/01/19 06:28 Hgb 10.7 g/dL (12.0-15.0) L 03/01/19 06:28 Hct 33.0 % (36.0-45.0) L 03/01/19 06:28 MCV 87.1 fL (80-100) 03/01/19 06:28 MCH 28.2 pg (27.0-35.0) 03/01/19 06:28 MCHC 32.4 g/dL (32.0-36.0) 03/01/19 06:28 RDW 17.8 % (12.1-15.2) H 03/01/19 06:28 Plt Count 249 K/uL (152-406) 03/01/19 06:28 MPV 8.3 fL (7.6-11.3) 03/01/19 06:28 Neutrophils % 60.8 % (41.7-73.7) 03/01/19 06:28 Lymphocytes % 28.0 % (15.3-44.8) 03/01/19 06:28 Monocytes % 6.7 % (3.3-12.3) 03/01/19 06:28 Eosinophils % 3.1 % (0-4.4) 03/01/19 06:28 Basophils % 1.4 % (0-1.3) H 03/01/19 06:28 Absolute Neutrophils 3.7 K/uL (1.8-8.0) 03/01/19 06:28 Absolute Lymphocytes 1.7 K/uL (0.7-4.9) 03/01/19 06:28 Absolute Monocytes 0.4 K/uL (0.1-1.3) 03/01/19 06:28 Absolute Eosinophils 0.2 K/uL (0-0.5) 03/01/19 06:28 Absolute Basophils 0.1 K/uL (0-0.5) 03/01/19 06:28 Sodium 142 mmol/L (136-145) 03/01/19 06:28 Potassium 4.5 mmol/L (3.5-5.1) 03/01/19 06:28 Chloride 106 mmol/L (98-107) 03/01/19 06:28 Carbon Dioxide 35 mmol/L (21-32) H 03/01/19 06:28 BUN 10 mg/dL (7-18) 03/01/19 06:28 Creatinine 0.84 mg/dL (0.55-1.3) 03/01/19 06:28 Estimated GFR 64 mL/min (=/>90) L 03/01/19 06:28 Glucose 126 mg/dL (74-106) H 03/01/19 06:28 POC Glucose 204 mg/dl (65-120) H 03/01/19 20:06 Calcium 9.5 mg/dL (8.5-10.1) 03/01/19 06:28 Magnesium 1.7 mg/dL (1.8-2.4) L 03/01/19 06:28 Albumin 2.1 g/dL (3.4-5.0) L 03/01/19 06:28 Prealbumin 13.3 mg/dL (20-40) L 03/01/19 06:28 Weight: 170 lb 1.6 oz Wound Present: Yes Closed Surgical Incision Present: No Negative Pressure Wound Therapy Present: No Physician Update: Labs reviewed Hgb and prealbumin are mildly low. She is on hemocyte plus and promod. She made fair progress overall with physical and occupational therapy but is not yet ready go home. Will discharge to skilled in the next two days. Medical Issues: Patient completed Augmentin PO for UTI. Patient has stage 2 right buttocks and stage 1 sacrum pressure sore from home. Zinc oxide applied BID. Patient had bladder incontinent less than daily and occasional bowel incontinence. Pain Issues: Tramadol 50mg Q6H PO PRN Functional Improvement: Patient was improving well, however has required additional VC for motivation over the past two sessions. Patient has presented w/ increased lethargy and lack of motivation. Functional Improvement Occupational Therapy: Pt can benifit with further therapy to address pt's overall weakness with UB/LB strength and ROM. cont to increase pt's static standing balance for functional transfers and for adl tasks including bathing/toileting. cont to educate about energy conservation techniques and safety by using A/E as needed for dressing tasks. Cont with the POC and the goals by the supervising OTR. Speech Therapy Update: Patient is at SUPV to MOD I for Auditory Comprehension, MOD I for Verbal Expression, SUPV for Social Interaction, SUPV to MIN A for Problem Solving and MIN to MOD A for Memory. Patient is d/c to long-term care with 24 hour supervision. 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 Please see the Rehabilitation Signature page for all necessary signatures.
[2019-03-02] MEDS ORDERED: Magnesium Sulfate 2gm IVPB 2 G/50 ML BAG IV ONE (15:00)
[2019-03-02] MEDS: RIVAROXABAN 20 MG TABLET PO SCH (17:25)
[2019-03-02] MEDS: MELATONIN 3 MG TABLET PO PRN (21:07)
[2019-03-03] MEDS: ACETAMINOPHEN 325 MG TABLET PO PRN ×2 (04:17→16:08)
[2019-03-03] MEDS: THYROID 30 MG TAB PO SCH (05:03)
[2019-03-03] MEDS: GABAPENTIN 300 MG CAP PO SCH ×4 (05:03→20:53)
[2019-03-03 05:35] VITALS: BMI 24.0
[2019-03-03] MEDS: PANTOPRAZOLE 40MG TABLET PO SCH (06:39)
[2019-03-03] MEDS: INSULIN -REGULAR HUMAN 50 UNIT/0.5 ML ML SQ SCH ×4 (07:30→20:54)
[2019-03-03] MEDS: PROMOD 30 ML DOSE PO SCH ×2 (08:00→20:00)
[2019-03-03] MEDS: TRAMADOL HCL 50 MG TAB PO PRN ×2 (08:49→20:58)
[2019-03-03] MEDS: MAGNESIUM OXIDE 400 MG TAB PO SCH ×2 (08:51→20:52)
[2019-03-03] MEDS: VITAMIN D 5,000 UNIT CAP PO SCH (08:51)
[2019-03-03] MEDS: FERROUS SULFATE 325 MG TAB PO SCH ×2 (08:51→20:53)
[2019-03-03] MEDS: LISINOPRIL 20 MG TAB PO SCH ×2 (08:52→20:00)
[2019-03-03] MEDS: GLIMEPIRIDE 2 MG TABLET PO SCH (08:52)
[2019-03-03] MEDS: ENSURE PUDDING 4 OZ CUP PO SCH ×2 (08:53→20:55)
[2019-03-03] MEDS: CYANOCOBALAMIN 1,000 MCG TAB PO SCH (08:53)
[2019-03-03] MEDS: NYSTATIN PWDR 100000 UNIT/GM TOP SCH ×2 (09:46→20:52)
[2019-03-03] MEDS: ZINC OXIDE 20% OINTMENT 60gm TOP SCH ×2 (09:47→20:00)
[2019-03-03] MEDS: PIOGLITAZONE 15 MG TAB PO SCH (09:58)
[2019-03-03] MEDS: RIVAROXABAN 20 MG TABLET PO SCH (17:02)
[2019-03-03] MEDS: MELATONIN 3 MG TABLET PO PRN (20:53)
[2019-03-04] MEDS: GABAPENTIN 300 MG CAP PO SCH ×4 (05:02→20:28)
[2019-03-04] MEDS: THYROID 30 MG TAB PO SCH (05:02)
[2019-03-04] MEDS: PANTOPRAZOLE 40MG TABLET PO SCH (06:35)
[2019-03-04] MEDS: TRAMADOL HCL 50 MG TAB PO PRN ×2 (06:47→15:58)
[2019-03-04] MEDS: NYSTATIN PWDR 100000 UNIT/GM TOP SCH ×2 (07:10→20:29)
[2019-03-04] MEDS: ZINC OXIDE 20% OINTMENT 60gm TOP SCH ×2 (07:10→20:32)
[2019-03-04] MEDS: INSULIN -REGULAR HUMAN 50 UNIT/0.5 ML ML SQ SCH ×4 (07:30→20:31)
[2019-03-04] MEDS: PROMOD 30 ML DOSE PO SCH ×2 (08:00→20:00)
[2019-03-04] MEDS: CYANOCOBALAMIN 1,000 MCG TAB PO SCH (08:09)
[2019-03-04] MEDS: FERROUS SULFATE 325 MG TAB PO SCH ×2 (08:10→20:28)
[2019-03-04] MEDS: GLIMEPIRIDE 2 MG TABLET PO SCH (08:10)
[2019-03-04] MEDS: VITAMIN D 5,000 UNIT CAP PO SCH (08:10)
[2019-03-04] MEDS: LISINOPRIL 20 MG TAB PO SCH ×2 (08:10→20:30)
[2019-03-04] MEDS: MAGNESIUM OXIDE 400 MG TAB PO SCH ×2 (08:10→20:28)
[2019-03-04] MEDS: ENSURE PUDDING 4 OZ CUP PO SCH ×2 (08:11→20:24)
[2019-03-04] MEDS: PIOGLITAZONE 15 MG TAB PO SCH (10:00)
[2019-03-04] MEDS: ACETAMINOPHEN 325 MG TABLET PO PRN ×2 (12:25→20:29)
[2019-03-04] MEDS: RIVAROXABAN 20 MG TABLET PO SCH (16:53)
[2019-03-05] MEDS: ACETAMINOPHEN 325 MG TABLET PO PRN ×2 (05:08→21:24)
[2019-03-05] MEDS: THYROID 30 MG TAB PO SCH (05:08)
[2019-03-05] MEDS: GABAPENTIN 300 MG CAP PO SCH ×4 (05:08→21:23)
[2019-03-05] MEDS: PANTOPRAZOLE 40MG TABLET PO SCH (06:19)
[2019-03-05] MEDS: INSULIN -REGULAR HUMAN 50 UNIT/0.5 ML ML SQ SCH ×4 (07:30→21:59)
[2019-03-05] MEDS: PROMOD 30 ML DOSE PO SCH ×2 (08:00→20:00)
[2019-03-05] MEDS: TRAMADOL HCL 50 MG TAB PO PRN ×2 (08:38→16:58)
[2019-03-05] MEDS: CYANOCOBALAMIN 1,000 MCG TAB PO SCH (08:40)
[2019-03-05] MEDS: GLIMEPIRIDE 2 MG TABLET PO SCH (08:40)
[2019-03-05] MEDS: FERROUS SULFATE 325 MG TAB PO SCH ×2 (08:40→21:23)
[2019-03-05] MEDS: VITAMIN D 5,000 UNIT CAP PO SCH (08:40)
[2019-03-05] MEDS: LISINOPRIL 20 MG TAB PO SCH ×2 (08:40→20:00)
[2019-03-05] MEDS: ENSURE PUDDING 4 OZ CUP PO SCH ×2 (08:41→21:23)
[2019-03-05] MEDS: MAGNESIUM OXIDE 400 MG TAB PO SCH ×2 (08:41→21:23)
[2019-03-05] MEDS: NYSTATIN PWDR 100000 UNIT/GM TOP SCH ×2 (09:15→21:25)
[2019-03-05] MEDS: ZINC OXIDE 20% OINTMENT 60gm TOP SCH ×2 (09:16→20:00)
[2019-03-05] MEDS: PIOGLITAZONE 15 MG TAB PO SCH (09:48)
[2019-03-05] MEDS: RIVAROXABAN 20 MG TABLET PO SCH (16:59)
[2019-03-05] MEDS: MELATONIN 3 MG TABLET PO PRN (21:25)
[2019-03-06] MEDS: THYROID 30 MG TAB PO SCH (05:32)
[2019-03-06] MEDS: PANTOPRAZOLE 40MG TABLET PO SCH (05:32)
[2019-03-06] MEDS: GABAPENTIN 300 MG CAP PO SCH ×4 (05:32→20:00)
[2019-03-06 06:35] LABS: Absolute Lymphocytes (CBC) 1.8 K/uL (0.7-4.9); Basophils % 1.3 % (0-1.3); Lymphocytes % 32.8 % (15.3-44.8); MPV 8.5 fL (7.6-11.3)
[2019-03-06] MEDS: INSULIN -REGULAR HUMAN 50 UNIT/0.5 ML ML SQ SCH ×4 (07:30→20:56)
[2019-03-06] MEDS: GLIMEPIRIDE 2 MG TABLET PO SCH (07:48)
[2019-03-06] MEDS: VITAMIN D 5,000 UNIT CAP PO SCH (07:49)
[2019-03-06] MEDS: MAGNESIUM OXIDE 400 MG TAB PO SCH ×2 (07:49→19:48)
[2019-03-06] MEDS: FERROUS SULFATE 325 MG TAB PO SCH ×2 (07:49→19:48)
[2019-03-06] MEDS: CYANOCOBALAMIN 1,000 MCG TAB PO SCH (07:49)
[2019-03-06] MEDS: PROMOD 30 ML DOSE PO SCH ×2 (07:50→19:48)
[2019-03-06] MEDS: ENSURE PUDDING 4 OZ CUP PO SCH ×2 (07:51→19:49)
[2019-03-06] MEDS: ZINC OXIDE 20% OINTMENT 60gm TOP SCH ×2 (07:51→19:49)
[2019-03-06] MEDS: NYSTATIN PWDR 100000 UNIT/GM TOP SCH ×2 (07:51→19:49)
[2019-03-06] MEDS: LISINOPRIL 20 MG TAB PO SCH ×2 (08:00→19:48)
[2019-03-06] MEDS: PIOGLITAZONE 15 MG TAB PO SCH (10:43)
[2019-03-06] MEDS: RIVAROXABAN 20 MG TABLET PO SCH (17:21)
--- NOTE | 2019-03-06 18:09 | R.PN ---
ENCOUNTER DATE AND TIME: 03/06/2019 18:07 (CDT) NAME MCKENZIE TELLO DATE OF : 1930 DATE OF ADMISSION: 02/20/2019 16:22 (CDT) SepsisCHIEF COMPLAINT: Debility SUBJECTIVE: Pt denied any depression. Pt denied any Shortness of Breath. She is making fair overall progress with physical and occupational therapy. Blood work is stable. VITAL SIGNS Temperature 97.4 SBP/DBP: 154/77 Pulse: 85 Resp: 15 MEDICATION ALLERGIES: Iodine SULFA metformin ENVIRONMENTAL ALLERGIES: - Substance Allergies None Known - Other Allergies None Known NURSING: - Shower allowing shower - Lab Results blood Sugar Check ACHS ACTIVITIES OOB only with supervision THERAPIES: - Dietary and Nutrition Adequate Nutrition. Nutritional Education. Nutritional Supplements. PHYSICAL EXAM - Gen Alert and awake Lying in bed No apparent distress Oriented to: person, time, and place - Skin No breakdown No abnormalities - Eyes No abnormalities - ENMT No abnormalities - Neck No abnormalities - CVS RRR - Chest No abnormalities - Abd Soft - GI + bowel sounds Deferred - No abnormalities - Ext Mild bilateral lower extremity edema. Several areas of localized hyperemia noted on both legs. - MSK 4+/5 weakness in both lower extremities. - Neuro No focal deficits - Psych No abnormalities ASSESSMENT: Pt. is a 88 yo Right-handed white female.On 02/14/2019 she was admitted to [facility] with diagnosis Sepsis.her impairment category is Medically Complex Conditions 17 - Infections (17.1).Pre-morbidly, Pt. was independent/mod-I in Self-Care, Sphincter Control, Transfers Control, L ocomotion, Communication, and Social Cognition; and she had good Sphincter Control.Currently, she has deficits of Transfers Control, Locomotion, Communication, Social Cognition, Endurance, Balance, Safe ty Awareness, and Self-Care.Pt. is now referred to [facility] for acute in-pat ient rehabilitation in order to maximize patient's functional independence in activities of daily lan ing, strength, ROM, and mobility.- Rehab Goal Patient has realistic goal of being discharged at assistance level 6-Latonya to reside at Home with Att endant. MDM/PLAN: - Physical Therapy Gait dysfunction - to improve, our physical therapists will perform initial evaluation of pt's statu s upon admission and devise an individualized program for Gait Training, and Wheel Chair mobility Inability to transfer - to improve, our physical therapists will perform initial evaluation of pt's status upon admission and devise an individualized program for Bed mobility Need for home safety evaluation - to improve, our physical therapists will perform initial evaluatio n of pt's status upon admission and devise an individualized program for Home Evaluation Need in caregiver upon discharge - to improve, our physical therapists will perform initial evaluati on of pt's status upon admission and devise an individualized program for Caregiver Training New precaution - to improve, our physical therapists will perform initial evaluation of pt's status upon admission and devise an individualized program for Patient precaution education Edema - to improve, our physical therapists will perform initial evaluation of pt's status upon admi ssion and devise an individualized program for Elevation Training, and Lymphedema Therapy Poor balance - to improve, our physical therapists will perform initial evaluation of pt's status up on admission and devise an individualized program for Balance Training Poor endurance - to improve, our physical therapists will perform initial evaluation of pt's status upon admission and devise an individualized program for Endurance Training Weakness - to improve, our physical therapists will perform initial evaluation of pt's status upon a dmission and devise an individualized program for Aquatic Therapy, Neuromuscular Reeducation, and Str engthening Achieving independence - to improve, our physical therapists will perform initial evaluation of pt's status upon admission and devise an individualized program for Community Reintegration Activities - Occupational Therapy ADL deficits - to improve, our occupation therapists will perform initial evaluation of pt's status upon admission and devise an individualized program for Bathing, Bed mobility, Community Reintegratio n, Cooking, Dressing, Eating, Fine Motor Skills, Grooming, Homemaking, Kitchen Mobility, Laundry, Pat ient Education, Safety Awareness, Splinting - Positioning, Transfers(Toilet, Tub, Shower), and Wheel Chair Management Cognitive deficits - to improve, our occupation therapists will perform initial evaluation of pt's s tatus upon admission and devise an individualized program for Cognition - orientation Need for direct care staffer - to improve, our occupation therapists will perform initial evaluation of pt's status upon admission and devise an individualized program for Caregiver Training Weakness - to improve, our occupation therapists will perform initial evaluation of pt's status upon admission and devise an individualized program for Aquatic Therapy, Balance, Endurance, UE ROM, and UE strengthening - Other See attached MAR (Medication Administration Record) - Diet Type Continue Regular - Diet - Liquid Texture Continue Regular - Tube Feed Continue N/A - Lab Results blood Sugar Check ACHS - Diet - Solid Texture Continue Regular - Shower allowing shower FUNCTIONAL STATUS: UPDATED AT WEEKLY TEAM CONFERENCE - Bladder Same accident frequency: 7-Ind - No accidents in the past 7 days - Bowel Same accident frequency: 7-Ind - No accidents in the past 7 days - Walking Same score based on distance walked: 1(<=50ft) - Wheelchair Same score based on distance traveled: 1(<=50ft) FUNCTIONAL STATUS: - Self-Care A. Eating Ind B. Grooming Anjelica C. Bathing Dep D. Dressing - Upper modA E. Dressing - Lower Dep F. Toileting Dep - Sphincter Control G: Bladder control Ind H: Bowel control Ind - Transfers Control I. Bed/Chair/Wheelchair Anjelica J. Toilet Anjelica K. Tub/Shower modA - Locomotion L. Walk/Wheelchair (C) Dep L. Walk/Wheelchair (W) Dep M. Stairs ADNO - Communication N. Comprehension (B) sup O. Expression (B) Anjelica - Social Cognition P. Social Interaction sup Q. Problem Solving sup R. Memory Ind - Endurance Poor - Balance Poor - Safety Awareness Poor QI SCORES:: - Self-Care A. Eating 05-Setup or clean-up assistance B. Oral hygiene 05-Setup or clean-up assistance C. Toileting hygiene 02-Substantial/maximal assistance E. Shower/bathe self 02-Substantial/maximal assistance F. Upper body dressing 04-Supervision or touching assistance G. Lower body dressing 02-Substantial/maximal assistance H. Putting on/taking off footwear 02-Substantial/maximal assistance - Mobility A. Roll left and right 04-Supervision or touching assistance B. Sit to lying 04-Supervision or touching assistance C. Lying to sitting on side of bed 03-Partial/moderate assistance D. Sit to stand 03-Partial/moderate assistance E. Chair/[id number] transfer 04-Supervision or touching assistance F. Toilet transfer 04-Supervision or touching assistance G. Car transfer 88-Not attempted due to medical condition or safety concerns I. Walk 10 feet 04-Supervision or touching assistance J. Walk 50 feet with two turns 01-Dependent K. Walk 150 feet 01-Dependent L. Walking 10 feet on uneven surfaces 88-Not attempted due to medical condition or safety concerns M. 1 step (curb) 88-Not attempted due to medical condition or safety concerns N. 4 steps 04-Supervision or touching assistance O. 12 steps 04-Supervision or touching assistance P. Picking up object 88-Not attempted due to medical condition or safety concerns R. Wheel 50 feet with two turns 04-Supervision or touching assistance S. Wheel 150 feet 88-Not attempted due to medical condition or safety concerns - Bladder and Bowel Bladder continence 2-Incontinent less than daily Bowel continence 0-Always continent [facility]. DEFICITS: Transfers Control, Locomotion, Communication, Social Cognition, Endurance, Balance, Safety Awareness, and Self-Care SIGNATURE PANEL: (CDT)
[2019-03-06 20:01] VITALS: BP 152/80
[2019-03-06 21:05] VITALS: TEMP 97.8
== END 2019-03-06 21:00 | DRG 872 ==
LOC: 5TH 16:22
PROVIDERS: ADMIT Psychiatry & Neurology Neurology with Special Qualifications in Child Neurology; ATTEND Psychiatry & Neurology Neurology with Special Qualifications in Child Neurology
DX: A41.9 Sepsis, unspecified organism (principal); N17.9 Acute kidney failure, unspecified; E11.9 Type 2 diabetes mellitus without complications; I10 Essential (primary) hypertension; K62.89 Other specified diseases of anus and rectum
CPT/HCPCS: 36415; 80048; 82040; 82962; 83735; 84134; 85025; 92523; 92610; 97110; 97116; 97127; 97161; 97530; 97542; J3475

== ENCOUNTER 2020-02-10 23:29 | Emergency (ER) | payer MEDICAID, OTHER ==
--- NOTE | 2020-02-11 02:18 | ER ---
Nurse's Notes [facility] Name: Kyung Quinones Age: 89 yrs Sex: Female : 1930 Arrival Date: 02/10/2020 Time: 23:37 Bed 6 Private MD: Diagnosis: Contusion of left wrist;Contusion of left elbow;Contusion of left knee Presentation: 02/09 23:37 Chief complaint: EMS states: [facility] [address] WITNESSED FALL BY rv NURSE. SHE TRIPPED AND FELL AT AROUND 1800 TODAY. WITHOUT LOC. SKIN TEARS ON THE LEFT ELBOW, LEFT HAND, AND LEFT KNEE. PATIENT DENIES HEADACHE. FACILITY REPORTED FRACTURE OF THE LEFT ELBOW FROM THE X-RAY RESULT. Coronavirus screen: At this time, the client does not indicate any symptoms associated with coronavirus-19. Ebola Screen: No symptoms or risks identified at this time. Initial Sepsis Screen: Does the patient meet any 2 criteria? No. Patient's initial sepsis screen is negative. Does the patient have a suspected source of infection? No. Patient's initial sepsis screen is negative. Risk Assessment: Do you want to hurt yourself or someone else? Patient reports no desire to harm self or others. Onset of symptoms was February 10, 2020 at 18:00. 23:37 Method Of Arrival: EMS: [facility] 23:37 Acuity: YAS 3 rv Triage Assessment: 23:40 General: Appears comfortable, Behavior is calm, cooperative. Pain: Complains of pain in rv left knee and left wrist. EENT: No signs and/or symptoms were reported regarding the EENT system. Neuro: Level of Consciousness is awake, obeys commands, confused, Oriented to person, place. Cardiovascular: Patient's skin is warm and dry. Respiratory: Airway is patent. Derm: Wound noted left knee and left wrist and left elbow Wound is SKIN TEAR, SUPERFICIAL. Musculoskeletal: Range of motion: intact in all extremities. Historical: - Allergies: 23:40 Iodine; rv 23:40 Sulfa (Sulfonamide Antibiotics); rv - PMHx: 23:40 COLON CA; Diabetes - NIDDM; GERD; Hyperlipidemia; Hypertension; Migraines; neuropathy; rv Sleep Apnea; Thyroid problem; - PSHx: 23:40 None; rv - Immunization history:: Adult Immunizations up to date. - Social history:: Smoking status: Patient/guardian denies using tobacco, the patient reports quitting approximately 2 years ago. - Family history:: not pertinent. - Hospitalizations: : No recent hospitalization is reported. Screenin:53 Abuse screen: Denies threats or abuse. Denies injuries from another. Nutritional rv screening: No deficits noted. Tuberculosis screening: No symptoms or risk factors identified. Fall Risk Fall in past 12 months (25 points). Secondary diagnosis (15 points) Alzheimer's, No IV (0 pts). Ambulatory Aid- Crutches/Cane/Walker (15 pts). Gait- Weak (10 pts.). Mental Status- Overestimates/Forgets Limitations (15 pts.). Total Miranda Fall Scale indicates High Risk Score (45 or more points). Fall prevention measures have been instituted. Side Rails Up X 2 Placed Close to Nursing Station Frequent Obs/Assessments Occuring As available patient and family educated on Fall Prevention Program and Strategies. Vital Signs: 23:38 BP 154 / 93; Pulse 95; Resp 18; Temp 98.0(O); Pulse Ox 100% on R/A; oe 02/10 02:49 BP 137 / 86; Pulse 87; Resp 17; Pulse Ox 97% on R/A; rv ED Course: 02/09 23:37 Patient arrived in ED. rv 23:37 Calixto Mayes MD is Attending Physician. rn 23:40 Triage completed. rv 23:52 Arm band placed on Patient placed in the treatment room, on a stretcher, Patient rv notified of wait time. 23:53 Patient has correct armband on for positive identification. Bed in low position. Call rv light in reach. Side rails up X2. Pulse ox on. NIBP on. 02/10 01:53 XRAY Elbow LEFT 3 view In Process Unspecified. EDMS 01:54 XRAY Wrist LEFT 3 view In Process Unspecified. EDMS 01:54 XRAY Knee LEFT 3 view In Process Unspecified. EDMS 02:49 Arnaud Olivia, ELIAN is Primary Nurse. rv 02:50 No provider procedures requiring assistance completed. Patient did not have IV access rv during this emergency room visit. Wound care: to abrasion, located on left knee and left wrist and left elbow was cleaned with Hibiclens, dressed with 4X4s, Patient tolerated well. Administered Medications: No medications were administered Outcome: 02:18 Discharge ordered by . rn 02:50 Discharged to home via wheelchair. rv 02:50 Condition: good 02:50 Discharge instructions given to patient, family, Instructed on discharge instructions, follow up and referral plans. Demonstrated understanding of instructions, follow-up care. 02:50 Patient left the ED. rv Signatures: Dispatcher [employer] EDCalixto Pang MD MD rn Espinosa, Orlando oe Vicente, Ronaldo RN RN rv
--- NOTE | 2020-02-11 02:19 | EDPHYS ---
Physician Documentation [facility] Name: Kyung Quinones Age: 89 yrs Sex: Female : 1930 Arrival Date: 02/10/2020 Time: 23:37 Bed 6 Private MD: ED Physician Calixto Mayes HPI: 02/09 23:39 This 89 yrs old Female presents to ER via Unassigned with complaints of fall rn yesterday, xray showed possible fracture, so sent here for further eval.. 23:39 The patient or guardian complains of injury, pain. The complaints affect the left elbow rn and left wrist. Onset: The symptoms/episode began/occurred yesterday. Modifying factors: The symptoms are alleviated by nothing. the symptoms are aggravated by movement. Severity of symptoms: At their worst the symptoms were mild, in the emergency department the symptoms are unchanged. The patient has not experienced similar symptoms in the past. Reports fall from standing, fell with outstretched hand, reports pain to left wrist/elbow/knee. No head injury or LOC.. Historical: - Allergies: 23:40 Iodine; rv 23:40 Sulfa (Sulfonamide Antibiotics); rv - PMHx: 23:40 COLON CA; Diabetes - NIDDM; GERD; Hyperlipidemia; Hypertension; Migraines; neuropathy; rv Sleep Apnea; Thyroid problem; - PSHx: 23:40 None; rv - Immunization history:: Adult Immunizations up to date. - Social history:: Smoking status: Patient/guardian denies using tobacco, the patient reports quitting approximately 2 years ago. - Family history:: not pertinent. - Hospitalizations: : No recent hospitalization is reported. ROS: 23:39 Constitutional: Negative for fever, chills, and weight loss, Neck: Negative for injury, rn pain, and swelling, Cardiovascular: Negative for chest pain, palpitations, and edema, Respiratory: Negative for shortness of breath, cough, wheezing, and pleuritic chest pain, Abdomen/GI: Negative for abdominal pain, nausea, vomiting, diarrhea, and constipation, MS/Extremity: + injury and pain to left wrist/elbow/knee Skin: + multiple skin tears Neuro: Negative for headache, weakness, numbness, tingling, and seizure. Exam: 23:39 Constitutional: This is a well developed, well nourished patient who is awake, alert, rn and in no acute distress. Head/Face: Normocephalic, atraumatic. Neck: No vertebral point tenderness. Cardiovascular: Regular rate and rhythm. No pulse deficits. Respiratory: No increased work of breathing, no retractions or nasal flaring. Abdomen/GI: soft, non-tender Skin: Warm, dry, + multiple skin tears, no laceration MS/ Extremity: Pulses equal, no cyanosis. + mild tenderness and painful ROM left distal radius. + FROM left elbow with overlying skin tear. + moderate abrasion and skin tear left knee. Vital Signs: 23:38 BP 154 / 93; Pulse 95; Resp 18; Temp 98.0(O); Pulse Ox 100% on R/A; oe 02/10 02:49 BP 137 / 86; Pulse 87; Resp 17; Pulse Ox 97% on R/A; rv MDM: 02/09 23:37 Patient medically screened. rn 02/10 02:16 Differential diagnosis: closed fracture, contusion, abrasion. Data reviewed: vital rn signs, nurses notes, radiologic studies, plain films, and as a result, I will discharge patient. Counseling: I had a detailed discussion with the patient and/or guardian regarding: the historical points, exam findings, and any diagnostic results supporting the discharge/admit diagnosis, radiology results, the need for outpatient follow up, to return to the emergency department if symptoms worsen or persist or if there are any questions or concerns that arise at home. Response to treatment: the patient's symptoms have mildly improved after treatment, and as a result, I will discharge patient. Special discussion: I discussed with the patient/guardian in detail that at this point there is no indication for admission to the hospital. It is understood, however, that if the symptoms persist or worsen the patient needs to return immediately for re-evaluation. ED course: No acute findings on xrays, no fracture or dislocation, daughter here and updated with results, patient feels ok, drinking coffee and joking. . 02/09 23:38 Order name: XRAY Elbow LEFT 3 view rn 02/09 23:38 Order name: XRAY Wrist LEFT 3 view rn 02/09 23:38 Order name: XRAY Knee LEFT 3 view rn Administered Medications: No medications were administered Disposition: 02/11/20 02:18 Discharged to Home. Impression: Contusion of left wrist, Contusion of left elbow, Contusion of left knee. - Condition is Stable. - Discharge Instructions: Contusion, Elbow Contusion, Knee Pain, Wrist Sprain. - Medication Reconciliation Form, Thank You Letter, Antibiotic Education, Prescription Opioid Use form. - Follow up: Private Physician; When: As needed; Reason: Recheck today's complaints, Re-evaluation by your physician. - Problem is new. - Symptoms have improved. Signatures: Dispatcher [employer] EDCalixto Pang MD MD rn Vicente, Ronaldo, RN RN rv Corrections: (The following items were deleted from the chart) 02:50 02:18 02/11/2020 02:18 Discharged to Home. Impression: Contusion of left wrist; rv Contusion of left elbow; Contusion of left knee. Condition is Stable. Forms are Medication Reconciliation Form, Thank You Letter, Antibiotic Education, Prescription Opioid Use. Follow up: Private Physician; When: As needed; Reason: Recheck today's complaints, Re-evaluation by your physician. Problem is new. Symptoms have improved. rn
[2020-02-11 02:58] VITALS: TEMP 98
[2020-02-11 03:00] VITALS: BP 137/86; O2SAT 97
--- NOTE | 2020-02-11 10:04 | RAD REPORT ---
EXAM DESCRIPTION: RAD - Knee Left 3 View - 02/11/2020 1:54 am CLINICAL HISTORY: 89 years Female, PAIN COMPARISON: None. FINDINGS: No evidence for an acute fracture of the left knee. No dislocation. Degenerative tricompar tmental joint space narrowing is demonstrated with associated osteophyte formation. Vascular calcific ations are present. No obvious joint effusion. IMPRESSION: 1. No evidence for an acute fracture of the left knee. 2. Degenerative changes. Electronically signed by: Charlie Sanchez MD 02/11/2020 1:59 AM CDT Due to temporary technical issues with the PACS/Fluency reporting system, reports are being signed by the in house radiologist without review as a courtesy to ensure prompt reporting. The interpreting r adiologist is fully responsible for the content of the report.
--- NOTE | 2020-02-11 10:10 | RAD REPORT ---
EXAM DESCRIPTION: RAD - Wrist Left 3 View - 02/11/2020 1:54 am. CLINICAL HISTORY: PAIN TECHNIQUE: Three views of the left elbow are submitted. COMPARISON: None available for comparison FINDINGS: Bones: No acute or remote fracture deformity. Joints: Mild degenerative changes at the ulnohumeral articulation. No dislocation. No appreciable [place] effusion. Soft tissues: Unremarkable IMPRESSION: No acute abnormality. EXAM DESCRIPTION: XR Wrist Left 3 View (accession [id number]) CLINICAL HISTORY: PAIN TECHNIQUE: Three views of the left wrist are submitted. COMPARISON: None available for comparison FINDINGS: Bones: No acute or remote fracture deformity. Joints: Mild multifocal degenerative changes. No dislocation. Soft tissues: Unremarkable IMPRESSION: No acute abnormality. Electronically signed by: Gabriel Ge MD 02/11/2020 1:54 AM CDT Due to temporary technical issues with the PACS/Fluency reporting system, reports are being signed by the in house radiologist without review as a courtesy to ensure prompt reporting. The interpreting r adiologist is fully responsible for the content of the report.
--- NOTE | 2020-02-11 10:13 | RAD REPORT ---
EXAM DESCRIPTION: RAD - Elbow Left 3 View - 02/11/2020 1:53 am CLINICAL HISTORY: PAIN TECHNIQUE: Three views of the left elbow are submitted. COMPARISON: None available for comparison FINDINGS: Bones: No acute or remote fracture deformity. Joints: Mild degenerative changes at the ulnohumeral articulation. No dislocation. No appreciable [place] effusion. Soft tissues: Unremarkable IMPRESSION: No acute abnormality. EXAM DESCRIPTION: XR Wrist Left 3 View (accession [id number]) CLINICAL HISTORY: PAIN TECHNIQUE: Three views of the left wrist are submitted. COMPARISON: None available for comparison FINDINGS: Bones: No acute or remote fracture deformity. Joints: Mild multifocal degenerative changes. No dislocation. Soft tissues: Unremarkable IMPRESSION: No acute abnormality. Electronically signed by: Gabriel Ge MD 02/11/2020 1:54 AM CDT Due to temporary technical issues with the PACS/Fluency reporting system, reports are being signed by the in house radiologist without review as a courtesy to ensure prompt reporting. The interpreting r adiologist is fully responsible for the content of the report.
== END 2020-02-11 02:50 | disposition home or self-care (01) ==
LOC: ER 23:29
DX: S50.02XA Contusion of left elbow, initial encounter (principal); S80.02XA Contusion of left knee, initial encounter; W19.XXXA Unspecified fall, initial encounter; Y93.9 Activity, unspecified; Y92.9 Unspecified place or not applicable; Z85.038 Personal history of other malignant neoplasm of large intestine; Z88.2 Allergy status to sulfonamides; Z91.048 Other nonmedicinal substance allergy status; I10 Essential (primary) hypertension
CPT/HCPCS: 99284

== ENCOUNTER 2021-10-01 07:59 | Inpatient (IN) | payer OTHER ==
[2021-10-01] MEDS ORDERED: NA CHLORIDE 0.9% 500 ML ONE (08:39)
[2021-10-01 08:41] LABS: Absolute Lymphocytes (CBC) 1.4 K/uL (0.7-4.9); Hematocrit 38.6 % (36.0-45.0); Lymphocytes % 22.8 % (15.3-44.8); MPV 8.4 fL (7.6-11.3); RBC Red Blood Cell Count 4.15 M/uL (3.86-4.86)
--- NOTE | 2021-10-01 08:56 | RAD REPORT ---
EXAM DESCRIPTION: Ran Single View10/01/2021 8:49 am CLINICAL HISTORY: malaise/renal failure COMPARISON: none FINDINGS: The lungs appear clear of acute infiltrate. The heart is mildly to moderately enlarged IMPRESSION: No acute abnormalities displayed
[2021-10-01 09:00] LABS: Albumin 3.1 g/dL (3.4-5.0); Bilirubin Total 0.3 mg/dL (0.2-1.0); Potassium 3.8 mmol/L (3.5-5.1); Protein, Total 7.2 g/dL (6.4-8.2)
[2021-10-01 10:34] LABS: Urine Blood Trace-lysed (Negative); Urine Glucose Negative (Negative); Urine Protein Negative (Negative); Urine Specific Gravity 1.025 (1.005-1.030)
[2021-10-01 10:46] LABS: Urine Bacteria 20-50 /HPF (<20); Urine RBC <5 /HPF (NONE SEEN)
[2021-10-01] MEDS ORDERED: NA CHLORIDE 0.9% 100 ML IV ONE (10:54)
[2021-10-01] MEDS ORDERED: CEFTRIAXONE 1000 MG/VIAL ONE (10:54)
--- NOTE | 2021-10-01 10:55 | EDPHYS ---
Physician Documentation [facility] Name: Kyung Quinones Age: 89 yrs Sex: Female : 1930 Arrival Date: 10/01/2021 Time: 08:03 Bed 15 Private MD: ED Physician Kiet Alvarado HPI: 10/01 08:29 This 89 yrs old Female presents to ER via EMS with complaints of Abnormal Lab Results. 7 08:29 Onset: The symptoms/episode began/occurred yesterday. Associated signs and symptoms: medical center clinic Pertinent positives: lethargy. The patient was sent from [facility] for abnormal labs and possible kidney failure. Staff from the half-way report that the patient has had orange urine, has been lethargic, and showing signs of dehydration. They also report that the patient's urine results came back this morning, and that she has a UTI. The patient denies any complaints at this time.. Historical: - Allergies: 08:12 Iodine; jd3 08:12 metformin; jd3 08:12 tramadol; jd3 08:12 Tuberculin PPD; jd3 08:12 Sulfa (Sulfonamide Antibiotics); jd3 - Home Meds: 11:34 buspirone 7.5 mg Oral tab 1 tab three times a day [Active]; amlodipine 5 mg tab 1 tab jd3 once daily [Active]; MagOx 400 mg (241.3 mg magnesium) oral tab 2 tab twice a day [Active]; Namenda 5 mg oral tab 1 tab once daily [Active]; Pepcid 20 mg Oral tab 1 tab once daily [Active]; gabapentin 600 mg oral tab 1 tab twice a day [Active]; Amaryl 4 mg Oral tab 1 tab once daily [Active]; Vitamin B-12 500 mcg oral tab 5 tab daily [Active]; Xarelto 10 mg oral tab 1 tab once daily [Active]; Actos 15 mg Oral tab 1 tab once daily [Active]; Vitamin D 5000 mg Oral 1 tab daily [Active]; ferrous sulfate 325 mg (65 mg iron) Oral cpER 1 tab twice a day [Active]; [place] Thyroid 15 mg Oral tab 0.5 tab daily [Active]; melatonin 3 mg Oral cap 2 tab nightly [Active]; lisinopril 20 mg Oral tab 1 tab twice a day [Active]; Senokot S 8.6-50 mg Oral 2 tab nightly [Active]; - Immunization history:: Adult Immunizations up to date. - Social history:: Smoking status: Patient denies any tobacco usage or history of. ROS: 08:29 ENT: Negative for injury, pain, and discharge, Cardiovascular: Negative for chest pain, jh palpitations, and edema, Respiratory: Negative for shortness of breath, cough, wheezing, and pleuritic chest pain, Abdomen/GI: Negative for abdominal pain, nausea, vomiting, diarrhea, and constipation, Skin: Negative for injury, rash, and discoloration, Neuro: Negative for headache, weakness, numbness, tingling, and seizure. 08:29 Constitutional: Positive for malaise, Negative for body aches, chills, fever. Exam: 09:00 Head/Face: Normocephalic, atraumatic. ENT: Nares patent. No nasal discharge, no medical center clinic septal abnormalities noted. Oropharynx with no redness, swelling, or masses, exudates, or evidence of obstruction, uvula midline. Mucous membranes moist. Neck: Trachea midline, no thyromegaly or masses palpated, and no cervical lymphadenopathy. Supple, full range of motion without nuchal rigidity, or vertebral point tenderness. Cardiovascular: Regular rate and rhythm with a normal S1 and S2. No gallops, murmurs, or rubs. Respiratory: Lungs have equal breath sounds bilaterally, clear to auscultation and percussion. No rales, rhonchi or wheezes noted. No increased work of breathing, no retractions or nasal flaring. Abdomen/GI: Soft, non-tender, with normal bowel sounds. No distension or tympany. No guarding or rebound. No evidence of tenderness throughout. Skin: Warm, dry with normal turgor. Normal color with no rashes, no lesions, and no evidence of cellulitis. 09:00 Neuro: Orientation: to person, pt has a history of vascular dementia. 09:20 ECG was reviewed by the Attending Physician. medical center clinic Vital Signs: 08:13 BP 100 / 66; Pulse 75; Resp 16 S; Temp 97.6(TE); Pulse Ox 95% on R/A; Weight 81.65 kg jd3 (R); Height 6 ft. 0 in. (182.88 cm) (R); Pain 0/10; 09:55 BP 110 / 65; Pulse 72; Resp 17 S; Pulse Ox 95% on R/A; jd3 11:22 BP 99 / 73; Pulse 78; Resp 17 S; Pulse Ox 96% on R/A; jd3 14:24 BP 105 / 70; Pulse 85; Resp 17 S; Pulse Ox 99% on R/A; jd3 08:13 Body Mass Index 24.41 (81.65 kg, 182.88 cm) jd3 MDM: 08:10 Patient medically screened. 7 11:05 Differential diagnosis: UTI, RAVINDER. Data reviewed: vital signs, nurses notes, lab test [facility] center clinic result(s), EKG, radiologic studies, plain films. Data interpreted: Pulse oximetry: is 96 %. Interpretation: normal. Counseling: I had a detailed discussion with the patient and/or guardian regarding: the historical points, exam findings, and any diagnostic results supporting the discharge/admit diagnosis, lab results, the need for further work-up and treatment in the hospital. Physician consultation: Tigre Brown was called at 11:05, was contacted at 11:05, and will see patient in inpatient room. Awaiting: Bed Assignment. 11:05 ED course: Discussed labs and radiology with the patient and her daughter. The patient jh7 will be admitted for UTI and RAVINDER. The patient's daughter mentioned that the patient has no history of chronic kidney disease, but that her kidney function depletes every time she gets a UTI. Patient has a history of vascular dementia, but daughter reports that she seems a little more disoriented than normal. Spoke to Dr. Brown, who agreed that the patient should be admitted inpatient. Patient is currently awaiting bed assignment.. 10/01 08:15 Order name: NT PRO-BNP; Complete Time: 09: [facility] center [facility] 10/01 08:15 Order name: PT-INR; Complete Time: 08:57 [facility] 10/01 08:15 Order name: Troponin HS; Complete Time: 09: [facility] 10/01 08:15 Order name: CBC with Diff; Complete Time: 08:57 [facility] 10/01 08:15 Order name: CMP; Complete Time: 09: [facility] 10/01 08:15 Order name: Lipase; Complete Time: 09: [facility] 10/01 08:15 Order name: XRAY Chest (1 view); Complete Time: 09:00 [facility] 10/01 08:15 Order name: EKG; Complete Time: 08:16 [facility] 10/01 08:15 Order name: Urine Microscopic Only; Complete Time: 10:47 [facility] 10/01 09:07 Order name: COVID-19 SARS RT PCR (Document "Date of Onset" if Symptomatic); Complete bd Time: 10:33 10/01 10:34 Order name: Urine Dipstick-Ancillary; Complete Time: 10:47 [facility] 10/01 10:49 Order name: Urine Culture [facility] 10/01 08:15 Order name: Cardiac monitoring; Complete Time: 08:38 [facility] 10/01 08:15 Order name: EKG - Nurse/Tech; Complete Time: 08:22 [facility] 10/01 08:15 Order name: IV Saline Lock; Complete Time: 08:32 [facility] 10/01 08:15 Order name: Labs collected and sent; Complete Time: 08:32 [facility] 10/01 08:15 Order name: Urine Dipstick-Ancillary (obtain specimen); Complete Time: 11:21 [facility] center [facility] EC:20 Rate is 70 beats/min. Rhythm is regular, Normal Sinus Rhythm w/ RBBB. MS interval is [facility] normal at [address] changes noted. Administered Medications: 08:38 Drug: Sodium Chloride 0.9% 500 ml Route: IVPB; Site: right forearm; jd3 09:35 Follow up: Response: No adverse reaction; IV Status: Completed infusion [facility] 11:02 Drug: Rocephin (cefTRIAXone) 1 grams Route: IV; Rate: 1 calculated rate; Site: right [facility] forearm; 12:00 Follow up: Response: No adverse reaction; IV Status: Completed infusion d3 Disposition Summary: 10/01/21 10:54 Hospitalization Ordered Hospitalization Status: Inpatient Admission [facility] Provider: Tigre Brown [facility] Condition: Stable [facility] Problem: new [facility] Symptoms: are unchanged [facility] Bed/Room Type: Standard [facility] Location: Telemetry/MedSurg (Inpatient)(10/01/21 16:52) bd Room Assignment: [facility](10/01/21 16:52) bd Diagnosis - UTI/ Urinary tract infection, site not specified [facility] - Acute kidney failure, unspecified [facility] Forms: - Medication Reconciliation Form jh7 - SBAR form [facility] Signatures: Dispatcher [employer] EDMS Lyn Salazar Teresa Lilly, Diego Roth RN, RN RN jd3 Hadash, Jennifer, LEONOR [place] [id number] Corrections: (The following items were deleted from the chart) 10:05 08:29 Constitutional: This is a well developed, well nourished patient who is awake, jh alert, and in no acute distress. Cardiovascular: Regular rate and rhythm with a normal S1 and S2. No gallops, murmurs, or rubs. Normal PMI, no JVD. No pulse deficits. Respiratory: Lungs have equal breath sounds bilaterally, clear to auscultation and percussion. No rales, rhonchi or wheezes noted. No increased work of breathing, no retractions or nasal flaring. Abdomen/GI: Soft, non-tender, with normal bowel sounds. No distension or tympany. No guarding or rebound. No evidence of tenderness throughout. Skin: Warm, dry with normal turgor. Normal color with no rashes, no lesions, and no evidence of cellulitis. Neuro: Awake and alert, GCS 15, oriented to person, place, time, and situation. Sensory grossly intact. [facility] 15:30 10:54 Telemetry/MedSurg (Inpatient) [facility] 15:30 10:54 [facility] 16:52 15:30 [facility] ER HOLD [facility] 16:52 15:30 ERHOLD- bd
--- NOTE | 2021-10-01 10:55 | ER ---
Nurse's Notes [facility] [place] Name: Kyung Quinones Age: 89 yrs Sex: Female : 1930 Arrival Date: 10/01/2021 Time: 08:03 Bed 15 Private MD: Diagnosis: UTI/ Urinary tract infection, site not specified;Acute kidney failure, unspecified Presentation: 10/01 08:10 Chief complaint: EMS states: "pt had some lab work drawn yesterday and her doctor sent jd3 her today because the lab work indicated that she was in kidney failure. she is from [facility]. pt denies any complaint today.". Coronavirus screen: At this time, the client does not indicate any symptoms associated with coronavirus-19. Ebola Screen: No symptoms or risks identified at this time. Initial Sepsis Screen: Does the patient meet any 2 criteria? No. Patient's initial sepsis screen is negative. Does the patient have a suspected source of infection? No. Patient's initial sepsis screen is negative. Risk Assessment: Do you want to hurt yourself or someone else? Patient reports no desire to harm self or others. Onset of symptoms was October 01, 2021. 08:10 Method Of Arrival: EMS: [facility] jd3 08:10 Acuity: YAS 3 jd3 Historical: - Allergies: 08:12 Iodine; jd3 08:12 metformin; jd3 08:12 tramadol; jd3 08:12 Tuberculin PPD; jd3 08:12 Sulfa (Sulfonamide Antibiotics); jd3 - Home Meds: 11:34 buspirone 7.5 mg Oral tab 1 tab three times a day [Active]; amlodipine 5 mg tab 1 tab jd3 once daily [Active]; MagOx 400 mg (241.3 mg magnesium) oral tab 2 tab twice a day [Active]; Namenda 5 mg oral tab 1 tab once daily [Active]; Pepcid 20 mg Oral tab 1 tab once daily [Active]; gabapentin 600 mg oral tab 1 tab twice a day [Active]; Amaryl 4 mg Oral tab 1 tab once daily [Active]; Vitamin B-12 500 mcg oral tab 5 tab daily [Active]; Xarelto 10 mg oral tab 1 tab once daily [Active]; Actos 15 mg Oral tab 1 tab once daily [Active]; Vitamin D 5000 mg Oral 1 tab daily [Active]; ferrous sulfate 325 mg (65 mg iron) Oral cpER 1 tab twice a day [Active]; [place] Thyroid 15 mg Oral tab 0.5 tab daily [Active]; melatonin 3 mg Oral cap 2 tab nightly [Active]; lisinopril 20 mg Oral tab 1 tab twice a day [Active]; Senokot S 8.6-50 mg Oral 2 tab nightly [Active]; - Immunization history:: Adult Immunizations up to date. - Social history:: Smoking status: Patient denies any tobacco usage or history of. Screenin:15 Abuse screen: Denies threats or abuse. Nutritional screening: No deficits noted. jd3 Tuberculosis screening: No symptoms or risk factors identified. Fall Risk Ambulatory Aid- Crutches/Cane/Walker (15 pts). Gait- Normal/Bed Rest/Wheelchair (0 pts) Mental Status- Overestimates/Forgets Limitations (15 pts.). Total Miranda Fall Scale indicates Low Risk Score (25-44 pts). Fall prevention measures have been instituted. Side Rails Up X 2 Placed close to Nursing Station. Assessment: 08:13 General: Appears in no apparent distress. comfortable, Behavior is calm, cooperative, jd3 appropriate for age. Pain: Denies pain. Neuro: Level of Consciousness is awake, alert, obeys commands, Oriented to person, place, at baseline per family . Cardiovascular: Denies chest pain, Capillary refill < 3 seconds Patient's skin is warm and dry. Respiratory: Airway is patent Respiratory effort is even, unlabored, Respiratory pattern is regular, symmetrical, Denies cough, shortness of breath. GI: No signs and/or symptoms were reported involving the gastrointestinal system. : No signs and/or symptoms were reported regarding the genitourinary system. EENT: No signs and/or symptoms were reported regarding the EENT system. Derm: Skin is intact, Skin is dry, Skin is normal, Skin temperature is warm. Musculoskeletal: Circulation, motion, and sensation intact. Range of motion: intact in all extremities. 09:56 Reassessment: Patient appears in no apparent distress at this time. No changes from jd3 previously documented assessment. Patient and/or family updated on plan of care and expected duration. Pain level reassessed. Patient denies pain at this time. 11:22 Reassessment: Patient appears in no apparent distress at this time. No changes from jd3 previously documented assessment. Patient and/or family updated on plan of care and expected duration. Pain level reassessed. Patient denies pain at this time. 14:23 Reassessment: Patient appears in no apparent distress at this time. No changes from jd3 previously documented assessment. Patient and/or family updated on plan of care and expected duration. Pain level reassessed. charting continued in [facility] Patient denies pain at this time. Vital Signs: 08:13 BP 100 / 66; Pulse 75; Resp 16 S; Temp 97.6(TE); Pulse Ox 95% on R/A; Weight 81.65 kg jd3 (R); Height 6 ft. 0 in. (182.88 cm) (R); Pain 0/10; 09:55 BP 110 / 65; Pulse 72; Resp 17 S; Pulse Ox 95% on R/A; jd3 11:22 BP 99 / 73; Pulse 78; Resp 17 S; Pulse Ox 96% on R/A; jd3 14:24 BP 105 / 70; Pulse 85; Resp 17 S; Pulse Ox 99% on R/A; jd3 08:13 Body Mass Index 24.41 (81.65 kg, 182.88 cm) jd3 ED Course: 08:03 Patient arrived in ED. [facility] 08:04 Patient has correct armband on for positive identification. Placed in gown. Bed in low mh5 position. Call light in reach. Side rails up X2. Warm blanket given. Pulse ox on. NIBP on. 08:10 [facility] Haskins FNP [facility]. jh7 08:10 Kiet Alvarado MD is Attending Physician. jh7 08:10 Diego Snider, ELIAN is Primary Nurse. jd3 08:12 Triage completed. jd3 08:13 Arm band placed on. jd3 08:32 Inserted saline lock: 22 gauge in right forearm, using aseptic technique. Blood jd3 collected. 08:47 Initial lab(s) drawn, by ED staff, sent to lab. EKG done, by ED staff, reviewed by [facility] Clary GALVEZ COVID swab sent to lab. 08:51 XRAY Chest (1 view) In Process Unspecified. EDMS 10:53 Tigre Brown is Hospitalizing Provider. jh7 14:00 No provider procedures requiring assistance completed. Patient admitted, IV remains in jd3 place. Administered Medications: 08:38 Drug: Sodium Chloride 0.9% 500 ml Route: IVPB; Site: right forearm; jd3 09:35 Follow up: Response: No adverse reaction; IV Status: Completed infusion j 11:02 Drug: Rocephin (cefTRIAXone) 1 grams Route: IV; Rate: 1 calculated rate; Site: right jd3 forearm; 12:00 Follow up: Response: No adverse reaction; IV Status: Completed infusion j Outcome: 10:54 Decision to Hospitalize by Provider. 7 14:00 Admitted to ER Hold. Please see [facility] for further documentation. j 14:00 Condition: stable 14:00 Instructed on the need for admit. 18:37 Patient left the ED. [facility] Signatures: Dispatcher [employer] Shana Bautista Jonathon, RN RN j Clary Haskins FNP FNP 7 Corrections: (The following items were deleted from the chart) 08:18 08:15 Fall Risk Ambulatory Aid- None/Bed Rest/Nurse Assist (0 pts). Gait- Normal/Bed j Rest/Wheelchair (0 pts) Mental Status- Oriented to own ability (0 pts). Total Miranda Fall Scale indicates No Risk (0-24 pts). j
[2021-10-01] MEDS ORDERED: ACETAMINOPHEN 500 MG TAB PO PRN (14:05)
[2021-10-01] MEDS ORDERED: ONDANSETRON 4 MG/2 ML VIAL IV PRN (14:05)
[2021-10-01] MEDS: NA CHLORIDE 0.9% 1,000 ML IV SCH ×2 (14:05→21:25)
[2021-10-01 15:02] VITALS: BMI 3515.1
[2021-10-01] MEDS: INSULIN -REGULAR HUMAN 50 UNIT/0.5 ML ML SQ SCH ×2 (16:30→21:25)
[2021-10-01] MEDS: HEPARIN 5000 UNIT/ML 1 ML VIAL SQ SCH (17:00)
[2021-10-01] MEDS ORDERED: HEPARIN 5000 UNIT/ML 1 ML VIAL ONE (17:12)
--- NOTE | 2021-10-01 17:54 | P.HP ---
Certification for Inpatient Patient admitted to: Inpatient With expected LOS: >2 Midnights Practitioner: I am a practitioner with admitting privileges, knowledge of patient current condition, hospital course, and medical plan of care. Services: Services provided to patient in accordance with Admission requirements found in Title 42 Section 412.3 of the Code of Federal Regulations Patient History Date of Service: 10/01/21 Reason for admission: Abnormal labs. History of Present Illness: 89-year-old woman [facility] due to acute renal failure and urine analysis suggesting UTI. She apparently had a urine culture done which did not grow any organism. Patient noted to be more confused and lethargic, with poor oral intake. Her blood work showed acute renal failure. Patient was transferred to the emergency department for further management. Patient diagnosed with vascular dementia and cannot provide any history. Her daughter was present by her bedside who provided the history. Blood work done here showed elevated creatinine up to 2.63. UA still suggesting the presence of UTI. Patient admitted for further management. Allergies iodine Allergy (Verified 10/01/21 14:05) Anaphylaxis metformin Allergy (Verified 10/01/21 14:05) Anaphylaxis Sulfa (Sulfonamide Antibiotics) Allergy (Verified 10/01/21 14:05) Anaphylaxis tramadol Allergy (Verified 10/01/21 14:05) Anaphylaxis tuberculin,PPD,multi-puncture Allergy (Verified 10/01/21 14:05) Anaphylaxis Home Medications: Amlodipine [Norvasc] 5 mg PO DAILY 10/01/21 Buspirone HCl 7.5 mg PO TID 10/01/21 Cholecalciferol (Vitamin D3) [Vitamin D3] 50 mcg PO DAILY 10/01/21 Cyanocobalamin (Vitamin B-12) [Vitamin B-12] 5 tab PO DAILY 10/01/21 Famotidine [Pepcid] 20 mg PO DAILY 10/01/21 Ferrous Sulfate 325 mg PO BID 10/01/21 Gabapentin 600 mg PO BID 10/01/21 Glimepiride [Amaryl] 4 mg PO DAILY 10/01/21 Lisinopril [Zestril] 20 mg PO BID 10/01/21 Magnesium Oxide [Mag 0X*] 2 tab PO BID 10/01/21 Melatonin 2 tab PO BEDTIME 10/01/21 Memantine HCl [Namenda] 5 mg PO DAILY 10/01/21 Pioglitazone HCl [Actos] 15 mg PO DAILY 10/01/21 Rivaroxaban [Xarelto] 10 mg PO DAILY 10/01/21 Sennosides [Senokot] 2 tab PO BEDTIME 10/01/21 Thyroid,Pork [[place] Thyroid] 0.5 tab PO DAILY 10/01/21 - Past Medical/Surgical History Has patient received pneumonia vaccine in the past: Yes Diabetic: Yes -: Diabetes mellitus type 2 -: Hypertension -: GERD -: Vascular dementia - Family History Family History: Reviewed- Non-Contributory - Social History Smoking Status: Never smoker Alcohol use: No CD- Drugs: No Caffeine use: No Place of Residence: Skilled Nursing Review of Systems Other: No reported fever, no diarrhea, no nausea or vomiting. Except as documented, all other systems reviewed and negative. Physical Examination - Vital Signs Blood Pressure: 131/47 Pulse: 85 Respirations: 16 Pulse Ox (%): 96 - Physical Exam General: In no apparent distress, Confused HEENT: Mucous membr. moist/pink, EOMI, Sclerae nonicteric Neck: Supple, JVD not distended Respiratory: Clear to auscultation bilaterally, Normal air movement Cardiovascular: No edema, Regular rate/rhythm, Normal S1 S2, No murmurs Gastrointestinal: Normal bowel sounds, Soft and benign, Non-distended, No tenderness Musculoskeletal: No swelling, No tenderness Integumentary: No rashes, No erythema, No cyanosis Neurological: Normal strength at 5/5 x4 extr, Cranial nerves 3-12 intact Lymphatics: No axilla or inguinal lymphadenopathy - Studies Laboratory Data (last 24 hrs) 10/01/21 08:29: WBC 6.0, Hgb 12.7, Hct 38.6, Plt Count 245 10/01/21 08:29: PT 11.0, INR 1.00 10/01/21 08:29: Sodium 138, Potassium 3.8, BUN 46 H, Creatinine 2.68 H, Glucose 101, Total Bilirubin 0.3, AST 20, ALT 18, Alkaline Phosphatase 60, Lipase 259 Assessment and Plan - Problems (Diagnosis) (1) Acute cystitis without hematuria Current Visit: Yes Status: Acute (2) Acute renal failure Current Visit: Yes Status: Acute (3) Vascular dementia Current Visit: Yes Status: Acute - Plan Admit patient to the medical floor. Start IV Rocephin Follow urine culture and blood cultures. Hydrate with IV normal saline. Monitor BMP to follow renal function. Reconcile and continue other home medications for dementia Hold glimepiride and manage blood sugar with insulin sliding scale. PT evaluation due to reports of lethargy. - Advance Directives Does patient have a Living Will: No Does patient have a Durable POA for Healthcare: No
[2021-10-02] MEDS: HEPARIN 5000 UNIT/ML 1 ML VIAL SQ SCH ×3 (01:14→09:00)
[2021-10-02] MEDS: THYROID 30 MG TAB PO SCH (05:48)
[2021-10-02 06:09] LABS: Absolute Lymphocytes (CBC) 1.1 K/uL (0.7-4.9); Hematocrit 33.6 % (36.0-45.0); Lymphocytes % 22.7 % (15.3-44.8); MPV 8.5 fL (7.6-11.3); RBC Red Blood Cell Count 3.59 M/uL (3.86-4.86)
[2021-10-02 06:22] LABS: Phosphorus 2.7 mg/dL (2.5-4.9); Potassium 4.1 mmol/L (3.5-5.1)
[2021-10-02] MEDS: INSULIN -REGULAR HUMAN 50 UNIT/0.5 ML ML SQ SCH ×4 (07:30→21:00)
[2021-10-02] MEDS: CEFTRIAXONE 1,000 MG in NA CHLORIDE 0.9% 50 ML IVPB SCH (08:02)
[2021-10-02] MEDS: NA CHLORIDE 0.9% 1,000 ML IV SCH ×3 (10:05→22:51)
[2021-10-02] MEDS ORDERED: HYDRALAZINE HCL 20 MG/ML VIAL IV ONE (10:42)
[2021-10-02] MEDS: MEMANTINE HCL 10 MG TABLET PO SCH (10:45)
[2021-10-02] MEDS ORDERED: RIVAROXABAN 10 MG TABLET PO SCH (10:46)
[2021-10-02] MEDS: AMLODIPINE 5 MG TAB PO SCH ×2 (10:47→19:34)
[2021-10-02] MEDS: RIVAROXABAN 10 MG TABLET PO SCH (13:00)
[2021-10-02] MEDS ORDERED: HALOPERIDOL LACT 5 MG/ML INJ IV PRN (13:06)
[2021-10-02] MEDS: BUSPIRONE HCL 5 MG TABLET PO SCH ×2 (14:00→19:49)
--- NOTE | 2021-10-02 14:36 | EKG ---
Test Date: 2021-10-01 Test Time: 08:44:02 Straight Cutter Machine: CARRIE MEASUREMENT RESULTS: Intervals: Rate: 70 IL: 204 QRSD: 134 QT: 446 QTc: 481 [place]: P: 28 IL: 204 QRS: -85 T: -7 INTERPRETIVE STATEMENTS: Normal sinus rhythm Right bundle branch block Left anterior fascicular block Bifascicular block Possible Lateral infarct, age undetermined Cannot rule out Inferior infarct (masked by fascicular block?), age undetermined Abnormal ECG No previous ECG available for comparison Electronically Signed On 10-02-21 14:32:31 CDT by Nehemias Richard
--- NOTE | 2021-10-02 17:51 | P.PN ---
Subjective Date of Service: 10/02/21 Chief Complaint: Abnormal labs. Patient confused and refusing all treatment today. Also agitated. Physical Examination - Vital Signs Temperature: 97.9 F Blood Pressure: 201/97 Pulse: 92 Respirations: 18 Pulse Ox (%): 91 - Physical Exam General: In no apparent distress, Confused HEENT: Mucous membr. moist/pink, Sclerae nonicteric Neck: Supple, JVD not distended Respiratory: Clear to auscultation bilaterally, Normal air movement Cardiovascular: No edema, Regular rate/rhythm, Normal S1 S2 Gastrointestinal: Normal bowel sounds, Soft and benign, Non-distended, No tenderness Musculoskeletal: No swelling Integumentary: No rashes Neurological: Normal strength at 5/5 x4 extr Assessment And Plan - Current Problems (Diagnosis) (1) Acute cystitis without hematuria Current Visit: Yes Status: Acute (2) Acute renal failure Current Visit: Yes Status: Acute (3) Vascular dementia Current Visit: Yes Status: Acute - Plan Urine culture yielded no growth but UA suggested presence of UTI. Continue IV Rocephin. Renal function significantly improved. Continue IV fluid Monitor BMP to follow renal function. Continue other home medications. Glimepiride on hold. Manage blood sugar with insulin sliding scale. Haldol IV as needed for agitation.
[2021-10-02] MEDS: GABAPENTIN 300 MG CAP PO SCH (19:37)
[2021-10-02] MEDS: MELATONIN 3 MG TABLET PO SCH (19:48)
[2021-10-02] MEDS: FERROUS SULFATE 325 MG TAB PO SCH (19:48)
[2021-10-02] MEDS: SENOSIDES 8.6 MG TAB PO SCH (19:48)
[2021-10-02] MEDS: MAGNESIUM OXIDE 400 MG TAB PO SCH (19:48)
[2021-10-02] MEDS: lisinopriL 20 MG TAB PO SCH (19:49)
[2021-10-02] MEDS ORDERED: HYDRALAZINE HCL 20 MG/ML VIAL IV PRN (20:30)
[2021-10-03] MEDS: THYROID 30 MG TAB PO SCH (05:58)
[2021-10-03] MEDS: NA CHLORIDE 0.9% 1,000 ML IV SCH ×3 (05:59→21:11)
[2021-10-03] MEDS: INSULIN -REGULAR HUMAN 50 UNIT/0.5 ML ML SQ SCH ×4 (07:30→21:00)
[2021-10-03 08:01] LABS: Hematocrit 37.8 % (36.0-45.0); Lymphocytes % 15.9 % (15.3-44.8); MPV 8.7 fL (7.6-11.3); RBC Red Blood Cell Count 4.15 M/uL (3.86-4.86)
[2021-10-03] MEDS: CEFTRIAXONE 1,000 MG in NA CHLORIDE 0.9% 50 ML IVPB SCH (08:20)
[2021-10-03] MEDS: MEMANTINE HCL 10 MG TABLET PO SCH (08:21)
[2021-10-03] MEDS: RIVAROXABAN 10 MG TABLET PO SCH (08:21)
[2021-10-03] MEDS: BUSPIRONE HCL 5 MG TABLET PO SCH ×4 (08:22→21:14)
[2021-10-03] MEDS: GABAPENTIN 300 MG CAP PO SCH ×2 (08:22→21:13)
[2021-10-03] MEDS: AMLODIPINE 5 MG TAB PO SCH (08:23)
[2021-10-03] MEDS: CYANOCOBALAMIN 1,000 MCG TAB PO SCH (08:23)
[2021-10-03] MEDS: lisinopriL 20 MG TAB PO SCH ×2 (08:24→21:14)
[2021-10-03] MEDS: MAGNESIUM OXIDE 400 MG TAB PO SCH ×2 (08:24→21:17)
[2021-10-03] MEDS: FERROUS SULFATE 325 MG TAB PO SCH ×2 (08:24→21:13)
[2021-10-03] MEDS: FAMOTIDINE 20 MG TAB PO SCH (08:24)
[2021-10-03] MEDS: VITAMIN D 1000 UNIT TAB PO SCH (08:24)
[2021-10-03] MEDS ORDERED: CHOLECALCIFEROL 50 MCG PO SCH (09:00)
--- NOTE | 2021-10-03 16:50 | P.PN ---
Subjective Date of Service: 10/03/21 Chief Complaint: Abnormal labs. Patient is more cooperative today. She took her medications. She is still confused. Physical Examination - Vital Signs Temperature: 98.7 F Blood Pressure: 187/84 Pulse: 97 Respirations: 18 Pulse Ox (%): 94 - Physical Exam General: In no apparent distress, Confused HEENT: Mucous membr. moist/pink Neck: JVD not distended Respiratory: Clear to auscultation bilaterally, Normal air movement Cardiovascular: No edema, Regular rate/rhythm, Normal S1 S2 Gastrointestinal: Soft and benign, Non-distended Musculoskeletal: No swelling Integumentary: No rashes Neurological: Dementia - Studies Microbiology Data (last 24 hrs): 10/01/21 10:31 Clean Catch Urine [place] Count - Final <10,000 CFU/ML. 10/01/21 10:31 Clean Catch Urine - Final MIXED BELIA. Assessment And Plan - Current Problems (Diagnosis) (1) Acute cystitis without hematuria Current Visit: Yes Status: Acute (2) Acute renal failure Current Visit: Yes Status: Acute (3) Vascular dementia Current Visit: Yes Status: Acute - Plan Urine culture yielded no growth but UA suggested presence of UTI. Continue IV Rocephin. Patient to complete 3 days of treatment. RAVINDER resolved. Poor oral intake today. Continue IV fluid Continue other home medications. Glimepiride on hold. Manage blood sugar with insulin sliding scale. Haldol IV as needed for agitation.
[2021-10-03] MEDS: SENOSIDES 8.6 MG TAB PO SCH (21:13)
[2021-10-03] MEDS: MELATONIN 3 MG TABLET PO SCH (21:13)
[2021-10-04 04:23] LABS: Absolute Lymphocytes (CBC) 1.1 K/uL (0.7-4.9); Hematocrit 37.4 % (36.0-45.0); Lymphocytes % 22.5 % (15.3-44.8); MPV 8.2 fL (7.6-11.3); RBC Red Blood Cell Count 4.02 M/uL (3.86-4.86)
[2021-10-04 04:37] LABS: Potassium 3.7 mmol/L (3.5-5.1)
[2021-10-04] MEDS: THYROID 30 MG TAB PO SCH (05:25)
[2021-10-04] MEDS ORDERED: POTASSIUM CL SA 10 MEQ TAB PO ONE (06:00)
[2021-10-04] MEDS: INSULIN -REGULAR HUMAN 50 UNIT/0.5 ML ML SQ SCH ×4 (07:30→21:00)
[2021-10-04] MEDS: GABAPENTIN 300 MG CAP PO SCH ×2 (08:37→20:58)
[2021-10-04] MEDS: CYANOCOBALAMIN 1,000 MCG TAB PO SCH (08:37)
[2021-10-04] MEDS: VITAMIN D 1000 UNIT TAB PO SCH (08:37)
[2021-10-04] MEDS: MAGNESIUM OXIDE 400 MG TAB PO SCH ×2 (08:37→20:59)
[2021-10-04] MEDS: FAMOTIDINE 20 MG TAB PO SCH (08:38)
[2021-10-04] MEDS: MEMANTINE HCL 10 MG TABLET PO SCH (08:38)
[2021-10-04] MEDS: RIVAROXABAN 10 MG TABLET PO SCH (08:38)
[2021-10-04] MEDS: FERROUS SULFATE 325 MG TAB PO SCH ×2 (08:39→21:00)
[2021-10-04] MEDS: BUSPIRONE HCL 5 MG TABLET PO SCH ×3 (08:39→21:00)
[2021-10-04] MEDS: AMLODIPINE 5 MG TAB PO SCH (08:44)
[2021-10-04] MEDS: lisinopriL 20 MG TAB PO SCH ×2 (08:46→20:58)
[2021-10-04] MEDS: CEFTRIAXONE 1,000 MG in NA CHLORIDE 0.9% 50 ML IVPB SCH (08:46)
[2021-10-04] MEDS: NA CHLORIDE 0.9% 1,000 ML IV SCH ×3 (09:07→18:05)
--- NOTE | 2021-10-04 12:05 | P.PN ---
Subjective Date of Service: 10/04/21 Chief Complaint: Abnormal labs. Patient is more interactive. She is taking her medications and ate a portion of her breakfast. She is more appropriate today. Physical Examination - Vital Signs Temperature: 98.3 F Blood Pressure: 190/100 Pulse: 100 Respirations: 16 Pulse Ox (%): 95 - Physical Exam General: In no apparent distress HEENT: Mucous membr. moist/pink Neck: JVD not distended Respiratory: Clear to auscultation bilaterally, Normal air movement Cardiovascular: No edema, Regular rate/rhythm, Normal S1 S2 Gastrointestinal: Normal bowel sounds, Soft and benign, Non-distended Musculoskeletal: No swelling Neurological: Dementia - Studies Microbiology Data (last 24 hrs): 10/01/21 10:31 Clean Catch Urine [place] Count - Final <10,000 CFU/ML. 10/01/21 10:31 Clean Catch Urine - Final MIXED BELIA. Assessment And Plan - Current Problems (Diagnosis) (1) Acute cystitis without hematuria Current Visit: Yes Status: Acute (2) Acute renal failure Current Visit: Yes Status: Acute (3) Vascular dementia Current Visit: Yes Status: Acute - Plan Urine culture yielded no growth but UA suggested presence of UTI. Continue IV Rocephin. Patient to complete IV Rocephin today RAVINDER resolved. Continue IV fluid, given that patient is not eating much. Continue other home medications. Glimepiride on hold. Manage blood sugar with insulin sliding scale. Haldol IV as needed for agitation. Anticipating discharge to [facility] tomorrow.
[2021-10-04] MEDS: SENOSIDES 8.6 MG TAB PO SCH (20:59)
[2021-10-04] MEDS: MELATONIN 3 MG TABLET PO SCH (20:59)
[2021-10-05] MEDS: NA CHLORIDE 0.9% 1,000 ML IV SCH ×3 (02:41→13:36)
[2021-10-05] MEDS: THYROID 30 MG TAB PO SCH (05:38)
[2021-10-05 07:01] LABS: Potassium 3.6 mmol/L (3.5-5.1)
[2021-10-05] MEDS ORDERED: CEFTRIAXONE 1000 MG/VIAL ONE (07:21)
[2021-10-05] MEDS: INSULIN -REGULAR HUMAN 50 UNIT/0.5 ML ML SQ SCH ×2 (07:30→11:30)
[2021-10-05] MEDS ORDERED: NA CHLORIDE 0.9% 50 ML ONE (07:36)
[2021-10-05] MEDS: AMLODIPINE 5 MG TAB PO SCH (08:25)
[2021-10-05] MEDS: CEFTRIAXONE 1,000 MG in NA CHLORIDE 0.9% 50 ML IVPB SCH (08:25)
[2021-10-05] MEDS: MAGNESIUM OXIDE 400 MG TAB PO SCH (08:25)
[2021-10-05] MEDS: GABAPENTIN 300 MG CAP PO SCH (08:26)
[2021-10-05] MEDS: CYANOCOBALAMIN 1,000 MCG TAB PO SCH (08:26)
[2021-10-05] MEDS: lisinopriL 20 MG TAB PO SCH (08:26)
[2021-10-05] MEDS: VITAMIN D 1000 UNIT TAB PO SCH (08:26)
[2021-10-05] MEDS: MEMANTINE HCL 10 MG TABLET PO SCH (08:27)
[2021-10-05] MEDS: FERROUS SULFATE 325 MG TAB PO SCH (08:27)
[2021-10-05] MEDS: BUSPIRONE HCL 5 MG TABLET PO SCH ×2 (08:27→13:02)
[2021-10-05] MEDS: RIVAROXABAN 10 MG TABLET PO SCH (08:27)
[2021-10-05] MEDS: FAMOTIDINE 20 MG TAB PO SCH (08:27)
[2021-10-05 09:08] VITALS: O2SAT 94
[2021-10-05] MEDS ORDERED: POTASSIUM CL SA 10 MEQ TAB PO ONE (10:00)
--- NOTE | 2021-10-05 12:19 | P.DS ---
Admission Date: 10/01/21 Discharge Date: 10/05/21 Disposition: TRANSFER TO DETENTION Discharge Condition: FAIR Reason for Admission: Abnormal labs. - Problems (1) Acute cystitis without hematuria Current Visit: Yes Status: Acute (2) Acute renal failure Current Visit: Yes Status: Acute (3) Vascular dementia Current Visit: Yes Status: Acute Brief History of Present Illness: 89-year-old [facility] due to acute renal failure and urine analysis suggesting UTI. She apparently had a urine culture done which did not grow any organism. Patient noted to be more confused and lethargic, with poor oral intake. Her blood work showed acute renal failure. Patient was transferred to the emergency department for further management. Patient diagnosed with vascular dementia and cannot provide any history. Her daughter was present by her bedside who provided the history. Blood work done here showed elevated creatinine up to 2.63. UA suggested the presence of UTI. Patient admitted for further management. Hospital Course: Patient admitted to the medical floor and started on IV Rocephin. Urine culture yielded no growth. Patient completed 5 days of antibiotic treatment. RAVINDER resolved with IV hydration. She was briefly more confused, agitated and was refusing to eat or take her medication but this improved within a couple of days. Continue other home medications. Discontinue glipizide and managed blood sugar with insulin sliding scale. Patient blood sugar has been within normal range without the glipizide. She has high risk for hypoglycemia given her reduced oral intake. Would recommend holding glipizide on discharge. PCP to follow for diabetes medication modifications as needed. Vital Signs/Physical Exam: Temp Pulse Resp BP Pulse Ox 98.0 F 94 H 16 210/93 H 94 10/05/21 08:00 10/05/21 08:26 10/05/21 08:00 10/05/21 08:26 10/05/21 08:00 General: Cooperative, Other (Awake and interactive) HEENT: Mucous membr. moist/pink Neck: JVD not distended Respiratory: Clear to auscultation bilaterally, Normal air movement Cardiovascular: No edema, Regular rate/rhythm, Normal S1 S2 Gastrointestinal: Soft and benign, No tenderness Musculoskeletal: No swelling Integumentary: No erythema, No cyanosis Neurological: Normal speech, Normal strength at 5/5 x4 extr Laboratory Data at Discharge: WBC 5.1 K/uL (4.3-10.9) D 10/04/21 03:46 Hgb 12.3 g/dL (12.0-15.0) 10/04/21 03:46 Hct 37.4 % (36.0-45.0) 10/04/21 03:46 Plt Count 203 K/uL (152-406) 10/04/21 03:46 PT 11.0 SECONDS (9.5-12.5) 10/01/21 08:29 INR 1.00 10/01/21 08:29 Sodium 144 mmol/L (136-145) 10/05/21 05:32 Potassium 3.6 mmol/L (3.5-5.1) 10/05/21 05:32 BUN 10 mg/dL (7-18) 10/05/21 05:32 Creatinine 0.76 mg/dL (0.55-1.3) 10/05/21 05:32 Glucose 115 mg/dL (74-106) H 10/05/21 05:32 Phosphorus 2.7 mg/dL (2.5-4.9) 10/02/21 05:42 Magnesium 2.0 mg/dL (1.8-2.4) 10/02/21 05:42 Total Bilirubin 0.3 mg/dL (0.2-1.0) 10/01/21 08:29 AST 20 U/L (15-37) 10/01/21 08:29 ALT 18 U/L (12-78) 10/01/21 08:29 Alkaline Phosphatase 60 U/L (45-117) 10/01/21 08:29 Lipase 259 U/L (73-393) 10/01/21 08:29 Home Medications: Amlodipine [Norvasc*] 5 mg PO DAILY 10/01/21 Buspirone HCl 7.5 mg PO TID 10/01/21 Cholecalciferol (Vitamin D3) [Vitamin D3] 50 mcg PO DAILY 10/01/21 Cyanocobalamin (Vitamin B-12) [Vitamin B-12] 5 tab PO DAILY 10/01/21 Famotidine [Pepcid] 20 mg PO DAILY 10/01/21 Ferrous Sulfate 325 mg PO BID 10/01/21 Gabapentin 600 mg PO BID 10/01/21 Lisinopril [Zestril] 20 mg PO BID 10/01/21 Magnesium Oxide [Mag 0X*] 2 tab PO BID 10/01/21 Melatonin 2 tab PO BEDTIME 10/01/21 Memantine HCl [Namenda] 5 mg PO DAILY 10/01/21 Pioglitazone HCl [Actos] 15 mg PO DAILY 10/01/21 Rivaroxaban [Xarelto*] 10 mg PO DAILY 10/01/21 Sennosides [Senokot] 2 tab PO BEDTIME 10/01/21 Thyroid,Pork [[place] Thyroid] 0.5 tab PO DAILY 10/01/21 Diet: ADA Activity: Fall precautions Followup: Robert Flores MD [Primary Care Provider] - Time spent managing pt's care (in minutes): 35
[2021-10-05 13:31] VITALS: BP 177/76; TEMP 98.3
== END 2021-10-05 16:26 | DRG 689 ==
LOC: ER 07:59 → MERGE 12:17 → ERHOLD 12:17 → 2ND 18:27
PROVIDERS: ADMIT Internal Medicine; ATTEND Internal Medicine
DX: N30.00 Acute cystitis without hematuria (principal); G93.41 Metabolic encephalopathy; N17.9 Acute kidney failure, unspecified; E11.9 Type 2 diabetes mellitus without complications; I10 Essential (primary) hypertension; K21.9 Gastro-esophageal reflux disease without esophagitis; F01.50 Vascular dementia, unspecified severity, without behavioral disturbance, psychotic disturbance, mood disturbance, and anxiety; Z20.822 Contact with and (suspected) exposure to COVID-19
CPT/HCPCS: 36415; 71045; 80048; 80053; 81003; 81015; 82947; 83690; 83735; 83880; 84100; 84484; 85025; 85610; 87086; 87088; 93005; 96365; 96367; 97110; 97161; 97530; 99285; J0360; J1630; J1644; J7030; J7040; U0003

== ENCOUNTER 2021-10-12 17:36 | Emergency (ER) | payer OTHER ==
--- OUTSIDE RECORDS SUMMARY | 2021-10-12 17:41 | XMS REPORT | Continuity of Care Document ---
:1930 Author Organization [facility] t Address [address] [place] [address] [place] [id number] Care Team Providers Name Role Phone Raju_P Attending Clinician Unavailable Raju_P Admitting Clinician Unavailable Problems This patient has no known problems. Allergies, Adverse Reactions, Alerts This patient has no known allergies or adverse reactions. Medications This patient has no known medications. Procedures This patient has no known procedures. Encounters Start End Encounter Admission Attending Care Care Encounter Source Date/Time Date/Time Type Type Clinicians Facility Department ID 2019-08-24 2019-08-24 Outpatient Daveyu[facility]P [facility] [id number] [place] 03:05:00 03:05:00 [id number] Results This patient has no known results.
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
[2021-10-12] MEDS ORDERED: LIDOCAINE 1% W/EPI 1:100,000 MDV 50 ML VIAL ONE (19:39)
[2021-10-12] MEDS ORDERED: ACETAMINOPHEN 325 MG TABLET ONE (19:40)
--- NOTE | 2021-10-12 20:00 | ER ---
Nurse's Notes [facility] Name: Kyung Quinones Age: 89 yrs Sex: Female : 1930 Arrival Date: 10/12/2021 Time: 18:20 Bed 3 Private MD: Diagnosis: Laceration without foreign body of scalp Presentation: 10/12 18:20 Chief complaint: EMS states: Pt from [facility], witnessed stumble and fall while ph walking w/ walker, hx of unsteady gait, CVA, and dementia, hematoma and small laceration to back of head, no LOC, does take blood thinners. Coronavirus screen: Vaccine status: Patient reports receiving the 2nd dose of the covid vaccine. Ebola Screen: No symptoms or risks identified at this time. Initial Sepsis Screen: Does the patient meet any 2 criteria? No. Patient's initial sepsis screen is negative. Does the patient have a suspected source of infection? No. Patient's initial sepsis screen is negative. Risk Assessment: Do you want to hurt yourself or someone else? Patient reports no desire to harm self or others. Onset of symptoms was October 12, 2021. 18:20 Method Of Arrival: EMS: [facility] ph 18:20 Acuity: YAS 2 ph 18:20 Care prior to arrival: Cervical collar in place. Mechanism of Injury: Fall Trauma event ph details: Injury occurred in the [facility], Injury occurred: at home. Injury occurred: October 12, 2021. Triage Assessment: 18:26 General: Appears in no apparent distress. comfortable, well groomed, Behavior is calm, ph cooperative, appropriate for age. Pain: Complains of pain in head and neck. Neuro: Level of Consciousness is awake, alert, obeys commands, Oriented to person, place, situation. Cardiovascular: Capillary refill < 3 seconds in bilateral fingers Patient's skin is warm and dry. Respiratory: Airway is patent Respiratory effort is even, unlabored. Derm: Skin is fragile, is thin, Skin is pink, warm \T\ dry. Musculoskeletal: Circulation, motion, and sensation intact. Range of motion: intact in all extremities. Injury Description: Laceration sustained to occipital area. Trauma Activation: Alert Physician: ED Physician; Name: Chon; Notified At: ; Arrived At: Physician: General Surgeon; Name: ; Notified At: ; Arrived At: Physician: Radiology; Name: ; Notified At: ; Arrived At: Physician: Respiratory; Name: ; Notified At: ; Arrived At: Physician: Lab; Name: ; Notified At: ; Arrived At: Historical: - Allergies: 18:24 Iodine; ph 18:24 Sulfa (Sulfonamide Antibiotics); ph - Home Meds: 18:24 Xarelto Oral [Active]; ph 19:48 albuterol sulfate 2.5 mg/0.5 mL Inhl nebu 0.5 mL [Active]; Bactrim DS 800-160 mg Oral kd3 tab [Active]; ferrous sulfate 325 mg (65 mg iron) Oral tab [Active]; gabapentin 300 mg Oral cap [Active]; lisinopril 20 mg Oral tab [Active]; metformin 500 mg Oral Tb24 1 tab 2 times per day [Active]; omeprazole 40 mg Oral cpDR [Active]; orphenadrine citrate 100 mg Oral TbER [Active]; - PMHx: 19:48 COLON CA; Diabetes - NIDDM; GERD; Hyperlipidemia; Hypertension; neuropathy; Migraines; kd3 Thyroid problem; Sleep Apnea; - Immunization history:: Adult Immunizations unknown. - Social history:: Smoking status: Patient denies any tobacco usage or history of. - Immunization history: Last tetanus immunization: unknown. Screenin:35 Abuse screen: Denies threats or abuse. Denies injuries from another. Nutritional ph screening: No deficits noted. Tuberculosis screening: No symptoms or risk factors identified. Fall Risk None identified. Primary Survey: 18:34 NO uncontrolled hemorrhage observed. A: The client is awake and alert. The airway is ph patent. The client is alert. No supplemental oxygen in use on arrival. Breathing/Chest: Respiratory effort: spontaneous, unlabored, Chest inspection: symmetrical rise and fall of the chest. Circulation: No external hemorrhage present. Regular and strong central pulse, skin warm/dry/normal color. Skin color: pink, Skin temperature: warm, dry. Disability Pupils are equal, round, reactive to light and accommodation. Client is alert. Exposure/Environment: Obvious injury(ies) are noted at this time: small hematoma and laceration to back of head. 19:47 Reassessment Alertness and Airway: Awake and alert. The airway is patent. Breathing: kd3 Spontaneous respiratory effort, equal unlabored respirations, breath sounds clear bilaterally, regular pattern with symmetrical chest rise and fall. Respiratory effort Spontaneous Breath sounds Clear Respiratory pattern Regular Chest inspection Symmetrical Circulation: No external hemorrhage noted. Regular and strong central pulse, skin warm/dry/normal color. Disability: Pupils Pupils are equal, round, reactive to light and accomodation. Secondary Survey: 18:36 HEENT: Head Other laceration and small hematoma to occipital area. Musculoskeletal: ph Circulation, motion, and sensation intact. Range of motion: intact in all extremities. Assessment: 18:33 General: Appears in no apparent distress. comfortable, well groomed, Behavior is calm, ph cooperative, appropriate for age. Pain: Complains of pain in head, neck and upper back. Neuro: Level of Consciousness is awake, alert, obeys commands, Oriented to person, place, time, situation. Cardiovascular: Capillary refill < 3 seconds in bilateral fingers Patient's skin is warm and dry. Respiratory: Airway is patent Respiratory effort is even, unlabored. Derm: Skin is fragile, is thin, Skin is pink, warm \T\ dry. Musculoskeletal: Circulation, motion, and sensation intact. Range of motion: intact in all extremities. Injury Description: Laceration sustained to occipital area. Vital Signs: 18:20 BP 160 / 76; Pulse 78; Resp 18; Temp 97.4; Pulse Ox 95% on R/A; Height 5 ft. 11 in. ph (180.34 cm); 20:14 BP 114 / 63; Pulse 73 MON; Resp 18 S; Pulse Ox 98% on R/A; as6 Brandon Coma Score: 18:36 Eye Response: spontaneous(4). Verbal Response: oriented(5). Motor Response: obeys ph commands(6). Total: 15. Trauma Score (Adult): 18:36 Eye Response: spontaneous(1); Verbal Response: oriented(1); Motor Response: obeys ph commands(2); Systolic BP: > 89 mm Hg(4); Respiratory Rate: 10 to 29 per min(4); Spencer Score: 15; Trauma Score: 12 ED Course: 18:20 Patient arrived in ED. ph 18:20 Kiet Schulte PA is PHCP. cp 18:20 Kiet Alvarado MD is Attending Physician. cp 18:24 Triage completed. ph 18:26 Arm band placed on Patient placed in an exam room, on a stretcher, on pulse oximetry. ph 18:33 Daniella Senior, RN is Primary Nurse. ph 18:38 Patient has correct armband on for positive identification. Bed in low position. Call ph light in reach. Pulse ox on. NIBP on. Door closed. Noise minimized. Warm blanket given. 18:38 Patient maintains SpO2 saturation greater than 95% on room air. Thermoregulation: warm ph blanket given to patient. 19:00 CT Traumagram (Head C Spine CAP wo con) In Process Unspecified. EDMS 20:27 No provider procedures requiring assistance completed. Patient did not have IV access as6 during this emergency room visit. Administered Medications: 19:47 Drug: Tylenol 650 mg Route: PO; kd3 20:35 Follow up: Response: No adverse reaction as6 19:57 Drug: Lidocaine-Epinephrine -1%: (1:100,000) 5 ml Volume: 20 ml; Route: Infiltration; kd3 20:35 Follow up: Response: No adverse reaction as6 Medication: 20:35 VIS not applicable for this client. as6 Intake: 18:36 PO: 0ml; Total: 0ml. ph Output: 18:36 Urine: 0ml; Total: 0ml. ph Outcome: 19:59 Discharge ordered by MD. cp 20:33 Discharged to home via wheelchair, with family. as6 20:33 Condition: stable 20:33 Discharge instructions given to patient, family, Instructed on discharge instructions, follow up and referral plans. Demonstrated understanding of instructions, follow-up care. 20:35 Patient's length of stay was not longer than 2 hours. as6 20:35 Patient left the ED. as6 Signatures: Dispatcher [employer] EDMO Daniella Senior, RN RN Kiet Valderrama PA PA cp Slawson, Ashby RN RN as6 Maris Aguilera RN RN kd3
--- NOTE | 2021-10-12 20:00 | EDPHYS ---
Physician Documentation [facility] Name: Kyung Quinones Age: 89 yrs Sex: Female : 1930 Arrival Date: 10/12/2021 Time: 18:20 Bed 3 Private MD: ED Physician Kiet Alvarado HPI: 10/12 18:40 This 89 yrs old Unknown Female presents to ER via EMS with complaints of Fall Injury. cp 18:40 Details of fall: The patient fell from an upright position, while walking, with use of cp walker. Onset: The symptoms/episode began/occurred just prior to arrival. Associated injuries: The patient sustained injury to the head, laceration, of the posterior scalp, neck injury, pain, upper back injury, pain, injury to the low back, pain. Patient reports she loss her balance and fell back striking back of head against box. No reported LOC. Historical: - Allergies: 18:24 Iodine; ph 18:24 Sulfa (Sulfonamide Antibiotics); ph - Home Meds: 18:24 Xarelto Oral [Active]; ph 19:48 albuterol sulfate 2.5 mg/0.5 mL Inhl nebu 0.5 mL [Active]; Bactrim DS 800-160 mg Oral kd3 tab [Active]; ferrous sulfate 325 mg (65 mg iron) Oral tab [Active]; gabapentin 300 mg Oral cap [Active]; lisinopril 20 mg Oral tab [Active]; metformin 500 mg Oral Tb24 1 tab 2 times per day [Active]; omeprazole 40 mg Oral cpDR [Active]; orphenadrine citrate 100 mg Oral TbER [Active]; - PMHx: 19:48 COLON CA; Diabetes - NIDDM; GERD; Hyperlipidemia; Hypertension; neuropathy; Migraines; kd3 Thyroid problem; Sleep Apnea; - Immunization history:: Adult Immunizations unknown. - Social history:: Smoking status: Patient denies any tobacco usage or history of. - Immunization history: Last tetanus immunization: unknown. ROS: 18:45 Constitutional: Negative for body aches, chills, fever, poor PO intake. cp 18:45 ENT: Negative for drainage from ear(s), ear pain, sore throat, difficulty swallowing, cp difficulty handling secretions. 18:45 Neck: Positive for pain with movement, Negative for stiffness. 18:45 Cardiovascular: Negative for chest pain. 18:45 Respiratory: Negative for cough, shortness of breath, wheezing. 18:45 Abdomen/GI: Negative for abdominal pain, vomiting, diarrhea, constipation. 18:45 Back: Positive for pain with movement. 18:45 MS/extremity: Negative for injury or acute deformity, decreased range of motion. 18:45 Neuro: Negative for altered mental status, headache, loss of consciousness, syncope, weakness. 18:45 All other systems are negative. Exam: 18:50 Constitutional: The patient appears in no acute distress, alert, awake, cp non-diaphoretic, non-toxic, well developed, well nourished. 18:50 Head/face: Noted is a laceration(s), that is linear, of the posterior scalp. cp 18:50 Eyes: Periorbital structures: appear normal, Pupils: equal, round, and reactive to light and accomodation, Extraocular movements: intact throughout, Sclera: no appreciated abnormality, Lids and lashes: appear normal, bilaterally. 18:50 ENT: External ear(s): are unremarkable, Ear canal(s): are normal, clear, TM's: dullness, bilaterally, Mouth: Lips: moist, Oral mucosa: moist, Posterior pharynx: Airway: no evidence of obstruction, patent. 18:50 Neck: C-spine: C-collar placed in ED. 18:50 Chest/axilla: Inspection: normal, Palpation: is normal, no crepitus, no tenderness. 18:50 Cardiovascular: Rate: normal. 18:50 Respiratory: the patient does not display signs of respiratory distress, Respirations: normal, no use of accessory muscles, no retractions, labored breathing, is not present, Breath sounds: are clear throughout, no decreased breath sounds, no stridor, no wheezing. 18:50 Abdomen/GI: Inspection: abdomen appears normal, Palpation: abdomen is soft and non-tender, in all quadrants. 18:50 Back: pain, that is mild, of the thoracic area, ROM is painful, with all movement, Straight leg raises: of both lower extremities does not illicit pain. 18:50 Musculoskeletal/extremity: Extremities: all appear grossly normal, with no appreciated pain with palpation. 18:50 Neuro: Orientation: to person, place \T\ time. Mentation: is normal, Sensation: no obvious gross deficits. Vital Signs: 18:20 BP 160 / 76; Pulse 78; Resp 18; Temp 97.4; Pulse Ox 95% on R/A; Height 5 ft. 11 in. ph (180.34 cm); 20:14 BP 114 / 63; Pulse 73 MON; Resp 18 S; Pulse Ox 98% on R/A; as6 Brandon Coma Score: 18:36 Eye Response: spontaneous(4). Verbal Response: oriented(5). Motor Response: obeys ph commands(6). Total: 15. Trauma Score (Adult): 18:36 Eye Response: spontaneous(1); Verbal Response: oriented(1); Motor Response: obeys ph commands(2); Systolic BP: > 89 mm Hg(4); Respiratory Rate: 10 to 29 per min(4); Blackstock Score: 15; Trauma Score: 12 Laceration: 19:58 Wound Repair of 3cm ( 1.2in ) subcutaneous laceration to scalp. Linear shaped.. Distal cp neuro/vascular/tendon intact. Anesthesia: Wound infiltrated with 3 mls of 1% lidocaine w/ Epi. Wound prep: Simple cleansing by nurse. Skin closed with 4 Custer using staple gun. Dressed with 4x4's, Kerlix. Patient tolerated well. MDM: 18:29 Patient medically screened. cp 19:58 Data reviewed: vital signs, nurses notes, radiologic studies, CT scan. cp 19:58 Differential diagnosis: closed head injury, contusion, fracture, laceration, multiple cp trauma. Counseling: I had a detailed discussion with the patient and/or guardian regarding: the historical points, exam findings, and any diagnostic results supporting the discharge/admit diagnosis, radiology results, the need for outpatient follow up, a family practitioner, to return to the emergency department if symptoms worsen or persist or if there are any questions or concerns that arise at home. Response to treatment: the patient's symptoms have markedly improved after treatment, and as a result, I will discharge patient. 10/12 18:30 Order name: CT Traumagram (Head C Spine CAP wo con); Complete Time: 19:14 cp 10/12 19:28 Order name: Wound Care: please clean and irrigate; Complete Time: 19:47 cp 10/12 19:28 [facility] to bedside; Complete Time: 19:47 cp 10/12 19:58 Order name: Wound dressing; Complete Time: 20:27 cp Administered Medications: 19:47 Drug: Tylenol 650 mg Route: PO; kd3 20:35 Follow up: Response: No adverse reaction as6 19:57 Drug: Lidocaine-Epinephrine -1%: (1:100,000) 5 ml Volume: 20 ml; Route: Infiltration; kd3 20:35 Follow up: Response: No adverse reaction as6 Disposition Summary: 10/12/21 19:59 Discharge Ordered Location: Home cp Problem: new cp Symptoms: have improved cp Condition: Stable cp Diagnosis - Laceration without foreign body of scalp cp Followup: cp - With: Private Physician - When: 1 week - Reason: Staple/Suture removal Discharge Instructions: - Discharge Summary Sheet cp - Head Injury, Adult cp - Sutures, Kelly, or Adhesive Wound Closure cp Forms: - Medication Reconciliation Form cp - Thank You Letter cp - Antibiotic Education cp - Prescription Opioid Use cp Signatures: Dispatcher [employer] Daniella Shepard RN RN Kiet Valderrama PA PA cp Edgar Benson RN RN as6 Maris Aguilera RN RN kd3
[2021-10-12 20:55] VITALS: TEMP 97.4
[2021-10-12 20:56] VITALS: BP 114/63; O2SAT 98
== END 2021-10-12 20:35 | disposition home or self-care (01) ==
LOC: ER 17:36
PROC: 0JQ00ZZ Repair Scalp Subcutaneous Tissue and Fascia, Open Approach (ICD-10-PCS; principal; 2021-10-12)
DX: S01.01XA Laceration without foreign body of scalp, initial encounter (principal); W01.0XXA Fall on same level from slipping, tripping and stumbling without subsequent striking against object, initial encounter; Y93.89 Activity, other specified; Y92.128 Other place in nursing home as the place of occurrence of the external cause; F03.90 Unspecified dementia, unspecified severity, without behavioral disturbance, psychotic disturbance, mood disturbance, and anxiety; R26.81 Unsteadiness on feet; Z91.09 Other allergy status, other than to drugs and biological substances; Z88.2 Allergy status to sulfonamides; E78.5 Hyperlipidemia, unspecified; I10 Essential (primary) hypertension; E07.9 Disorder of thyroid, unspecified; Z85.038 Personal history of other malignant neoplasm of large intestine; E11.9 Type 2 diabetes mellitus without complications; G43.909 Migraine, unspecified, not intractable, without status migrainosus
CPT/HCPCS: 70450; 71250; 72125; 99284